=== PATIENT | female | born 1960 | race Caucasian/White ===

== ENCOUNTER 2016-06-22 13:13 | Emergency (ER) | payer MEDICARE, MEDICAID ==
[~2016-06-22] VITALS: Ht 167.6 cm; Wt 68.0 kg
[~2016-06-22 13:13] MED LIST: AMLO5CAP40
[2016-06-22 13:21] VITALS: BP 133/56
[2016-06-22 14:34] LABS: Basophils # (auto) 0 uL; Basophils % (auto) 0.5 % (0.0-2.0); Eosinophils # (auto) 0 uL; Hematocrit 49.6 % (36.0-46.0); Hemoglobin 15.6 g/dL (12.2-16.2); Lymphocytes # (auto) 1.9 uL; Lymphocytes % (auto) 26.5 % (10.0-50.0); Mean Corpuscular Hemoglobin 28.3 pg (28.0-32.0); Mean Corpuscular Hgb Conc. 31.4 g/dL (32.0-36.0); Mean Corpuscular Volume 90.2 fL (80.0-100.0); Mean Platelet Volume 8.2 fL (7.4-10.4); Monocytes # (auto) 0.4 uL; Monocytes % (auto) 5.9 % (0.0-12.0); Neutrophils # (auto) 4.8 uL; Neutrophils % (auto) 67.1 % (37.0-80.0); Platelet Count (auto) 283 10^3/uL (140-450); Red Cell Distribution Width 14.1 % (11.6-16.0); White Blood Cell 7.1 10^3/uL (4.4-10.8)
[2016-06-22 14:46] LABS: Albumin 3.6 g/dL (3.4-5.0); BUN/Creatinine Ratio 19.6; Bilirubin, Total 0.3 mg/dL (0.2-1.0); Calcium 9.3 mg/dL (8.5-10.1); Magnesium 2.2 mg/dL (1.6-2.6); Potassium 4.5 mmol/L (3.5-5.1); Total Protein 7.5 g/dL (6.4-8.2)
== END 2016-06-22 15:01 | disposition left against medical advice (07) ==
LOC: EDUNIT# 13:13 → EDBD 13:13 → ER 13:22
DX: R07.9 Chest pain, unspecified (principal); Z53.21 Procedure and treatment not carried out due to patient leaving prior to being seen by health care provider
CPT/HCPCS: 36415; 71010; 80053; 83735; 84484; 85025; 93005

== ENCOUNTER 2017-10-12 11:26 | Emergency (ER) | payer MEDICARE, BC ==
[~2017-10-12] VITALS: Ht 165.1 cm; Wt 78.5 kg
[2017-10-12 11:41] VITALS: BP 192/104
[2017-10-12 12:38] LABS: Basophils # (auto) 0 uL; Basophils % (auto) 0.4 % (0.0-2.0); Eosinophils # (auto) 0 uL; Hematocrit 47.3 % (36.0-46.0); Hemoglobin 15.9 g/dL (12.2-16.2); Lymphocytes # (auto) 1.5 uL; Mean Corpuscular Hemoglobin 30.5 pg (28.0-32.0); Mean Corpuscular Hgb Conc. 33.6 g/dL (32.0-36.0); Mean Corpuscular Volume 90.6 fL (80.0-100.0); Monocytes # (auto) 0.5 uL; Monocytes % (auto) 6.3 % (0.0-12.0); Neutrophils # (auto) 5.3 uL; Neutrophils % (auto) 72.3 % (37.0-80.0); Nucleated Red Blood Cells % 0.2 %; Platelet Count (auto) 231 10^3/uL (140-450); Red Blood Cells 5.22 10^6/uL (4.0-5.20); White Blood Cell 7.4 10^3/uL (4.4-10.8)
[2017-10-12 12:55] LABS: Alanine Aminotransferase 18 U/L (13-56); Albumin 3.4 g/dL (3.4-5.0); Anion Gap 9 (5-15); Aspartate Aminotransferase 15 U/L (15-37); Blood Urea Nitrogen 11 mg/dL (7-18); Carbon Dioxide 23 mmol/L (21-32); Chloride 102 mmol/L (98-107); GFR African American 73 mL/min; GFR Non-African American 60 mL/min; Glucose 110 mg/dL (74-106); Magnesium 1.9 mg/dL (1.6-2.6); Potassium 4.6 mmol/L (3.5-5.1); Sodium 134 mmol/L (136-145)
[2017-10-12 13:00] LABS: Alkaline Phosphatase 98 U/L (45-117); Bilirubin, Total 0.4 mg/dL (0.2-1.0); Total Protein 7.7 g/dL (6.4-8.2)
[2017-10-12] MEDS ORDERED: ACETAMINOPHEN 325 MG TAB PO ONE (14:00)
[2017-10-12] MEDS ORDERED: ALPRAZolam 0.5 MG TAB PO ONE (14:00)
[2017-10-12] MEDS ORDERED: cloNIDine HCL 0.1 MG TAB PO ONE (14:00)
[2017-10-12] MEDS ORDERED: cloNIDine 0.1 mg/24hr 7 DAY PATCH TD ONE (14:00)
[2017-10-12] MEDS ORDERED: SODIUM CHLORIDE 0.9% 1,000 ML IV SCH (16:21)
[2017-10-12] MEDS ORDERED: ACETAMINOPHEN 500 MG TAB PO PRN (16:30)
[2017-10-12] MEDS ORDERED: TEMAZEPAM 15 MG CAP PO PRN (16:30)
[2017-10-12] MEDS ORDERED: LORazepam 0.5 MG TAB PO PRN (16:30)
[2017-10-12] MEDS ORDERED: LABETALOL HCL 5 MG/ML ML 20ML VIAL IV PRN ×2 (16:30)
[2017-10-12] MEDS ORDERED: NITROGLYCERIN 0.4 MG SL TAB SL PRN (16:30)
[2017-10-12] MEDS ORDERED: PROMETHAZINE HCL 25 MG/ML 1ML IV PRN (16:30)
[2017-10-12] MEDS ORDERED: HYDROcodone-ACET 5/325MG TAB PO PRN (16:30)
[2017-10-12] MEDS ORDERED: LACTULOSE 20Gm/30ML SOLN PO PRN (16:30)
[2017-10-12] MEDS ORDERED: MORPHINE SULFATE 8mg/ml INJ SDV IV PRN ×2 (16:30)
[2017-10-12] MEDS ORDERED: METOPROLOL TARTRATE 50 MG TAB PO SCH (16:30)
[2017-10-12] MEDS ORDERED: MORPHINE SULFATE 4 MG/ML SYR/VIAL IV PRN ×2 (16:30)
[2017-10-12 18:09] LABS: Urine Bacteria NONE SEEN /hpf (None Seen); Urine Blood Negative /uL (Negative); Urine Hyaline Cast FEW /lpf (0 - 2); Urine Mucus FEW (None Seen); Urine Specific Gravity 1.013 (1.001-1.035); Urine WBC 5 /hpf (0 - 5)
[2017-10-12 18:22] LABS: Alcohol, Urine < 3.0 mg/dL (0-5); Amphetamine Screen, Urine NEGATIVE (NEGATIVE); Barbiturate Scree,Urine NEGATIVE (NEGATIVE); Benzodiazephine Screen, Urine POSITIVE (NEGATIVE); Cannabinoid Screen, Urine NEGATIVE (NEGATIVE); Cocaine Screen, Urine NEGATIVE (NEGATIVE); Opiate Scree,Urine NEGATIVE (NEGATIVE); Phencyclidine Screen, Urine NEGATIVE (NEGATIVE)
[2017-10-12] MEDS ORDERED: ATORVASTATIN 20 MG TAB PO SCH (22:00)
[2017-10-13] MEDS ORDERED: ASPirin 81 mg TAB PO SCH (10:00)
[2017-10-13] MEDS ORDERED: NITROGLYCERIN 0.2MG/HR TOPICAL PATCH TD SCH (10:00)
[2017-10-13] MEDS ORDERED: PANTOPRAZOLE 40 MG TAB PO SCH (10:00)
[2017-10-13] MEDS ORDERED: METOPROLOL TARTRATE 25 MG TAB PO SCH (10:00)
== END 2017-10-12 17:58 | disposition left against medical advice (07) ==
LOC: ER 11:26 → TELE 11:27 → UNDOADMIN 11:27
DX: R07.89 Other chest pain (principal); I10 Essential (primary) hypertension; E06.3 Autoimmune thyroiditis; E78.5 Hyperlipidemia, unspecified; Z86.73 Personal history of transient ischemic attack (TIA), and cerebral infarction without residual deficits; Z88.1 Allergy status to other antibiotic agents
CPT/HCPCS: 36415; 71045; 80053; 80307; 81001; 82550; 83735; 84443; 84484; 85025; 85379; 85652; 86141; 93005

== ENCOUNTER 2019-10-31 22:47 | Emergency (ER) | payer MEDICARE, BC ==
[~2019-10-31] VITALS: Ht 167.6 cm; Wt 81.6 kg
[2019-10-31 23:34] LABS: Basophils # (auto) 0 10 ^3/uL (0-0.2); Basophils % (auto) 0.3 % (0.0-2.0); Eosinophils # (auto) 0 10 ^3/uL (0-0.8); Hematocrit 45.5 % (36.0-46.0); Hemoglobin 15.1 g/dL (12.2-16.2); Lymphocytes # (auto) 1.9 10 ^3/uL (0.4-5.4); Lymphocytes % (auto) 22.2 % (10.0-50.0); Mean Corpuscular Hemoglobin 29.5 pg (28.0-32.0); Mean Corpuscular Hgb Conc. 33.2 g/dL (32.0-36.0); Mean Corpuscular Volume 88.9 fL (80.0-100.0); Monocytes # (auto) 0.7 10 ^3/uL (0-1.3); Neutrophils # (auto) 5.9 10 ^3/uL (1.6-8.6); Neutrophils % (auto) 69.5 % (37.0-80.0); Nucleated Red Blood Cells % 0.2 %; Platelet Count (auto) 251 10^3/uL (140-450); Red Blood Cells 5.11 10^6/uL (4.0-5.20); Red Cell Distribution Width 14.1 % (11.8-14.3); White Blood Cell 8.5 10^3/uL (4.4-10.8)
[2019-11-01 00:32] LABS: INR 1.03 (0.9-1.15); Partial Thromboplastin Time 29.9 sec (23.64-32.05)
[2019-11-01 00:35] LABS: Albumin 3.2 g/dL (3.4-5.0); Calcium 8.6 mg/dL (8.5-10.1); Potassium 4.2 mmol/L (3.5-5.1)
[2019-11-01 00:39] LABS: Bilirubin, Total 0.5 mg/dL (0.2-1.0); Total Protein 7.1 g/dL (6.4-8.2)
[2019-11-01 02:24] VITALS: BP 155/69
== END 2019-11-01 02:01 | disposition home or self-care (01) ==
LOC: EDBD 22:47 → ER 22:47
DX: R07.89 Other chest pain (principal); F41.9 Anxiety disorder, unspecified; E03.9 Hypothyroidism, unspecified; I25.10 Atherosclerotic heart disease of native coronary artery without angina pectoris; E78.5 Hyperlipidemia, unspecified; I10 Essential (primary) hypertension; Z88.1 Allergy status to other antibiotic agents
CPT/HCPCS: 36415; 71045; 80053; 83880; 84443; 84484; 85025; 85379; 85610; 85730; 93005

== ENCOUNTER 2021-02-12 16:30 | Emergency (ER) | payer MEDICARE, BC ==
[~2021-02-12] VITALS: Ht 170.2 cm; Wt 77.1 kg
[2021-02-12 17:05] VITALS: BP 170/86
== END 2021-02-12 17:24 | disposition left against medical advice (07) ==
LOC: EDBD 16:30 → ER 16:34
DX: R07.89 Other chest pain (principal); I16.0 Hypertensive urgency; I10 Essential (primary) hypertension; E78.5 Hyperlipidemia, unspecified; I25.2 Old myocardial infarction
CPT/HCPCS: 93005

== ENCOUNTER 2021-11-30 15:54 | Emergency (ER) | payer BC, MEDICARE ==
[~2021-11-30] VITALS: Ht 160 cm; Wt 80.3 kg
[2021-11-30] MEDS ORDERED: SODIUM CHLORIDE 0.9% 1,000 ML IVB ONE (16:00)
[2021-11-30 16:18] VITALS: BP 162/93
[2021-11-30 16:36] LABS: Basophils # (auto) 0 10 ^3/uL (0-0.2); Basophils % (auto) 0.2 % (0.0-2.0); Eosinophils # (auto) 0 10 ^3/uL (0-0.8); Hematocrit 49.8 % (36.0-46.0); Hemoglobin 16.2 g/dL (12.2-16.2); Lymphocytes % (auto) 12.6 % (10.0-50.0); Mean Corpuscular Hemoglobin 29.2 pg (28.0-32.0); Mean Corpuscular Hgb Conc. 32.5 g/dL (32.0-36.0); Mean Corpuscular Volume 89.8 fL (80.0-100.0); Monocytes # (auto) 0.5 10 ^3/uL (0-1.3); Monocytes % (auto) 6.4 % (0.0-12.0); Neutrophils # (auto) 6.3 10 ^3/uL (1.6-8.6); Neutrophils % (auto) 80.8 % (37.0-80.0); Nucleated Red Blood Cells % 0.1 %; Red Blood Cells 5.54 10^6/uL (4.0-5.20); Red Cell Distribution Width 14.4 % (11.8-14.3); White Blood Cell 7.9 10^3/uL (4.4-10.8)
[2021-11-30 16:53] LABS: Alanine Aminotransferase 18 U/L (13-56); Albumin 3.5 g/dL (3.4-5.0); Anion Gap 9 (5-15); Aspartate Aminotransferase 15 U/L (15-37); BUN/Creatinine Ratio 9.3; Blood Alcohol < 3.0 mg/dL (0-5); Blood Urea Nitrogen 10 mg/dL (7-18); Carbon Dioxide 23 mmol/L (21-32); Chloride 104 mmol/L (98-107); GFR African American 67 mL/min; GFR Non-African American 55 mL/min; Glucose 142 mg/dL (74-106); Magnesium 2.3 mg/dL (1.6-2.6); Potassium 3.9 mmol/L (3.5-5.1); Sodium 136 mmol/L (136-145)
[2021-11-30 16:56] LABS: Alkaline Phosphatase 107 U/L (45-117); Bilirubin, Total 0.3 mg/dL (0.2-1.0); Total Protein 7.3 g/dL (6.4-8.2)
== END 2021-11-30 19:56 | disposition left against medical advice (07) ==
LOC: ER 15:54 → EDBD 15:54 → ER 19:56
DX: R53.1 Weakness (principal); I10 Essential (primary) hypertension; I25.2 Old myocardial infarction; E78.5 Hyperlipidemia, unspecified; Z88.1 Allergy status to other antibiotic agents; Z53.29 Procedure and treatment not carried out because of patient's decision for other reasons
CPT/HCPCS: 36415; 70450; 71045; 80053; 80320; 83605; 83735; 84484; 85025; 87040; 93005; 96360; 99285; J7030

== ENCOUNTER 2022-03-23 13:11 | Emergency (ER) | payer MEDICARE ==
[~2022-03-23] VITALS: Ht 165.1 cm; Wt 80.4 kg
[2022-03-23 13:21] VITALS: BP 193/75
[2022-03-23] MEDS ORDERED: SODIUM CHLORIDE 0.9% 1,000 ML IV ONE (13:30)
[2022-03-23 14:19] LABS: Albumin 3.5 g/dL (3.4-5.0); Calcium 8.9 mg/dL (8.5-10.1); Magnesium 2.2 mg/dL (1.6-2.6); Potassium 4.3 mmol/L (3.5-5.1)
[2022-03-23 14:23] LABS: Bilirubin, Total 0.9 mg/dL (0.2-1.0); Total Protein 6.8 g/dL (6.4-8.2)
== END 2022-03-23 16:16 | disposition left against medical advice (07) ==
LOC: ER 13:11 → EDBD 13:11 → ER 16:16
DX: R07.9 Chest pain, unspecified (principal); F41.9 Anxiety disorder, unspecified; I25.10 Atherosclerotic heart disease of native coronary artery without angina pectoris; F32.9 Major depressive disorder, single episode, unspecified; Z88.6 Allergy status to analgesic agent; Z88.8 Allergy status to other drugs, medicaments and biological substances
CPT/HCPCS: 36415; 71045; 80053; 83735; 83880; 84484; 85379; 93005

== ENCOUNTER 2023-04-11 12:01 | Emergency (ER) | payer MEDICARE ==
[~2023-04-11 12:01] MED LIST changes: +AMLO5CAP2; -AMLO5CAP40
== END 2023-04-11 13:00 | disposition left against medical advice (07) ==
LOC: ER 12:01
DX: R30.9 Painful micturition, unspecified (principal); Z53.21 Procedure and treatment not carried out due to patient leaving prior to being seen by health care provider

== ENCOUNTER 2024-02-01 23:13 | Inpatient (IN) | payer MEDICARE ==
[~2024-02-01] VITALS: Ht 157.5 cm; Wt 75.0 kg
[2024-02-01 23:25] VITALS: PULSE 111; RESP 21; O2SAT 96
[2024-02-01 23:51] LABS: Basophils # (auto) 0 10 ^3/uL (0-0.2); Basophils % (auto) 0.3 % (0.0-2.0); Eosinophils # (auto) 0 10 ^3/uL (0-0.8); Lymphocytes # (auto) 1.2 10 ^3/uL (0.4-5.4); Lymphocytes % (auto) 12.7 % (10.0-50.0); Mean Corpuscular Hemoglobin 31.3 pg (28.0-32.0); Monocytes # (auto) 0.9 10 ^3/uL (0-1.3); Monocytes % (auto) 9.3 % (0.0-12.0); Neutrophils # (auto) 7.1 10 ^3/uL (1.6-8.6); Neutrophils % (auto) 77.7 % (37.0-80.0); Platelet Count (auto) 327 10^3/uL (140-450); Red Blood Cells 5.76 10^6/uL (4.0-5.20); Red Cell Distribution Width 14.9 % (11.8-14.3); White Blood Cell 9.2 10^3/uL (4.4-10.8)
[2024-02-02 00:12] LABS: Alanine Aminotransferase 11 U/L (7-40); Alkaline Phosphatase 111 U/L (46-116); Calcium 10.5 mg/dL (8.7-10.4); Carbon Dioxide 20 mmol/L (20-30); Chloride 103 mmol/L (98-107)
[2024-02-02 00:13] LABS: Albumin 4.7 g/dL (3.2-4.8); Anion Gap 14 (5-15); Aspartate Aminotransferase 11 U/L (13-40); BUN/Creatinine Ratio 10.9 (10.0-20.0); Bilirubin, Total 0.6 mg/dL (0.2-1.0); Blood Urea Nitrogen 24 mg/dL (9-23); Glucose 123 mg/dL (74-106); Potassium 5.3 mmol/L (3.5-5.1); Sodium 137 mmol/L (136-145); Total Protein 7.8 g/dL (5.7-8.2)
[2024-02-02] MEDS: ONDANSETRON HCL 4 MG/2 ML VIAL IV ONE (00:38)
[2024-02-02] MEDS: LABETALOL HCL 20 MG/4 ML VL IV ONE ×2 (00:45→04:00)
[2024-02-02 05:50] LABS: Urine Bacteria None Seen /hpf (None Seen)
[2024-02-02 06:11] LABS: Urine Amorphous Crystal MOD /hpf (None Seen); Urine Blood 2+ /uL (Negative); Urine Clarity Ex.Turbid (Clear); Urine Color Dark-Brown (Yellow); Urine Protein, UAD 2+ (Negative); Urine Specific Gravity 1.008 (1.001-1.035); Urine Urobilinogen Normal (Negative); Urine WBC 4583 /hpf (0 - 5); Urine WBC Clumps PRESENT /hpf (None Seen)
[2024-02-02 07:44] VITALS: PULSE 90; RESP 18; O2SAT 98
[2024-02-02] MEDS: cefTRIAXone 1GM/50ML D5W 50 ML IV ONE ×2 (15:21→18:50)
[2024-02-02] MEDS: SODIUM CHLORIDE 0.9% 1,000 ML IV ONE (15:21)
[2024-02-02] MEDS: cloNIDine HCL 0.1 MG TAB PO ONE (16:56)
[2024-02-02 17:27] VITALS: PULSE 102; RESP 19; O2SAT 95
[2024-02-02] MEDS ORDERED: NITROGLYCERIN 0.4 MG SL TAB SL PRN (18:00)
[2024-02-02] MEDS ORDERED: ONDANSETRON HCL 4 MG/2 ML VIAL IV PRN ×2 (18:00)
[2024-02-02] MEDS ORDERED: DOCUSATE SOD 100 MG CAP PO PRN (18:00)
[2024-02-02] MEDS ORDERED: ACETAMINOPHEN 325 MG TAB PO PRN (18:00)
[2024-02-02] MEDS ORDERED: SODIUM CHLORIDE 0.9% 2,000 ML IV ONE (18:00)
[2024-02-02] MEDS: SODIUM CHLORIDE 0.9% 1,000 ML IV SCH (18:51)
[2024-02-02] MEDS: THYROID 60 MG TAB PO ONE (18:51)
[2024-02-02] MEDS: ENOXAPARIN SOD 30 MG/0.3 ML SYRINGE SC ONE (18:54)
[2024-02-02] MEDS: hydrALAZINE HCL 20 MG/ML VL IV PRN (18:56)
[2024-02-02 19:38] LABS: Creatinine, Urine 69.24 mg/dL (30.0-125.0)
[2024-02-02 20:07] LABS: INR 1.07 (0.9-1.15); Prothrombin Time 11.3 sec (9.3-11.8)
[2024-02-02] MEDS: ATORVASTATIN 20 MG TAB PO SCH (22:00)
[2024-02-02] MEDS: METOPROLOL TARTRATE 25 MG TAB PO SCH (22:00)
[2024-02-03] VITALS (9 sets, daily range): BP systolic 142–198; BP diastolic 57–98; PULSE 63–135; RESP 16–19; TEMP 97.6–99.1; O2SAT 93–98
[2024-02-03] MEDS: THYROID 60 MG TAB PO SCH (07:01)
[2024-02-03 08:26] LABS: Hematocrit 43.4 % (36.0-46.0); Hemoglobin 14.6 g/dL (12.2-16.2); Mean Corpuscular Hemoglobin 31.2 pg (28.0-32.0); Mean Corpuscular Hgb Conc. 33.6 g/dL (32.0-36.0); Mean Corpuscular Volume 92.8 fL (80.0-100.0); Platelet Count (auto) 235 10^3/uL (140-450); Red Blood Cells 4.67 10^6/uL (4.0-5.20); White Blood Cell 5.4 10^3/uL (4.4-10.8)
[2024-02-03 08:34] LABS: Band Neutrophils % (manual) 0; Basophils % (manual) 0 (0.0-2.0); Blast Cells 0; Eosinophils % (manual) 0 (0-7); Metamyelocytes % 0; Myelocytes % 0; Promyelocytes % 0; Reactive Lymphocytes 0
[2024-02-03 08:42] LABS: Alanine Aminotransferase 15 U/L (7-40); Albumin 3.4 g/dL (3.2-4.8); Alkaline Phosphatase 72 U/L (46-116); Anion Gap 8 (5-15); Aspartate Aminotransferase 14 U/L (13-40); BUN/Creatinine Ratio 16.5 (10.0-20.0); Bilirubin, Total 0.5 mg/dL (0.2-1.0); Blood Urea Nitrogen 21 mg/dL (9-23); Calcium 8.1 mg/dL (8.7-10.4); Carbon Dioxide 21 mmol/L (20-30); Cholesterol 192 mg/dL (< 200); Glucose 96 mg/dL (74-106); HDL Cholesterol 31 mg/dL (40-59); LDL Cholesterol 143 mg/dL (< 100); Potassium 3.8 mmol/L (3.5-5.1); Sodium 143 mmol/L (136-145); Total Protein 5.3 g/dL (5.7-8.2); Triglycerides 132 mg/dL (< 150)
[2024-02-03 08:43] LABS: Chloride 114 mmol/L (98-107)
[2024-02-03] MEDS ORDERED: NIFE1TAB31 PO (09:43)
[2024-02-03] MEDS ORDERED: CLON0.1T PO (09:44)
[2024-02-03] MEDS ORDERED: THYR30TA PO (09:45)
[2024-02-03] MEDS: cefTRIAXone 1GM/50ML D5W 50 ML IV SCH (09:58)
[2024-02-03] MEDS: DOCUSATE SOD 100 MG CAP PO SCH (09:58)
[2024-02-03] MEDS: ASPirin 81 mg TAB PO SCH (09:58)
[2024-02-03] MEDS: ENOXAPARIN SOD 30 MG/0.3 ML SYRINGE SC SCH (09:59)
[2024-02-03 11:51] LABS: Lymphocytes % (manual) 32 (10.0-50.0); Monocytes % (manual) 14 (0-12); Platelet Estimate Adequate
[2024-02-03] MEDS: NIFEdipine ER 30 MG TAB PO ONE ×2 (12:35→14:04)
[2024-02-03] MEDS ORDERED: METOPROLOL TARTRATE 25 MG TAB PO ONE (13:00)
[2024-02-03] MEDS ORDERED: LEVOTHYROXINE SODIUM 25 MCG TAB PO ONE (13:30)
[2024-02-03] MEDS: LEVOTHYROXINE SODIUM 100 MCG/5 ML INJ IV ONE (14:04)
[2024-02-03] MEDS: MORPHINE SULFATE INJ 2 MG/ml SYRG IV PRN (18:39)
[2024-02-03] MEDS: CARVEDILOL 12.5 MG TAB PO SCH (21:34)
[2024-02-03] MEDS ORDERED: METOPROLOL TARTRATE 50 MG TAB PO SCH (22:00)
[2024-02-04] VITALS (7 sets, daily range): BP systolic 96–154; BP diastolic 43–67; PULSE 69–99; RESP 17–20; TEMP 97.6–98.7; O2SAT 95–97
[2024-02-04] MEDS: NITROGLYCERIN 0.4 MG SL TAB SL PRN (02:45)
[2024-02-04] MEDS: LEVOTHYROXINE SODIUM 25 MCG TAB PO SCH (06:00)
[2024-02-04] MEDS: LEVOTHYROXINE SODIUM 100 MCG/5 ML INJ IV SCH (08:27)
[2024-02-04] MEDS: NIFEdipine ER 30 MG TAB PO SCH ×2 (08:28→16:15)
[2024-02-04] MEDS ORDERED: NIFEdipine ER 30 MG TAB PO SCH (10:00)
[2024-02-04 10:46] LABS: Basophils # (auto) 0 10 ^3/uL (0-0.2); Basophils % (auto) 0.1 % (0.0-2.0); Eosinophils # (auto) 0 10 ^3/uL (0-0.8); Hemoglobin 14.9 g/dL (12.2-16.2); Lymphocytes # (auto) 0.8 10 ^3/uL (0.4-5.4); Lymphocytes % (auto) 19.3 % (10.0-50.0); Monocytes # (auto) 0.3 10 ^3/uL (0-1.3); Monocytes % (auto) 7.1 % (0.0-12.0); Neutrophils # (auto) 3.2 10 ^3/uL (1.6-8.6); Neutrophils % (auto) 73.5 % (37.0-80.0); Platelet Count (auto) 222 10^3/uL (140-450); Red Blood Cells 4.79 10^6/uL (4.0-5.20); Red Cell Distribution Width 14.9 % (11.8-14.3); White Blood Cell 4.3 10^3/uL (4.4-10.8)
[2024-02-04 11:06] LABS: Chloride 109 mmol/L (98-107); Potassium 4.5 mmol/L (3.5-5.1); Sodium 136 mmol/L (136-145)
[2024-02-04 11:07] LABS: Anion Gap 14 (5-15); Calcium 8.8 mg/dL (8.7-10.4); Carbon Dioxide 13 mmol/L (20-30)
[2024-02-04 11:12] LABS: BUN/Creatinine Ratio 17.2 (10.0-20.0); Blood Urea Nitrogen 17 mg/dL (9-23); Glucose 166 mg/dL (74-106)
[2024-02-04] MEDS: CARVEDILOL 12.5 MG TAB PO SCH (16:15)
[2024-02-05 07:34] VITALS: PULSE 86; RESP 20; O2SAT 97
[2024-02-05 08:00] VITALS: PULSE 80
[2024-02-05] MEDS: ENOXAPARIN SOD 40 MG/0.4 ML SYRINGE SC SCH (08:07)
[2024-02-05 09:31] VITALS: BP 114/67; PULSE 80; RESP 16; TEMP 98.5; O2SAT 96
[2024-02-05 12:01] VITALS: BP 135/59; PULSE 76; RESP 16; TEMP 98.5; O2SAT 95
[2024-02-05 16:07] VITALS: BP 147/61; PULSE 84; RESP 16; TEMP 98.5; O2SAT 95
[2024-02-05 20:00] VITALS: PULSE 80; PULSE 92; RESP 18; O2SAT 95
[2024-02-06] MEDS: MELATONIN 5 MG TAB PO ONE (01:18)
[2024-02-06 08:00] VITALS: PULSE 77
[2024-02-06 08:42] VITALS: BP 138/55; PULSE 80; RESP 16; TEMP 97.6; O2SAT 94
[2024-02-06 13:00] VITALS: BP 157/64; PULSE 84; RESP 17; TEMP 98.1; O2SAT 97
[2024-02-06] MEDS ORDERED: CIPR-173 PO (14:30)
[2024-02-06] MEDS ORDERED: LEVO-848 PO (14:36)
[2024-02-06] MEDS ORDERED: LEVO-849 PO (14:36)
[2024-02-06 17:07] VITALS: BP 183/85; PULSE 87; RESP 17; TEMP 98.6; O2SAT 94
[2024-02-07] MEDS ORDERED: NIFE1TAB31 (21:25)
== END 2024-02-06 17:45 | disposition home or self-care (01) | DRG 871 ==
LOC: ER 23:13 → EDUNIT# 23:13 → EDBD 23:13 → TELE 02-02 17:59 → TELE-WESTW 02-02 23:55
PROVIDERS: ADMIT Nurse Practitioner Family; ATTEND Family Medicine
DX: A41.9 Sepsis, unspecified organism (principal); I21.A1 Myocardial infarction type 2; N17.0 Acute kidney failure with tubular necrosis; I16.1 Hypertensive emergency; I50.32 Chronic diastolic (congestive) heart failure; N10 Acute pyelonephritis; Z59.01 Sheltered homelessness; E86.0 Dehydration; E87.5 Hyperkalemia; I25.10 Atherosclerotic heart disease of native coronary artery without angina pectoris; F41.9 Anxiety disorder, unspecified; F32.A Depression, unspecified; J33.9 Nasal polyp, unspecified; E03.9 Hypothyroidism, unspecified; E78.00 Pure hypercholesterolemia, unspecified; I11.0 Hypertensive heart disease with heart failure; Z82.0 Family history of epilepsy and other diseases of the nervous system; Z91.199 Patient's noncompliance with other medical treatment and regimen due to unspecified reason; Z79.899 Other long term (current) drug therapy; Z82.49 Family history of ischemic heart disease and other diseases of the circulatory system
CPT/HCPCS: 36415; 70450; 74176; 76775; 80048; 80053; 80061; 81001; 82570; 83605; 83735; 83880; 84300; 84443; 84484; 85007; 85025; 85027; 85610; 87040; 87086; 93005; 93306; G0378; J2405; J3490

== ENCOUNTER 2024-04-22 14:06 | Emergency (ER) | payer MEDICARE ==
[~2024-04-22] VITALS: Ht 170.2 cm; Wt 72.7 kg
[~2024-04-22 14:06] MED LIST changes: -AMLO5CAP2; +ATOR20TA50 PO; +CLON0.1T PO; +FLUT1SPR5; +MUPI2CRE17 EX; +NIFE1TAB31 PO; +THYR30TA PO
[2024-04-22 15:28] LABS: Urine Bacteria None Seen /hpf (None Seen)
[2024-04-22 15:37] LABS: Urine Blood 1+ /uL (Negative); Urine Clarity Turbid (Clear); Urine Color Colorless (Yellow); Urine Protein, UAD Negative (Negative); Urine Specific Gravity 1.006 (1.001-1.035); Urine Urobilinogen Normal (Negative); Urine WBC 1018 /hpf (0 - 5); Urine WBC Clumps PRESENT /hpf (None Seen)
[2024-04-22 15:59] LABS: Basophils # (auto) 0 10 ^3/uL (0-0.2); Basophils % (auto) 0.5 % (0.0-2.0); Eosinophils # (auto) 0 10 ^3/uL (0-0.8); Hematocrit 43.6 % (36.0-46.0); Hemoglobin 14.6 g/dL (12.2-16.2); Lymphocytes # (auto) 2.1 10 ^3/uL (0.4-5.4); Lymphocytes % (auto) 28.4 % (10.0-50.0); Mean Corpuscular Hemoglobin 31.3 pg (28.0-32.0); Mean Corpuscular Hgb Conc. 33.5 g/dL (32.0-36.0); Mean Corpuscular Volume 93.6 fL (80.0-100.0); Monocytes # (auto) 0.5 10 ^3/uL (0-1.3); Monocytes % (auto) 7.4 % (0.0-12.0); Neutrophils # (auto) 4.7 10 ^3/uL (1.6-8.6); Neutrophils % (auto) 63.7 % (37.0-80.0); Nucleated Red Blood Cells % 0.2 %; Platelet Count (auto) 274 10^3/uL (140-450); Red Blood Cells 4.66 10^6/uL (4.0-5.20); Red Cell Distribution Width 13.8 % (11.8-14.3); White Blood Cell 7.4 10^3/uL (4.4-10.8)
--- NOTE | 2024-04-22 16:02 | ED.PDOC ---
General HPI Comments 63Y F with PMHx HTN, HLD, AL, CAD, thyroid disease, UTI, endometriosis, depression, and anxiety presents to ED via EMS for chief complaint dysuria. Pt states she had tan catheter in place but it fell out. Pt does not know when the tan catheter fell out but states that it was leaking beforehand. Pt denies all other symptoms. No known drug allergies. Chief Complaint: Urinary Time Seen by MD: 15:17 Primary Care Provider: JODI Corey notes: Medications, Allergies Allergies: Coded Allergies: NO KNOWN ALLERGIES (Unverified , 02/02/24) Home Meds Active Scripts Mupirocin Calcium (Topical) (MUPIROCIN) 2 % Cre, 2 % EX TID for 5 Days, #1 CRE Prov:DENILSON MELGOZA MD 02/13/24 Fluticasone Propionate (Nasal) (Flonase Allergy Relief) 50 Mcg/Act Spr, 50 MCG NA BID for 30 Days, #1 SPRAY 0 Refills Prov:DENILSON MELGOZA MD 02/13/24 Atorvastatin Calcium (ATORVASTATIN CALCIUM) 20 Mg Tab, 40 MG PO HS for 30 Days, #60 TAB 0 Refills Prov:DENILSON MELGOZA MD 02/13/24 Reported Medications Thyroid (Guin Thyroid) 30 Mg Tab, 1 TAB PO DAILY, #90 TAB 3 Refills 02/03/24 Clonidine Hydrochloride (Clonidine Hcl) 0.1 Mg Tab, 0.1 MG PO TID, TAB 02/03/24 Nifedipine (Nifedipine Er) 30 Mg Tab, 30 MG PO BID, TAB 02/03/24 Information Source: Patient Mode of Arrival: EMS Brought in by: EMS Severity: Mild Inability to void: None Timing: Days Duration: Since onset Prehospital treatment: None Onset: Spontaneous Symptoms: Dysuria History of: UTI Location: None Modifying factors: None associated signs and symptoms: Dysuria Past Medical History PAST MEDICAL HISTORY: Anxiety, CAD, Depression, High Lipids, HTN, AL, Thyroid, UTI'S Surgical History: Denies all surgeries 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 Family History Family History: Reviewed,noncontributory to illness, Family hx of heart lee Family History (Other): Family hx of Alzheimer's and multiple sclerosis Social History Smoker: Non-Smoker Alcohol: Denies ETOH Use Drugs: Denies Drug Use Lives In: Home Constitutional: denies: chills, diaphoresis, fatigue, fever, malaise, sweats, weakness, others EENTM: denies: blurred vision, double vision, ear bleeding, ear discharge, ear drainage, ear pain, ear ringing, eye pain, eye redness, hearing loss, mouth pain, mouth swelling, nasal discharge, nose bleeding, nose congestion, nose pain, photophobia, tearing, throat pain, throat swelling, voice changes, others Respiratory: denies: cough, hemoptysis, orthopnea, SOB at rest, shortness of breath, SOB with excertion, stridor, wheezing, others Cardiovascular: denies: chest pain, dizzy spells, diaphoresis, Dyspnea on exertion, edema, irregular heart beat, left arm pain, lightheadedness, palpitations, PND, syncope, others Gastrointestinal: denies: abdomen distended, abdominal pain, blood streaked bowels, constipated, diarrhea, dysphagia, difficulty swallowing, hematemesis, melena, nausea, poor appetite, poor fluid intake, rectal bleeding, rectal pain, vomiting, others Genitourinary: reports: dysuria; denies: abnormal vagina bleeding, burning, dyspareunia, flank pain, frequency, hematuria, incontinence, pain, , vagina discharge, urgency, others Neurological: denies: dizziness, fainting, headache, left sided numbness, left sided weakness, numbness, paresthesia, pre-existing deficit, right sided numbness, right sided weakness, seizure, speech problems, tingling, tremors, weakness, others Musculoskeletal: denies: back pain, gout, joint pain, joint swelling, muscle pain, muscle stiffness, neck pain, others Integumetry: denies: bruises, change in color, change in hair/nails, dryness, laceration, lesions, lumps, rash, wounds, others Allergic/Immunocompromised: denies: Difficulty Healing, Frequent Infections, Hives, Itching, others Hematologic/Lymphatic: denies: anemia, blood clots, easy bleeding, easy bruising, swollen glands, others Endocrine: denies: excessive hunger, excessive sweating, excessive thirst, excessive urination, flushing, intolerance to cold, intolerance to heat, unexplained weight gain, unexplained weight loss, others Psychiatric: denies: anxiety, bipolar disorder, depression, hopeless, panic disorder, schizophrenia, sleepless, suicidal, others All Other Systems: Reviewed and Negative Physical Exam General Appearance: No Apparent Distress, Normal HEENT: Normal ENT Inspection, Pharynx Normal, TMs Normal Neck: Full Range of Motion, Non-Tender, Normal, Normal Inspection Respiratory: Chest Non-Tender, Lungs Clear, No Accessory Muscle Use, No Respiratory Distress, Normal Breath Sounds Cardiovascular: No Edema, No JVD, No Murmur, No Gallop, Normal Peripheral Pulses, Regular Rate/Rhythm Breast Exam: Deferred Gastrointestinal: No Organomegaly, Non Tender, No Pulsatile Mass, Normal Bowel Sounds, Soft Genitalia: Deferred Pelvic: Deferred Rectal: Deferred Extremities: No calf tenderness, Normal capillary refill, Normal inspection, Normal range of motion, Non-tender, No pedal edema Musculoskeletal : Apperance: Normal Neurologic: Alert, associate professor of pathology 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 Was a procedure done?: No Differential Diagnosis Kidney stone (Female): Urinary obstruction Kidney stone (Male): N/A Penile/Scrotal: N/A Urinary Problem (Male): N/A X-Ray, Labs, Meds, VS Vital Signs Date Time Temp Pulse Resp B/P (MAP) Pulse Ox O2 Delivery O2 Flow Rate FiO2 04/22/24 14:10 98.5 72 16 132/75 (94) 99 Lab Test 04/22/24 15:32 04/22/24 15:14 Range/Units White Blood Count 7.4 4.4-10.8 10^3/uL Red Blood Count 4.66 4.0-5.20 10^6/uL Hemoglobin 14.6 12.2-16.2 g/dL Hematocrit 43.6 36.0-46.0 % Mean Corpuscular Volume 93.6 80.0-100.0 fL Mean Corpuscular Hemoglobin 31.3 28.0-32.0 pg Mean Corpuscular Hemoglobin Concent 33.5 32.0-36.0 g/dL Red Cell Distribution Width 13.8 11.8-14.3 % Platelet Count 274 140-450 10^3/uL Mean Platelet Volume 7.6 6.9-10.8 fL Neutrophils (%) (Auto) 63.7 37.0-80.0 % Lymphocytes (%) (Auto) 28.4 10.0-50.0 % Monocytes (%) (Auto) 7.4 0.0-12.0 % Eosinophils (%) (Auto) 0.0 0.0-7.0 % Basophils (%) (Auto) 0.5 0.0-2.0 % Neutrophils # (Auto) 4.7 1.6-8.6 10 ^3/uL Lymphocytes # (Auto) 2.1 0.4-5.4 10 ^3/uL Monocytes # (Auto) 0.5 0-1.3 10 ^3/uL Eosinophils # (Auto) 0 0-0.8 10 ^3/uL Basophils # (Auto) 0 0-0.2 10 ^3/uL Nucleated Red Blood Cells 0.2 % Sodium Level 138 136-145 mmol/L Potassium Level 4.4 3.5-5.1 mmol/L Chloride Level 103 98-107 mmol/L Carbon Dioxide Level 25 20-31 mmol/L Anion Gap 10 5-15 Blood Urea Nitrogen 9 9-23 mg/dL Creatinine 0.93 0.550-1.02 mg/dL Glomerular Filtration Rate Calc 68 >90 mL/min BUN/Creatinine Ratio 9.7 L 10.0-20.0 Serum Glucose 110 H 74-106 mg/dL Calcium Level 10.1 8.7-10.4 mg/dL Urine Color Colorless Yellow Urine Clarity Turbid H Clear Urine pH 6.0 5.0-9.0 Urine Specific Flora 1.006 1.001-1.035 Urine Protein Negative Negative Urine Ketones Negative Negative Urine Blood 1+ H Negative /uL Urine Nitrite Negative Negative Urine Bilirubin Negative Negative Urine Urobilinogen Normal Negative mg/dL Urine Leukocyte Esterase 3+ Negative /uL Urine RBC 2 0 - 4 /hpf Urine WBC 1018 0 - 5 /hpf Urine WBC Clumps Present None Seen /hpf Urine Squamous Epithelial Cells None seen <5 /hpf Urine Bacteria None seen None Seen /hpf Urine Glucose Normal Normal mg/dL Time of 1ST Reevaluation: 15:47 Reevaluation 1ST: Unchanged Patient Education/Counseling: Diagnosis, Treatment Family Education/Counseling: No Family Present Departure 1 Departure Time of Disposition: 17:34 (Patient is urinating normally she does have some white blood cells in her urine. We will discharge patient with antibiotics for urinary tract infection.) Impression: Primary Impression: Acute cystitis Qualified Codes: N30.00 - Acute cystitis without hematuria Disposition: HOME / SELF CARE / HOMELESS Condition: Stable Additional Instructions: You have a urinary tract infection. Your prescribed antibiotics. Please take as directed. You can take Tylenol Motrin as needed for pain. It is important that he follow up with the regular doctor within 1 week to ensure you are doing better. If your symptoms worsen or you have any other concerns then please return to the emergency room. e-Prescriptions Cefdinir (Cefdinir) 300 Mg Cap 1 CAP PO BID for 7 Days, #14 CAP Prov: VIOLET WOLFE MD 04/22/24 Discharged With: Self Critical Care Note Critical Care Time?: No Stability Stability form required: No Heart Score Heart Score: Heart Score Response (Comments) Value History N/A 0 EKG N/A 0 Age N/A 0 Risk Factors N/A 0 Troponin N/A 0 Total 0 I personally scribed for VIOLET WOLFE MD ([email or web address]) on 04/22/24 at 16:02. Electronically submitted by Cristiana Bowens ([email or web address]). VIOLET WOLFE MD Apr 22, 2024 16:02
[2024-04-22 16:07] LABS: Chloride 103 mmol/L (98-107); Potassium 4.4 mmol/L (3.5-5.1); Sodium 138 mmol/L (136-145)
[2024-04-22 16:08] LABS: Anion Gap 10 (5-15); Carbon Dioxide 25 mmol/L (20-31)
[2024-04-22 16:09] LABS: Calcium 10.1 mg/dL (8.7-10.4)
[2024-04-22 16:14] LABS: BUN/Creatinine Ratio 9.7 (10.0-20.0)
[2024-04-22 16:17] LABS: Blood Urea Nitrogen 9 mg/dL (9-23); Glucose 110 mg/dL (74-106)
[2024-04-22] MEDS ORDERED: CEFD300C2 PO (17:34)
[2024-04-22] MEDS ORDERED: AMOXICILLIN/CLAVUL 875 MG TAB PO ONE (17:45)
[2024-04-22 18:00] VITALS: BP 160/89; PULSE 87; RESP 16; O2SAT 98
== END 2024-04-22 18:09 | disposition home or self-care (01) ==
LOC: ER 14:06 → EDUNIT# 14:06 → EDBD 14:06 → ER 18:08
DX: N30.00 Acute cystitis without hematuria (principal); I10 Essential (primary) hypertension; E07.9 Disorder of thyroid, unspecified; E78.5 Hyperlipidemia, unspecified; I25.2 Old myocardial infarction; F41.9 Anxiety disorder, unspecified; F32.A Depression, unspecified; I25.10 Atherosclerotic heart disease of native coronary artery without angina pectoris; Z79.890 Hormone replacement therapy; Z87.440 Personal history of urinary (tract) infections; Z79.899 Other long term (current) drug therapy; Z98.890 Other specified postprocedural states
CPT/HCPCS: 36415; 80048; 81001; 85025

== ENCOUNTER 2024-06-04 10:43 | Emergency (ER) | payer BC, MEDICARE ==
[~2024-06-04] VITALS: Ht 160 cm; Wt 70.0 kg
[~2024-06-04 10:43] MED LIST changes: +CEFD300C2 PO
--- NOTE | 2024-06-04 10:54 | ECG ---
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
--- NOTE | 2024-06-04 11:22 | DVH ---
EXAM: XY CHEST PORTABLE Indication: CP Technique: Single frontal view of the chest was obtained Comparison: XY CHEST PORTABLE on DOS: 02/12/24, CHEST PORTABLE on DOS: 03/23/22, CXRP on DOS: 03/23/22, EKG on DOS: 03/23/22, EKG on DOS: 03/23/22 FINDINGS: Lines and Tubes: None Lungs: No focal consolidation. Pleura: No effusion. No pneumothorax. Cardiomediastinal contours: Unremarkable Bones: No acute osseous abnormality. IMPRESSION: No acute cardiopulmonary disease.
[2024-06-04 11:44] LABS: Basophils # (auto) 0 10 ^3/uL (0-0.2); Basophils % (auto) 0.3 % (0.0-2.0); Eosinophils # (auto) 0 10 ^3/uL (0-0.8); Hematocrit 50.2 % (36.0-46.0); Hemoglobin 16.5 g/dL (12.2-16.2); Lymphocytes # (auto) 2.1 10 ^3/uL (0.4-5.4); Lymphocytes % (auto) 28.8 % (10.0-50.0); Mean Corpuscular Hemoglobin 30.2 pg (28.0-32.0); Mean Corpuscular Hgb Conc. 32.8 g/dL (32.0-36.0); Mean Corpuscular Volume 92.3 fL (80.0-100.0); Monocytes # (auto) 0.6 10 ^3/uL (0-1.3); Monocytes % (auto) 8.6 % (0.0-12.0); Neutrophils # (auto) 4.6 10 ^3/uL (1.6-8.6); Neutrophils % (auto) 62.3 % (37.0-80.0); Nucleated Red Blood Cells % 0.1 %; Platelet Count (auto) 238 10^3/uL (140-450); Red Blood Cells 5.44 10^6/uL (4.0-5.20); Red Cell Distribution Width 13.4 % (11.8-14.3); White Blood Cell 7.4 10^3/uL (4.4-10.8)
[2024-06-04 12:05] LABS: Alanine Aminotransferase 15 U/L (7-40); Albumin 4.5 g/dL (3.2-4.8); Alkaline Phosphatase 113 U/L (46-116); Anion Gap 8 (5-15); Aspartate Aminotransferase 15 U/L (13-40); BUN/Creatinine Ratio 13.4 (10.0-20.0); Bilirubin, Total 0.3 mg/dL (0.2-1.0); Blood Urea Nitrogen 15 mg/dL (9-23); Calcium 10.3 mg/dL (8.7-10.4); Carbon Dioxide 28 mmol/L (20-31); Chloride 107 mmol/L (98-107); Glucose 93 mg/dL (74-106); Potassium 4.6 mmol/L (3.5-5.1); Sodium 143 mmol/L (136-145)
[2024-06-04 12:30] VITALS: PULSE 85; RESP 18; TEMP 97.4; O2SAT 93
--- NOTE | 2024-06-04 12:38 | ED.PDOC ---
HPI Comments 63 y.o female with PMHx of AL, hyperlipidemia, HTN, CAD, anxiety and thyroid disease, presents to the ED for a chief complaint of substernal chest pain that started earlier today. Patient reports having a panic attack which presented with chest pain,describes as sharp, non radiating and intermittent. Patient is unsure how long her symptoms lasted but are frequent when she is anxious. Patient also reports running out of her Nifedipine 30mg and is looking to refill medication. She denies any other symptoms or pain at this time. Chief Complaint: Chest Pain Time Seen by MD: 12:27 Primary Care Provider: unknown Reviewed Notes: Nurses Notes, Medications, Allergies Allergies: Coded Allergies: NO KNOWN ALLERGIES (Unverified , 02/02/24) Home Meds Active Scripts Cefdinir (Cefdinir) 300 Mg Cap, 1 CAP PO BID for 7 Days, #14 CAP Prov:VIOLET WOLFE MD 04/22/24 Mupirocin Calcium (Topical) (MUPIROCIN) 2 % Cre, 2 % EX TID for 5 Days, #1 CRE Prov:DENILSON MELGOZA MD 02/13/24 Fluticasone Propionate (Nasal) (Flonase Allergy Relief) 50 Mcg/Act Spr, 50 MCG NA BID for 30 Days, #1 SPRAY 0 Refills Prov:DENILSON MELGOZA MD 02/13/24 Atorvastatin Calcium (ATORVASTATIN CALCIUM) 20 Mg Tab, 40 MG PO HS for 30 Days, #60 TAB 0 Refills Prov:DENILSON MELGOZA MD 02/13/24 Reported Medications Thyroid (Carey Thyroid) 30 Mg Tab, 1 TAB PO DAILY, #90 TAB 3 Refills 02/03/24 Clonidine Hydrochloride (Clonidine Hcl) 0.1 Mg Tab, 0.1 MG PO TID, TAB 02/03/24 Nifedipine (Nifedipine Er) 30 Mg Tab, 30 MG PO BID, TAB 02/03/24 Information Source: Patient Mode of Arrival: EMS Severity: Moderate Timing: Hours Duration: Since onset Location: Substernal Radiation: No Radiation Quality: Sharp Onset: At Rest Cardiac Risk Factors: Hyperlipidemia, HTN PE Risk Factors: None History of: Similar pain in past, AL Modifying Factors: Nothing Associated Signs and Symptoms: Other Past Medical History PAST MEDICAL HISTORY: Anxiety, CAD, Depression, High Lipids, HTN, AL, Thyroid, UTI'S Surgical History: Denies all surgeries 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 Family History Family History: Reviewed,noncontributory to illness, Family hx of heart lee Family History (Other): Family hx of Alzheimer's and multiple sclerosis Social History Smoker: Non-Smoker Alcohol: Denies ETOH Use Drugs: Denies Drug Use Lives In: Home Constitutional: denies: chills, diaphoresis, fatigue, fever, malaise, sweats, weakness, others EENTM: denies: blurred vision, double vision, ear bleeding, ear discharge, ear drainage, ear pain, ear ringing, eye pain, eye redness, hearing loss, mouth pain, mouth swelling, nasal discharge, nose bleeding, nose congestion, nose pain, photophobia, tearing, throat pain, throat swelling, voice changes, others Respiratory: denies: cough, hemoptysis, orthopnea, SOB at rest, shortness of breath, SOB with excertion, stridor, wheezing, others Cardiovascular: reports: chest pain; denies: dizzy spells, diaphoresis, Dyspnea on exertion, edema, irregular heart beat, left arm pain, lightheadedness, palpitations, PND, syncope, others Gastrointestinal: denies: abdomen distended, abdominal pain, blood streaked bowels, constipated, diarrhea, dysphagia, difficulty swallowing, hematemesis, melena, nausea, poor appetite, poor fluid intake, rectal bleeding, rectal pain, vomiting, others Genitourinary: denies: abnormal vagina bleeding, burning, dyspareunia, dysuria, flank pain, frequency, hematuria, incontinence, pain, , vagina discharge, urgency, others Neurological: denies: dizziness, fainting, headache, left sided numbness, left sided weakness, numbness, paresthesia, pre-existing deficit, right sided numbness, right sided weakness, seizure, speech problems, tingling, tremors, weakness, others Musculoskeletal: denies: back pain, gout, joint pain, joint swelling, muscle pain, muscle stiffness, neck pain, others Integumetry: denies: bruises, change in color, change in hair/nails, dryness, laceration, lesions, lumps, rash, wounds, others Allergic/Immunocompromised: denies: Difficulty Healing, Frequent Infections, Hives, Itching, others Hematologic/Lymphatic: denies: anemia, blood clots, easy bleeding, easy bruising, swollen glands, others Endocrine: denies: excessive hunger, excessive sweating, excessive thirst, excessive urination, flushing, intolerance to cold, intolerance to heat, unexplained weight gain, unexplained weight loss, others Psychiatric: reports: panic disorder; denies: anxiety, bipolar disorder, depression, hopeless, schizophrenia, sleepless, suicidal, others All Other Systems: Reviewed and Negative Physical Exam General Appearance: No Apparent Distress, Normal HEENT: Normal ENT Inspection, Pharynx Normal, TMs Normal Neck: Full Range of Motion, Non-Tender, Normal, Normal Inspection Respiratory: Chest Non-Tender, Lungs Clear, No Accessory Muscle Use, No Respiratory Distress, Normal Breath Sounds Cardiovascular: No Edema, No JVD, No Murmur, No Gallop, Normal Peripheral Pulses, Regular Rate/Rhythm Breast Exam: Deferred Gastrointestinal: No Organomegaly, Non Tender, No Pulsatile Mass, Normal Bowel Sounds, Soft Genitalia: Deferred Pelvic: Deferred Rectal: Deferred Extremities: No calf tenderness, Normal capillary refill, Normal inspection, Normal range of motion, Non-tender, No pedal edema Musculoskeletal : Location: Bilateral Extremity Location: Chest Apperance: Other (reproducible on palpation ) Neurologic: Alert, physician gynecologist 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 Was a procedure done?: No CP Differential Dx Differential Diagnosis: Anxiety / Panic Attack, Heart Failure, AL Differential Diagnosis: Angina, Chest Wall Pain, Costochondritis, Pericarditis X-Ray, Labs, Meds, VS Vital Signs Date Time Temp Pulse Resp B/P (MAP) Pulse Ox O2 Delivery O2 Flow Rate FiO2 06/04/24 12:30 97.4 85 18 161/98 (119) 93 97.4 06/04/24 12:30 85 18 93 Room Air* 0 21 06/04/24 10:51 98.0 92 22 164/94 (117) 94 06/04/24 10:48 79 Lab Test 06/04/24 12:24 06/04/24 11:19 Range/Units Troponin I High Sensitivity Pending 53 *H </=34 ng/L White Blood Count 7.4 4.4-10.8 10^3/uL Red Blood Count 5.44 H 4.0-5.20 10^6/uL Hemoglobin 16.5 H 12.2-16.2 g/dL Hematocrit 50.2 H 36.0-46.0 % Mean Corpuscular Volume 92.3 80.0-100.0 fL Mean Corpuscular Hemoglobin 30.2 28.0-32.0 pg Mean Corpuscular Hemoglobin Concent 32.8 32.0-36.0 g/dL Red Cell Distribution Width 13.4 11.8-14.3 % Platelet Count 238 140-450 10^3/uL Mean Platelet Volume 8.0 6.9-10.8 fL Neutrophils (%) (Auto) 62.3 37.0-80.0 % Lymphocytes (%) (Auto) 28.8 10.0-50.0 % Monocytes (%) (Auto) 8.6 0.0-12.0 % Eosinophils (%) (Auto) 0.0 0.0-7.0 % Basophils (%) (Auto) 0.3 0.0-2.0 % Neutrophils # (Auto) 4.6 1.6-8.6 10 ^3/uL Lymphocytes # (Auto) 2.1 0.4-5.4 10 ^3/uL Monocytes # (Auto) 0.6 0-1.3 10 ^3/uL Eosinophils # (Auto) 0 0-0.8 10 ^3/uL Basophils # (Auto) 0 0-0.2 10 ^3/uL Nucleated Red Blood Cells 0.1 % Sodium Level 143 136-145 mmol/L Potassium Level 4.6 3.5-5.1 mmol/L Chloride Level 107 98-107 mmol/L Carbon Dioxide Level 28 20-31 mmol/L Anion Gap 8 5-15 Blood Urea Nitrogen 15 9-23 mg/dL Creatinine 1.12 H 0.550-1.02 mg/dL Glomerular Filtration Rate Calc 55 >90 mL/min BUN/Creatinine Ratio 13.4 10.0-20.0 Serum Glucose 93 74-106 mg/dL Calcium Level 10.3 8.7-10.4 mg/dL Magnesium Level 2.0 1.6-2.6 mg/dL Total Bilirubin 0.3 0.2-1.0 mg/dL Aspartate Amino Transferase (AST) 15 13-40 U/L Alanine Aminotransferase (ALT) 15 7-40 U/L Alkaline Phosphatase 113 46-116 U/L B-Type Natriuretic Peptide 238.00 0-100 pg/mL Total Protein 7.0 5.7-8.2 g/dL Albumin 4.5 3.2-4.8 g/dL X-Ray, Labs, Meds, VS Comment Imaging: X-rays and CT scans were reviewed and interpreted by this provider, imaging shows no fractures and no pathological disease. Pending radiology review. Laboratory: Labs reviewed and interpreted by this provider. Patient was elevated troponin Patient will be admitted for elevated troponins, ACS Recommend cardiology consult Patient has prior medical visits reviewed. Med reconciliation performed Vital signs reviewed Time of 1ST Reevaluation: 12:34 Reevaluation 1ST: Unchanged Patient Education/Counseling: Diagnosis, Treatment, Prognosis Family Education/Counseling: No Family Present Departure 1 Departure Time of Disposition: 12:55 Impression: Primary Impression: Chest pain Qualified Codes: R07.89 - Other chest pain Additional Impression: NSTEMI (non-ST elevated myocardial infarction) Disposition: 09 ADMITTED INPATIENT Condition: Fair Critical Care Note Critical Care Time?: No Stability Stability form required: No Heart Score Heart Score: Heart Score Response (Comments) Value History Moderate Suspicious 1 EKG Normal 0 Age >65 2 Risk Factors 1 or 2 risk factors 1 Troponin 1-2 x's Normal limit 1 Total 5 I personally scribed for MERRILL REYES ([facility]) on 06/04/24 at 12:38. Electronically submitted by Tessa Arthur ([facility]). MERRILL REYES Jun 04, 2024 12:38
[2024-06-04 14:02] VITALS: BP 159/96; PULSE 115; RESP 18; O2SAT 98
== END 2024-06-04 15:17 | disposition left against medical advice (07) ==
LOC: ER 10:43 → EDBD 10:43 → ER 15:17
DX: I21.4 Non-ST elevation (NSTEMI) myocardial infarction (principal); R07.89 Other chest pain; E78.5 Hyperlipidemia, unspecified; I10 Essential (primary) hypertension; E03.9 Hypothyroidism, unspecified; Z98.890 Other specified postprocedural states
CPT/HCPCS: 36415; 71045; 80053; 83735; 83880; 84484; 85025; 93005

== ENCOUNTER 2024-06-10 22:52 | Inpatient (IN) | payer BC ==
[~2024-06-10] VITALS: Ht 175.3 cm; Wt 69.0 kg
[2024-06-10 23:44] LABS: Urine Bacteria None Seen /hpf (None Seen)
[2024-06-10 23:53] LABS: Urine Blood 2+ /uL (Negative); Urine Clarity Ex.Turbid (Clear); Urine Color Brown (Yellow); Urine Protein, UAD 1+ (Negative); Urine Specific Gravity 1.009 (1.001-1.035); Urine Squamous Epithelial Cell None Seen /hpf (<5); Urine Urobilinogen Normal (Negative); Urine WBC 4476 /hpf (0 - 5); Urine WBC Clumps PRESENT /hpf (None Seen); Urine pH 6.5 (5.0-9.0)
[2024-06-11 00:15] LABS: Basophils # (auto) 0.1 10 ^3/uL (0-0.2); Basophils % (auto) 0.7 % (0.0-2.0); Eosinophils # (auto) 0 10 ^3/uL (0-0.8); Hematocrit 48.2 % (36.0-46.0); Hemoglobin 15.9 g/dL (12.2-16.2); Lymphocytes # (auto) 1.9 10 ^3/uL (0.4-5.4); Lymphocytes % (auto) 23.7 % (10.0-50.0); Mean Corpuscular Volume 90.8 fL (80.0-100.0); Monocytes # (auto) 0.6 10 ^3/uL (0-1.3); Monocytes % (auto) 7.4 % (0.0-12.0); Neutrophils # (auto) 5.4 10 ^3/uL (1.6-8.6); Neutrophils % (auto) 68.2 % (37.0-80.0); Platelet Count (auto) 254 10^3/uL (140-450); Red Blood Cells 5.31 10^6/uL (4.0-5.20); Red Cell Distribution Width 13.2 % (11.8-14.3); White Blood Cell 7.9 10^3/uL (4.4-10.8)
[2024-06-11 00:33] LABS: Alanine Aminotransferase 22 U/L (7-40); Albumin 4.3 g/dL (3.2-4.8); Alkaline Phosphatase 110 U/L (46-116); Anion Gap 8 (5-15); Aspartate Aminotransferase 22 U/L (13-40); BUN/Creatinine Ratio 14.5 (10.0-20.0); Blood Urea Nitrogen 16 mg/dL (9-23); Calcium 10.3 mg/dL (8.7-10.4); Carbon Dioxide 24 mmol/L (20-31); Sodium 140 mmol/L (136-145)
[2024-06-11 00:34] LABS: Bilirubin, Total 0.4 mg/dL (0.2-1.0); Total Protein 6.9 g/dL (5.7-8.2)
[2024-06-11 00:35] LABS: Chloride 108 mmol/L (98-107); Glucose 127 mg/dL (74-106)
[2024-06-11] MEDS: hydrALAZINE HCL 20 MG/ML VL IV ONE (00:47)
[2024-06-11 01:02] VITALS: PULSE 97; RESP 20; O2SAT 100
--- NOTE | 2024-06-11 01:19 | ED.PDOC ---
Altered Mental Status HPI Comments 63-year-old female brought in by EMS. She called EMS after having an argument with a neighbor. States she was having intermittent chest pain. Upon arrival when questioned patient states she was feeling indigestion and says she has been having urinary tract infection but does not feel the antibiotics she was taking his working. States she was currently taking Augmentin. Patient appears to be mildly sluggish with answering questions possible ALOC. Upon review of prior notes. Patient was admitted for elevated troponins on the and patient AMA made prior to admission. Chief Complaint: Chest Pain Time Seen by MD: 23:21 Primary Care Provider: unknown Reviewed Notes: Nurses Notes Allergies: Coded Allergies: NO KNOWN ALLERGIES (Unverified , 02/02/24) Home Meds Active Scripts Cefdinir (Cefdinir) 300 Mg Cap, 1 CAP PO BID for 7 Days, #14 CAP Prov:VIOLET WOLFE MD 04/22/24 Mupirocin Calcium (Topical) (MUPIROCIN) 2 % Cre, 2 % EX TID for 5 Days, #1 CRE Prov:DENILSON MELGOZA MD 02/13/24 Fluticasone Propionate (Nasal) (Flonase Allergy Relief) 50 Mcg/Act Spr, 50 MCG NA BID for 30 Days, #1 SPRAY 0 Refills Prov:DENILSON MELGOZA MD 02/13/24 Atorvastatin Calcium (ATORVASTATIN CALCIUM) 20 Mg Tab, 40 MG PO HS for 30 Days, #60 TAB 0 Refills Prov:DENILSON MELGOZA MD 02/13/24 Reported Medications Thyroid (Randle Thyroid) 30 Mg Tab, 1 TAB PO DAILY, #90 TAB 3 Refills 02/03/24 Clonidine Hydrochloride (Clonidine Hcl) 0.1 Mg Tab, 0.1 MG PO TID, TAB 02/03/24 Nifedipine (Nifedipine Er) 30 Mg Tab, 30 MG PO BID, TAB 02/03/24 Information Source: Patient, Emergency Med Personnel Mode of Arrival: EMS Past Medical History PAST MEDICAL HISTORY: Anxiety, CAD, Depression, High Lipids, HTN, ME, Thyroid, UTI'S Surgical History: Denies all surgeries 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 Family History Family History: Reviewed,noncontributory to illness, Family hx of heart lee Family History (Other): Family hx of Alzheimer's and multiple sclerosis Social History Smoker: Non-Smoker Alcohol: Denies ETOH Use Drugs: Denies Drug Use Lives In: Home Constitutional: denies: chills, diaphoresis, fatigue, fever, malaise, sweats, weakness, others EENTM: denies: blurred vision, double vision, ear bleeding, ear discharge, ear drainage, ear pain, ear ringing, eye pain, eye redness, hearing loss, mouth pain, mouth swelling, nasal discharge, nose bleeding, nose congestion, nose pain, photophobia, tearing, throat pain, throat swelling, voice changes, others Respiratory: denies: cough, hemoptysis, orthopnea, SOB at rest, shortness of breath, SOB with excertion, stridor, wheezing, others Cardiovascular: reports: chest pain; denies: dizzy spells, diaphoresis, Dyspnea on exertion, edema, irregular heart beat, left arm pain, lightheadedness, palpitations, PND, syncope, others Gastrointestinal: denies: abdomen distended, abdominal pain, blood streaked bowels, constipated, diarrhea, dysphagia, difficulty swallowing, hematemesis, melena, nausea, poor appetite, poor fluid intake, rectal bleeding, rectal pain, vomiting, others Genitourinary: reports: dysuria; denies: abnormal vagina bleeding, burning, dyspareunia, flank pain, frequency, hematuria, incontinence, pain, , vagina discharge, urgency, others Neurological: denies: dizziness, fainting, headache, left sided numbness, left sided weakness, numbness, paresthesia, pre-existing deficit, right sided numbness, right sided weakness, seizure, speech problems, tingling, tremors, weakness, others Musculoskeletal: denies: back pain, gout, joint pain, joint swelling, muscle pain, muscle stiffness, neck pain, others Integumetry: denies: bruises, change in color, change in hair/nails, dryness, laceration, lesions, lumps, rash, wounds, others Allergic/Immunocompromised: denies: Difficulty Healing, Frequent Infections, Hives, Itching, others Physical Exam General Appearance: No Apparent Distress, Normal HEENT: Normal ENT Inspection, Pharynx Normal, TMs Normal Neck: Full Range of Motion, Non-Tender, Normal, Normal Inspection Respiratory: Chest Non-Tender, Lungs Clear, No Accessory Muscle Use, No Respiratory Distress, Normal Breath Sounds Cardiovascular: No Edema, No JVD, No Murmur, No Gallop, Normal Peripheral Pulses, Regular Rate/Rhythm Breast Exam: Deferred Gastrointestinal: No Organomegaly, Non Tender, No Pulsatile Mass, Normal Bowel Sounds, Soft Genitalia: Deferred Pelvic: Deferred Rectal: Deferred Extremities: No calf tenderness, Normal capillary refill, Normal inspection, Normal range of motion, Non-tender, No pedal edema Musculoskeletal : Apperance: Normal Neurologic: Alert, computer 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 Was a procedure done?: No Differential Diagnosis (ALOC) Differential Diagnosis: Dehydration, Sepsis, Closed Head Injury Other Differential Diagnosis ACS X-Ray, Labs, Meds, VS Vital Signs Date Time Temp Pulse Resp B/P (MAP) Pulse Ox O2 Delivery O2 Flow Rate FiO2 06/11/24 01:02 98.1 97 20 169/91 (117) 98.1 06/11/24 01:02 97 20 100 Room Air* 0 21 06/11/24 00:47 199/86 06/11/24 00:00 103 06/10/24 22:59 96 06/10/24 22:52 97.8 103 14 185/97 (126) 98 Lab Test 06/11/24 00:50 06/10/24 23:50 06/10/24 23:41 Range/Units Troponin I High Sensitivity Pending 57 *H </=34 ng/L White Blood Count 7.9 4.4-10.8 10^3/uL Red Blood Count 5.31 H 4.0-5.20 10^6/uL Hemoglobin 15.9 12.2-16.2 g/dL Hematocrit 48.2 H 36.0-46.0 % Mean Corpuscular Volume 90.8 80.0-100.0 fL Mean Corpuscular Hemoglobin 30.0 28.0-32.0 pg Mean Corpuscular Hemoglobin Concent 33.0 32.0-36.0 g/dL Red Cell Distribution Width 13.2 11.8-14.3 % Platelet Count 254 140-450 10^3/uL Mean Platelet Volume 8.1 6.9-10.8 fL Neutrophils (%) (Auto) 68.2 37.0-80.0 % Lymphocytes (%) (Auto) 23.7 10.0-50.0 % Monocytes (%) (Auto) 7.4 0.0-12.0 % Eosinophils (%) (Auto) 0.0 0.0-7.0 % Basophils (%) (Auto) 0.7 0.0-2.0 % Neutrophils # (Auto) 5.4 1.6-8.6 10 ^3/uL Lymphocytes # (Auto) 1.9 0.4-5.4 10 ^3/uL Monocytes # (Auto) 0.6 0-1.3 10 ^3/uL Eosinophils # (Auto) 0 0-0.8 10 ^3/uL Basophils # (Auto) 0.1 0-0.2 10 ^3/uL Nucleated Red Blood Cells 0.0 % Sodium Level 140 136-145 mmol/L Potassium Level 4.0 3.5-5.1 mmol/L Chloride Level 108 H 98-107 mmol/L Carbon Dioxide Level 24 20-31 mmol/L Anion Gap 8 5-15 Blood Urea Nitrogen 16 9-23 mg/dL Creatinine 1.10 H 0.550-1.02 mg/dL Glomerular Filtration Rate Calc 56 >90 mL/min BUN/Creatinine Ratio 14.5 10.0-20.0 Serum Glucose 127 H 74-106 mg/dL Calcium Level 10.3 8.7-10.4 mg/dL Total Bilirubin 0.4 0.2-1.0 mg/dL Aspartate Amino Transferase (AST) 22 13-40 U/L Alanine Aminotransferase (ALT) 22 7-40 U/L Alkaline Phosphatase 110 46-116 U/L Total Protein 6.9 5.7-8.2 g/dL Albumin 4.3 3.2-4.8 g/dL Urine Color Brown H Yellow Urine Clarity Ex.turbid Clear Urine pH 6.5 5.0-9.0 Urine Specific [place] 1.009 1.001-1.035 Urine Protein 1+ H Negative Urine Ketones Negative Negative Urine Blood 2+ H Negative /uL Urine Nitrite Negative Negative Urine Bilirubin Negative Negative Urine Urobilinogen Normal Negative mg/dL Urine Leukocyte Esterase 3+ Negative /uL Urine RBC 47 0 - 4 /hpf Urine WBC 4476 0 - 5 /hpf Urine WBC Clumps Present None Seen /hpf Urine Squamous Epithelial Cells None seen <5 /hpf Urine Bacteria None seen None Seen /hpf Urine Glucose Normal Normal mg/dL Current Medications Medications (Trade) Dose Ordered Sig/Sabra Route Start Time Stop Time Status Last Admin Hydralazine HCl (Apresoline Injection) 10 mg ONCE ONCE IV 06/11/24 00:30 06/11/24 00:32 DC 06/11/24 00:47 X-Ray, Labs, Meds, VS Comment Patient will be admitted for urinary tract infection Patient will be admitted for elevated troponins Page placed for choice physician said many doctors Pending call back patient will be started on Rocephin 1 g IV Time of 1ST Reevaluation: 01:18 Reevaluation 1ST: Improved Patient Education/Counseling: Diagnosis, Treatment Family Education/Counseling: Diagnosis, Treatment Departure 1 Departure Time of Disposition: 01:17 Impression: Primary Impression: Altered level of consciousness Additional Impressions: UTI (urinary tract infection) Qualified Codes: N30.01 - Acute cystitis with hematuria ACS (acute coronary syndrome) Disposition: 09 ADMITTED INPATIENT Condition: Fair Discharged With: Self Critical Care Note Critical Care Time?: No Stability Stability form required: No Heart Score Heart Score: Heart Score Response (Comments) Value History Slightly Suspicious 0 EKG Normal 0 Age >65 2 Risk Factors >3 or Hx ASHD 2 Troponin 1-2 x's Normal limit 1 Total 5 MERRILL REYES Jun 11, 2024 01:19
[2024-06-11] MEDS: cefTRIAXone 1GM/50ML D5W 50 ML IV ONE (01:40)
[2024-06-11] MEDS: ONDANSETRON HCL 4 MG/2 ML VIAL IV ONE (02:32)
[2024-06-11] MEDS: MORPHINE SULFATE 4 MG/ML SYR/VIAL IV ONE (02:32)
--- NOTE | 2024-06-11 03:28 | DVH ---
Examination: CXR1 Clinical Indication: cp Comparison: None. Technique: Frontal radiograph of the chest was obtained. Findings: Lungs are clear and well expanded with no pulmonary infiltrate or pleural effusion. There is no pneumothorax. The cardiomediastinal silhouette is within normal limits. No acute osseous abnormality is seen. Impression: No acute cardiopulmonary disease is seen. Electronically Signed 06/11/2024 03:27 Edinson Cain
--- NOTE | 2024-06-11 03:29 | DVH ---
Examination: HWOCT Clinical Indication: aloc COMPARISON: None. CONTRAST USED: None. TECHNIQUE: The examination was performed obtaining 5 mm slices without contrast. CT scan was done a ccording to ALARA (As Low as Reasonably Achievable). Multiplanar reconstructions were obtained. FINDINGS: SUPRATENTORIAL BRAIN: Cerebral Hemispheres: There is no midline shift or mass effect, intra or extra-axial fluid collections or hemorrhage. Prominent sulcal - gyral pattern and cisternal spaces in both cerebral hemispheres, suggestive of cer ebral atrophy, likely age-related. Intracranial atherosclerosis noted. Periventricular White Matter/Basal Ganglia: No abnormal areas of altered attenuation within the periventricular white matter or basal ganglia. POSTERIOR FOSSA: The brainstem is unremarkable. Prominent cerebellar folia, suggestive of cerebellar atrophy, likely age-related. VENTRICULAR SYSTEM: The ventricular system is normal in size. There is no evidence of hydrocephalus or transependymal flow of cerebrospinal fluid. SKULL BASE AND PARASELLAR REGION: The skull base is normal with no parasellar masses or abnormalities identified. CALVARIUM AND SCALP REGION: No abnormality is seen. Hypo to isodense material noted in bilateral ethmoidal air cells extending into bilateral nasal cavit ies and in the visualized right maxillary sinuses, possibly suggestive of sinonasal polyposis. Advised further evaluation with CT paranasal sinuses without contrast. Partly visualized iso to slight hyperdensity noted in the visualized nasopharynx. PARANASAL SINUSES: No significant inflammatory changes are identified in the visualized paranasal sinuses. IMPRESSION: 1. No evidence of acute large vessel territorial ischemic infarction or intraparenchymal hematoma in current study. 2. No obvious intracranial injury or skull vault fracture. 3. Chronic periventricular ischemic changes. 4. Cerebral and cerebellar atrophy, likely age-related. 5. Hypo to isodense material noted in bilateral ethmoidal air cells extending into bilateral nasal c avities and in the visualized right maxillary sinuses, possibly suggestive of sinonasal polyposis. Ad vised further evaluation with CT paranasal sinuses without contrast. 6. Chronic and / or ancillary findings as described above. Electronically Signed 06/11/2024 03:28 Edinson Cain
[2024-06-11] MEDS ORDERED: HYDROcodone-ACET 5/325MG TAB PO PRN (04:00)
[2024-06-11] MEDS ORDERED: ONDANSETRON HCL 4 MG/2 ML VIAL IV PRN (04:00)
[2024-06-11] MEDS ORDERED: MORPHINE SULFATE INJ 2 MG/ml SYRG IV PRN (04:00)
[2024-06-11] MEDS: ASPirin 81 mg TAB PO SCH (04:00)
[2024-06-11] MEDS ORDERED: NITROGLYCERIN 0.4 MG SL TAB SL PRN (04:00)
[2024-06-11] MEDS: SODIUM CHLORIDE 0.9% 1,000 ML IV ONE (04:08)
--- NOTE | 2024-06-11 04:12 | DVHHP2 ---
Admitting Diagnosis: Chest pain, elevated troponin, UTI, History of Present Illness History Source: Patient Exam Limitations: No limitations HPI Mrs. Alicja Sommer is a 63 yo female with known history of HLD, SC, Hypertension, CAD, thyroid disease, anxiety who presents with a chief complaint of dysuria and chest pain. Patient reports midsternal non radiating chest pain with physical activity and for the past couple of nights. Patient endorses dysuria without hematuria. Patient reports she has had nasal polyps for many years and has a referral for a surgical consult with a ENT in [place]. Patient reports mild headache, denies dizziness, lightheadedness, nausea, vomiting. Patient admitted for further evaluation. Home Meds Active Scripts Cefdinir (Cefdinir) 300 Mg Cap, 1 CAP PO BID for 5 Days, #10 CAP Prov:JODIE RASHID MD 06/11/24 Mupirocin Calcium (Topical) (MUPIROCIN) 2 % Cre, 2 % EX TID for 5 Days, #1 CRE Prov:DENILSON MELGOZA MD 02/13/24 Fluticasone Propionate (Nasal) (Flonase Allergy Relief) 50 Mcg/Act Spr, 50 MCG NA BID for 30 Days, #1 SPRAY 0 Refills Prov:DENILSON MELGOZA MD 02/13/24 Atorvastatin Calcium (ATORVASTATIN CALCIUM) 20 Mg Tab, 40 MG PO HS for 30 Days, #60 TAB 0 Refills Prov:DENILSON MELGOZA MD 02/13/24 Reported Medications Thyroid ([place] Thyroid) 30 Mg Tab, 1 TAB PO DAILY, #90 TAB 3 Refills 02/03/24 Clonidine Hydrochloride (Clonidine Hcl) 0.1 Mg Tab, 0.1 MG PO TID, TAB 02/03/24 Nifedipine (Nifedipine Er) 30 Mg Tab, 30 MG PO BID, TAB 02/03/24 Discontinued Scripts Cefdinir (Cefdinir) 300 Mg Cap, 1 CAP PO BID for 7 Days, #14 CAP Prov:VIOLET WOLFE MD 04/22/24 Past Medical History Cardiac: CAD, HTN, SC, Hyperlipidemia Pulmonary: No pertinent Hx Central Nervous System: No pertinent Hx GI: No pertinent Hx Hemotology/Oncology: No pertinent Hx Hepatobiliary: No pertinent Hx Psychiatric: Anxiety Musculoskeletal: No pertinent Hx Rheumotologic: No pertinent Hx Infectious Disease: No peritnent Hx ENT: No pertinent Hx Renal/: No pertinent Hx Endocrine: Hypothyroidism Dermatology: No pertinent Hx Others nasal polyps Patient Family History: FH: multiple sclerosis G8 SISTER Family history: Alzheimer's disease G8 MOTHER Family history: Cardiovascular disease G8 FATHER G8 SISTER Smoker: No Hx (Negative) Alocohol: None Drugs: None Lives with: With family Domestic Violence: Neg Review of Systems Constitutional: No symptom reported Ears, Nose, & Throat: No symptom reported Eyes: No symptom reported Pulmonary/Respiratory: No symptom reported Cardiovascular: Chest Pain Gastrointestinal: No symptom reported Genitourinary: Dysuria Musculoskeletal: No symptom reported Skin: No symptom reported Psychiatric: No symptom reported Endocrine: No symptom reported Hemotologic/Lymphatic: No symptom reported H&P Exam Vital Signs Vital Signs Date Time Temp Pulse Resp B/P (MAP) Pulse Ox O2 Delivery O2 Flow Rate FiO2 06/11/24 03:59 128 21 149/82 (104) 97 06/11/24 01:02 98.1 98.1 06/11/24 01:02 Room Air* 0 21 General Appeara: Well developed, Well nourished, Normal Appearance Head Exam: Normal inspection Neck Exam: Normal inspection, Non-tender, Normal alignment Eye Exam: bilateral eye Normal inspection, bilateral eye PERRL, bilateral eye EOMI Ear Exam: bilateral ear Auricle normal Nasal Exam: Sinus tenderness, Other (nasal polyps ) Mouth: Normal Inspection Pulmonary/Respiratory: Normal inspection, Normal breath sounds, Chest non- tender, Lungs clear Cardiovascular/Chest: Normal inspection, Normal Rhythm, Tachycardia Peripheral Pulses: 2+ dorsalis pedis (R), 2+ dorsalis pedis (L), 2+ Radial (R), 2+ Radial (L) Abdominal Exam: Normal bowel sounds, Soft, No tenderness Rectal Exam: Deferred Back Exam: Normal inspection 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 hearing, Normal speech, PERRL Motor/Sensory: Normal sensory function, Normal motor function Neuro/Mental St: Alert, Oriented Appearance: Appropriate appearance, Appropriate insight Eye contact/ Speech: Cooperative, Good eye contact, Normal speech Thoughts/Psych: Normal thought pattern Skin Exam: Normal inspection, Normal color, Warm/dry Labs/Xrays Labs Test 06/11/24 02:35 06/11/24 01:45 06/10/24 23:50 06/10/24 23:41 Range/Units Troponin I High Sensitivity 55 *H </=34 ng/L Lactic Acid Level 0.6 0.4-2.0 mmol/L White Blood Count 7.9 4.4-10.8 10^3/uL Red Blood Count 5.31 H 4.0-5.20 10^6/uL Hemoglobin 15.9 12.2-16.2 g/dL Hematocrit 48.2 H 36.0-46.0 % Mean Corpuscular Volume 90.8 80.0-100.0 fL Mean Corpuscular Hemoglobin 30.0 28.0-32.0 pg Mean Corpuscular Hemoglobin Concent 33.0 32.0-36.0 g/dL Red Cell Distribution Width 13.2 11.8-14.3 % Platelet Count 254 140-450 10^3/uL Mean Platelet Volume 8.1 6.9-10.8 fL Neutrophils (%) (Auto) 68.2 37.0-80.0 % Lymphocytes (%) (Auto) 23.7 10.0-50.0 % Monocytes (%) (Auto) 7.4 0.0-12.0 % Eosinophils (%) (Auto) 0.0 0.0-7.0 % Basophils (%) (Auto) 0.7 0.0-2.0 % Neutrophils # (Auto) 5.4 1.6-8.6 10 ^3/uL Lymphocytes # (Auto) 1.9 0.4-5.4 10 ^3/uL Monocytes # (Auto) 0.6 0-1.3 10 ^3/uL Eosinophils # (Auto) 0 0-0.8 10 ^3/uL Basophils # (Auto) 0.1 0-0.2 10 ^3/uL Nucleated Red Blood Cells 0.0 % Sodium Level 140 136-145 mmol/L Potassium Level 4.0 3.5-5.1 mmol/L Chloride Level 108 H 98-107 mmol/L Carbon Dioxide Level 24 20-31 mmol/L Anion Gap 8 5-15 Blood Urea Nitrogen 16 9-23 mg/dL Creatinine 1.10 H 0.550-1.02 mg/dL Glomerular Filtration Rate Calc 56 >90 mL/min BUN/Creatinine Ratio 14.5 10.0-20.0 Serum Glucose 127 H 74-106 mg/dL Calcium Level 10.3 8.7-10.4 mg/dL Total Bilirubin 0.4 0.2-1.0 mg/dL Aspartate Amino Transferase (AST) 22 13-40 U/L Alanine Aminotransferase (ALT) 22 7-40 U/L Alkaline Phosphatase 110 46-116 U/L Total Protein 6.9 5.7-8.2 g/dL Albumin 4.3 3.2-4.8 g/dL Urine Color Brown H Yellow Urine Clarity Ex.turbid Clear Urine pH 6.5 5.0-9.0 Urine Specific [place] 1.009 1.001-1.035 Urine Protein 1+ H Negative Urine Ketones Negative Negative Urine Blood 2+ H Negative /uL Urine Nitrite Negative Negative Urine Bilirubin Negative Negative Urine Urobilinogen Normal Negative mg/dL Urine Leukocyte Esterase 3+ Negative /uL Urine RBC 47 0 - 4 /hpf Urine WBC 4476 0 - 5 /hpf Urine WBC Clumps Present None Seen /hpf Urine Squamous Epithelial Cells None seen <5 /hpf Urine Bacteria None seen None Seen /hpf Urine Glucose Normal Normal mg/dL Assessment/Plan Problem List: (1) Chest pain (2) UTI (urinary tract infection) Plan This is a 63 yo female with a known history of hyperlipidemia, SC, hypertension, CAD, anxiety, thyroid disease, nasal polyps who presents with dysuria, chest pain. Patient found to have 1. Elevated troponin 2. Chest pain 3. Urinary tract infection 4. Hypertension -Plan Admit telemetry unit Cardiology consultation, 2D echocardiogram, serial troponin levels, ASA, Statin Lipid panel, IV fluids NS IV antibiotic Ceftriaxone Urine culture Analgesic as needed Antihypertensive as needed for optimal blood pressure management TSH level, T4 level Discussed all above with patient who verbalizes agreement and understanding of c are plan. All questions were answered. Discussed assessment and care plan with supervising MD. Plan discussed with: Patient, Other Code Visit Code Visit Total Time (mins): 45 Additional Comments Additional Comments Additional Comments Patient was seen and evaluated by me. I agree with the assessment and plan as outlined by my nurse practitioner. PHILL DINERO Jun 11, 2024 04:12 JODIE RASHID MD Jun 13, 2024 16:11
[2024-06-11 05:03] LABS: HDL Cholesterol 43 mg/dL (40-59)
[2024-06-11 05:08] LABS: Cholesterol 275 mg/dL (< 200); LDL Cholesterol 212 mg/dL (< 100)
[2024-06-11 05:09] LABS: Triglycerides 187 mg/dL (< 150)
[2024-06-11] MEDS: ACETAMINOPHEN 325 MG TAB PO PRN (06:41)
--- NOTE | 2024-06-11 07:08 | ECG ---
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
--- NOTE | 2024-06-11 07:08 | ECG ---
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
[2024-06-11] MEDS: THYROID 60 MG TAB PO SCH (07:16)
[2024-06-11] MEDS: FAMOTIDINE 20 MG TAB PO SCH (10:07)
[2024-06-11] MEDS: ENOXAPARIN SOD 40 MG/0.4 ML SYRINGE SC SCH (10:07)
[2024-06-11] MEDS: NIFEdipine ER 30 MG TAB PO SCH (10:08)
[2024-06-11] MEDS ORDERED: CEFD300C2 PO ×2 (16:38→16:40)
--- NOTE | 2024-06-11 16:40 | DVHDS2 ---
Discharge Summary Date of Admission Jun 11, 2024 at 03:53 Date of Discharge: Jun 11, 2024 Labs/Diagnostic Data: Laboratory Results Test 06/11/24 14:16 06/11/24 08:07 06/11/24 01:45 06/11/24 00:50 Troponin I High Sensitivity 85 ng/L (</=34) Lactic Acid Level 0.6 mmol/L (0.4-2.0) Magnesium Level 2.2 mg/dL (1.6-2.6) Triglycerides Level 187 mg/dL (< 150) Cholesterol Level 275 mg/dL (< 200) LDL Cholesterol 212 mg/dL (< 100) HDL Cholesterol 43 mg/dL (40-59) Thyroid Stimulating Hormone (TSH) 54.61 uIU/mL (0.55-4.78) Test 06/10/24 23:50 06/10/24 23:41 White Blood Count 7.9 10^3/uL (4.4-10.8) Red Blood Count 5.31 10^6/uL (4.0-5.20) Hemoglobin 15.9 g/dL (12.2-16.2) Hematocrit 48.2 % (36.0-46.0) Mean Corpuscular Volume 90.8 fL (80.0-100.0) Mean Corpuscular Hemoglobin 30.0 pg (28.0-32.0) Mean Corpuscular Hemoglobin Concent 33.0 g/dL (32.0-36.0) Red Cell Distribution Width 13.2 % (11.8-14.3) Platelet Count 254 10^3/uL (140-450) Mean Platelet Volume 8.1 fL (6.9-10.8) Neutrophils (%) (Auto) 68.2 % (37.0-80.0) Lymphocytes (%) (Auto) 23.7 % (10.0-50.0) Monocytes (%) (Auto) 7.4 % (0.0-12.0) Eosinophils (%) (Auto) 0.0 % (0.0-7.0) Basophils (%) (Auto) 0.7 % (0.0-2.0) Neutrophils # (Auto) 5.4 10 ^3/uL (1.6-8.6) Lymphocytes # (Auto) 1.9 10 ^3/uL (0.4-5.4) Monocytes # (Auto) 0.6 10 ^3/uL (0-1.3) Eosinophils # (Auto) 0 10 ^3/uL (0-0.8) Basophils # (Auto) 0.1 10 ^3/uL (0-0.2) Nucleated Red Blood Cells 0.0 % Sodium Level 140 mmol/L (136-145) Potassium Level 4.0 mmol/L (3.5-5.1) Chloride Level 108 mmol/L (98-107) Carbon Dioxide Level 24 mmol/L (20-31) Anion Gap 8 (5-15) Blood Urea Nitrogen 16 mg/dL (9-23) Creatinine 1.10 mg/dL (0.550-1.02) Glomerular Filtration Rate Calc 56 mL/min (>90) BUN/Creatinine Ratio 14.5 (10.0-20.0) Serum Glucose 127 mg/dL (74-106) Calcium Level 10.3 mg/dL (8.7-10.4) Total Bilirubin 0.4 mg/dL (0.2-1.0) Aspartate Amino Transferase (AST) 22 U/L (13-40) Alanine Aminotransferase (ALT) 22 U/L (7-40) Alkaline Phosphatase 110 U/L (46-116) Total Protein 6.9 g/dL (5.7-8.2) Albumin 4.3 g/dL (3.2-4.8) Urine Color Brown (Yellow) Urine Clarity Ex.turbid (Clear) Urine pH 6.5 (5.0-9.0) Urine Specific [place] 1.009 (1.001-1.035) Urine Protein 1+ (Negative) Urine Ketones Negative (Negative) Urine Blood 2+ /uL (Negative) Urine Nitrite Negative (Negative) Urine Bilirubin Negative (Negative) Urine Urobilinogen Normal mg/dL (Negative) Urine Leukocyte Esterase 3+ /uL (Negative) Urine RBC 47 /hpf (0 - 4) Urine WBC 4476 /hpf (0 - 5) Urine WBC Clumps Present /hpf (None Seen) Urine Squamous Epithelial Cells None seen /hpf (<5) Urine Bacteria None seen /hpf (None Seen) Urine Glucose Normal mg/dL (Normal) Other Laboratory Tests 06/10/24 23:50 Brief Hx & Hospital Course: This is a 63 yo female with a known history of hyperlipidemia, OK, hypertension, CAD, anxiety, thyroid disease, nasal polyps who presents with dysuria, chest pain. Patient found to have elevated troponin. Patient was also found to be UTI which was treated with IV antibiotics. Patient was requesting to go home. Patient was seen by Dr. Lopez when cleared the patient to be discharged. Condition at Discharge: Stable Final Diagnosis/Problems List This is a 63 yo female with a known history of hyperlipidemia, OK, hypertension, CAD, anxiety, thyroid disease, nasal polyps who presents with dysuria, chest pain. Patient found to have 1. Elevated troponin 2. Chest pain 3. Urinary tract infection 4. Hypertension Discharge Disposition: Home with Health Services SNF Discharge Will this Physician continue t: No Discharge Instruct/Medications Diet: Cardiac 2g Na,low cholest Activity: No Restrictions, As Tolerated Follow Up/Referral: Follow up with the PCP in one week Follow up with Dr. Guy in one week Medications: Cefdinir as prescribed Discharge Statement: "Patient was advised to return to the ER or call 911 if any headaches, dizziness, shortness of breath, chest pain, abdominal pain, bleeding, fevers, or worsening of medical condition. Patient was counseled about treatment plan, medications, possible side effects, patientverbalized understanding. All questions were answered to the best of my ability. This discharge took greater then 30 minutes in planning, reviewing documentation, counseling the patient, and discussing with other team members." ASSESSMENT ASSESSMENT Assessment This is a 63 yo female with a known history of hyperlipidemia, OK, hypertension, CAD, anxiety, thyroid disease, nasal polyps who presents with dysuria, chest pain. Patient found to have 1. Elevated troponin 2. Chest pain 3. Urinary tract infection 4. Hypertension Date of Service: Jun 12, 2024 Billing Provider: JODIE RASHID MD Common Visit Codes: NOT BILLABLE JODIE RASHID MD Jun 11, 2024 16:40
[2024-06-11 18:00] VITALS: BP 202/115; PULSE 130; RESP 16; TEMP 98.5; O2SAT 98
[2024-06-11 18:05] VITALS: BP 202/115; PULSE 130; RESP 16; TEMP 98.5; O2SAT 98
[2024-06-11 18:30] VITALS: O2SAT 98
[2024-06-11] MEDS: hydrALAZINE HCL 10 MG TAB PO PRN (18:44)
[2024-06-11 20:00] VITALS: PULSE 100; PULSE 125; RESP 18; O2SAT 95
[2024-06-11 21:00] VITALS: BP 163/82; PULSE 100; RESP 18; TEMP 98.6; O2SAT 95
[2024-06-11] MEDS: ATORVASTATIN 20 MG TAB PO SCH (22:00)
--- NOTE | 2024-06-11 22:32 | DVHINCON2 ---
DATE OF CONSULTATION: 06/11/2024 REFERRING PHYSICIAN: Madonna Tillman NP CONSULTING PHYSICIAN: Dr. Krishnan. INDICATION: Chest pain and elevated troponin. HISTORY OF PRESENT ILLNESS: The patient is a 63-year-old female with a history of dyslipidemia, hypertension, who presented to the hospital with complaints of not feeling well, chest pain, described the pain as dull, nonradiating. The patient's troponin noted to be mildly elevated with no significant trend up. The patient is insisting to go home at this point. She currently is chest pain free. PAST MEDICAL HISTORY: * Hypertension. * Dyslipidemia. MEDICATIONS: Per med rec. ALLERGIES: No known drug allergies. PHYSICAL EXAMINATION: GENERAL: Alert and awake, in no form of cardiopulmonary distress. VITAL SIGNS: Blood pressure 130/80, pulse 94 per minute, saturation 100%. HEENT/NECK: No carotid bruits. No jugular venous distention. CHEST: Bilateral air entry. Scattered wheeze, rhonchi. CARDIOVASCULAR: Precordial and carotid pulses palpable. Normal S1, S2. No appreciable gallop, rubs, or bruits. EXTREMITIES: No peripheral edema. DIAGNOSTIC DATA: White count 7, hemoglobin 15, platelets 254. Sodium 140, potassium 4.8, creatinine is 1.1. Troponin first set 87, second set is 55, third set is 55. ASSESSMENT: * Chest pain, atypical, doubt acute coronary syndrome. * Hypertension. * Anxiety. * Urinary tract infection. RECOMMENDATIONS: * Continue aspirin. * Continue antibiotics. * Monitor electrolytes. * Continue telemetry monitoring. * The patient had a recent echo which was unremarkable. * No further inpatient cardiac workup indicated at this point. Thank you for allowing me to partake in the care of this patient. MD LAILA Mejia/ROMAN/AMANUEL TID: [id number] RECEIPT: [id number]
[2024-06-12 05:00] VITALS: BP 156/98; PULSE 99; RESP 19; TEMP 97.5; O2SAT 92
[2024-06-12 08:00] VITALS: PULSE 105; RESP 20
[2024-06-12] MEDS: cefTRIAXone 1GM/50ML D5W 50 ML IV SCH (09:26)
[2024-06-12 09:54] VITALS: BP 153/88; PULSE 105; RESP 17; TEMP 98.1; O2SAT 96
[2024-06-12 10:45] LABS: Basophils # (auto) 0 10 ^3/uL (0-0.2); Basophils % (auto) 0.4 % (0.0-2.0); Eosinophils # (auto) 0 10 ^3/uL (0-0.8); Hematocrit 47.1 % (36.0-46.0); Hemoglobin 15.7 g/dL (12.2-16.2); Lymphocytes # (auto) 1.5 10 ^3/uL (0.4-5.4); Lymphocytes % (auto) 21.7 % (10.0-50.0); Mean Corpuscular Hemoglobin 30.3 pg (28.0-32.0); Mean Corpuscular Hgb Conc. 33.4 g/dL (32.0-36.0); Mean Corpuscular Volume 90.6 fL (80.0-100.0); Monocytes # (auto) 0.5 10 ^3/uL (0-1.3); Monocytes % (auto) 7.6 % (0.0-12.0); Neutrophils # (auto) 4.9 10 ^3/uL (1.6-8.6); Neutrophils % (auto) 70.3 % (37.0-80.0); Platelet Count (auto) 239 10^3/uL (140-450); Red Cell Distribution Width 13.5 % (11.8-14.3)
[2024-06-12 10:49] LABS: Potassium 4.2 mmol/L (3.5-5.1); Sodium 143 mmol/L (136-145)
[2024-06-12 10:50] LABS: Anion Gap 8 (5-15); Carbon Dioxide 27 mmol/L (20-31)
[2024-06-12 10:51] LABS: Calcium 10.2 mg/dL (8.7-10.4)
[2024-06-12 10:55] LABS: Blood Urea Nitrogen 13 mg/dL (9-23)
[2024-06-12 11:03] LABS: Chloride 108 mmol/L (98-107); Glucose 125 mg/dL (74-106)
[2024-06-12 13:00] VITALS: BP 146/82; PULSE 99; RESP 16; TEMP 97.7; O2SAT 97
--- NOTE | 2024-06-12 13:45 | ECG ---
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
[2024-06-12 14:30] VITALS: BP 153/88; TEMP 36.5
[2024-06-12 17:00] VITALS: BP 137/84; PULSE 71; RESP 16; TEMP 98.5; O2SAT 97
== END 2024-06-12 17:28 | disposition home or self-care (01) | DRG 280 ==
LOC: ER 22:52 → EDBD 22:52 → TELE 06-11 03:53 → TELE-WESTW 06-11 18:05
PROVIDERS: ADMIT Nurse Practitioner Family; ATTEND Nurse Practitioner Family
DX: I16.0 Hypertensive urgency (principal); G93.41 Metabolic encephalopathy; I21.A1 Myocardial infarction type 2; I24.9 Acute ischemic heart disease, unspecified; N30.00 Acute cystitis without hematuria; E03.9 Hypothyroidism, unspecified; E78.5 Hyperlipidemia, unspecified; I10 Essential (primary) hypertension; I25.10 Atherosclerotic heart disease of native coronary artery without angina pectoris; F41.9 Anxiety disorder, unspecified; Z82.49 Family history of ischemic heart disease and other diseases of the circulatory system; Z82.0 Family history of epilepsy and other diseases of the nervous system; Z79.899 Other long term (current) drug therapy
CPT/HCPCS: 36415; 70450; 71045; 80048; 80053; 80061; 81001; 83605; 83735; 84436; 84443; 84484; 85025; 87081; 87086; 87088; 87186; 93005; G0378; J2405

== ENCOUNTER 2024-10-03 23:06 | Emergency (ER) | payer BC ==
[~2024-10-03] VITALS: Ht 157.5 cm; Wt 50.0 kg
--- NOTE | 2024-10-03 23:15 | ED.PDOC ---
HPI Comments 64 year old female presents to the ED via EMS with a chief complaint of chest pain onset today (10/03/24) around 21:30. Patient states she was sleeping, woke up experiencing chest pain described as pressure sensation as well as palpitations. Prior to EMS arrival patient took 325 mg Aspirin. Upon EMS arrival, BP was 160/90, EKG showed a-fib, RVR with HR 150-220. Patient usually takes Clonidine 3 times a day, is almost running out of medication, has reduced dosage, yesterday took it 2 times and today only took it once. PMHx CAD, CHF, HT, FL, thyroid, anxiety, depression. Denies shortness of breath, nausea, vomiting, diarrhea, headache, dizziness. No other symptoms or modifying factors present at this time. Time Seen by MD: 23:05 Primary Care Provider: unknown Reviewed Notes: Medications, Allergies Allergies: Coded Allergies: NO KNOWN ALLERGIES (Unverified , 02/02/24) Home Meds Active Scripts Metoprolol Tartrate (Metoprolol Tartrate) 25 Mg Tab, 1 TAB PO BID for 90 Days, #180 TAB 3 Refills Prov:YOSSI SALOMON MD 10/04/24 Cefdinir (Cefdinir) 300 Mg Cap, 1 CAP PO BID for 5 Days, #10 CAP Prov:JODIE RASHID MD 06/11/24 Mupirocin Calcium (Topical) (MUPIROCIN) 2 % Cre, 2 % EX TID for 5 Days, #1 CRE Prov:DENILSON MELGOZA MD 02/13/24 Fluticasone Propionate (Nasal) (Flonase Allergy Relief) 50 Mcg/Act Spr, 50 MCG NA BID for 30 Days, #1 SPRAY 0 Refills Prov:DENILSON MELGOZA MD 02/13/24 Atorvastatin Calcium (ATORVASTATIN CALCIUM) 20 Mg Tab, 40 MG PO HS for 30 Days, #60 TAB 0 Refills Prov:DENILSON MELGOZA MD 02/13/24 Reported Medications Thyroid (Locke Thyroid) 30 Mg Tab, 1 TAB PO DAILY, #90 TAB 3 Refills 02/03/24 Clonidine Hydrochloride (Clonidine Hcl) 0.1 Mg Tab, 0.1 MG PO TID, TAB 02/03/24 Nifedipine (Nifedipine Er) 30 Mg Tab, 30 MG PO BID, TAB 02/03/24 Information Source: Patient, Emergency Med Personnel Mode of Arrival: EMS Severity: Moderate Timing: Hours Duration: Since onset Prehospital treatment: 12 Lead EKG Location: Chest (L) Radiation: No Radiation Quality: Sharp, Pressure Onset: While Asleep Cardiac Risk Factors: Hyperlipidemia, HTN, Diabetes History of: Similar pain in past, FL Modifying Factors: Nothing Associated Signs and Symptoms: Palpitations Past Medical History PAST MEDICAL HISTORY: Anxiety, CAD, CHF, Depression, High Lipids, HTN, FL, Thyroid, UTI'S Surgical History: Denies all surgeries 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 History: 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 Family History Family History: Reviewed,noncontributory to illness, Family hx of heart lee Family History (Other): Family hx of Alzheimer's and multiple sclerosis Social History Smoker: Non-Smoker Alcohol: Denies ETOH Use Drugs: Denies Drug Use Lives In: Home Constitutional: denies: chills, diaphoresis, fatigue, fever, malaise, sweats, weakness, others EENTM: denies: blurred vision, double vision, ear bleeding, ear discharge, ear drainage, ear pain, ear ringing, eye pain, eye redness, hearing loss, mouth pain, mouth swelling, nasal discharge, nose bleeding, nose congestion, nose pain, photophobia, tearing, throat pain, throat swelling, voice changes, others Respiratory: denies: cough, hemoptysis, orthopnea, SOB at rest, shortness of breath, SOB with excertion, stridor, wheezing, others Cardiovascular: reports: chest pain, palpitations; denies: dizzy spells, diaphoresis, Dyspnea on exertion, edema, irregular heart beat, left arm pain, lightheadedness, PND, syncope, others Gastrointestinal: denies: abdomen distended, abdominal pain, blood streaked bowels, constipated, diarrhea, dysphagia, difficulty swallowing, hematemesis, melena, nausea, poor appetite, poor fluid intake, rectal bleeding, rectal pain, vomiting, others Genitourinary: denies: abnormal vagina bleeding, burning, dyspareunia, dysuria, flank pain, frequency, hematuria, incontinence, pain, , vagina discharge, urgency, others Neurological: denies: dizziness, fainting, headache, left sided numbness, left sided weakness, numbness, paresthesia, pre-existing deficit, right sided numbness, right sided weakness, seizure, speech problems, tingling, tremors, weakness, others Musculoskeletal: denies: back pain, gout, joint pain, joint swelling, muscle pain, muscle stiffness, neck pain, others Integumetry: denies: bruises, change in color, change in hair/nails, dryness, laceration, lesions, lumps, rash, wounds, others Allergic/Immunocompromised: denies: Difficulty Healing, Frequent Infections, Hives, Itching, others Hematologic/Lymphatic: denies: anemia, blood clots, easy bleeding, easy bruising, swollen glands, others Endocrine: denies: excessive hunger, excessive sweating, excessive thirst, excessive urination, flushing, intolerance to cold, intolerance to heat, unexpl ained weight gain, unexplained weight loss, others Psychiatric: denies: anxiety, bipolar disorder, depression, hopeless, panic disorder, schizophrenia, sleepless, suicidal, others All Other Systems: Reviewed and Negative Physical Exam General Appearance: No Apparent Distress, Normal HEENT: Normal ENT Inspection, Pharynx Normal, TMs Normal Neck: Full Range of Motion, Non-Tender, Normal, Normal Inspection Respiratory: Chest Non-Tender, Lungs Clear, No Accessory Muscle Use, No Respiratory Distress, Normal Breath Sounds Cardiovascular: No Edema, No JVD, No Murmur, No Gallop, Normal Peripheral Pulses, Regular Rate/Rhythm Breast Exam: Deferred Gastrointestinal: No Organomegaly, Non Tender, No Pulsatile Mass, Normal Bowel Sounds, Soft Genitalia: Deferred Pelvic: Deferred Rectal: Deferred Extremities: No calf tenderness, Normal capillary refill, Normal inspection, Normal range of motion, Non-tender, No pedal edema Musculoskeletal : Apperance: Normal Neurologic: Alert, 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 Was a procedure done?: No CP Differential Dx Differential Diagnosis: A-fib, Electrolyte Disorder, Heart Failure, FL, PAC's, V-Fib, V-Tach, Other X-Ray, Labs, Meds, VS Vital Signs Date Time Temp Pulse Resp B/P (MAP) Pulse Ox O2 Delivery O2 Flow Rate FiO2 10/04/24 04:15 90 16 151/67 (95) 94 10/04/24 03:00 87 20 138/60 (86) 94 10/04/24 02:25 92 170/113 10/04/24 02:24 95 155/107 10/04/24 02:23 99 155/107 10/04/24 02:22 96 155/107 10/04/24 01:00 83 18 150/68 (95) 95 10/04/24 00:04 80 10/04/24 00:00 97.9 80 18 166/60 (95) 99 97.9 10/04/24 00:00 80 10/03/24 23:56 95 168/78 10/03/24 23:56 140 169/96 10/03/24 23:30 169 149/100 10/03/24 23:28 201 164/89 10/03/24 23:12 97.8 185 18 166/94 (118) 99 97.8 10/03/24 23:08 185 Lab Test 10/04/24 02:09 10/04/24 00:23 10/03/24 23:20 Range/Units Troponin I High Sensitivity 77 *H 66 *H 64 *H </=34 ng/L White Blood Count 5.2 4.4-10.8 10^3/uL Red Blood Count 4.96 4.0-5.20 10^6/uL Hemoglobin 14.8 12.2-16.2 g/dL Hematocrit 44.1 36.0-46.0 % Mean Corpuscular Volume 88.9 80.0-100.0 fL Mean Corpuscular Hemoglobin 29.9 28.0-32.0 pg Mean Corpuscular Hemoglobin Concent 33.6 32.0-36.0 g/dL Red Cell Distribution Width 14.1 11.8-14.3 % Platelet Count 302 140-450 10^3/uL Mean Platelet Volume 8.0 6.9-10.8 fL Neutrophils (%) (Auto) 37.0-80.0 % Lymphocytes (%) (Auto) 10.0-50.0 % Monocytes (%) (Auto) 0.0-12.0 % Basophils (%) (Auto) 0.0-2.0 % Neutrophils # (Auto) 1.6-8.6 10 ^3/uL Lymphocytes # (Auto) 0.4-5.4 10 ^3/uL Monocytes # (Auto) 0-1.3 10 ^3/uL Differential Total Cells Counted 100.0 100 Neutrophils % (Manual) 38 37.0-80.0 Band Neutrophils % (Manual) 3 Lymphocytes % (Manual) 44 10.0-50.0 Monocytes % (Manual) 15 H 0-12 Eosinophils % (Manual) 0 0-7 Basophils % (Manual) 0 0.0-2.0 Metamyelocytes % (manual) 0 Myelocytes % (Manual) 0 Promyelocytes % (Manual) 0 Blast Cells % (Manual) 0 Reactive Lymphocytes 0 Platelet Estimate Adequate Prothrombin Time 10.4 9.3-11.8 sec Prothrombin Time INR 0.98 0.9-1.15 Activated Partial Thromboplast Time 34.0 24.5-34.5 SEC Sodium Level 136 136-145 mmol/L Potassium Level 4.1 3.5-5.1 mmol/L Chloride Level 103 98-107 mmol/L Carbon Dioxide Level 21 20-31 mmol/L Anion Gap 12 5-15 Blood Urea Nitrogen 15 9-23 mg/dL Creatinine 1.09 H 0.550-1.02 mg/dL Glomerular Filtration Rate Calc 56 >90 mL/min BUN/Creatinine Ratio 13.8 10.0-20.0 Serum Glucose 143 H 74-106 mg/dL Calcium Level 9.2 8.7-10.4 mg/dL Magnesium Level 1.7 1.6-2.6 mg/dL Total Bilirubin 0.4 0.2-1.0 mg/dL Aspartate Amino Transferase (AST) 8 L 13-40 U/L Alanine Aminotransferase (ALT) < 9 7-40 U/L Alkaline Phosphatase 95 46-116 U/L B-Type Natriuretic Peptide 181.65 0-100 pg/mL Total Protein 6.7 5.7-8.2 g/dL Albumin 4.2 3.2-4.8 g/dL Current Medications Medications (Trade) Dose Ordered Sig/Sabra Route Start Time Stop Time Status Last Admin Metoprolol Tartrate (Lopressor) 5 mg Q15M ONCE IV 10/03/24 23:15 10/03/24 23:16 DC 10/03/24 23:[address] [address] Ph: [phone] DIAGNOSTIC IMAGING Diagnostic Imaging Report : [id number] Signed PATIENT: ELISHA CASEY ACCT: [id number] UNIT: [id number] : 1960 LOC: ER ROOM / BED: / AGE / SEX: 64 / F ADM STATUS: REG ER SERVICE 2312 ORDERING PHYSICIAN: YOSSI SALOMON MD PROCEDURE(s): CXRP - CHEST PORTABLE REASON: chest pain ORDER NUMBER(s): [id number], ACCESSION NUMBER(s): [id number] CHEST RADIOGRAPH Indication: chest pain Technique: Single frontal view of the chest was obtained COMPARISON: XY CHEST XRAY 1 VIEW on DOS: 06/11/24, XY CHEST PORTABLE on DOS: 06/04/24, XY CHEST PORTABLE on DOS: 02/12/24, CHEST PORTABLE on DOS: 03/23/22, CXRP on DOS: 03/23/22 FINDINGS: Lines and Tubes: None Lungs: Clear Pleura: No effusion. No pneumothorax. Cardiomediastinal contours: Unremarkable Bones: Unremarkable IMPRESSION: 1. No acute disease. ATED BY: MANJIT RUTHERFORD MD DICTATED DATE/TIME: 10/04/2425 SIGNED BY: MANJIT RUTHERFORD MD SIGNED DATE/TIME: 10/04/2425 CC: Time of 1ST Reevaluation: 23:35 Reevaluation 1ST: Unchanged Patient Education/Counseling: Diagnosis, Treatment, Prognosis Family Education/Counseling: No Family Present Additional Information The following tests were ordered, and results were reviewed by me: TROP -x3, CBC, CMP, EKG, XY CHEST , magnesium, PTPTT Additional Information was gathered from interviewing the following independent historians: EMS I reviewed and agreed with the following test results read by other providers: XY CHEST I discussed treatment and results with medical personnel and: patient Comprehensive systems review obtained and negative except for what is stated in the HPI. Departure 1 Departure Time of Disposition: 02:30 Impression: Primary Impression: Paroxysmal atrial fibrillation Additional Impression: Renal insufficiency Disposition: 01 HOME / SELF CARE / HOMELESS Condition: Stable e-Prescriptions Metoprolol Tartrate (Metoprolol Tartrate) 25 Mg Tab 1 TAB PO BID for 90 Days, #180 TAB 3 Refills Prov: YOSSI SALOMON MD 10/04/24 Discharged With: Self Critical Care Note Critical Care Time?: No Stability Stability form required: No Heart Score Heart Score: Heart Score Response (Comments) Value History Slightly Suspicious 0 EKG Normal 0 Age >65 2 Risk Factors 1 or 2 risk factors 1 Troponin Normal limit 0 Total 3 I personally scribed for YOSSI SALOMON MD ([email or web address]) on 10/03/24 at 23:15. Electronically submitted by Jill Mcguire ([email or web address]). I personally scribed for YOSSI SALOMON MD ([email or web address]) on 10/03/24 at 23:16. Electronically submitted by Jill Mcugire ([email or web address]). I personally scribed for YOSSI SALOMON MD ([email or web address]) on 10/04/24 at 01:28. Electronically submitted by Jill Mcguire ([email or web address]). YOSSI SALOMON MD October 03, 2024 23:15
[2024-10-03] MEDS: METOPROLOL TARTRATE 1MG/1ML-5ML VIAL IV ONE ×4 (23:28→23:56)
[2024-10-03 23:51] LABS: Hematocrit 44.1 % (36.0-46.0); Hemoglobin 14.8 g/dL (12.2-16.2); Mean Corpuscular Hemoglobin 29.9 pg (28.0-32.0); Mean Corpuscular Hgb Conc. 33.6 g/dL (32.0-36.0); Mean Corpuscular Volume 88.9 fL (80.0-100.0); Platelet Count (auto) 302 10^3/uL (140-450); Red Blood Cells 4.96 10^6/uL (4.0-5.20); Red Cell Distribution Width 14.1 % (11.8-14.3); White Blood Cell 5.2 10^3/uL (4.4-10.8)
[2024-10-03 23:58] LABS: Basophils % (manual) 0 (0.0-2.0); Blast Cells 0; Eosinophils % (manual) 0 (0-7); Metamyelocytes % 0; Myelocytes % 0; Promyelocytes % 0; Reactive Lymphocytes 0
[2024-10-04] VITALS: TEMP 97.9
[2024-10-04 00:01] LABS: Albumin 4.2 g/dL (3.2-4.8); Alkaline Phosphatase 95 U/L (46-116); Anion Gap 12 (5-15); BUN/Creatinine Ratio 13.8 (10.0-20.0); Blood Urea Nitrogen 15 mg/dL (9-23); Calcium 9.2 mg/dL (8.7-10.4); Carbon Dioxide 21 mmol/L (20-31); Chloride 103 mmol/L (98-107); Magnesium 1.7 mg/dL (1.6-2.6); Potassium 4.1 mmol/L (3.5-5.1); Sodium 136 mmol/L (136-145); Total Protein 6.7 g/dL (5.7-8.2)
[2024-10-04 00:02] LABS: Bilirubin, Total 0.4 mg/dL (0.2-1.0)
[2024-10-04 00:06] LABS: INR 0.98 (0.9-1.15); Prothrombin Time 10.4 sec (9.3-11.8)
[2024-10-04 00:07] LABS: Alanine Aminotransferase < 9 U/L (7-40); Aspartate Aminotransferase 8 U/L (13-40); Glucose 143 mg/dL (74-106)
--- NOTE | 2024-10-04 00:28 | DVH ---
CHEST RADIOGRAPH Indication: chest pain Technique: Single frontal view of the chest was obtained COMPARISON: XY CHEST XRAY 1 VIEW on DOS: 06/11/24, XY CHEST PORTABLE on DOS: 06/04/24, XY CHEST PORTABL E on DOS: 02/12/24, CHEST PORTABLE on DOS: 03/23/22, CXRP on DOS: 03/23/22 FINDINGS: Lines and Tubes: None Lungs: Clear Pleura: No effusion. No pneumothorax. Cardiomediastinal contours: Unremarkable Bones: Unremarkable IMPRESSION: 1. No acute disease.
[2024-10-04 00:30] VITALS: PULSE 85; RESP 14; O2SAT 97
[2024-10-04 00:45] LABS: Band Neutrophils % (manual) 3; Lymphocytes % (manual) 44 (10.0-50.0); Monocytes % (manual) 15 (0-12); Platelet Estimate Adequate
[2024-10-04] MEDS ORDERED: METO25TA5 PO (01:54)
[2024-10-04 04:15] VITALS: BP 151/67; PULSE 90; RESP 16; O2SAT 94
--- NOTE | 2024-10-04 06:42 | ECG ---
[facility] Test Date: 2024-10-03 Test Time: 23:08:59 Pat Name: ELISHA CASEY Department: ED Room: Gender: F Relays Draftsperson: CARLEE : 1960 Requested By: YOSSI SALOMON Order Number: [id number] Reading MD: Leo Berman Measurements Intervals [place] Rate: 185 P: 0 HI: 0 QRS: 20 QRSD: 82 T: 196 QT: 262 QTc: 460 Interpretive Statements Atrial fibrillation with rapid V-rate Probable anterior infarct, old Repolarization abnormality, prob rate related Baseline wander in lead(s) I,III,aVR,aVL Electronically Signed On 10-04-2024 13:16:46 PDT by Leo Berman Please click the below link to view image of tracing.
[2024-10-04 06:47] LABS: Urine Bacteria None Seen /hpf (None Seen)
[2024-10-04 07:05] LABS: Urine Blood 1+ /uL (Negative); Urine Clarity Ex.Turbid (Clear); Urine Color Light-Brown (Yellow); Urine Protein, UAD 1+ (Negative); Urine Specific Gravity 1.006 (1.001-1.035); Urine Squamous Epithelial Cell None Seen /hpf (<5); Urine Urobilinogen Normal (Negative); Urine WBC 3018 /HPF (0-5); Urine WBC Clumps PRESENT /hpf (None Seen)
--- NOTE | 2024-10-05 14:40 | ECG ---
[facility] Test Date: 2024-10-04 Test Time: 00:04:11 Pat Name: ELISHA CASEY Department: ED Room: Gender: F Diet Attendant: CARLEE : 1960 Requested By: YOSSI SALOOMN Order Number: [id number] Reading MD: Leo Berman Measurements Intervals [place] Rate: 80 P: 72 [place]: 138 QRS: 38 QRSD: 98 T: 41 QT: 398 QTc: 460 Interpretive Statements Sinus rhythm Atrial premature complex Anterior infarct, old Electronically Signed On 10-06-2024 20:58:05 PDT by Leo Berman Please click the below link to view image of tracing.
== END 2024-10-04 07:19 | disposition home or self-care (01) ==
LOC: ER 23:06 → EDBD 23:06 → ER 10-04 07:17
DX: I48.0 Paroxysmal atrial fibrillation (principal); N28.9 Disorder of kidney and ureter, unspecified; F41.9 Anxiety disorder, unspecified; I11.0 Hypertensive heart disease with heart failure; I50.9 Heart failure, unspecified; I25.10 Atherosclerotic heart disease of native coronary artery without angina pectoris; I25.2 Old myocardial infarction; Z79.899 Other long term (current) drug therapy
CPT/HCPCS: 36415; 71045; 80053; 81001; 83735; 83880; 84484; 85007; 85027; 85610; 85730; 93005; 96374

== ENCOUNTER 2024-11-29 13:22 | Inpatient (IN) | payer BC ==
[~2024-11-29] VITALS: Ht 165.1 cm; Wt 64.5 kg
[~2024-11-29 13:22] MED LIST changes: +METO25TA5 PO
--- NOTE | 2024-11-29 13:34 | ED.PDOC ---
HPI Comments Chloe isabel HPI: Poor Historian. 64-year-old female brought in by ambulance from home for evaluation of left- sided chest pain constant nonradiating that happened after she had lunch. Patient received nitroglycerin and aspirin prior to arrival by EMS which patient states gave her some improvement. Patient has history atrial fibrillation but h er rate WAS NORMAL. Patient was recent diagnosed and admitted to a hospital few weeks ago and was diagnosed with pneumonia and completed a course of antibiotics. Past Medical History: Thyroid disease, atrial fibrillation, Past Surgical History: Metoprolol, aspirin, levothyroxine, nifedipine REVIEW OF SYSTEMS: CONSTITUTIONAL: Denies acute: fever, diaphoresis, chills, generalized weakness. HEAD: Denies acute: headache, photophobia Eyes: Denies acute: Double vision, vision loss, eye pain, eye discharge. EARS: Denies acute: tinnitus, hearing loss, ear discharge, ear pain, THROAT: Denies acute: sore throat, swelling, difficulty swallowing , pain with swallowing, change in voice. NECK: Denies acute: neck pain, neck swelling, stiff neck. HEART: Denies acute : palpitations, LUNGS: Denies acute: SOB, wheezing, cough, hemoptysis ABDOMEN: Denies acute: ABDOMINAL PAIN, NAUSEA, Vomiting, diarrhea, melena , hematemesis, hematochezia SKIN: Denies acute: rash, redness, lesions, itchiness. EXTREMITIES: Denies acute: calf pain, numbness, tingling, weakness, denies pain in extremity. Denies acute: Low back pain. Neuro: Denies acute: focal neurological deficit, motor or sensory focal neurological deficit, tremors, seizure like activity, confusion, dizziness, change in mental status, loss of bowel or bladder function, cauda equina like symptoms. : Denies acute: dysuria, hematuria, flank pain, increase in urinary frequency. PSYCH: Denies acute: hallucination, suicidal ideation, homicidal ideation. FEMALE: Denies acute: abnormal vaginal bleeding, foul odor, unusual discharge. PHYSICAL EXAM: General: ---no-----acute distress, awake and alert. Head: normocephalic, atraumatic. Neck: supple, trachea is midline, no swelling. Throat: Normal phonation. Eyes:, no erythema, no purulent discharge, no proptosis, no icterus. Heart: regular rate, regular rhythm, no significant murmur appreciated. Lungs: no apparent respiratory distress, Able to speak in full sentences. No wheezing, no rhonchi, no crackles. No stridors Clear to auscultation bilaterally. Abdomen: non tender to palpation, non distended, soft, no guarding, no rebound, + bowel sounds. Neuro: Awake, Alert, oriented to name, self, situation, follows commands GCS=15. Speech is normal. Skin: no petechia, no purpura, no cyanosis, non-pale, not jaundice. Lower extremities: --trace bilateral- Pitting edema no deformity, no focal swelling, no calf TTP. Makes eye contact. moves all four extremities. Face: no apparent facial droop. ED COURSE: DISCLAIMER: This medical document was created using an electronic medical record system with voice recognition software and computerized dictation system. Although this document has been carefully reviewed, there might still be some phonetic and typographical errors. Occasional wrong-word or "sound-alike" substitutions may have occurred due to the inherent limitations of voice recognition software. These areas are purely typographical due to imperfections of the software programs and do not reflect any compromise in the patient's medical care. Please read the chart carefully and recognize, using context, where these substitutions have occurred. Chief Complaint: Chest Pain Time Seen by MD: 13:24 Primary Care Provider: unknown Reviewed Notes: Medications, Allergies Allergies: Coded Allergies: NO KNOWN ALLERGIES (Unverified , 02/02/24) Home Meds Active Scripts Nifedipine (Nifedipine Er) 60 Mg Tab, 1 TAB PO BID, #90 TAB 1 Refill Prov:ISSAC FORREST MD 12/02/24 Aspirin (Aspirin Ec Low Dose) 81 Mg Tab, 81 MG PO DAILY MDD ., #90 TAB Prov:ISSAC FORREST MD 12/02/24 Metoprolol Tartrate (Metoprolol Tartrate) 25 Mg Tab, 1 TAB PO BID MDD . for 90 Days, #180 TAB 3 Refills Prov:ISSAC FORREST MD 12/02/24 Thyroid ([place] Thyroid) 30 Mg Tab, 1 TAB PO DAILY MDD ., #90 TAB 3 Refills Prov:ISSAC FORREST MD 12/02/24 Clonidine Hydrochloride (Clonidine Hcl) 0.1 Mg Tab, 0.1 MG PO TID MDD ., #100 TAB Prov:ISSAC FORREST MD 12/02/24 Mupirocin Calcium (Topical) (MUPIROCIN) 2 % Cre, 2 % EX TID for 5 Days, #1 CRE Prov:DENILSON MELGOZA MD 02/13/24 Fluticasone Propionate (Nasal) (Flonase Allergy Relief) 50 Mcg/Act Spr, 50 MCG NA BID for 30 Days, #1 SPRAY 0 Refills Prov:DENILSON MELGOZA MD 02/13/24 Atorvastatin Calcium (ATORVASTATIN CALCIUM) 20 Mg Tab, 40 MG PO HS for 30 Days, #60 TAB 0 Refills Prov:DENILSON MELGOZA MD 02/13/24 Discontinued Reported Medications Thyroid ([place] Thyroid) 30 Mg Tab, 1 TAB PO DAILY, #90 TAB 3 Refills 02/03/24 Clonidine Hydrochloride (Clonidine Hcl) 0.1 Mg Tab, 0.1 MG PO TID, TAB 02/03/24 Discontinued Scripts Nifedipine (Nifedipine Er) 30 Mg Tab, 30 MG PO BID, #90 TAB Prov:ISSAC FORREST MD 12/01/24 Metoprolol Tartrate (Metoprolol Tartrate) 25 Mg Tab, 1 TAB PO BID for 90 Days, #180 TAB 3 Refills Prov:YOSSI SALOMON MD 10/04/24 Cefdinir (Cefdinir) 300 Mg Cap, 1 CAP PO BID for 5 Days, #10 CAP Prov:JODIE RASHID MD 06/11/24 Information Source: Patient, Emergency Med Personnel Mode of Arrival: EMS Was a procedure done? Was a procedure done?: No CP Differential Dx Differential Diagnosis: N/A Differential Diagnosis: Other (Ddx include but not limitied to gastritis, musculoskeletal pain, radiculopathy, atypical chest pain, dissection, aneurysm, ACS, unstable angina, hiatal hernia, GERD, anxiety, costochondritis, PE, pneumothroax, neoplasm, cardiac ischemia, drug abuse, anemia.) X-Ray, Labs, Meds, VS Vital Signs Date Time Temp Pulse Resp B/P (MAP) Pulse Ox O2 Delivery O2 Flow Rate FiO2 11/29/24 16:16 85 11/29/24 15:59 85 11/29/24 15:59 97.9 81 18 161/90 (113) 95 97.9 11/29/24 14:22 78 11/29/24 13:22 97.9 82 18 160/88 (112) 96 97.9 11/29/24 13:22 80 Lab Test 11/29/24 14:43 11/29/24 13:45 Range/Units Troponin I High Sensitivity 91 *H 95 *H </=34 ng/L Thyroid Stimulating Hormone (TSH) 34.62 H 0.55-4.78 uIU/mL Free Thyroxine (T4) Calculated 0.88 L 0.89-1.76 ng/dL White Blood Count 5.3 4.4-10.8 10^3/uL Red Blood Count 5.03 4.0-5.20 10^6/uL Hemoglobin 15.0 12.2-16.2 g/dL Hematocrit 45.3 36.0-46.0 % Mean Corpuscular Volume 90.0 80.0-100.0 fL Mean Corpuscular Hemoglobin 29.9 28.0-32.0 pg Mean Corpuscular Hemoglobin Concent 33.2 32.0-36.0 g/dL Red Cell Distribution Width 14.7 H 11.8-14.3 % Platelet Count 258 140-450 10^3/uL Mean Platelet Volume 7.1 6.9-10.8 fL Neutrophils (%) (Auto) 60.6 37.0-80.0 % Lymphocytes (%) (Auto) 30.6 10.0-50.0 % Monocytes (%) (Auto) 8.5 0.0-12.0 % Eosinophils (%) (Auto) 0.0 0.0-7.0 % Basophils (%) (Auto) 0.3 0.0-2.0 % Neutrophils # (Auto) 3.2 1.6-8.6 10 ^3/uL Lymphocytes # (Auto) 1.6 0.4-5.4 10 ^3/uL Monocytes # (Auto) 0.4 0-1.3 10 ^3/uL Eosinophils # (Auto) 0 0-0.8 10 ^3/uL Basophils # (Auto) 0 0-0.2 10 ^3/uL Nucleated Red Blood Cells 0.1 % Sodium Level 137 136-145 mmol/L Potassium Level 4.5 3.5-5.1 mmol/L Chloride Level 103 98-107 mmol/L Carbon Dioxide Level 25 20-31 mmol/L Anion Gap 9 5-15 Blood Urea Nitrogen 10 9-23 mg/dL Creatinine 0.95 0.550-1.02 mg/dL Glomerular Filtration Rate Calc 66 >90 mL/min BUN/Creatinine Ratio 10.5 10.0-20.0 Serum Glucose 115 H 74-106 mg/dL Calcium Level 10.0 8.7-10.4 mg/dL Total Bilirubin 0.4 0.2-1.0 mg/dL Aspartate Amino Transferase (AST) 25 13-40 U/L Alanine Aminotransferase (ALT) 13 7-40 U/L Alkaline Phosphatase 87 46-116 U/L Total Protein 7.1 5.7-8.2 g/dL Albumin 4.5 3.2-4.8 g/dL [place] [id number] Ph: [phone] DIAGNOSTIC IMAGING Diagnostic Imaging Report : [id number] Signed PATIENT: ELISHA CASEY ACCT: [id number] UNIT: [id number] : 1960 LOC: ER ROOM / BED: / AGE / SEX: 64 / F ADM STATUS: REG ER SERVICE 1327 ORDERING PHYSICIAN: LIDIA NAVARRETE DO PROCEDURE(s): CXRP - CHEST PORTABLE REASON: cp ORDER NUMBER(s): [id number], ACCESSION NUMBER(s): [id number] EXAM: XY CHEST PORTABLE Indication: cp Technique: Single frontal view of the chest was obtained Comparison: XY CHEST PORTABLE on DOS: 10/03/24, XY CHEST XRAY 1 VIEW on DOS: 06/11/24, XY CHEST PORTABLE on DOS: 06/04/24, XY CHEST PORTABLE on DOS: 02/12/24, CHEST PORTABLE on DOS: 03/23/22 FINDINGS: Lines and Tubes: None Lungs: No focal consolidation. Pleura: No effusion. No pneumothorax. Cardiomediastinal contours: Unremarkable. Atherosclerotic vascular calcifications of the thoracic aorta are noted. Bones: No acute osseous abnormality. IMPRESSION: No acute cardiopulmonary disease. ATED BY: BO DOHERTY MD DICTATED DATE/TIME: 11/29/241404 SIGNED BY: BO DOHERTY MD SIGNED DATE/TIME: 11/29/241404 CC: Images Reviewed?: Images reviewed and evaluated by me Time of 1ST Reevaluation: 14:34 Reevaluation 1ST: Unchanged Patient Education/Counseling: Diagnosis, Treatment Family Education/Counseling: No Family Present Comments MDM: patient presented with the above HPI.--chest pain/guarding----workup was initiated. patient was found with the above mentioned diagnosis. the following medications were ordered: please refer to order lists of meds and tests obtained by myself Dr. Navarrete. Patient ED course and VS have been stabilized. Patient has been reassessed in the ED and remained in a stable condition. Pertinent incidental findings were discussed with the patient and/or family. Patient/family voices understanding and is agreeable with plan. Patient has been observed in the ED adequate length of time to insure improvement/stability. Escalation of care considered: Consideration of escalation to observation or admission Patient was ADMITTED to the medicine team for further evaluation and treatment of their presentation. All the reports of any imaging studies that were ordered by myself were reviewed by myself. Departure 1 Departure Time of Disposition: 13:42 Impression: Primary Impression: Chest pain Additional Impressions: Elevated troponin Hypertension Disposition: ADMITTED INPATIENT Admit to: Tele Condition: Guarded e-Prescriptions Nifedipine (Nifedipine Er) 60 Mg Tab 1 TAB PO BID, #90 TAB 1 Refill Prov: ISSAC FORREST MD 12/02/24 Aspirin (Aspirin Ec Low Dose) 81 Mg Tab 81 MG PO DAILY MDD ., #90 TAB Prov: ISSAC FORREST MD 12/02/24 Metoprolol Tartrate (Metoprolol Tartrate) 25 Mg Tab 1 TAB PO BID MDD . for 90 Days, #180 TAB 3 Refills Prov: ISSAC FORREST MD 12/02/24 Thyroid ([place] Thyroid) 30 Mg Tab 1 TAB PO DAILY MDD ., #90 TAB 3 Refills Prov: ISSAC FORREST MD 12/02/24 Clonidine Hydrochloride (Clonidine Hcl) 0.1 Mg Tab 0.1 MG PO TID MDD ., #100 TAB Prov: ISSAC FORREST MD 12/02/24 Discharged With: Self Critical Care Note Critical Care Time?: No Heart Score Heart Score: Heart Score Response (Comments) Value History Moderate Suspicious 1 EKG Normal 0 Age >65 2 Risk Factors 1 or 2 risk factors 1 Troponin 1-2 x's Normal limit 1 Total 5 I personally scribed for LIDIA NAVARRETE DO ([email or web address]) on 11/29/24 at 13:34. Electronically submitted by Lawrence Dickson ([email or web address]). I personally scribed for LIDIA NAVARRETE DO ([email or web address]) on 11/29/24 at 15:09. Electronically submitted by Lawrence Dickson ([email or web address]). LIDIA NAVARRETE DO Nov 29, 2024 13:34
[2024-11-29 13:55] LABS: Hematocrit 45.3 % (36.0-46.0); Hemoglobin 15.0 g/dL (12.2-16.2); Mean Corpuscular Hemoglobin 29.9 pg (28.0-32.0); Mean Corpuscular Volume 90.0 fL (80.0-100.0); Nucleated Red Blood Cells % 0.1 %
--- NOTE | 2024-11-29 14:07 | DVH ---
EXAM: XY CHEST PORTABLE Indication: cp Technique: Single frontal view of the chest was obtained Comparison: XY CHEST PORTABLE on DOS: 10/03/24, XY CHEST XRAY 1 VIEW on DOS: 06/11/24, XY CHEST PORTABL E on DOS: 06/04/24, XY CHEST PORTABLE on DOS: 02/12/24, CHEST PORTABLE on DOS: 03/23/22 FINDINGS: Lines and Tubes: None Lungs: No focal consolidation. Pleura: No effusion. No pneumothorax. Cardiomediastinal contours: Unremarkable. Atherosclerotic vascular calcifications of the thoracic ao rta are noted. Bones: No acute osseous abnormality. IMPRESSION: No acute cardiopulmonary disease.
[2024-11-29 14:15] LABS: Alanine Aminotransferase 13 U/L (7-40); Albumin 4.5 g/dL (3.2-4.8); Alkaline Phosphatase 87 U/L (46-116); Anion Gap 9 (5-15); BUN/Creatinine Ratio 10.5 (10.0-20.0); Blood Urea Nitrogen 10 mg/dL (9-23); Calcium 10.0 mg/dL (8.7-10.4); Carbon Dioxide 25 mmol/L (20-31); Chloride 103 mmol/L (98-107); Potassium 4.5 mmol/L (3.5-5.1); Sodium 137 mmol/L (136-145); Total Protein 7.1 g/dL (5.7-8.2)
[2024-11-29 14:16] LABS: Bilirubin, Total 0.4 mg/dL (0.2-1.0); Glucose 115 mg/dL (74-106)
[2024-11-29] MEDS ORDERED: ONDANSETRON HCL 4 MG/2 ML VIAL IV PRN (17:00)
[2024-11-29] MEDS ORDERED: MORPHINE SULFATE INJ 2 MG/ml SYRG IV PRN (17:00)
[2024-11-29 17:03] VITALS: PULSE 68; RESP 13; O2SAT 98
[2024-11-29 18:24] LABS: Urine Protein, UAD Negative (Negative)
[2024-11-29] MEDS: hydrALAZINE HCL 20 MG/ML VL IV PRN (18:26)
--- NOTE | 2024-11-29 18:54 | ECG ---
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
[2024-11-29 19:33] VITALS: PULSE 79; RESP 15; O2SAT 97
[2024-11-29] MEDS: ATORVASTATIN 20 MG TAB PO SCH (21:59)
[2024-11-29] MEDS: FLUTICASONE PROP NASAL SPR 0.05 % (50MCG) 16GM SCH (21:59)
[2024-11-29] MEDS ORDERED: ATORVASTATIN 20 MG TAB PO SCH (22:00)
[2024-11-29] MEDS ORDERED: METOPROLOL TARTRATE 25 MG TAB PO SCH (22:00)
[2024-11-29] MEDS: ENOXAPARIN SOD 80 MG/0.8ML SYRINGE SC SCH (22:02)
[2024-11-29] MEDS: METOPROLOL SUCCINATE XL 50 MG TAB PO SCH (22:09)
--- NOTE | 2024-11-30 01:23 | DVHHP2 ---
Admitting Diagnosis: Chest pain, Elevated troponin, Malignant hypertension History of Present Illness History Source: Patient Exam Limitations: No limitations HPI This is a 64-year-old female with a history of atrial fibrillation, CHF, hypertension, hypothyroidism, atherosclerosis who presents with a chief complaint of left-sided chest pain constant nonradiating that happened after she had lunch. Patient received nitroglycerin and aspirin prior to arrival by EMS which patient states gave her some improvement. Patient reports she was recent diagnosed and admitted to a hospital few weeks ago and was diagnosed with pneumonia and completed a course of antibiotics. Patient reports sharp midsternal non radiating chest pain with no other symptoms, denies dyspnea, headaches, blurry vision, nausea, vomiting. Patient admitted for further evaluation. Home Meds Active Scripts Metoprolol Tartrate (Metoprolol Tartrate) 25 Mg Tab, 1 TAB PO BID for 90 Days, #180 TAB 3 Refills Prov:YOSSI SALOMON MD 10/04/24 Cefdinir (Cefdinir) 300 Mg Cap, 1 CAP PO BID for 5 Days, #10 CAP Prov:JODIE RASHID MD 06/11/24 Mupirocin Calcium (Topical) (MUPIROCIN) 2 % Cre, 2 % EX TID for 5 Days, #1 CRE Prov:DENILSON MELGOZA MD 02/13/24 Fluticasone Propionate (Nasal) (Flonase Allergy Relief) 50 Mcg/Act Spr, 50 MCG NA BID for 30 Days, #1 SPRAY 0 Refills Prov:DENILSON MELGOZA MD 02/13/24 Atorvastatin Calcium (ATORVASTATIN CALCIUM) 20 Mg Tab, 40 MG PO HS for 30 Days, #60 TAB 0 Refills Prov:DENILSON MELGOZA MD 02/13/24 Reported Medications Thyroid ([place] Thyroid) 30 Mg Tab, 1 TAB PO DAILY, #90 TAB 3 Refills 02/03/24 Clonidine Hydrochloride (Clonidine Hcl) 0.1 Mg Tab, 0.1 MG PO TID, TAB 02/03/24 Nifedipine (Nifedipine Er) 30 Mg Tab, 30 MG PO BID, TAB 02/03/24 Past Medical History Cardiac: AFIB, CHF, HTN Pulmonary: No pertinent Hx Central Nervous System: No pertinent Hx GI: No pertinent Hx Hemotology/Oncology: No pertinent Hx Hepatobiliary: No pertinent Hx Psychiatric: No pertinent Hx Musculoskeletal: No pertinent Hx Rheumotologic: No pertinent Hx Infectious Disease: No peritnent Hx ENT: No pertinent Hx Renal/: No pertinent Hx Endocrine: Hypothyroidism Dermatology: No pertinent Hx Others Atherosclerosis Patient Family History: FH: multiple sclerosis G8 SISTER Family history: Alzheimer's disease G8 MOTHER Family history: Cardiovascular disease G8 FATHER G8 SISTER Smoker: No Hx (Negative) Alocohol: None Drugs: None Lives with: Alone Domestic Violence: Neg Review of Systems Constitutional: No symptom reported Ears, Nose, & Throat: No symptom reported Eyes: No symptom reported Pulmonary/Respiratory: No symptom reported Cardiovascular: Chest Pain Gastrointestinal: No symptom reported Genitourinary: No symptom reported Musculoskeletal: No symptom reported Skin: No symptom reported Psychiatric: No symptom reported Endocrine: No symptom reported Hemotologic/Lymphatic: No symptom reported H&P Exam Vital Signs Vital Signs Date Time Temp Pulse Resp B/P (MAP) Pulse Ox O2 Delivery O2 Flow Rate FiO2 11/30/24 00:00 70 11/30/24 00:00 97.7 15 134/53 (80) 97 97.7 11/29/24 19:33 Room Air* 0 21 General Appeara: Well developed, Well nourished, Normal Appearance Head Exam: Normal inspection Neck Exam: Normal inspection, Non-tender, Normal alignment Eye Exam: bilateral eye Normal inspection, bilateral eye PERRL, bilateral eye EOMI Ear Exam: bilateral ear Auricle normal Nasal Exam: Normal inspection Mouth: Normal Inspection Pulmonary/Respiratory: Normal inspection, Normal breath sounds, Chest non- tender, Lungs clear Cardiovascular/Chest: Normal inspection, Regular rate, Normal Rhythm Peripheral Pulses: 2+ dorsalis pedis (R), 2+ dorsalis pedis (L), 2+ Radial (R), 2+ Radial (L) Abdominal Exam: Normal bowel sounds, Soft, No tenderness PULL OVER Exam: Normal hearing, Normal speech, PERRL Motor/Sensory: Normal sensory function, Normal motor function Neuro/Mental St: Alert, Oriented Appearance: Appropriate appearance, Appropriate insight Eye contact/ Speech: Cooperative, Good eye contact, Normal speech Thoughts/Psych: Normal thought pattern Skin Exam: Normal inspection, Normal color, Warm/dry SEPSIS Sepsis Screen Date sepsis recognized/suspect: Nov 29, 2024 Time Sepsis recognized/suspect: 1932 Recent Procedure: No On Antibiotic Therapy: No Respiratory Rate >20: No Heart Rate >90: No Temp<36 C (96.8 F) or >38.3 C: No SBP <90 or MAP <65 mmHG: No New Acute Mental Status Change: No Is the patient on CPAP, BIPAP,: No Physician Orders Metoprolol Xl Succinate (Toprol Xl) (11/29/24 22:00) Vital Signs Date Time Temp Pulse Resp B/P (MAP) Pulse Ox O2 Delivery O2 Flow Rate FiO2 11/30/24 00:00 70 11/30/24 00:00 97.7 68 15 134/53 (80) 97 97.7 11/29/24 23:00 160/56 11/29/24 23:00 130/47 (74) 11/29/24 22:09 74 160/57 11/29/24 22:00 160/57 11/29/24 22:00 160/57 11/29/24 22:00 97.6 68 13 160/57 (91) 97 97.6 11/29/24 20:00 76 11/29/24 19:33 97.3 79 15 176/63 (100) 97 97.3 11/29/24 19:33 79 15 97 Room Air* 0 21 11/29/24 19:00 97.6 76 15 180/69 (106) 95 97.6 11/29/24 18:26 183/59 11/29/24 18:02 97.4 63 12 188/62 (104) 99 97.4 Laboratory Tests Test 11/29/24 13:45 White Blood Count 5.3 10^3/uL (4.4-10.8) Medications Medications Dose Ordered Sig/Sabra Route Start Time Stop Time Status Last Admin Dose Admin Atorvastatin Calcium 40 mg HS PO 11/29/24 22:00 11/29/24 21:59 40 MG Clonidine HCl 0.1 mg TID PO 11/29/24 22:00 11/29/24 22:00 0.1 MG Enoxaparin Sodium 70 mg BID SC 11/29/24 22:00 11/29/24 22:02 70 MG Fluticasone Propionate 50 mcg BID NA 11/29/24 22:00 11/29/24 21:59 50 MCG Hydralazine HCl 10 mg Q6HP PRN IV 11/29/24 17:00 11/29/24 18:26 10 MG Metoprolol Succinate 25 mg HS PO 11/29/24 22:00 11/29/24 22:09 25 MG Nifedipine 30 mg BID PO 11/29/24 22:00 11/29/24 22:00 30 MG Labs/Xrays Labs Test 11/29/24 23:05 11/29/24 17:59 11/29/24 14:43 11/29/24 13:45 Range/Units Troponin I High Sensitivity 74 *H </=34 ng/L Urine Color Light-yellow Yellow Urine Clarity Clear Clear Urine pH 7.0 5.0-9.0 Urine Specific [place] 1.010 1.001-1.035 Urine Protein Negative Negative Urine Ketones Negative Negative Urine Blood Negative Negative /uL Urine Nitrite Negative Negative Urine Bilirubin Negative Negative Urine Urobilinogen Normal Negative mg/dL Urine Leukocyte Esterase Negative Negative /uL Urine RBC None seen 0 - 4 /hpf Urine Microscopic WBC 2 0-5 /HPF Urine Squamous Epithelial Cells Few <5 /hpf Urine Bacteria None seen None Seen /hpf Urine Glucose Normal Normal mg/dL Thyroid Stimulating Hormone (TSH) 34.62 H 0.55-4.78 uIU/mL Free Thyroxine (T4) Calculated 0.88 L 0.89-1.76 ng/dL White Blood Count 5.3 4.4-10.8 10^3/uL Red Blood Count 5.03 4.0-5.20 10^6/uL Hemoglobin 15.0 12.2-16.2 g/dL Hematocrit 45.3 36.0-46.0 % Mean Corpuscular Volume 90.0 80.0-100.0 fL Mean Corpuscular Hemoglobin 29.9 28.0-32.0 pg Mean Corpuscular Hemoglobin Concent 33.2 32.0-36.0 g/dL Red Cell Distribution Width 14.7 H 11.8-14.3 % Platelet Count 258 140-450 10^3/uL Mean Platelet Volume 7.1 6.9-10.8 fL Neutrophils (%) (Auto) 60.6 37.0-80.0 % Lymphocytes (%) (Auto) 30.6 10.0-50.0 % Monocytes (%) (Auto) 8.5 0.0-12.0 % Eosinophils (%) (Auto) 0.0 0.0-7.0 % Basophils (%) (Auto) 0.3 0.0-2.0 % Neutrophils # (Auto) 3.2 1.6-8.6 10 ^3/uL Lymphocytes # (Auto) 1.6 0.4-5.4 10 ^3/uL Monocytes # (Auto) 0.4 0-1.3 10 ^3/uL Eosinophils # (Auto) 0 0-0.8 10 ^3/uL Basophils # (Auto) 0 0-0.2 10 ^3/uL Nucleated Red Blood Cells 0.1 % Sodium Level 137 136-145 mmol/L Potassium Level 4.5 3.5-5.1 mmol/L Chloride Level 103 98-107 mmol/L Carbon Dioxide Level 25 20-31 mmol/L Anion Gap 9 5-15 Blood Urea Nitrogen 10 9-23 mg/dL Creatinine 0.95 0.550-1.02 mg/dL Glomerular Filtration Rate Calc 66 >90 mL/min BUN/Creatinine Ratio 10.5 10.0-20.0 Serum Glucose 115 H 74-106 mg/dL Calcium Level 10.0 8.7-10.4 mg/dL Total Bilirubin 0.4 0.2-1.0 mg/dL Aspartate Amino Transferase (AST) 25 13-40 U/L Alanine Aminotransferase (ALT) 13 7-40 U/L Alkaline Phosphatase 87 46-116 U/L Total Protein 7.1 5.7-8.2 g/dL Albumin 4.5 3.2-4.8 g/dL Assessment/Plan Problem List: (1) Chest pain (2) Elevated troponin (3) Malignant hypertension Plan Mrs. Alicja Sommer is a 64 yo female with known history of atrial fibrillation, CHF, hypertension, hypothyroidism, atherosclerosis who presents to the hospital with chest pain. Patient found to have 1. Chest pain 2. Elevated troponin 3. Malignant hypertension 4. Hx of atrial fibrillation 5. CHF 6. Hypothyroidism Plan Admit Telemetry unit Cardiology consultation, 2D echocardiogram, serial troponin levels, ASA, Statin Lovenox SC Monitor BMP, CBC Continue home medications Discussed all above with patient who verbalized agreement and understanding of care plan. All questions were answered. Discussed with admitting/supervising MD. Plan discussed with: Patient, Other Code Visit Code Visit Total Time (mins): 45 Additional Comments Additional Comments Additional Comments Patient is seen and evaluated. Patient's chart is reviewed and discussed with the nurse practitioner. Patient is seen evaluated and admitted by nurse practitioner earlier today. I agree with her evaluation, documentation, assessment and care plan as outlined. Patient is seen and evaluated by cardio clinician and her blood pressure medications have been adjusted PHILL DINREO Nov 30, 2024 01:23 ISSAC FORREST MD Nov 30, 2024 16:12
[2024-11-30 03:26] VITALS: BP 142/52; PULSE 63; RESP 18; TEMP 97.4; O2SAT 98
[2024-11-30 05:22] LABS: Hematocrit 40.3 % (36.0-46.0); Hemoglobin 13.1 g/dL (12.2-16.2); Mean Corpuscular Hemoglobin 29.7 pg (28.0-32.0); Mean Corpuscular Volume 91.0 fL (80.0-100.0); Nucleated Red Blood Cells % 0.1 %
[2024-11-30 05:36] LABS: Chloride 104 mmol/L (98-107); Potassium 4.9 mmol/L (3.5-5.1); Sodium 137 mmol/L (136-145)
[2024-11-30 05:37] LABS: Anion Gap 6 (5-15); Calcium 9.4 mg/dL (8.7-10.4); Carbon Dioxide 27 mmol/L (20-31)
[2024-11-30 05:38] LABS: INR 0.97 (0.9-1.15); Partial Thromboplastin Time 35.2 SEC (24.5-34.5); Prothrombin Time 10.3 sec (9.3-11.8)
[2024-11-30 05:42] LABS: BUN/Creatinine Ratio 10.5 (10.0-20.0); Glucose 98 mg/dL (74-106)
[2024-11-30 05:45] LABS: Blood Urea Nitrogen 9 mg/dL (9-23)
[2024-11-30] MEDS: PANTOPRAZOLE 40 MG TAB PO SCH (05:46)
[2024-11-30] MEDS: THYROID PO SCH (05:46)
[2024-11-30 06:40] VITALS: BP 151/50; PULSE 69; RESP 18; O2SAT 97
[2024-11-30 08:00] VITALS: PULSE 70; RESP 17; O2SAT 97
--- NOTE | 2024-11-30 10:24 | DVHINCON2 ---
Date Seen: Nov 30, 2024 Referring Physician MD Tiffany Reason for Consultation Elevated troponin and hypertension History of Present Illness This is a 64-year-old female patient who presents to the emergency room with chief complaint of chest pain. The patient reports that the chest pain began yesterday at approximately 1:00 p.m. after eating lunch. She describes the pain as unprovoked, constant, tight in nature, midsternal and nonradiating. She denies any associated symptoms. She came to the emergency room for further evaluation. Of note, upon emergency room arrival, the patient was noted to have blood pressures reaching up as high as 192/127. Initial twelve lead electrocardiogram reveals normal sinus rhythm without any significant ST segment changes (low voltage). Initial troponin level of 95ng/L with down trend thereafter. Significant past medical history includes congestive heart failure, hypertension, dyslipidemia, paroxysmal atrial fibrillation (not on NOAC therapy), history myocardial infarction, thyroid disease, and anxiety. The patient denies following up with a glass decorator in the outpatient setting. She also admits that she does not take all of her antihypertensive medications regularly. Past Medical History Past medical history reviewed. No other significant than mentioned above. Past Surgical History Denies any previous surgeries Family History: FH: Crohn's disease G8 BROTHER FH: multiple sclerosis G8 SISTER Family history: Alzheimer's disease G8 MOTHER Family history: Cardiovascular disease G8 FATHER G8 SISTER Family History Family history reviewed. Social History Denies the use of tobacco, alcohol or illicit drugs. Allergies: Coded Allergies: NO KNOWN ALLERGIES (Unverified , 02/02/24) Home Meds Active Scripts Metoprolol Tartrate (Metoprolol Tartrate) 25 Mg Tab, 1 TAB PO BID for 90 Days, #180 TAB 3 Refills Prov:YOSSI SALOMON MD 10/04/24 Cefdinir (Cefdinir) 300 Mg Cap, 1 CAP PO BID for 5 Days, #10 CAP Prov:JODIE RASHID MD 06/11/24 Mupirocin Calcium (Topical) (MUPIROCIN) 2 % Cre, 2 % EX TID for 5 Days, #1 CRE Prov:DENILSON MELGOZA MD 02/13/24 Fluticasone Propionate (Nasal) (Flonase Allergy Relief) 50 Mcg/Act Spr, 50 MCG NA BID for 30 Days, #1 SPRAY 0 Refills Prov:DENILSON MELGOZA MD 02/13/24 Atorvastatin Calcium (ATORVASTATIN CALCIUM) 20 Mg Tab, 40 MG PO HS for 30 Days, #60 TAB 0 Refills Prov:DENILSON MELGOZA MD 02/13/24 Reported Medications Thyroid ([place] Thyroid) 30 Mg Tab, 1 TAB PO DAILY, #90 TAB 3 Refills 02/03/24 Clonidine Hydrochloride (Clonidine Hcl) 0.1 Mg Tab, 0.1 MG PO TID, TAB 02/03/24 Nifedipine (Nifedipine Er) 30 Mg Tab, 30 MG PO BID, TAB 02/03/24 Home Meds Home medications reviewed. Current Medications Current Medications Medications (Trade) Dose Ordered Sig/Sabra Route PRN Reason Start Time Stop Time Status Last Admin Atorvastatin Calcium (Lipitor) 40 mg HS PO 11/29/24 22:00 11/29/24 21:59 Clonidine HCl (Catapres Tablet) 0.1 mg TID PO 11/29/24 22:00 11/29/24 22:00 Fluticasone Propionate (Flonase [place]) 50 mcg BID NA 11/29/24 22:00 11/29/24 21:59 Metoprolol Tartrate (Lopressor Tablet) 25 mg BID PO 11/29/24 22:00 11/29/24 18:31 DC Nifedipine (Procardia Xl (Time-Release)) 30 mg BID PO 11/29/24 22:00 11/29/24 22:00 Patient Own Medication 1 tab DAILY@0600 PO 11/30/24 06:00 Nitroglycerin (Ntrostat Sublingual) 0.4 mg Q5MINP PRN SL FOR CHEST PAIN 11/29/24 17:00 Morphine Sulfate 2 mg Q30M PRN IV FOR CHEST PAIN 11/29/24 17:00 Morphine Sulfate 2 mg Q4HPRN PRN IV SEVERE PAIN (7-10 PAIN SCALE) 11/29/24 17:00 Ondansetron HCl (Zofran) 4 mg Q4HPRN PRN IV NAUSEA / VOMITING 11/29/24 17:00 Pantoprazole Sodium (Protonix Tablet) 40 mg DAILY@0600 PO 11/30/24 06:00 11/30/24 05:46 Hydralazine HCl (Apresoline Injection) 10 mg Q6HP PRN IV SBP>150 11/29/24 17:00 11/30/24 05:50 Aspirin (Ecotrin Enteric Coated Tablet) 81 mg DAILY PO 11/30/24 10:00 Enoxaparin Sodium (Lovenox) 70 mg BID SC 11/29/24 22:00 11/29/24 22:02 Atorvastatin Calcium (Lipitor) 10 mg HS PO 11/29/24 22:00 11/29/24 17:59 DC Metoprolol Succinate (Toprol Xl) 25 mg HS PO 11/29/24 22:00 11/29/24 22:09 Review of Systems Constitutional: No symptom reported Ears, Nose, & Throat: No symptom reported Eyes: No symptom reported Neurological: No symptoms reported Pulmonary/Respiratory: No symptoms reported Cardiovascular: Chest pain Gastrointestinal: No symptom reported Genitourinary: No symptom reported Musculoskeletal: No symptom reported Skin: No symptom reported Psychiatric: No symptom reported Endocrine: No symptom reported Hematologic/Lymphatic: No symptom reported Vital Signs Vital Signs Date Time Temp Pulse Resp B/P (MAP) Pulse Ox O2 Delivery O2 Flow Rate FiO2 11/30/24 08:00 70 17 97 Room Air* 0 21 11/30/24 08:00 97.7 160/61 (94) 97.7 Physical Exam General Appearance: Cooperative. Well-developed. Well-nourished. No acute distress. Pulmonary/Respiratory: Clear, bilateral breaths sounds. Cardiovascular/Chest: Regular rate and rhythm. Peripheral Pulses: 2+ Radial (R). 2+ Radial (L). 2+ Pedal (R). 2+ Pedal (L) Abdominal Exam: Normal bowel sounds. Ankle Exam: Negative ankle edema Lower extremities: Negative lower extremity edema Neuro/Mental Status: A/OX4, coherent. Thoughts/Psych: Normal thought pattern. Appropriate mood and affect. Good judgment and insight. Appearance: No acute distress. Skin Exam: Normal inspection. Normal color. Warm and dry. Labs/Diagnostic Data Labs Test 11/30/24 05:10 11/29/24 17:59 11/29/24 14:43 11/29/24 13:45 Range/Units White Blood Count 6.0 4.4-10.8 10^3/uL Red Blood Count 4.43 4.0-5.20 10^6/uL Hemoglobin 13.1 12.2-16.2 g/dL Hematocrit 40.3 # 36.0-46.0 % Mean Corpuscular Volume 91.0 80.0-100.0 fL Mean Corpuscular Hemoglobin 29.7 28.0-32.0 pg Mean Corpuscular Hemoglobin Concent 32.6 32.0-36.0 g/dL Red Cell Distribution Width 15.0 H 11.8-14.3 % Platelet Count 242 140-450 10^3/uL Mean Platelet Volume 7.2 6.9-10.8 fL Neutrophils (%) (Auto) 60.0 37.0-80.0 % Lymphocytes (%) (Auto) 32.2 10.0-50.0 % Monocytes (%) (Auto) 7.2 0.0-12.0 % Eosinophils (%) (Auto) 0.0 0.0-7.0 % Basophils (%) (Auto) 0.6 0.0-2.0 % Neutrophils # (Auto) 3.6 1.6-8.6 10 ^3/uL Lymphocytes # (Auto) 1.9 0.4-5.4 10 ^3/uL Monocytes # (Auto) 0.4 0-1.3 10 ^3/uL Eosinophils # (Auto) 0 0-0.8 10 ^3/uL Basophils # (Auto) 0 0-0.2 10 ^3/uL Nucleated Red Blood Cells 0.1 % Prothrombin Time 10.3 9.3-11.8 sec Prothrombin Time INR 0.97 0.9-1.15 Activated Partial Thromboplast Time 35.2 H 24.5-34.5 SEC Sodium Level 137 136-145 mmol/L Potassium Level 4.9 3.5-5.1 mmol/L Chloride Level 104 98-107 mmol/L Carbon Dioxide Level 27 20-31 mmol/L Anion Gap 6 5-15 Blood Urea Nitrogen 9 9-23 mg/dL Creatinine 0.86 0.550-1.02 mg/dL Glomerular Filtration Rate Calc 74 >90 mL/min BUN/Creatinine Ratio 10.5 10.0-20.0 Serum Glucose 98 74-106 mg/dL Calcium Level 9.4 8.7-10.4 mg/dL Troponin I High Sensitivity 77 *H </=34 ng/L Urine Color Light-yellow Yellow Urine Clarity Clear Clear Urine pH 7.0 5.0-9.0 Urine Specific [place] 1.010 1.001-1.035 Urine Protein Negative Negative Urine Ketones Negative Negative Urine Blood Negative Negative /uL Urine Nitrite Negative Negative Urine Bilirubin Negative Negative Urine Urobilinogen Normal Negative mg/dL Urine Leukocyte Esterase Negative Negative /uL Urine RBC None seen 0 - 4 /hpf Urine Microscopic WBC 2 0-5 /HPF Urine Squamous Epithelial Cells Few <5 /hpf Urine Bacteria None seen None Seen /hpf Urine Glucose Normal Normal mg/dL Thyroid Stimulating Hormone (TSH) 34.62 H 0.55-4.78 uIU/mL Free Thyroxine (T4) Calculated 0.88 L 0.89-1.76 ng/dL Total Bilirubin 0.4 0.2-1.0 mg/dL Aspartate Amino Transferase (AST) 25 13-40 U/L Alanine Aminotransferase (ALT) 13 7-40 U/L Alkaline Phosphatase 87 46-116 U/L Total Protein 7.1 5.7-8.2 g/dL Albumin 4.5 3.2-4.8 g/dL Assessment Chest pain, rule out ACS NSTEMI type II secondary to hypertensive urgency History of chronic HFpEF, NYHA class II Paroxysmal atrial fibrillation (not on NOAC) Hyperlipidemia Hypothyroidism, severe Anxiety Medication noncompliance Plan/Recommendation We will continue with the following plan/recommendations (Dr. Farris): * Transthoracic echocardiogram to evaluate cardiac function * Previous echocardiogram from 02/03/2024 reveals an EF of 55% with grade 1 diastolic dysfunction * Aggressive blood pressure control as tolerated * Lipid-lowering agent * [id number] VASc score: 3 points, HAS-BLED score: 2 points * Therapeutic Lovenox while inpatient, consider NOAC therapy prior to discharge if patient agreeable * Continue beta-angel for rate control * Close Cardiac surveillance * Primary team to manage thyroid medication Case discussed with . Elevated troponin level likely in the setting of hypertensive urgency. Given clinical presentation, borderline troponin level, and unremarkable twelve lead electrocardiogram, doubt ACS. In the setting of an unremarkable transthoracic echocardiogram, there is no further inpatient cardiac workup indicated at this time. Of note, the patient was found to have atrial fibrillation (confirmed by EKG found on [facility] from visit on 10/03/24). The patient reports that she does not currently take NOAC therapy at home. If the patient is agreeable, patient should be on NOAC therapy prior to discharge. Consider outpatient cardiology workup if deemed necessary. Thank you for allowing us to care for this patient. Please call with any questions or concerns. Critical care time spent: 44 minutes This medical document was created using an electronic medical record system with voice recognition software and computerized dictation system. Although this document has been carefully reviewed, there might still be some phonetic and typographical errors. Occasional wrong-word or ``sound-alike substitutions may have occurred due to the inherent limitations of voice recognition software. These areas are purely typographical due to imperfections of the software programs and do not reflect any compromise in the patient's medical care. Please read the chart carefully and recognize, using context, where these substitutions have occurred. Plan discussed with: Patient NYHA Physical activity limitations: Class2(Slight)fatigue,sob (palpitatns, angina w activityv) Date of Service: Nov 30, 2024 Billing Provider: JILL MAN Cardiology Common Codes: 16361-[id number] INP/OBS CARE (High) Cardiology Consultation Codes: 93136-[id number] CONSULT <45MIN JILL MAN Nov 30, 2024 10:24
[2024-11-30] MEDS: ASPirin-EC 81 mg tab PO SCH (10:49)
[2024-11-30] MEDS: MORPHINE SULFATE INJ 2 MG/ml SYRG IV PRN (15:18)
--- NOTE | 2024-11-30 16:51 | DVHSR ---
APPROVED REPORT EXAM: Two-dimensional and M-mode echocardiogram with Doppler and color Doppler. Blood Pressure: 151/50 mmHg INDICATION Chest Pain RISK FACTORS Height: 5'5, Weight: 160 DIMENSIONS LVDd4.4 (3.8-5.7cm)LA (2D)3.7 (1.9-4.0cm)Aortic Root3.5 (2.0-3.7cm) LVDs2.7 (2.5-4.0cm)LA (MM) (1.9-4.0cm)Aortic Cusp Exc1.6 (1.5-2.0cm) EF (%) 60.0 (55-70%)Rt. Atrium3.1 (1.9-4.0cm)Asc. Aorta3.0 cm IVSd1.0 (0.7-1.1cm)RV (D) (1.8-2.4cm) PWd0.8 (0.7-1.1cm) Mitral Valve MitralMitral Stenosis E wave0.70m/sMV Mean GR.mmHg A wave0.81m/sMV Peak GR.51mmHg E/A ratio0.92D MVAcm2 DECEL [id number] 1/2 [place] Aortic Valve Aortic ValveAortic Stenosis V10.83m/Shanti Mean GR.4mmHg V21.21m/Shanti Peak GR.6mmHg LVOT Diameter2.1 (1.8-2.4cm)Doppler AVA2.37cm2 Pulmonic Valve V20.78m/s Conclusion Left ventricle: Mild concentric left ventricular hypertrophy was seen. LVEF was 65-70%. There was no gross wall motion abnormality. Diastolic function was considered normal for age. Right ventricle: Right ventricle was normal-sized with normal systolic function. Both atria were no rmal-sized. Aortic valve: Aortic valve was trileaflet. There was trace aortic insufficiency. There was no aorti c stenosis. There was trace mitral regurgitation. There was trace pulmonary valve insufficiency. T here was no tricuspid regurgitation. As there was no good tricuspid regurgitation jet, right ventricular systolic pressure could not be es timated. There was no echocardiographic evidence for pulmonary hypertension. Small pericardial effusion was seen. There was no echocardiographic evidence for tamponade.
[2024-11-30 20:03] VITALS: PULSE 65; RESP 14; O2SAT 95
[2024-11-30 21:25] VITALS: BP 144/84; PULSE 78; RESP 18; TEMP 97.5; O2SAT 96
[2024-11-30 21:30] VITALS: BP 144/84; PULSE 78; RESP 17; TEMP 97.5; O2SAT 96
[2024-12-01] VITALS (9 sets, daily range): BP systolic 122–184; BP diastolic 60–75; PULSE 61–90; RESP 16–20; TEMP 97.7–98.1; O2SAT 94–98
[2024-12-01] MEDS ORDERED: THYR30TA PO (12:18)
[2024-12-01] MEDS ORDERED: CLON0.1T PO (12:18)
[2024-12-01] MEDS ORDERED: METO25TA5 PO (12:18)
[2024-12-01] MEDS ORDERED: ASPI81TA10 PO (12:18)
[2024-12-01] MEDS ORDERED: NIFE1TAB31 PO (12:18)
--- NOTE | 2024-12-01 12:19 | DVHDS2 ---
Discharge Summary Date of Admission Nov 29, 2024 at 16:52 Date of Discharge: Dec 02, 2024 Labs/Diagnostic Data: Laboratory Results Test 11/30/24 05:10 11/29/24 17:59 11/29/24 14:43 11/29/24 13:45 White Blood Count 6.0 10^3/uL (4.4-10.8) Red Blood Count 4.43 10^6/uL (4.0-5.20) Hemoglobin 13.1 g/dL (12.2-16.2) Hematocrit 40.3 % (36.0-46.0) Mean Corpuscular Volume 91.0 fL (80.0-100.0) Mean Corpuscular Hemoglobin 29.7 pg (28.0-32.0) Mean Corpuscular Hemoglobin Concent 32.6 g/dL (32.0-36.0) Red Cell Distribution Width 15.0 % (11.8-14.3) Platelet Count 242 10^3/uL (140-450) Mean Platelet Volume 7.2 fL (6.9-10.8) Neutrophils (%) (Auto) 60.0 % (37.0-80.0) Lymphocytes (%) (Auto) 32.2 % (10.0-50.0) Monocytes (%) (Auto) 7.2 % (0.0-12.0) Eosinophils (%) (Auto) 0.0 % (0.0-7.0) Basophils (%) (Auto) 0.6 % (0.0-2.0) Neutrophils # (Auto) 3.6 10 ^3/uL (1.6-8.6) Lymphocytes # (Auto) 1.9 10 ^3/uL (0.4-5.4) Monocytes # (Auto) 0.4 10 ^3/uL (0-1.3) Eosinophils # (Auto) 0 10 ^3/uL (0-0.8) Basophils # (Auto) 0 10 ^3/uL (0-0.2) Nucleated Red Blood Cells 0.1 % Prothrombin Time 10.3 sec (9.3-11.8) Prothrombin Time INR 0.97 (0.9-1.15) Activated Partial Thromboplast Time 35.2 SEC (24.5-34.5) Sodium Level 137 mmol/L (136-145) Potassium Level 4.9 mmol/L (3.5-5.1) Chloride Level 104 mmol/L (98-107) Carbon Dioxide Level 27 mmol/L (20-31) Anion Gap 6 (5-15) Blood Urea Nitrogen 9 mg/dL (9-23) Creatinine 0.86 mg/dL (0.550-1.02) Glomerular Filtration Rate Calc 74 mL/min (>90) BUN/Creatinine Ratio 10.5 (10.0-20.0) Serum Glucose 98 mg/dL (74-106) Calcium Level 9.4 mg/dL (8.7-10.4) Troponin I High Sensitivity 77 ng/L (</=34) Urine Color Light-yellow (Yellow) Urine Clarity Clear (Clear) Urine pH 7.0 (5.0-9.0) Urine Specific [place] 1.010 (1.001-1.035) Urine Protein Negative (Negative) Urine Ketones Negative (Negative) Urine Blood Negative /uL (Negative) Urine Nitrite Negative (Negative) Urine Bilirubin Negative (Negative) Urine Urobilinogen Normal mg/dL (Negative) Urine Leukocyte Esterase Negative /uL (Negative) Urine RBC None seen /hpf (0 - 4) Urine Microscopic WBC 2 /HPF (0-5) Urine Squamous Epithelial Cells Few /hpf (<5) Urine Bacteria None seen /hpf (None Seen) Urine Glucose Normal mg/dL (Normal) Thyroid Stimulating Hormone (TSH) 34.62 uIU/mL (0.55-4.78) Free Thyroxine (T4) Calculated 0.88 ng/dL (0.89-1.76) Total Bilirubin 0.4 mg/dL (0.2-1.0) Aspartate Amino Transferase (AST) 25 U/L (13-40) Alanine Aminotransferase (ALT) 13 U/L (7-40) Alkaline Phosphatase 87 U/L (46-116) Total Protein 7.1 g/dL (5.7-8.2) Albumin 4.5 g/dL (3.2-4.8) Other Laboratory Tests 11/30/24 05:10 Brief Hx & Hospital Course: This is a 64-year-old female with a history of atrial fibrillation, CHF, hypertension, hypothyroidism, atherosclerosis who presents with a chief complaint of left-sided chest pain constant nonradiating that happened after she had lunch. Patient received nitroglycerin and aspirin prior to arrival by EMS which patient states gave her some improvement. Patient reports she was recent diagnosed and admitted to a hospital few weeks ago and was diagnosed with pneumonia and completed a course of antibiotics. Patient reports sharp midsternal non radiating chest pain with no other symptoms, denies dyspnea, headaches, blurry vision, nausea, vomiting. Patient admitted for further evaluation. She is admitted and felt her elevated troponin secondary to hypertensive urgency/poorly controlled high blood pressure. Patient is noncompliant with the her cardiac medications. She is evaluated by bisque cleaner and her blood pressure medications have been adjusted. Patient is also started on long-acting nitro for chest pain. Patient once again counseled and educated regarding compliance with the her blood pressure medications and have a close follow up with outpatient primary care physician. Otherwise while in the hospital patient rest of her workup and hospital course is uneventful. Therefore it is felt she could be safely discharged home. I have talked with the patient regarding her hospital diagnosis, treatment she received, discharge medications, discharge instructions and follow-up plan of care. She has verbalized understanding of these and agree with the care plan as outlined. Operations or Procedures APPROVED REPORT EXAM: Two-dimensional and M-mode echocardiogram with Doppler and color Doppler. Blood Pressure: 151/50 mmHg INDICATION Chest Pain RISK FACTORS Height: 5'5, Weight: 160 DIMENSIONS LVDd 4.4 (3.8-5.7cm) LA (2D) 3.7 (1.9-4.0cm) Aortic Root 3.5 (2.0- 3.7cm) LVDs 2.7 (2.5-4.0cm) LA (MM) (1.9-4.0cm) Aortic Cusp Exc 1.6 (1.5- 2.0cm) EF (%) 60.0 (55-70%) Rt. Atrium 3.1 (1.9-4.0cm) Asc. Aorta 3.0 cm IVSd 1.0 (0.7-1.1cm) RV (D) (1.8-2.4cm) PWd 0.8 (0.7-1.1cm) Mitral Valve Mitral Mitral Stenosis E wave 0.70m/s MV Mean GR. mmHg A wave 0.81m/s MV Peak GR. 51mmHg E/A ratio 0.9 2D MVA cm2 DECEL Time 295ms PRESS 1/2 Time ms Aortic Valve Aortic Valve Aortic Stenosis V1 0.83m/s AO Mean GR. 4mmHg V2 1.21m/s AO Peak GR. 6mmHg LVOT Diameter 2.1 (1.8-2.4cm) Doppler MYRON 2.37cm2 Pulmonic Valve V2 0.78m/s Conclusion Left ventricle: Mild concentric left ventricular hypertrophy was seen. LVEF was 65-70%. There was no gross wall motion abnormality. Diastolic function was considered normal for age. Right ventricle: Right ventricle was normal-sized with normal systolic function. Both atria were normal-sized. Aortic valve: Aortic valve was trileaflet. There was trace aortic insufficiency. There was no aortic stenosis. There was trace mitral regurgitation. There was trace pulmonary valve insufficiency. There was no tricuspid regurgitation. As there was no good tricuspid regurgitation jet, right ventricular systolic pressure could not be estimated. There was no echocardiographic evidence for pulmonary hypertension. Small pericardial effusion was seen. There was no echocardiographic evidence for tamponade. SIGNED BY: LETY STORM MD SIGNED DATE/TIME: 11/30/24 5160 Condition at Discharge: Stable Final Diagnosis/Problems List Malignant/poorly controlled hypertension, elevated troponins due to demand ischemia from hypertension Discharge Disposition: Home Discharge Instruct/Medications Diet: Consistent carbohydrate, Cardiac 2g Na,low cholest Activity: No Restrictions, As Tolerated Follow Up/Referral: Primary care physician next weekFor blood pressure management Medications: Take medications as prescribed and per discharge med reconciliation list New Medications: Aspirin (Aspirin Ec Low Dose) 81 Mg Tab 81 MG PO DAILY MDD ., #90 TAB Nifedipine (Nifedipine Er) 60 Mg Tab 1 TAB PO BID, #90 TAB 1 Refill Changed Medications: Clonidine Hydrochloride (Clonidine Hcl) 0.1 Mg Tab 0.1 MG PO TID MDD ., #100 TAB (Medication details modified) Metoprolol Tartrate (Metoprolol Tartrate) 25 Mg Tab 1 TAB PO BID MDD . for 90 Days, #180 TAB 3 Refills (Medication details modified) Thyroid ([place] Thyroid) 30 Mg Tab 1 TAB PO DAILY MDD ., #90 TAB 3 Refills (Medication details modified) Continued Medications: Atorvastatin Calcium (Atorvastatin Calcium) 20 Mg Tab 40 MG PO HS for 30 Days, #60 TAB 0 Refills Fluticasone Propionate (Nasal) (Flonase Allergy Relief) 50 Mcg/Act Spr 50 MCG NA BID for 30 Days, #1 SPRAY 0 Refills Mupirocin Calcium (Topical) (Mupirocin) 2 % Cre 2 % EX TID for 5 Days, #1 CRE Discontinued Medications: Cefdinir (Cefdinir) 300 Mg Cap 1 CAP PO BID for 5 Days, #10 CAP Scheduled Aspirin (Aspirin Ec Low Dose), 81 MG PO DAILY Atorvastatin Calcium (Atorvastatin Calcium), 40 MG PO HS Clonidine Hydrochloride (Clonidine Hcl), 0.1 MG PO TID Fluticasone Propionate (Nasal) (Flonase Allergy Relief), 50 MCG NA BID Metoprolol Tartrate (Metoprolol Tartrate), 1 TAB PO BID Mupirocin Calcium (Topical) (Mupirocin), 2 % EX TID Nifedipine (Nifedipine Er), 1 TAB PO BID Thyroid ([place] Thyroid), 1 TAB PO DAILY Discontinued Medications Cefdinir (Cefdinir), 1 CAP PO BID Clonidine Hydrochloride (Clonidine Hcl), 0.1 MG PO TID, (Reported) Discontinued Reason: Prescription changed Metoprolol Tartrate (Metoprolol Tartrate), 1 TAB PO BID Discontinued Reason: Prescription changed Nifedipine (Nifedipine Er), 30 MG PO BID Discontinued Reason: Prescription changed Thyroid ([place] Thyroid), 1 TAB PO DAILY, (Reported) Discontinued Reason: Prescription changed Discharge Statement: "Patient was advised to return to the ER or call 911 if any headaches, dizziness, shortness of breath, chest pain, abdominal pain, bleeding, fevers, or worsening of medical condition. Patient was counseled about treatment plan, medications, possible side effects, patientverbalized understanding. All questions were answered to the best of my ability. This discharge took greater then 30 minutes in planning, reviewing documentation, counseling the patient, and discussing with other team members." ASSESSMENT ASSESSMENT Assessment Malignant/poorly controlled hypertension, elevated troponins due to demand ischemia from hypertension ISSAC FORREST MD Dec 01, 2024 12:19
[2024-12-01] MEDS: NITROGLYCERIN 0.4 MG SL TAB SL PRN (15:11)
[2024-12-01] MEDS: ISOSORBIDE MONONITRATE ER 60 MG TAB PO ONE (15:30)
[2024-12-01] MEDS: THYROID 60 MG TAB PO SCH (15:41)
--- NOTE | 2024-12-01 16:04 | DVHPN2 ---
Progress Note - Dictate Date Seen: Dec 01, 2024 Medical Necessity Reason Pt with a Central, PICC or Fol: No Subjective She remains asymptomatic and able to be discharged. However in the afternoon her blood pressure was once again elevated with complaints of chest pain. Therefore discharge being delayed for tomorrow. vital signs Vital Sign Date Time Temp Pulse Resp B/P (MAP) Pulse Ox O2 Delivery O2 Flow Rate FiO2 12/01/24 15:11 173/75 12/01/24 13:02 78 12/01/24 12:41 98.1 20 98 98.1 12/01/24 08:00 Room Air* 0 21 Total Intake and Output 11/30/24 11/30/24 12/01/24 15:00 23:00 07:00 Intake Total 100 ml Balance 100 ml medications Current Medications Medications Dose Ordered Sig/Sabra Route Start Time Stop Time Status Last Admin Dose Admin Atorvastatin Calcium 40 mg HS PO 11/29/24 22:00 11/29/24 21:59 40 MG Fluticasone Propionate 50 mcg BID NA 11/29/24 22:00 12/01/24 10:23 50 MCG Nifedipine 30 mg BID PO 11/29/24 22:00 12/01/24 10:19 30 MG Nitroglycerin 0.4 mg Q5MINP PRN SL 11/29/24 17:00 12/01/24 15:11 0.4 MG Morphine Sulfate 2 mg Q30M PRN IV 11/29/24 17:00 Morphine Sulfate 2 mg Q4HPRN PRN IV 11/29/24 17:00 11/30/24 15:18 2 MG Ondansetron HCl 4 mg Q4HPRN PRN IV 11/29/24 17:00 Pantoprazole Sodium 40 mg DAILY@0600 PO 11/30/24 06:00 12/01/24 05:24 40 MG Hydralazine HCl 10 mg Q6HP PRN IV 11/29/24 17:00 12/01/24 12:34 10 MG Aspirin 81 mg DAILY PO 11/30/24 10:00 12/01/24 10:19 81 MG Enoxaparin Sodium 70 mg BID SC 11/29/24 22:00 12/01/24 10:20 70 MG Metoprolol Succinate 25 mg HS PO 11/29/24 22:00 11/30/24 22:21 25 MG Clonidine HCl 0.1 mg TID PO 11/30/24 14:30 12/01/24 13:29 0.1 MG Isosorbide Mononitrate 30 mg DAILY PO 12/02/24 10:00 Thyroid 30 mg DAILY@0600 PO 12/01/24 15:41 objective Alert awake oriented x3. HEENT neck supple no JVD. Heart regular rate and rhythm S1-S2. Lungs without rales wheezes. Abdomen soft nontender positive bowel sounds. Extremities no edema. laboratory and microbiology Laboratory Tests 11/30/24 05:10 Test 11/30/24 05:10 Range/Units Serum Glucose 98 74-106 mg/dL Assessment/Plan Advised the nurse to continue clonidine and other blood pressure medications. I will add long-acting nitro for blood pressure control and chest pain control. Monitor her overnight. If she remains stable consider discharge home tomorrow. Meantime I will also check a thyroid panel given she he is not taking her levothyroxine as she should at home per her. Discussed with the patient and nurse regarding care plan. Problems(with codes): (1) Acute chest pain (2) Generalized weakness (3) Hypertensive urgency (4) Malignant hypertension Plan discussed with: Patient, Other ISSAC FORREST MD Dec 01, 2024 16:04
[2024-12-02 01:00] VITALS: BP 142/80; PULSE 73; RESP 16; TEMP 98.2; O2SAT 93
[2024-12-02 05:00] VITALS: BP 155/65; PULSE 70; RESP 17; TEMP 98; O2SAT 98
[2024-12-02 08:00] VITALS: PULSE 83
[2024-12-02 08:48] VITALS: BP 161/59; PULSE 72; RESP 20; TEMP 98.8; O2SAT 97
[2024-12-02] MEDS ORDERED: ISOSORBIDE MONONITRATE ER 60 MG TAB PO SCH (10:00)
[2024-12-02] MEDS: ISOSORBIDE MONONITRATE ER 60 MG TAB PO SCH (10:15)
[2024-12-02] MEDS ORDERED: NIFE1TAB31 PO (11:29)
[2024-12-02 12:39] VITALS: BP 163/69; PULSE 72; RESP 20; TEMP 98.9; O2SAT 96
[2024-12-02] MEDS ORDERED: NIFE1TAB30 PO (16:11)
[2024-12-02] MEDS ORDERED: THYR30TA PO (16:11)
[2024-12-02] MEDS ORDERED: ASPI81TA10 PO (16:11)
[2024-12-02] MEDS ORDERED: CLON0.1T PO (16:11)
[2024-12-02] MEDS ORDERED: METO25TA5 PO (16:11)
--- NOTE | 2024-12-03 07:35 | ECG ---
[facility] Test Date: 2024-12-01 Test Time: 14:55:37 Pat Name: ELISHA CASEY Department: Room: 0280T A Gender: F Women Nurse: PEDRITO : 1960 Requested By: ISSAC FORREST Order Number: [id number] Reading MD: Leo Berman Measurements Intervals [place] Rate: 102 P: 68 ID: [id number] QRS: -5 QRSD: 87 T: 31 QT: 369 QTc: 481 Interpretive Statements Sinus tachycardia with irregular rate Anterior infarct, old Electronically Signed On 12-03-2024 13:24:57 PDT by Leo Berman Please click the below link to view image of tracing.
--- NOTE | 2024-12-05 14:16 | ECG ---
[facility] Test Date: 2024-11-29 Test Time: 13:22:38 Pat Name: ELISHA CASEY Department: ED Room: [facility]0T A Gender: F Human Resources Admin: DUY : 1960 Requested By: LIDIA NAVARRETE Order Number: [id number] Reading MD: Leo Berman Measurements Intervals [place] Rate: 80 P: 71 [place]: 155 QRS: 33 QRSD: 91 T: 20 QT: 421 QTc: 486 Interpretive Statements Sinus rhythm Low voltage, precordial leads Anteroseptal infarct, old Electronically Signed On 12-10-2024 21:37:28 PDT by Leo Berman Please click the below link to view image of tracing.
--- NOTE | 2024-12-05 14:16 | ECG ---
[facility] Test Date: 2024-11-29 Test Time: 16:16:35 Pat Name: ELISHA CASEY Department: ER Room: 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
== END 2024-12-02 15:36 | disposition home or self-care (01) | DRG 281 ==
LOC: ER 13:22 → EDBD 13:22 → OVERFLOW 16:52 → TELE-WESTW 11-30 21:27
PROVIDERS: ADMIT Hospitalist; ATTEND Hospitalist
DX: I16.0 Hypertensive urgency (principal); I50.32 Chronic diastolic (congestive) heart failure; I21.A1 Myocardial infarction type 2; E03.9 Hypothyroidism, unspecified; E78.5 Hyperlipidemia, unspecified; F41.9 Anxiety disorder, unspecified; I11.0 Hypertensive heart disease with heart failure; I35.0 Nonrheumatic aortic (valve) stenosis; I48.0 Paroxysmal atrial fibrillation; Z79.2 Long term (current) use of antibiotics; Z82.49 Family history of ischemic heart disease and other diseases of the circulatory system; Z82.0 Family history of epilepsy and other diseases of the nervous system; Z91.148 Patient's other noncompliance with medication regimen for other reason; Z79.899 Other long term (current) drug therapy
CPT/HCPCS: 36415; 71045; 80048; 80053; 81001; 84439; 84443; 84484; 85025; 85610; 85730; 93005; 93306; 96374; G0378

== ENCOUNTER 2025-01-01 20:34 | Inpatient (IN) | payer BC ==
[~2025-01-01] VITALS: Ht 167.6 cm; Wt 61.4 kg
[~2025-01-01 20:34] MED LIST changes: +APIX5TAB PO; +ASPI81TA10 PO; +BUPR150T18 PO; +CARV12.544 PO; -CEFD300C2 PO; +NIFE1TAB30 PO; -NIFE1TAB31 PO
--- NOTE | 2025-01-01 21:33 | ED.PDOC ---
HPI Comments 64-year-old female with a history of AFib, CHF, hypertension, and it is noted to be on a Eliquis, and aspirin was brought in by emergency services with a chief complaint of substernal nonradiating chest pain with the associated nausea, vomiting and lightheadedness. Patient states that her chest pain started approximately 2 hours before arrival to the ED, and since found no alleviating factors at this time. EMS states the patient's blood pressure was noted to be 223/106, but has since improved to 170 6/84 after administering 1 nitro and aspirin on route. Patient denies any abdominal pain, back pain, left arm pain, left shoulder pain, blurry vision, dysuria, hematuria, or any other associated symptoms, modifying at this time. PHYSICAL EXAM: General: Awake, alert and oriented. Moderate distress. Chronic ill-appearing Skin: Skin in warm, dry and intact. Appropriate color for ethnicity. HEENT: The head is normocephalic and atraumatic. Conjunctivae are clear without exudates or hemorrhage. Sclera is non-icteric. EOM are intact. No signs of nystagmus. Eyelids are normal in appearance without swelling or lesions. Oral mucosa is pink and moist Neck: The neck is supple with normal range of motion. No JVD. Cardiac: Tachycardia: No murmurs, gallops, or rubs are auscultated. Respiratory: No signs of respiratory distress. Lung sounds are clear in all lobes bilaterally without rales, rhonchi, or wheezes. Abdominal: Abdomen is soft, non-tender without distention, guarding or rigidity. Bowel sounds are present and normoactive in all four quadrants. Extremities: Upper and lower extremities are atraumatic in appearance without deformity or edema. Neurological: The patient is awake, alert and oriented to person, place, and time with normal speech. Speech is clear. There is no facial asymmetry. Psychiatric: Appropriate mood and affect. Poor historian REVIEW OF SYSTEMS: General: No fever, no chills, or fatigue HEENT: No sore throat, no earache, no congestion, no neck pain. Cardiac: + chest pain. No palpitations. Lungs: No shortness of breath, no cough. GI: + nausea, + vomiting, no diarrhea, no constipation, no abdominal pain : No dysuria, frequency, or urgency. No hematuria. Musculoskeletal: No joint pain , no joint swelling, no extremity edema. Skin: No rash, no itching. Neuro: No headache, no dizziness, no weakness Chief Complaint: Chest Pain Time Seen by MD: 21:28 Primary Care Provider: UNKNOWN Reviewed Notes: Nurses Notes, Form Setter/Driver Notes, Medications, Allergies Allergies: Coded Allergies: NO KNOWN ALLERGIES (Unverified , 02/02/24) Home Meds Active Scripts Nifedipine (Nifedipine Er) 60 Mg Tab, 1 TAB PO BID, #90 TAB 1 Refill Prov:ISSAC FORREST MD 12/02/24 Aspirin (Aspirin Ec Low Dose) 81 Mg Tab, 81 MG PO DAILY MDD ., #90 TAB Prov:ISSAC FORREST MD 12/02/24 Metoprolol Tartrate (Metoprolol Tartrate) 25 Mg Tab, 1 TAB PO BID MDD . for 90 Days, #180 TAB 3 Refills Prov:ISSAC FORREST MD 12/02/24 Thyroid ([place] Thyroid) 30 Mg Tab, 1 TAB PO DAILY MDD ., #90 TAB 3 Refills Prov:ISSAC FORREST MD 12/02/24 Clonidine Hydrochloride (Clonidine Hcl) 0.1 Mg Tab, 0.1 MG PO TID MDD ., #100 TAB Prov:ISSAC FORREST MD 12/02/24 Mupirocin Calcium (Topical) (MUPIROCIN) 2 % Cre, 2 % EX TID for 5 Days, #1 CRE Prov:DENILSON MELGOZA MD 02/13/24 Fluticasone Propionate (Nasal) (Flonase Allergy Relief) 50 Mcg/Act Spr, 50 MCG NA BID for 30 Days, #1 SPRAY 0 Refills Prov:DENILSON MELGOZA MD 02/13/24 Atorvastatin Calcium (ATORVASTATIN CALCIUM) 20 Mg Tab, 40 MG PO HS for 30 Days, #60 TAB 0 Refills Prov:DENILSON MELGOZA MD 02/13/24 Information Source: Patient, Emergency Med Personnel Mode of Arrival: EMS Severity: Moderate Timing: Hours Duration: Since onset, Hours Prehospital treatment: 12 Lead EKG, Accucheck, Computer Instructor, Pain Meds Location: Substernal Radiation: No Radiation Quality: Sharp, Pressure Onset: At Rest Cardiac Risk Factors: HTN PE Risk Factors: None History of: Aspirin Modifying Factors: Exertion Associated Signs and Symptoms: None Past Medical History PAST MEDICAL HISTORY: Anxiety, CAD, CHF, Depression, High Lipids, HTN, [place], Thyroid, UTI'S Surgical History: Denies all surgeries 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 No STEMI. Was a procedure done? Was a procedure done?: No CP Differential Dx Differential Diagnosis: A-fib, Angina, Anxiety / Panic Attack, Electrolyte Disorder, Heart Failure, Pulmonary Embolus Differential Diagnosis: CHF, HTN Encephalopathy Differential Diagnosis: Angina, Chest Wall Pain, Cholelithiasis, Esophageal reflux/spasm, Gastritis, Pericarditis, Pneumothorax, Pulmonary Embolus X-Ray, Labs, Meds, VS Vital Signs Date Time Temp Pulse Resp B/P (MAP) Pulse Ox O2 Delivery O2 Flow Rate FiO2 01/02/25 01:30 64 20 138/71 (93) 95 01/02/25 00:15 97.7 64 18 133/59 (83) 94 97.7 01/02/25 00:15 64 18 94 Room Air* 0 21 01/02/25 00:00 69 01/01/25 23:07 77 01/01/25 21:51 76 01/01/25 20:45 97.8 107 20 180/85 100 97.8 01/01/25 20:35 88 Lab Test 01/02/25 00:19 01/01/25 22:24 01/01/25 21:37 Range/Units Prothrombin Time 10.3 9.3-11.8 sec Prothrombin Time INR 0.97 0.9-1.15 Activated Partial Thromboplast Time 27.1 24.5-34.5 SEC Troponin I High Sensitivity 879 *H 897 *H 934 *H </=34 ng/L White Blood Count 9.5 4.4-10.8 10^3/uL Red Blood Count 4.25 4.0-5.20 10^6/uL Hemoglobin 13.0 12.2-16.2 g/dL Hematocrit 38.7 36.0-46.0 % Mean Corpuscular Volume 91.1 80.0-100.0 fL Mean Corpuscular Hemoglobin 30.6 28.0-32.0 pg Mean Corpuscular Hemoglobin Concent 33.6 32.0-36.0 g/dL Red Cell Distribution Width 15.0 H 11.8-14.3 % Platelet Count 260 140-450 10^3/uL Mean Platelet Volume 7.9 6.9-10.8 fL Neutrophils (%) (Auto) 70.3 37.0-80.0 % Lymphocytes (%) (Auto) 23.1 10.0-50.0 % Monocytes (%) (Auto) 6.3 0.0-12.0 % Eosinophils (%) (Auto) 0.0 0.0-7.0 % Basophils (%) (Auto) 0.3 0.0-2.0 % Neutrophils # (Auto) 6.7 1.6-8.6 10 ^3/uL Lymphocytes # (Auto) 2.2 0.4-5.4 10 ^3/uL Monocytes # (Auto) 0.6 0-1.3 10 ^3/uL Eosinophils # (Auto) 0 0-0.8 10 ^3/uL Basophils # (Auto) 0 0-0.2 10 ^3/uL Nucleated Red Blood Cells 0.1 % Sodium Level 140 136-145 mmol/L Potassium Level 3.7 3.5-5.1 mmol/L Chloride Level 105 98-107 mmol/L Carbon Dioxide Level 26 20-31 mmol/L Anion Gap 9 5-15 Blood Urea Nitrogen 17 9-23 mg/dL Creatinine 0.92 0.550-1.02 mg/dL Glomerular Filtration Rate Calc 69 >90 mL/min BUN/Creatinine Ratio 18.5 10.0-20.0 Serum Glucose 131 H 74-106 mg/dL Calcium Level 9.2 8.7-10.4 mg/dL B-Type Natriuretic Peptide 169.27 0-100 pg/mL Current Medications Medications (Trade) Dose Ordered Sig/Sabra Route Start Time Stop Time Status Last Admin Ondansetron HCl (Zofran) 4 mg ONCE ONCE IV 01/01/25 21:30 01/01/25 21:31 DC 01/02/25 01:31 Heparin Sodium (Porcine) ONCE ONCE IV 01/02/25 00:30 01/02/25 00:31 DC 01/02/25 01:30 Heparin Sodium/ Dextrose 250 ml @ 9 mls/hr Q24H IV 01/02/25 01:45 01/02/25 02:04 Time of 1ST Reevaluation: 21:59 Reevaluation 1ST: Unchanged Patient Education/Counseling: Diagnosis, Treatment, Need For Follow Up Family Education/Counseling: No Family Present SEPSIS Sepsis Screen Date sepsis recognized/suspect: Jan 01, 2025 Time Sepsis recognized/suspect: 2048 Recent Procedure: No On Antibiotic Therapy: No Respiratory Rate >20: No Heart Rate >90: Yes Temp<36 C (96.8 F) or >38.3 C: No SBP <90 or MAP <65 mmHG: No New Acute Mental Status Change: No Is the patient on CPAP, BIPAP,: No Physician Orders Electrocardigram (01/02/25 00:13) Chest Xray 1 View (01/01/25 21:24) Vital Signs Q1HR (01/01/25 21:24) Titrate Oxygen (01/01/25 21:24) Oxygen (01/01/25 ) Continous Pulse Oximetry (01/01/25 21:24) Saline Lock (01/01/25 21:24) Computer Instructor (01/01/25 ) Heparin Drip/D5w 100units/Ml (01/02/25 01:45) Drug Screen (01/02/25 01:58) PTPTT (01/02/25 07:45) Heparin Per Pharmacy Protocol (01/02/25 01:56) Vital Signs Date Time Temp Pulse Resp B/P (MAP) Pulse Ox O2 Delivery O2 Flow Rate FiO2 01/02/25 01:30 64 20 138/71 (93) 95 01/02/25 00:15 97.7 64 18 133/59 (83) 94 97.7 01/02/25 00:15 64 18 94 Room Air* 0 21 01/02/25 00:00 69 01/01/25 23:07 77 01/01/25 21:51 76 01/01/25 20:45 97.8 107 20 180/85 100 97.8 01/01/25 20:35 88 Laboratory Tests Test 01/01/25 21:37 White Blood Count 9.5 10^3/uL (4.4-10.8) Medications Medications Dose Ordered Sig/Sabra Route Start Time Stop Time Status Last Admin Dose Admin Heparin Sodium (Porcine) ONCE ONCE IV 01/02/25 00:30 01/02/25 00:31 DC 01/02/25 01:30 Heparin Sodium/ Dextrose 250 ml @ 9 mls/hr Q24H IV 01/02/25 01:45 01/02/25 02:04 Ondansetron HCl 4 mg ONCE ONCE IV 01/01/25 21:30 01/01/25 21:31 DC 01/02/25 01:31 Departure 1 Departure Time of Disposition: 00:22 Impression: Primary Impression: NSTEMI (non-ST elevated myocardial infarction) Disposition: ADMITTED INPATIENT Condition: Guarded Comments MDM: MDM: 64-year-old female with a history of AFib, CHF, hypertension, presents to the emergency department with chest pain Initial evaluation included thorough history, physical examination and appropriate diagnostic testing. Based on the clinical presentation and diagnostic findings, the patient appears to have NSTEMI Patient is started heparin bolus and drip in the ED Given the complexity of the case and need for further management patient is being admitted to the hospitalist service for further monitoring, treatment and evaluation. Risks, benefits and alternatives of admission and proposed interventions were discussed with the patient. Patient is in agreement with the plan. Extensive evaluation was performed in attempt to identify or rule out: (See differential diagnosis section) The following tests were ordered, and results were reviewed by me and discussed with patient: (See diagnostic results section) The following test were independently interpreted by me: EKG I reviewed and agreed with the following test results read by other providers: Chest x-ray I reviewed the following notes from the pt's past medical encounters: Encounter November 2024 for elevated troponin Additional information was gathered from interviewing the following independent historians: EMS person Discussion of management or test interpretation with external physician/other qualified health health care coordinator: N/A Addressed an acute or chronic illness that poses a threat to life or bodily function: Acute coronary syndrome Decision regarding hospitalization or escalation of hospital level of care: Risk and benefits of admission for further treatment of patient's condition was considered. Due to patient's current clinical condition, high risk of decline and poor outcome if discharged and need for further inpatient management and monitoring, patient will be admitted to the hospital. Drug therapy requiring intensive monitoring for toxicity: N/A Parenteral controlled substances: N/A Decision regarding elective major surgery with identified patient or procedure risk factors: N/A Decision regarding emergency major surgery: N/A Decision not to resuscitate or to de-escalate care because of poor prognosis: N /A Diagnosis or treatment significantly limited by social determinants of health: N/A Critical Care Note Critical Care Time?: No Stability Stability form required: No Heart Score Heart Score: Heart Score Response (Comments) Value History Moderate Suspicious 1 EKG Normal 0 Age >65 2 Risk Factors 1 or 2 risk factors 1 Troponin Normal limit 0 Total 4 I personally scribed for JOE MARI MD ([email or web address]) on 01/01/25 at 21:32. Electronically submitted by Jesus Alberto Zapata ([email or web address]). JOE MARI MD Jan 01, 2025 21:32
--- NOTE | 2025-01-01 21:53 | ECG ---
[facility] Test Date: 2025-01-01 Test Time: 21:51:38 Pat Name: ELISHA CASEY Department: ED Room: 0233T Gender: F It Quality Assurance Analyst: KATIE : 1960 Requested By: JOE MARI Order Number: [id number] Reading MD: Leo Berman Measurements Intervals [place] Rate: 76 P: 78 ND: 141 QRS: 24 QRSD: 87 T: 34 QT: 411 QTc: 463 Interpretive Statements Sinus rhythm Atrial premature complexes Probable anterior infarct, old Electronically Signed On 01-07-2025 22:35:26 PDT by Leo Berman Please click the below link to view image of tracing.
[2025-01-01 22:00] LABS: Hematocrit 38.7 % (36.0-46.0); Hemoglobin 13.0 g/dL (12.2-16.2); Mean Corpuscular Hemoglobin 30.6 pg (28.0-32.0); Mean Corpuscular Volume 91.1 fL (80.0-100.0); Nucleated Red Blood Cells % 0.1 %
[2025-01-01 22:08] LABS: Chloride 105 mmol/L (98-107); Potassium 3.7 mmol/L (3.5-5.1); Sodium 140 mmol/L (136-145)
[2025-01-01 22:09] LABS: Anion Gap 9 (5-15); Carbon Dioxide 26 mmol/L (20-31)
[2025-01-01 22:10] LABS: Calcium 9.2 mg/dL (8.7-10.4)
[2025-01-01 22:15] LABS: BUN/Creatinine Ratio 18.5 (10.0-20.0); Blood Urea Nitrogen 17 mg/dL (9-23)
--- NOTE | 2025-01-01 22:15 | DVH ---
EXAM: XY CHEST XRAY 1 VIEW CLINICAL HISTORY: cp TECHNIQUE: Single AP view of the chest WID: COMPARISON: XY CHEST PORTABLE on DOS: 11/29/24 FINDINGS: Lines and tubes: None Chest: The heart size and pulmonary vasculature is within normal limits. Calcified plaque Projects over the aortic arch. No pleural effusion, pneumothorax, or consolidation. Linear left basilar scarring or atelectasis. The osseous structures are grossly intact. IMPRESSION: No acute cardiopulmonary abnormality.
[2025-01-01 22:25] LABS: Glucose 131 mg/dL (74-106)
[2025-01-02 00:15] VITALS: PULSE 64; RESP 18; O2SAT 94
--- NOTE | 2025-01-02 00:35 | ECG ---
[facility] Test Date: 2025-01-01 Test Time: 20:35:15 Pat Name: ELISHA CSAEY Department: ED Room: 0233T Gender: F Arts And Sciences Dean: louann : 1960 Requested By: JOE MARI Order Number: [id number] Reading MD: Leo Berman Measurements Intervals [place] Rate: 88 P: 86 [place]: 131 QRS: 52 QRSD: 88 T: -1 QT: 433 QTc: 524 Interpretive Statements Sinus rhythm Anterior infarct, old Prolonged QT interval Electronically Signed On 01-07-2025 22:35:04 PDT by Leo Berman Please click the below link to view image of tracing.
[2025-01-02 00:57] LABS: INR 0.97 (0.9-1.15); Partial Thromboplastin Time 27.1 SEC (24.5-34.5); Prothrombin Time 10.3 sec (9.3-11.8)
[2025-01-02] MEDS: HEPARIN SODIUM (PORCINE) 5000 UNITS/ML 1ML VIAL IV ONE (01:30)
[2025-01-02] MEDS: ONDANSETRON HCL 4 MG/2 ML VIAL IV ONE (01:31)
[2025-01-02] MEDS: HEPARIN DRIP/D5W 100UNITS/ML 250 ML IV SCH ×3 (02:04→17:30)
[2025-01-02] MEDS ORDERED: MORPHINE SULFATE INJ 2 MG/ml SYRG IV PRN ×2 (02:30)
[2025-01-02] MEDS ORDERED: ONDANSETRON HCL 4 MG/2 ML VIAL IV PRN (02:30)
[2025-01-02] MEDS ORDERED: NITROGLYCERIN 0.4 MG SL TAB SL PRN (02:30)
[2025-01-02] MEDS ORDERED: ACETAMINOPHEN 325 MG TAB PO PRN (02:30)
[2025-01-02] MEDS ORDERED: HYDROcodone-ACET 5/325MG TAB PO PRN (02:30)
--- NOTE | 2025-01-02 03:11 | DVHHP2 ---
MORRO HAN NUCLEAR OFFICER 01/02/25 0311: History of Present Illness Reason for Visit: Chest pain History of Present Illness 64-year-old female with past medical history of hypothyroidism, AFib, peripheral arterial disease, medical noncompliance presents with complaints of chest pain x1 day. Patient also endorsed nausea. Patient was recently discharged from [facility] on December 29, 2024 where she was admitted for AFib with RVR and PAD evaluation. During that admission troponin levels were mildly elevated at 149 trending flat throughout her stay. Patient endorsed that upon being discharged from that facility she never picked up her prescriptions including anticoagulation medications. States that she has been too tired and has not been able to get help from her family members to go grape picker her pres criptions. During the emergency department evaluation CBC unremarkable. CMP unremarkable. Troponins elevated [id number]. At this time patient states chest pain has improved. Denies fevers, chills, dizziness, syncope, shortness of breath, palpitations, nausea, vomiting, leg edema. Cardiovascular: AFIB, hyperipidemia, Other (Peripheral arterial disease) Endocrine: Hypothyroidism Smoke: No ALCOHOL: none Drugs: None Lives: with Family Review of Systems Constitutional: Yes: Weakness, Malaise; No: Fever, Chills, Sweats, Other Eyes: No: Pain, Vision change, Conjunctivae inflammation, Eyelid inflammation, Other, Redness ENT: No: Ear pain, Ear discharge, Nose pain, Nose discharge, Nose congestion, Mouth pain, Mouth swelling, Throat pain, Throat swelling, Other Respiratory: No: Cough, Dry, Shortness of breath, SOB with excertion, Wheezing, Hemoptysis, Pleuritic Pain, Sputum, Wheezing, Other Cardiovascular: Chest Pain; No: Palpitations, Orthopnea, Paroxysmal Noc. Dyspnea, Edema, Lt Headedness, Other Gastrointestinal: Nausea; No: Vomiting, Abdominal Pain, Diarrhea, Constipation, Melena, Hematochezia, Other Genitourinary: No Dysuria, No Frequency, No Incontinence, No Hematuria, No Re tention, No Other Musculoskeletal: No: other, neck pain, shoulder pain, arm pain, back pain, hand pain, leg pain, foot pain Skin: No: Rash, Lesions, Jaundice, Bruising, Other Neurological: No: Weakness, Numbness, Incoordination, Change in speech, Confusion, Seizures, Other Allergies: Coded Allergies: NO KNOWN ALLERGIES (Unverified , 02/02/24) Medications Current Medications Medications Dose Ordered Sig/Sabra Route Start Time Stop Time Status Last Admin Dose Admin Heparin Sodium/ Dextrose 250 ml @ 9 mls/hr Q24H IV 01/02/25 01:45 01/02/25 02:04 9 MLS/HR Docusate Sodium 100 mg BIDPRN PRN PO 01/02/25 02:30 Acetaminophen 650 mg Q6HP PRN PO 01/02/25 02:30 Acetaminophen/ Hydrocodone Bitart 1 tab Q4HP PRN PO 01/02/25 02:30 Ondansetron HCl 4 mg Q4HP PRN IV 01/02/25 02:30 Morphine Sulfate 2 mg Q4HPRN PRN IV 01/02/25 02:30 Nitroglycerin 0.4 mg Q5MINP PRN SL 01/02/25 02:30 Morphine Sulfate 2 mg Q30M PRN IV 01/02/25 02:30 Carvedilol 6.25 mg BID PO 01/02/25 10:00 Atorvastatin Calcium 20 mg DAILY PO 01/02/25 10:00 Aspirin 81 mg DAILY PO 01/02/25 10:00 Hydralazine HCl 10 mg Q6HP PRN IV 01/02/25 02:30 Bupropion HCl 100 mg HS PO 01/02/25 22:00 Levothyroxine Sodium 50 mcg DAILY PO 01/02/25 10:00 Exam Vital Signs Vital Signs Date Time Temp Pulse Resp B/P (MAP) Pulse Ox O2 Delivery O2 Flow Rate FiO2 01/02/25 01:30 64 20 138/71 (93) 95 01/02/25 00:15 97.7 97.7 01/02/25 00:15 Room Air* 0 21 General Appearance: Alert, Oriented X3, Cooperative, moderate distress, Other HEENT: Atraumatic, PERRLA, EOMI Respiratory: Clear to auscultation, Normal air movement Cardiovascular: Normal S1, Normal S2, Other (AFib controlled 60s) Abdominal: Normal bowel sounds, Soft, No tenderness Extremities: No cyanosis, No edema Skin: No breakdown Neuro: Normal speech, Strength at 5/5 X4 ext, Normal tone Psych/Mental Status: Mental status NL, Mood NL Labs/Xrays Labs Test 01/02/25 00:19 8/12/25 21:37 Range/Units Prothrombin Time 10.3 9.3-11.8 sec Prothrombin Time INR 0.97 0.9-1.15 Activated Partial Thromboplast Time 27.1 24.5-34.5 SEC Troponin I High Sensitivity 879 *H </=34 ng/L White Blood Count 9.5 4.4-10.8 10^3/uL Red Blood Count 4.25 4.0-5.20 10^6/uL Hemoglobin 13.0 12.2-16.2 g/dL Hematocrit 38.7 36.0-46.0 % Mean Corpuscular Volume 91.1 80.0-100.0 fL Mean Corpuscular Hemoglobin 30.6 28.0-32.0 pg Mean Corpuscular Hemoglobin Concent 33.6 32.0-36.0 g/dL Red Cell Distribution Width 15.0 H 11.8-14.3 % Platelet Count 260 140-450 10^3/uL Mean Platelet Volume 7.9 6.9-10.8 fL Neutrophils (%) (Auto) 70.3 37.0-80.0 % Lymphocytes (%) (Auto) 23.1 10.0-50.0 % Monocytes (%) (Auto) 6.3 0.0-12.0 % Eosinophils (%) (Auto) 0.0 0.0-7.0 % Basophils (%) (Auto) 0.3 0.0-2.0 % Neutrophils # (Auto) 6.7 1.6-8.6 10 ^3/uL Lymphocytes # (Auto) 2.2 0.4-5.4 10 ^3/uL Monocytes # (Auto) 0.6 0-1.3 10 ^3/uL Eosinophils # (Auto) 0 0-0.8 10 ^3/uL Basophils # (Auto) 0 0-0.2 10 ^3/uL Nucleated Red Blood Cells 0.1 % Sodium Level 140 136-145 mmol/L Potassium Level 3.7 3.5-5.1 mmol/L Chloride Level 105 98-107 mmol/L Carbon Dioxide Level 26 20-31 mmol/L Anion Gap 9 5-15 Blood Urea Nitrogen 17 9-23 mg/dL Creatinine 0.92 0.550-1.02 mg/dL Glomerular Filtration Rate Calc 69 >90 mL/min BUN/Creatinine Ratio 18.5 10.0-20.0 Serum Glucose 131 H 74-106 mg/dL Calcium Level 9.2 8.7-10.4 mg/dL B-Type Natriuretic Peptide 169.27 0-100 pg/mL SEPSIS Sepsis Screen Date sepsis recognized/suspect: Jan 02, 2025 Time Sepsis recognized/suspect: 14 Recent Procedure: No On Antibiotic Therapy: No Respiratory Rate >20: No Heart Rate >90: No Temp<36 C (96.8 F) or >38.3 C: No SBP <90 or MAP <65 mmHG: No New Acute Mental Status Change: No Is the patient on CPAP, BIPAP,: No Physician Orders Electrocardigram (01/02/25 00:13) Chest Xray 1 View (01/01/25 21:24) Vital Signs Q1HR (01/01/25 21:24) Titrate Oxygen (01/01/25 21:24) Oxygen (01/01/25 ) Continous Pulse Oximetry (01/01/25 21:24) Saline Lock (01/01/25 21:24) Bench Examiner (01/01/25 ) Heparin Drip/D5w 100units/Ml (01/02/25 01:45) Drug Screen (01/02/25 01:58) PTPTT (01/02/25 07:45) Heparin Per Pharmacy Protocol (01/02/25 01:56) Admit (01/02/25 02:18) Code Status (01/02/25 02:18) Vital Signs .PER UNIT PROTOCOL (01/02/25 02:18) Review Orders With Adm. (01/02/25 02:18) Encourage Activity As Tolerate (01/02/25 02:18) Npo (Nothing By Mouth) Diet (01/02/25 Breakfast) Oxygen By Face Mask (01/02/25 02:18) Docusate Sodium Capsule (Colace Capsule) (01/02/25 02:30) Acetaminophen Tablet (Tylenol Tablet) (01/02/25 02:30) Notify Md Of Changes From Base (01/02/25 02:18) Advance Directive (01/02/25 02:18) Echo 2d Mode Cardiac Dop (01/02/25 02:18) Basic Metabolic Panel (01/02/25 05:00) Basic Metabolic Panel (01/03/25 05:00) Basic Metabolic Panel (01/04/25 05:00) Basic Metabolic Panel (01/05/25 05:00) Basic Metabolic Panel (01/06/25 05:00) Complete Blood Count (01/02/25 05:00) Complete Blood Count (01/03/25 05:00) Complete Blood Count (01/04/25 05:00) Complete Blood Count (01/05/25 05:00) Complete Blood Count (01/06/25 05:00) Patient Condition (01/02/25 02:18) Allergies (01/02/25 02:18) Hydrocodone-Acet 5/325mg Tab ([place] 5/32 (01/02/25 02:30) Ondansetron Hcl (Zofran) (01/02/25 02:30) Morphine Sulfate Injection (01/02/25 02:30) Sequential Compression Device (01/02/25 ) Nitroglycerin Sublingual (Ntrostat Subli (01/02/25 02:30) Morphine Sulfate Injection (01/02/25 02:30) Stat Ekg For Chest Pain (01/02/25 02:18) Notify Md Of Changes From Base (01/02/25 02:18) Paint Preparer For 24 Hours (01/02/25 02:18) Emergency Dysrhythmia Protocol (01/02/25 02:18) Rhythm Strips Once Every Shift (01/02/25 02:18) Oxygen By Nasal Cannula (01/02/25 02:18) Troponin-I Hs (01/02/25 04:00) Troponin-I Hs (01/02/25 12:00) Troponin-I Hs (01/02/25 20:00) * Cardiology Consult (01/02/25 02:18) Carvedilol Tablet (Coreg Tablet) (01/02/25 10:00) Atorvastatin (Lipitor) (01/02/25 10:00) Aspirin Enteric Coated Tablet (Ecotrin E (01/02/25 10:00) Hydralazine Injection (Apresoline Inject (01/02/25 02:30) Bupropion Tablet (Wellbutrin Tablet) (01/02/25 22:00) Levothyroxine Tablet (Synthroid Tablet) (01/02/25 10:00) Vital Signs Date Time Temp Pulse Resp B/P (MAP) Pulse Ox O2 Delivery O2 Flow Rate FiO2 01/02/25 01:30 64 20 138/71 (93) 95 01/02/25 00:15 97.7 64 18 133/59 (83) 94 97.7 01/02/25 00:15 64 18 94 Room Air* 0 21 01/02/25 00:00 69 01/01/25 23:07 77 01/01/25 21:51 76 01/01/25 20:45 97.8 107 20 180/85 100 97.8 01/01/25 20:35 88 Laboratory Tests Test 01/01/25 21:37 White Blood Count 9.5 10^3/uL (4.4-10.8) Medications Medications Dose Ordered Sig/Sabra Route Start Time Stop Time Status Last Admin Dose Admin Heparin Sodium (Porcine) ONCE ONCE IV 01/02/25 00:30 01/02/25 00:31 DC 01/02/25 01:30 4,000 UNITS Heparin Sodium/ Dextrose 250 ml @ 9 mls/hr Q24H IV 01/02/25 01:45 01/02/25 02:04 9 MLS/HR Ondansetron HCl 4 mg ONCE ONCE IV 01/01/25 21:30 01/01/25 21:31 DC 01/02/25 01:31 4 MG Assessment/Plan Assessment/Plan Chest pain NSTEMI Hypertension PAD atrial fibrillation, chronic controlled Medical noncompliance Plan Admit, GAMALIEL Consult cardiology. Echocardiogram. (11/30/24 LVEF 65 to 70%). As needed antihypertensive for optimal BP management. Continue home medication. Heparin drip per pharmacy protocol. GI ppx protonix / DVT ppx heparin drip Plan discussed with: Patient My Orders Orders - MORRO HAN NP Procedure Category Date Status Time Admit ADMIT 01/02/25 Transmitted 02:18 Code Status CODE 01/02/25 Transmitted 02:18 Vital Signs KRIS 01/02/25 In Process 02:18 Review Orders With KRIS 01/02/25 In Process Adm. 02:18 Encourage Activity As KRIS 01/02/25 In Process Tolerate 02:18 Npo (Nothing By DIET 01/02/25 Transmitted Mouth) Diet Breakfast Oxygen By Face Mask RT 01/02/25 Transmitted 02:18 Docusate Sodium PHA 01/02/25 In Process Capsule (Colace 02:30 Acetaminophen Tablet PHA 01/02/25 In Process (Tylenol Tablet) 02:30 Notify Of Changes [facility] 01/02/25 In Process From Base 02:18 Advance Directive KRIS 01/02/25 In Process 02:18 Echo 2d Mode Cardiac US 01/02/25 Logged DOP 02:18 Basic Metabolic Panel LAB 01/02/25 Logged 05:00 Basic Metabolic Panel LAB 01/03/25 Verified 05:00 Basic Metabolic Panel LAB 01/04/25 Verified 05:00 Basic Metabolic Panel LAB 01/05/25 Verified 05:00 Basic Metabolic Panel LAB 01/06/25 Verified 05:00 Complete Blood Count LAB 01/02/25 Logged 05:00 Complete Blood Count LAB 01/03/25 Verified 05:00 Complete Blood Count LAB 01/04/25 Verified 05:00 Complete Blood Count LAB 01/05/25 Verified 05:00 Complete Blood Count LAB 01/06/25 Verified 05:00 Patient Condition ORDERS 01/02/25 Transmitted 02:18 Allergies KRIS 01/02/25 In Process 02:18 Hydrocodone-Acet PHA 01/02/25 In Process 5/325mg Tab ([place] 02:30 Ondansetron Hcl PHA 01/02/25 In Process (Zofran) 02:30 Morphine Sulfate PHA 01/02/25 In Process Injection 02:30 Sequential KRIS 01/02/25 In Process Compression Device Nitroglycerin PHA 01/02/25 In Process Sublingual (Ntrostat 02:30 Morphine Sulfate PHA 01/02/25 In Process Injection 02:30 Stat Ekg For Chest KRIS 01/02/25 In Process Pain 02:18 Notify Of Changes [facility] 01/02/25 In Process From Base 02:18 Paint Preparer For KRIS 01/02/25 In Process 24 Hours 02:18 Emergency Dysrhythmia KRIS 01/02/25 In Process Protocol 02:18 Rhythm Strips Once [facility] 01/02/25 In Process Every Shift 02:18 Oxygen By Nasal RT 01/02/25 Transmitted Cannula 02:18 Troponin-I Hs LAB 01/02/25 Logged 04:00 Troponin-I Hs LAB 01/02/25 Logged 12:00 Troponin-I Hs LAB 01/02/25 Logged 20:00 * Cardiology Consult CONS 01/02/25 Transmitted 02:18 Carvedilol Tablet PHA 01/02/25 In Process (Coreg Tablet) 10:00 Atorvastatin (Lipitor) PHA 01/02/25 In Process 10:00 Aspirin Enteric PHA 01/02/25 In Process Coated Tablet 10:00 Hydralazine Injection PHA 01/02/25 In Process (Apresoline Inject 02:30 Bupropion Tablet PHA 01/02/25 In Process (Wellbutrin Tablet) 22:00 Levothyroxine Tablet PHA 01/02/25 In Process (Synthroid Tablet) 10:00 Date of Service: Jan 02, 2025 Billing Provider: JODIE RASHID MD Common Visit Codes: NOT BILLABLE JODIE RASHID MD 01/02/25 1529: Review of Systems Allergies: Coded Allergies: NO KNOWN ALLERGIES (Unverified , 02/02/24) MORRO HAN NP Jan 02, 2025 03:11 JODIE RASHID MD Jan 02, 2025 15:29
[2025-01-02 04:07] LABS: Hematocrit 40.8 % (36.0-46.0); Hemoglobin 13.3 g/dL (12.2-16.2); Mean Corpuscular Hemoglobin 30.7 pg (28.0-32.0); Mean Corpuscular Volume 94.0 fL (80.0-100.0); Nucleated Red Blood Cells % 0.1 %
[2025-01-02 04:57] VITALS: PULSE 58; RESP 19; O2SAT 94
[2025-01-02 05:01] LABS: Chloride 107 mmol/L (98-107); Potassium 4.1 mmol/L (3.5-5.1); Sodium 138 mmol/L (136-145)
[2025-01-02 05:02] LABS: Anion Gap 11 (5-15); Calcium 9.2 mg/dL (8.7-10.4)
[2025-01-02 05:04] LABS: Carbon Dioxide 20 mmol/L (20-31)
[2025-01-02 05:07] LABS: BUN/Creatinine Ratio 15.2 (10.0-20.0); Blood Urea Nitrogen 15 mg/dL (9-23); Glucose 111 mg/dL (74-106)
[2025-01-02 07:30] VITALS: PULSE 65; RESP 17; O2SAT 96
[2025-01-02 08:43] LABS: INR 0.98 (0.9-1.15); Prothrombin Time 10.4 sec (9.3-11.8)
[2025-01-02 08:47] LABS: Partial Thromboplastin Time 110.1 SEC (24.5-34.5)
--- NOTE | 2025-01-02 09:07 | CONS ---
Pharmacy Clinical Information: HOLD HEPARIN DRIP FOR 1HR PER APTT OF 110.1 THEN DECREASE HEPARIN DRIP RATE TO 600 UNITS/HR @1000 NEXT APTT DRAW SCHEDULED FOR 1600 PER RX PROTOCOL JOHN HAYES CONFIRMED AND READ BACK Kendra Cottrell PHARMACIST Jan 02, 2025 09:07
[2025-01-02 09:13] LABS: Opiate Scree,Urine Neg (NEGATIVE)
[2025-01-02 09:17] LABS: Amphetamine Screen, Urine Neg (NEGATIVE); Barbiturate Scree,Urine Neg (NEGATIVE); Benzodiazephine Screen, Urine Neg (NEGATIVE); Cannabinoid Screen, Urine Neg (NEGATIVE); Cocaine Screen, Urine Neg (NEGATIVE); Phencyclidine Screen, Urine Neg (NEGATIVE)
--- NOTE | 2025-01-02 09:41 | ECG ---
[facility] Test Date: 2025-01-01 Test Time: 23:07:56 Pat Name: ELISHA CASEY Department: ED Room: 0233T Gender: F Network Solutions Architect: KATIE : 1960 Requested By: JOE MARI Order Number: [id number] Reading MD: Leo Berman Measurements Intervals [place] Rate: 77 P: 71 CO: 144 QRS: -16 QRSD: 84 T: 12 QT: 552 QTc: 625 Interpretive Statements Sinus rhythm Inferior infarct, old Anteroseptal infarct, old Prolonged QT interval Electronically Signed On 01-07-2025 22:35:32 PDT by Leo Berman Please click the below link to view image of tracing.
--- NOTE | 2025-01-02 10:30 | DVHINCON2 ---
Date Seen: Jan 02, 2025 Referring Physician ARPITA Ji Reason for Consultation NSTEMI History of Present Illness This is a 64-year-old female patient who presents to the emergency room with chief complaint of chest pain. The patient reports that the chest pain began at approximately 7:00 p.m. last night while watching television. She describes the pain as unprovoked, constant, pressure-like in nature, substernal with radiation to her mid upper back. The patient reports that she tried taking her antihypertensive medications as well as four baby aspirin (81mg) to see if it would help with the pain. She reports that pain was unrelieved so she decided to call EMS. Upon EMS arrival, the patient was given sublingual nitroglycerin, and the patient reported relief of pain. At the time of assessment the patient denies any chest pain. Initial twelve lead electrocardiogram reveals normal sinus rhythm with PACs and without any significant ST segment changes. Initial troponin level of 934ng/L with down trend thereafter. Of note, the patient came in with blood pressures reaching as high as 180/85 upon arrival. Significant past medical history includes hypertension, dyslipidemia, paroxysmal atrial fibrillation (on Eliquis therapy), history myocardial infarction, thyroid disease, and anxiety. The patient denies following up with a biofuels processing technician in the outpatient setting. She also admits that she does not take all of her anti hypertensive medications regularly. Past Medical History Past medical history reviewed. No other significant than mentioned above. Past Surgical History Past surgical history reviewed. Family History: FH: Crohn's disease G8 BROTHER FH: multiple sclerosis G8 SISTER Family history: Alzheimer's disease G8 MOTHER Family history: Cardiovascular disease G8 FATHER G8 SISTER Family History Family history reviewed. Social History Denies the use of tobacco, alcohol or illicit drugs. Allergies: Coded Allergies: NO KNOWN ALLERGIES (Unverified , 02/02/24) Home Meds Active Scripts Nifedipine (Nifedipine Er) 60 Mg Tab, 1 TAB PO BID, #90 TAB 1 Refill Prov:ISSAC FORREST MD 12/02/24 Aspirin (Aspirin Ec Low Dose) 81 Mg Tab, 81 MG PO DAILY MDD ., #90 TAB Prov:ISSAC FORREST MD 12/02/24 Metoprolol Tartrate (Metoprolol Tartrate) 25 Mg Tab, 1 TAB PO BID MDD . for 90 Days, #180 TAB 3 Refills Prov:ISSAC FORREST MD 12/02/24 Thyroid ([place] Thyroid) 30 Mg Tab, 1 TAB PO DAILY MDD ., #90 TAB 3 Refills Prov:ISSAC FORREST MD 12/02/24 Clonidine Hydrochloride (Clonidine Hcl) 0.1 Mg Tab, 0.1 MG PO TID MDD ., #100 TAB Prov:ISSAC FORREST MD 12/02/24 Mupirocin Calcium (Topical) (MUPIROCIN) 2 % Cre, 2 % EX TID for 5 Days, #1 CRE Prov:DENILSON MELGOZA MD 02/13/24 Fluticasone Propionate (Nasal) (Flonase Allergy Relief) 50 Mcg/Act Spr, 50 MCG NA BID for 30 Days, #1 SPRAY 0 Refills Prov:DENILSON MELGOZA MD 02/13/24 Atorvastatin Calcium (ATORVASTATIN CALCIUM) 20 Mg Tab, 40 MG PO HS for 30 Days, #60 TAB 0 Refills Prov:DENILSON MELGOZA MD 02/13/24 Home Meds Home medications reviewed. Current Medications Current Medications Medications (Trade) Dose Ordered Sig/Sabra Route PRN Reason Start Time Stop Time Status Last Admin Heparin Sodium/ Dextrose 250 ml @ 9 mls/hr Q24H IV 01/02/25 01:45 01/02/25 09:00 DC 01/02/25 02:04 Docusate Sodium (Colace Capsule) 100 mg BIDPRN PRN PO FOR CONSTIPATION 01/02/25 02:30 Acetaminophen (Tylenol Tablet) 650 mg Q6HP PRN PO PAIN SCALE 1-3 OR TEMP>100.4 01/02/25 02:30 Acetaminophen/ Hydrocodone Bitart ([place] 5/325MG Tab) 1 tab Q4HP PRN PO MODERATE PAIN (4-6 PAIN SCALE) 01/02/25 02:30 Ondansetron HCl (Zofran) 4 mg Q4HP PRN IV NAUSEA / VOMITING 01/02/25 02:30 Morphine Sulfate 2 mg Q4HPRN PRN IV SEVERE PAIN (7-10 PAIN SCALE) 01/02/25 02:30 Nitroglycerin (Ntrostat Sublingual) 0.4 mg Q5MINP PRN SL FOR CHEST PAIN 01/02/25 02:30 Morphine Sulfate 2 mg Q30M PRN IV FOR CHEST PAIN 01/02/25 02:30 Carvedilol (Coreg Tablet) 6.25 mg BID PO 01/02/25 10:00 Atorvastatin Calcium (Lipitor) 20 mg DAILY PO 01/02/25 10:00 Aspirin (Ecotrin Enteric Coated Tablet) 81 mg DAILY PO 01/02/25 10:00 Hydralazine HCl (Apresoline Injection) 10 mg Q6HP PRN IV SBP > 160 01/02/25 02:30 Bupropion HCl (Wellbutrin Tablet) 100 mg HS PO 01/02/25 22:00 Levothyroxine Sodium (Synthroid Tablet) 50 mcg DAILY PO 01/02/25 10:00 Pantoprazole Sodium (Protonix) 40 mg DAILY IV 01/02/25 10:00 Heparin Sodium/ Dextrose 250 ml @ 6 mls/hr Q24H IV 01/02/25 10:00 01/02/25 10:00 Review of Systems Constitutional: No symptom reported Ears, Nose, & Throat: No symptom reported Eyes: No symptom reported Neurological: No symptoms reported Pulmonary/Respiratory: No symptoms reported Cardiovascular: Chest pain Gastrointestinal: No symptom reported Genitourinary: No symptom reported Musculoskeletal: No symptom reported Skin: No symptom reported Psychiatric: No symptom reported Endocrine: No symptom reported Hematologic/Lymphatic: No symptom reported Vital Signs Vital Signs Date Time Temp Pulse Resp B/P (MAP) Pulse Ox O2 Delivery O2 Flow Rate FiO2 01/02/25 09:05 65 01/02/25 06:15 19 126/57 (80) 96 01/02/25 04:57 Room Air* 0 21 01/02/25 00:15 97.7 97.7 Physical Exam General Appearance: Cooperative. Well-developed. Well-nourished. No acute distress. Pulmonary/Respiratory: Clear, bilateral breaths sounds. Cardiovascular/Chest: Regular rate and rhythm. Peripheral Pulses: 2+ Radial (R). 2+ Radial (L). 2+ Pedal (R). 2+ Pedal (L) Abdominal Exam: Normal bowel sounds. Ankle Exam: Negative ankle edema Lower extremities: Negative lower extremity edema Neuro/Mental Status: A/OX4, coherent. Thoughts/Psych: Normal thought pattern. Appropriate mood and affect. Good judgment and insight. Appearance: No acute distress. Skin Exam: Normal inspection. Normal color. Warm and dry. Labs/Diagnostic Data Labs Test 01/02/25 07:53 01/02/25 04:00 01/02/25 03:50 01/01/25 21:37 Range/Units Prothrombin Time 10.4 9.3-11.8 sec Prothrombin Time INR 0.98 0.9-1.15 Activated Partial Thromboplast Time 110.1 *H 24.5-34.5 SEC Urine Opiates Screen Neg NEGATIVE Urine Fentanyl Screen Neg NEGATIVE Urine Barbiturates Screen Neg NEGATIVE Urine Phencyclidine Screen Neg NEGATIVE Urine Amphetamines Screen Neg NEGATIVE Urine Benzodiazepines Screen Neg NEGATIVE Urine Cocaine Screen Neg NEGATIVE Urine Cannabinoids Screen Neg NEGATIVE White Blood Count 9.0 4.4-10.8 10^3/uL Red Blood Count 4.34 4.0-5.20 10^6/uL Hemoglobin 13.3 12.2-16.2 g/dL Hematocrit 40.8 36.0-46.0 % Mean Corpuscular Volume 94.0 80.0-100.0 fL Mean Corpuscular Hemoglobin 30.7 28.0-32.0 pg Mean Corpuscular Hemoglobin Concent 32.6 32.0-36.0 g/dL Red Cell Distribution Width 15.8 H 11.8-14.3 % Platelet Count 264 140-450 10^3/uL Mean Platelet Volume 7.8 6.9-10.8 fL Neutrophils (%) (Auto) 57.7 37.0-80.0 % Lymphocytes (%) (Auto) 34.7 10.0-50.0 % Monocytes (%) (Auto) 7.1 0.0-12.0 % Eosinophils (%) (Auto) 0.0 0.0-7.0 % Basophils (%) (Auto) 0.5 0.0-2.0 % Neutrophils # (Auto) 5.2 1.6-8.6 10 ^3/uL Lymphocytes # (Auto) 3.1 0.4-5.4 10 ^3/uL Monocytes # (Auto) 0.6 0-1.3 10 ^3/uL Eosinophils # (Auto) 0 0-0.8 10 ^3/uL Basophils # (Auto) 0 0-0.2 10 ^3/uL Nucleated Red Blood Cells 0.1 % Sodium Level 138 136-145 mmol/L Potassium Level 4.1 3.5-5.1 mmol/L Chloride Level 107 98-107 mmol/L Carbon Dioxide Level 20 20-31 mmol/L Anion Gap 11 5-15 Blood Urea Nitrogen 15 9-23 mg/dL Creatinine 0.99 0.550-1.02 mg/dL Glomerular Filtration Rate Calc 63 >90 mL/min BUN/Creatinine Ratio 15.2 10.0-20.0 Serum Glucose 111 H 74-106 mg/dL Calcium Level 9.2 8.7-10.4 mg/dL Troponin I High Sensitivity 824 *H </=34 ng/L B-Type Natriuretic Peptide 169.27 0-100 pg/mL Assessment NSTEMI, rule out coronary artery disease Paroxysmal atrial fibrillation, Stage 3A (on Eliquis therapy) Hypertension Dyslipidemia History myocardial infarction Thyroid disease Plan/Recommendation We will continue with the following plan/recommendations (Dr. Krishnan): * Transthoracic echocardiogram from 11/30/2024 reveals an EF of 65-70% * Chest pain protocol * KAYLAN score: 3 points * HEART score: 7 points (high score) * Continue heparin drip per ACS protocol * BP control * Single antiplatelet therapy and lipid-lowering agent * Close Cardiac surveillance Patient seen and examined at bedside with . Given the patient's clinical presentation, elevated troponin level, and comorbidities, the patient was offered a coronary angiogram with left heart catheterization. The procedure was discussed with the patient in full detail including risks and benefits. Risks include but are not limited to bleeding, contrast-induced nephropathy, coronary dissection, stroke, and even . The patient initially was unsure if she wanted to proceed with the procedure. After careful thought, the patient has decided to proceed with procedure. We will schedule the patient at soonest availability. Thank you for allowing us to care for this patient. Please call with any questions or concerns. Critical care time spent: 44 minutes This medical document was created using an electronic medical record system with voice recognition software and computerized dictation system. Although this document has been carefully reviewed, there might still be some phonetic and typographical errors. Occasional wrong-word or ``sound-alike substitutions may have occurred due to the inherent limitations of voice recognition software. These areas are purely typographical due to imperfections of the software programs and do not reflect any compromise in the patient's medical care. Please read the chart carefully and recognize, using context, where these substitutions have occurred. Plan discussed with: Patient NYHA Physical activity limitations: NA Date of Service: Jan 02, 2025 Billing Provider: JILL MAN Cardiology Common Codes: 81083-[id number] INP/OBS CARE (High) Cardiology Consultation Codes: [id number] CONSULT <45MIN JILL MAN Jan 02, 2025 10:30
[2025-01-02] MEDS: PANTOPRAZOLE 40 MG/10 ML VIAL INJ IV SCH (10:48)
[2025-01-02] MEDS: CARVEDILOL 3.125 MG TAB PO SCH ×3 (10:50→22:10)
[2025-01-02] MEDS: ASPirin-EC 81 mg tab PO SCH (10:51)
[2025-01-02] MEDS: ATORVASTATIN 20 MG TAB PO SCH (10:51)
[2025-01-02] MEDS: LEVOTHYROXINE SODIUM 25 MCG TAB PO SCH (10:51)
[2025-01-02] MEDS: hydrALAZINE HCL 20 MG/ML VL IV PRN (10:53)
[2025-01-02 17:14] LABS: INR 0.96 (0.9-1.15); Partial Thromboplastin Time 46.9 SEC (24.5-34.5); Prothrombin Time 10.2 sec (9.3-11.8)
--- NOTE | 2025-01-02 17:23 | CONS ---
Pharmacy Clinical Information: INCREASE HEPARIN DRIP RATE TO 800 UNITS/HR PER APTT OF 46.9 NEXT APTT DRAW SCHEDULED FOR 1130 PER RX PROTOCOL JOHN HAYES CONFIRMED AND READ BACK Kendra Cottrell PHARMACIST Jan 02, 2025 17:23
[2025-01-02 19:32] VITALS: PULSE 65; RESP 15; O2SAT 93
[2025-01-03] VITALS (14 sets, daily range): BP systolic 122–177; BP diastolic 60–85; PULSE 62–80; RESP 13–22; TEMP 97.3–97.8; O2SAT 88–100
[2025-01-03] MEDS: ENOXAPARIN SOD 100 MG/1 ML SYRINGE SC ONE (00:42)
[2025-01-03] MEDS: LORazepam 0.5 MG TAB PO PRN (10:22)
[2025-01-03] MEDS: ENOXAPARIN SOD 100 MG/1 ML SYRINGE SC SCH (10:34)
--- NOTE | 2025-01-03 11:10 | DVHPN2 ---
Consult Progress Note Subjective Other Systems: Patient seen and examined at bedside in the emergency room. Patient now refusing coronary angiogram Patient denies any cardiac symptoms at time of assessment Objective vital signs Vital Sign Date Time Temp Pulse Resp B/P (MAP) Pulse Ox O2 Delivery O2 Flow Rate FiO2 01/03/25 10:23 192/66 01/03/25 10:22 68 01/03/25 08:00 97.5 17 94 97.5 01/03/25 08:00 Room Air* 0 21 Total Intake and Output 01/02/25 01/02/25 01/03/25 15:00 23:00 07:00 Intake Total 12 ml Balance 12 ml medications Current Medications Medications Dose Ordered Sig/Sabra Route Start Time Stop Time Status Last Admin Dose Admin Docusate Sodium 100 mg BIDPRN PRN PO 01/02/25 02:30 Acetaminophen 650 mg Q6HP PRN PO 01/02/25 02:30 Acetaminophen/ Hydrocodone Bitart 1 tab Q4HP PRN PO 01/02/25 02:30 Ondansetron HCl 4 mg Q4HP PRN IV 01/02/25 02:30 Morphine Sulfate 2 mg Q4HPRN PRN IV 01/02/25 02:30 Nitroglycerin 0.4 mg Q5MINP PRN SL 01/02/25 02:30 Morphine Sulfate 2 mg Q30M PRN IV 01/02/25 02:30 Aspirin 81 mg DAILY PO 01/02/25 10:00 01/03/25 10:22 81 MG Hydralazine HCl 10 mg Q6HP PRN IV 01/02/25 02:30 Bupropion HCl 100 mg HS PO 01/02/25 22:00 01/02/25 22:10 100 MG Levothyroxine Sodium 50 mcg DAILY PO 01/02/25 10:00 01/03/25 10:23 50 MCG Pantoprazole Sodium 40 mg DAILY IV 01/02/25 10:00 01/02/25 10:48 40 MG Carvedilol 6.25 mg Q12HR PO 01/02/25 22:00 01/03/25 10:22 6.25 MG Nifedipine 60 mg DAILY PO 01/03/25 10:00 01/03/25 10:23 60 MG Enoxaparin Sodium 80 mg Q12HR SC 01/03/25 10:00 Lorazepam 0.5 mg Q12HP PRN PO 01/02/25 23:45 01/03/25 10:22 0.5 MG Atorvastatin Calcium 20 mg HS PO 01/03/25 22:00 Examination: GENERAL:Normal, LUNGS:Normal, CVS:Normal, NEURO:Normal laboratory and microbiology Laboratory Tests 01/02/25 03:50 Test 01/02/25 03:50 Range/Units Serum Glucose 111 H 74-106 mg/dL Problem List/Assessment/Plan Problem List/Assessment/Plan NSTEMI, rule out coronary artery disease Paroxysmal atrial fibrillation, Stage 3A (on Eliquis therapy) Hypertensive urgency Dyslipidemia History myocardial infarction Thyroid disease Plan/Recommendation (Dr. Perez): * Transthoracic echocardiogram from 11/30/2024 reveals an EF of 65-70% * Chest pain protocol * KAYLAN score: 3 points * HEART score: 7 points (high score) * Continue heparin drip per ACS protocol * patient was refusing heparin lab draws (PT/PTT) * Primary team ordered therapeutic Lovenox-----patient also refused * BP control * Single antiplatelet therapy and lipid-lowering agent * Close Cardiac surveillance Case discussed with . The patient was scheduled for a coronary angiogram with left heart catheterization today. Patient changed her mind and is now declining any further workup. Patient states that she "did her research" and would not like to proceed with the angiogram due to possible adverse events. Educated the patient that given her elevated troponin level, and clinical symptoms, coronary artery disease is suspected. The patient replied "I do not want the angiogram and I will take my chances". Given that the patient is refusing any further cardiac intervention, Cardiology will sign off at this time. Thank you for allowing us to care for this patient. Please call with any questions or concerns. This medical document was created using an electronic medical record system with voice recognition software and computerized dictation system. Although this document has been carefully reviewed, there might still be some phonetic and typographical errors. Occasional wrong-word or ``sound-alike substitutions may have occurred due to the inherent limitations of voice recognition software. These areas are purely typographical due to imperfections of the software programs and do not reflect any compromise in the patient's medical care. Please read the chart carefully and recognize, using context, where these substitutions have occurred. Plan discussed with: Patient Date of Service: Jan 03, 2025 Billing Provider: JILL MAN Common Visit Codes: [id number] INP/OBS CARE(HIGH) JILL MAN Jan 03, 2025 11:10
[2025-01-03] MEDS: CARVEDILOL 3.125 MG TAB PO ONE (13:12)
--- NOTE | 2025-01-03 16:25 | DVHPN2 ---
Subjective Patient is very noncompliant, refused coronary angiogram refusing medications refusing Lovenox. Changes from previous H/P or p: No Changes Eyes: No Pain, No Vision change, No Conjunctivae inflammation, No Eyelid inflammation, No Other, No Redness ENT: No Ear pain, No Ear discharge, No Nose pain, No Nose discharge, No Nose congestion, No Mouth pain, No Mouth swelling, No Throat pain, No Throat swelling, No Other Cardiovascular: Chest Pain; No Palpitations, No Orthopnea, No Paroxysmal Noc. Dyspnea, No Edema, No Lt Headedness, No Other Respiratory: No Cough, No Dry, No Shortness of breath, No SOB with excertion, No Wheezing, No Hemoptysis, No Pleuritic Pain, No Sputum, No Other Gastrointestinal: Nausea; No Vomiting, No Abdominal Pain, No Diarrhea, No Constipation, No Melena, No Hematochezia, No Other Genitourinary: No Dysuria, No Frequency, No Incontinence, No Hematuria, No Retention, No Other Musculoskeletal: No other, No neck pain, No shoulder pain, No arm pain, No back pain, No hand pain, No leg pain, No foot pain Skin: No Rash, No Lesions, No Jaundice, No Bruising, No Other Objective Vitals Vital Signs Date Time Temp Pulse Resp B/P (MAP) Pulse Ox O2 Delivery O2 Flow Rate FiO2 01/03/25 16:00 66 14 134/64 (87) 100 01/03/25 12:00 97.7 97.7 01/03/25 08:00 Room Air* 0 21 Intake/Output Intake and Output 01/03/25 07:00 Intake Total 12 ml Balance 12 ml Intake IV Total 12 ml Exam HEENT pupils are reactive Neck is supple CV is S1-S2 regular rate and rhythm Respiratory diminished breath sounds bases GI positive bowel sound 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 Medications Current Medications Medications Dose Ordered Sig/Sabra Route Start Time Stop Time Status Last Admin Dose Admin Docusate Sodium 100 mg BIDPRN PRN PO 01/02/25 02:30 Acetaminophen 650 mg Q6HP PRN PO 01/02/25 02:30 Acetaminophen/ Hydrocodone Bitart 1 tab Q4HP PRN PO 01/02/25 02:30 Ondansetron HCl 4 mg Q4HP PRN IV 01/02/25 02:30 Morphine Sulfate 2 mg Q4HPRN PRN IV 01/02/25 02:30 Nitroglycerin 0.4 mg Q5MINP PRN SL 01/02/25 02:30 Morphine Sulfate 2 mg Q30M PRN IV 01/02/25 02:30 Aspirin 81 mg DAILY PO 01/02/25 10:00 01/03/25 10:22 81 MG Hydralazine HCl 10 mg Q6HP PRN IV 01/02/25 02:30 Bupropion HCl 100 mg HS PO 01/02/25 22:00 01/02/25 22:10 100 MG Levothyroxine Sodium 50 mcg DAILY PO 01/02/25 10:00 01/03/25 10:23 50 MCG Pantoprazole Sodium 40 mg DAILY IV 01/02/25 10:00 01/02/25 10:48 40 MG Nifedipine 60 mg DAILY PO 01/03/25 10:00 01/03/25 10:23 60 MG Enoxaparin Sodium 80 mg Q12HR SC 01/03/25 10:00 Lorazepam 0.5 mg Q12HP PRN PO 01/02/25 23:45 01/03/25 10:22 0.5 MG Atorvastatin Calcium 20 mg HS PO 01/03/25 22:00 Carvedilol 12.5 mg Q12HR PO 01/03/25 22:00 Laboratory Results Laboratory Tests 01/02/25 03:50 Coagulation Test 01/02/25 16:37 Prothrombin Time 10.2 sec (9.3-11.8) Prothrombin Time INR 0.96 (0.9-1.15) Activated Partial Thromboplast Time 46.9 SEC (24.5-34.5) H Assessment/Plan Assessment/Plan 64-year-old female with a known history of chronic AFib currently on Eliquis, hypertension, dyslipidemia, thyroid disease initially presented to the hospital with the chest pain found to have 1. NSTEMI 2. Paroxysmal AFib 3. Hypertensive urgency 4. Dyslipidemia 5. Coronary artery disease 6. Severe noncompliance -to be noted patient was recently discharged from [facility] and she never picked up her prescribed medications. -continue heparin drip, cardiology consultation Plan discussed with: Patient, Other (Patient's bedside RN.) My Orders Orders - JODIE RASHID MD Procedure Category Date Status Time Cardiac DIET 01/03/25 Transmitted Diet-2gna,Lofat,Lochol Lunch Urinalysis LAB 01/03/25 Logged 12:57 Carvedilol Tablet PHA 01/03/25 In Process (Coreg Tablet) 22:00 Date of Service: Jan 03, 2025 Billing Provider: JODIE RASHID MD Common Visit Codes: NOT BILLABLE JODIE RASHID MD Jan 03, 2025 16:25
[2025-01-03 18:07] LABS: Urine Protein, UAD 2+ (Negative); Urine WBC Clumps PRESENT /hpf (None Seen)
[2025-01-03] MEDS ORDERED: LEVO50TA7 PO (18:19)
[2025-01-03] MEDS ORDERED: ATOR20TA50 PO (18:19)
[2025-01-03] MEDS: cefTRIAXone 2GM/50ML D5W 50 ML IV ONE (20:37)
[2025-01-03] MEDS: CARVEDILOL 12.5 MG TAB PO SCH (22:39)
[2025-01-03] MEDS: ATORVASTATIN 20 MG TAB PO SCH (22:39)
[2025-01-04] VITALS (58 sets, daily range): BP systolic 122–207; BP diastolic 53–79; PULSE 62–94; RESP 11–23; TEMP 97.7–98; O2SAT 95–100
[2025-01-04] MEDS: diphenhdrAMINE HCL 50 MG/1 ML VL IV ONE (04:27)
[2025-01-04 05:27] LABS: Potassium 3.6 mmol/L (3.5-5.1); Sodium 141 mmol/L (136-145)
[2025-01-04 05:28] LABS: Anion Gap 10 (5-15); Carbon Dioxide 23 mmol/L (20-31)
[2025-01-04 05:29] LABS: Calcium 8.8 mg/dL (8.7-10.4)
[2025-01-04 05:32] LABS: Hematocrit 46.2 % (36.0-46.0); Hemoglobin 15.1 g/dL (12.2-16.2); Mean Corpuscular Hemoglobin 31.0 pg (28.0-32.0); Mean Corpuscular Volume 94.7 fL (80.0-100.0); Nucleated Red Blood Cells % 0.1 %
[2025-01-04 05:34] LABS: BUN/Creatinine Ratio 14.3 (10.0-20.0); Blood Urea Nitrogen 14 mg/dL (9-23); Chloride 108 mmol/L (98-107); Glucose 90 mg/dL (74-106)
[2025-01-04] MEDS: cefTRIAXone 1GM/50ML D5W 50 ML IV SCH (09:46)
[2025-01-04] MEDS: DOCUSATE SOD 100 MG CAP PO PRN (09:54)
--- NOTE | 2025-01-04 17:02 | DVHPN2 ---
Subjective Patient is very noncompliant, refused coronary angiogram refusing medications refusing Lovenox. She has been refusing tele box. Changes from previous H/P or p: No Changes Eyes: No Pain, No Vision change, No Conjunctivae inflammation, No Eyelid inflammation, No Other, No Redness ENT: No Ear pain, No Ear discharge, No Nose pain, No Nose discharge, No Nose congestion, No Mouth pain, No Mouth swelling, No Throat pain, No Throat swelling, No Other Cardiovascular: Chest Pain; No Palpitations, No Orthopnea, No Paroxysmal Noc. Dyspnea, No Edema, No Lt Headedness, No Other Respiratory: No Cough, No Dry, No Shortness of breath, No SOB with excertion, No Wheezing, No Hemoptysis, No Pleuritic Pain, No Sputum, No Other Gastrointestinal: Nausea; No Vomiting, No Abdominal Pain, No Diarrhea, No Constipation, No Melena, No Hematochezia, No Other Genitourinary: No Dysuria, No Frequency, No Incontinence, No Hematuria, No Retention, No Other Musculoskeletal: No other, No neck pain, No shoulder pain, No arm pain, No back pain, No hand pain, No leg pain, No foot pain Skin: No Rash, No Lesions, No Jaundice, No Bruising, No Other Objective Vitals Vital Signs Date Time Temp Pulse Resp B/P (MAP) Pulse Ox O2 Delivery O2 Flow Rate FiO2 01/04/25 16:16 74 15 125/56 (79) 100 01/04/25 16:00 97.9 97.9 01/04/25 08:00 Room Air* 0 21 Intake/Output Intake and Output 01/04/25 07:00 Intake Total 450 ml Balance 450 ml Intake Oral 400 ml IV Total 50 ml # Voids 5 Exam HEENT pupils are reactive Neck is supple CV is S1-S2 regular rate and rhythm Respiratory diminished breath sounds bases GI positive bowel sound 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 Medications Current Medications Medications Dose Ordered Sig/Sabra Route Start Time Stop Time Status Last Admin Dose Admin Docusate Sodium 100 mg BIDPRN PRN PO 01/02/25 02:30 01/04/25 09:54 100 MG Acetaminophen 650 mg Q6HP PRN PO 01/02/25 02:30 Acetaminophen/ Hydrocodone Bitart 1 tab Q4HP PRN PO 01/02/25 02:30 Ondansetron HCl 4 mg Q4HP PRN IV 01/02/25 02:30 Morphine Sulfate 2 mg Q4HPRN PRN IV 01/02/25 02:30 Nitroglycerin 0.4 mg Q5MINP PRN SL 01/02/25 02:30 Morphine Sulfate 2 mg Q30M PRN IV 01/02/25 02:30 Aspirin 81 mg DAILY PO 01/02/25 10:00 01/04/25 09:52 81 MG Hydralazine HCl 10 mg Q6HP PRN IV 01/02/25 02:30 01/04/25 12:03 10 MG Bupropion HCl 100 mg HS PO 01/02/25 22:00 01/03/25 22:39 100 MG Levothyroxine Sodium 50 mcg DAILY PO 01/02/25 10:00 01/04/25 09:53 50 MCG Pantoprazole Sodium 40 mg DAILY IV 01/02/25 10:00 01/04/25 09:46 40 MG Nifedipine 60 mg DAILY PO 01/03/25 10:00 01/04/25 09:53 60 MG Enoxaparin Sodium 80 mg Q12HR SC 01/03/25 10:00 01/03/25 22:39 80 MG Lorazepam 0.5 mg Q12HP PRN PO 01/02/25 23:45 01/04/25 11:19 0.5 MG Atorvastatin Calcium 20 mg HS PO 01/03/25 22:00 01/03/25 22:39 20 MG Carvedilol 12.5 mg Q12HR PO 01/03/25 22:00 01/04/25 09:52 12.5 MG Ceftriaxone Sodium 50 ml @ 100 mls/hr DAILY@09 IV 01/04/25 09:00 01/04/25 09:46 100 MLS/HR Melatonin 5 mg HS PO 01/04/25 22:00 Clonidine HCl 0.1 mg Q12HP PRN PO 01/04/25 01:15 01/04/25 11:20 0.1 MG Mupirocin 1 applic BID EACHNOSTRI 01/04/25 22:00 01/09/25 21:59 Laboratory Results Laboratory Tests 01/04/25 04:47 Chemistry Test 01/04/25 04:47 Calcium Level 8.8 mg/dL (8.7-10.4) Urinalysis Test 01/03/25 17:20 Urine Color Dark-brown (Yellow) Urine Clarity Ex.turbid (Clear) Urine pH 5.5 (5.0-9.0) Urine Specific [place] 1.012 (1.001-1.035) Urine Protein 2+ (Negative) H Urine Ketones Negative (Negative) Urine Blood 2+ /uL (Negative) H Urine Nitrite Negative (Negative) Urine Bilirubin Negative (Negative) Urine Urobilinogen Normal mg/dL (Negative) Urine Leukocyte Esterase 3+ /uL (Negative) Urine RBC None seen /hpf (0 - 4) Urine WBC Clumps Present /hpf (None Seen) Urine Microscopic WBC 2013 /HPF (0-5) H Urine Squamous Epithelial Cells None seen /hpf (<5) Urine Bacteria Few /hpf (None Seen) H Urine Glucose Normal mg/dL (Normal) Microbiology Microbiology Date/Time Source Procedure Growth Status 01/03/25 17:20 Voided Urine Urine Culture - Preliminary Resulted 01/03/25 17:00 Nose MRSA Screen - Final Complete Assessment/Plan Assessment/Plan 64-year-old female with a known history of chronic AFib currently on Eliquis, hypertension, dyslipidemia, thyroid disease initially presented to the hospital with the chest pain found to have 1. NSTEMI 2. Paroxysmal AFib 3. Hypertensive urgency 4. Dyslipidemia 5. Coronary artery disease 6. Severe noncompliance -to be noted patient was recently discharged from [facility] and she never picked up her prescribed medications. -continue hypertensive meds, discharge plan likely on Tuesday so that home health can be arranged for Tuesday to check on the patient. Plan discussed with: Patient, Other My Orders Orders - JODIE RASHID MD Procedure Category Date Status Time * Africana Studies Professor CONS 01/04/25 Transmitted Consult Mupirocin 2% Oint PHA 01/04/25 In Process Mrsa Nares (Bactroban 22:00 Transfer Orders XFER 01/04/25 Transmitted 14:41 * Africana Studies Professor CONS 01/04/25 Transmitted Consult 14:46 Date of Service: Jan 04, 2025 Billing Provider: JODIE RASHID MD Common Visit Codes: NOT BILLABLE JODIE RASHID MD Jan 04, 2025 17:02
[2025-01-04] MEDS: MELATONIN 5 MG TAB PO SCH (21:18)
[2025-01-04] MEDS: MUPIROCIN 2% OINT 15gm or 22gm FOR MRSA NARES EACHNOSTRI SCH (21:19)
[2025-01-05] VITALS (9 sets, daily range): BP systolic 148–170; BP diastolic 67–83; PULSE 67–85; RESP 14–20; TEMP 97.6–98.1; O2SAT 94–98
[2025-01-05 06:15] LABS: Hematocrit 42.3 % (36.0-46.0); Hemoglobin 14.2 g/dL (12.2-16.2); Mean Corpuscular Hemoglobin 30.6 pg (28.0-32.0); Mean Corpuscular Volume 91.6 fL (80.0-100.0); Nucleated Red Blood Cells % 0.0 %
[2025-01-05 06:23] LABS: Potassium 4.0 mmol/L (3.5-5.1); Sodium 141 mmol/L (136-145)
[2025-01-05 06:24] LABS: Anion Gap 10 (5-15); Calcium 9.2 mg/dL (8.7-10.4); Carbon Dioxide 23 mmol/L (20-31)
[2025-01-05 06:25] LABS: Chloride 108 mmol/L (98-107)
[2025-01-05 06:29] LABS: BUN/Creatinine Ratio 12.8 (10.0-20.0); Blood Urea Nitrogen 12 mg/dL (9-23); Glucose 100 mg/dL (74-106)
--- NOTE | 2025-01-05 16:22 | DVHPN2 ---
Subjective Patient is very noncompliant, refused coronary angiogram refusing medications refusing Lovenox. She has been refusing tele box. Changes from previous H/P or p: No Changes Eyes: No Pain, No Vision change, No Conjunctivae inflammation, No Eyelid inflammation, No Other, No Redness ENT: No Ear pain, No Ear discharge, No Nose pain, No Nose discharge, No Nose congestion, No Mouth pain, No Mouth swelling, No Throat pain, No Throat swelling, No Other Cardiovascular: Chest Pain; No Palpitations, No Orthopnea, No Paroxysmal Noc. Dyspnea, No Edema, No Lt Headedness, No Other Respiratory: No Cough, No Dry, No Shortness of breath, No SOB with excertion, No Wheezing, No Hemoptysis, No Pleuritic Pain, No Sputum, No Other Gastrointestinal: Nausea; No Vomiting, No Abdominal Pain, No Diarrhea, No Constipation, No Melena, No Hematochezia, No Other Genitourinary: No Dysuria, No Frequency, No Incontinence, No Hematuria, No Retention, No Other Musculoskeletal: No other, No neck pain, No shoulder pain, No arm pain, No back pain, No hand pain, No leg pain, No foot pain Skin: No Rash, No Lesions, No Jaundice, No Bruising, No Other Objective Vitals Vital Signs Date Time Temp Pulse Resp B/P (MAP) Pulse Ox O2 Delivery O2 Flow Rate FiO2 01/05/25 13:41 97.6 83 16 158/67 (97) 98 97.6 01/05/25 08:00 Room Air* 0 21 Intake/Output Intake and Output 01/05/25 07:00 Intake Total 490 ml Output Total 0 ml Balance 490 ml Intake Oral 440 ml IV Total 50 ml Output Urine Total 0 ml # Voids 3 # Bowel Movements 1 Exam HEENT pupils are reactive Neck is supple CV is S1-S2 regular rate and rhythm Respiratory diminished breath sounds bases GI positive bowel sound 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 Medications Current Medications Medications Dose Ordered Sig/Sabra Route Start Time Stop Time Status Last Admin Dose Admin Docusate Sodium 100 mg BIDPRN PRN PO 01/02/25 02:30 01/04/25 09:54 100 MG Acetaminophen 650 mg Q6HP PRN PO 01/02/25 02:30 Acetaminophen/ Hydrocodone Bitart 1 tab Q4HP PRN PO 01/02/25 02:30 Ondansetron HCl 4 mg Q4HP PRN IV 01/02/25 02:30 Morphine Sulfate 2 mg Q4HPRN PRN IV 01/02/25 02:30 Nitroglycerin 0.4 mg Q5MINP PRN SL 01/02/25 02:30 Morphine Sulfate 2 mg Q30M PRN IV 01/02/25 02:30 Aspirin 81 mg DAILY PO 01/02/25 10:00 01/05/25 09:43 81 MG Hydralazine HCl 10 mg Q6HP PRN IV 01/02/25 02:30 01/05/25 05:31 10 MG Bupropion HCl 100 mg HS PO 01/02/25 22:00 01/04/25 21:18 100 MG Pantoprazole Sodium 40 mg DAILY IV 01/02/25 10:00 01/04/25 09:46 40 MG Nifedipine 60 mg DAILY PO 01/03/25 10:00 01/05/25 09:44 60 MG Lorazepam 0.5 mg Q12HP PRN PO 01/02/25 23:45 01/04/25 11:19 0.5 MG Atorvastatin Calcium 20 mg HS PO 01/03/25 22:00 01/03/25 22:39 20 MG Carvedilol 12.5 mg Q12HR PO 01/03/25 22:00 01/05/25 09:42 12.5 MG Ceftriaxone Sodium 50 ml @ 100 mls/hr DAILY@09 IV 01/04/25 09:00 01/05/25 08:33 100 MLS/HR Melatonin 5 mg HS PO 01/04/25 22:00 Clonidine HCl 0.1 mg Q12HP PRN PO 01/04/25 01:15 01/04/25 11:20 0.1 MG Mupirocin 1 applic BID EACHNOSTRI 01/04/25 22:00 01/09/25 21:59 01/05/25 10:26 1 APPLIC Fluticasone Propionate 50 mcg Q12HR EACHNOSTRI 01/05/25 22:00 Levothyroxine Sodium 50 mcg DAILY@0600 PO 01/06/25 06:00 Enoxaparin Sodium 60 mg Q12HR SC 01/05/25 22:00 Laboratory Results Laboratory Tests 01/05/25 05:55 Chemistry Test 01/05/25 05:55 Calcium Level 9.2 mg/dL (8.7-10.4) Urinalysis Test 01/03/25 17:20 Urine Color Dark-brown (Yellow) Urine Clarity Ex.turbid (Clear) Urine pH 5.5 (5.0-9.0) Urine Specific [place] 1.012 (1.001-1.035) Urine Protein 2+ (Negative) H Urine Ketones Negative (Negative) Urine Blood 2+ /uL (Negative) H Urine Nitrite Negative (Negative) Urine Bilirubin Negative (Negative) Urine Urobilinogen Normal mg/dL (Negative) Urine Leukocyte Esterase 3+ /uL (Negative) Urine RBC None seen /hpf (0 - 4) Urine WBC Clumps Present /hpf (None Seen) Urine Microscopic WBC 2013 /HPF (0-5) H Urine Squamous Epithelial Cells None seen /hpf (<5) Urine Bacteria Few /hpf (None Seen) H Urine Glucose Normal mg/dL (Normal) Microbiology Microbiology Date/Time Source Procedure Growth Status 01/03/25 17:20 Voided Urine Urine Culture - Preliminary Resulted 01/03/25 17:00 Nose MRSA Screen - Final Complete Assessment/Plan Assessment/Plan 64-year-old female with a known history of chronic AFib currently on Eliquis, hypertension, dyslipidemia, thyroid disease initially presented to the hospital with the chest pain found to have 1. NSTEMI 2. Paroxysmal AFib 3. Hypertensive urgency 4. Dyslipidemia 5. Coronary artery disease 6. Severe noncompliance -to be noted patient was recently discharged from [facility] and she never picked up her prescribed medications. -continue hypertensive meds, discharge plan likely on Tuesday so that home health can be arranged for Tuesday to check on the patient. Plan discussed with: Patient My Orders Orders - JODIE RASHID MD Procedure Category Date Status Time Fluticasone Nasal PHA 01/05/25 In Process [place] (Flonase [place]) 22:00 Date of Service: Jan 05, 2025 Billing Provider: JODIE RASHID MD Common Visit Codes: NOT BILLABLE JODIE RASHID MD Jan 05, 2025 16:22
[2025-01-05] MEDS: FLUTICASONE PROP NASAL SPR 0.05 % (50MCG) 16GM EACHNOSTRI SCH (21:16)
[2025-01-05] MEDS: ENOXAPARIN SOD 60 MG/0.6 ML SYRINGE SC SCH (21:18)
[2025-01-06] VITALS (7 sets, daily range): BP systolic 140–176; BP diastolic 67–77; PULSE 66–87; RESP 17–20; TEMP 97.7–98.6; O2SAT 95–99
[2025-01-06] MEDS: LEVOTHYROXINE SODIUM 50 MCG TAB PO SCH (06:15)
[2025-01-06 06:44] LABS: Hematocrit 39.5 % (36.0-46.0); Hemoglobin 13.4 g/dL (12.2-16.2); Mean Corpuscular Hemoglobin 31.5 pg (28.0-32.0); Mean Corpuscular Volume 92.5 fL (80.0-100.0); Nucleated Red Blood Cells % 0.1 %
[2025-01-06 06:48] LABS: Anion Gap 8 (5-15); Carbon Dioxide 26 mmol/L (20-31); Potassium 4.8 mmol/L (3.5-5.1); Sodium 142 mmol/L (136-145)
[2025-01-06 06:49] LABS: Calcium 9.1 mg/dL (8.7-10.4); Chloride 108 mmol/L (98-107)
[2025-01-06 06:54] LABS: BUN/Creatinine Ratio 13.2 (10.0-20.0); Blood Urea Nitrogen 12 mg/dL (9-23); Glucose 97 mg/dL (74-106)
[2025-01-06] MEDS ORDERED: NIFE1TAB30 PO (14:42)
[2025-01-06] MEDS ORDERED: BUPR150T18 PO (14:42)
[2025-01-06] MEDS ORDERED: ATOR20TA50 PO (14:42)
[2025-01-06] MEDS ORDERED: FLUT1SPR5 (14:42)
[2025-01-06] MEDS ORDERED: CLON0.1T PO (14:42)
[2025-01-06] MEDS ORDERED: APIX5TAB PO (14:42)
[2025-01-06] MEDS ORDERED: CARV12.544 PO (14:42)
[2025-01-06] MEDS ORDERED: LEVO50TA7 PO (14:42)
[2025-01-06] MEDS ORDERED: ASPI81TA10 PO (14:42)
--- NOTE | 2025-01-06 15:38 | DVHDS2 ---
Discharge Summary Date of Admission Jan 02, 2025 at 02:18 Date of Discharge: Jan 06, 2025 Labs/Diagnostic Data: Laboratory Results Test 01/06/25 05:45 01/03/25 17:20 01/02/25 19:56 01/02/25 16:37 White Blood Count 4.9 10^3/uL (4.4-10.8) Red Blood Count 4.27 10^6/uL (4.0-5.20) Hemoglobin 13.4 g/dL (12.2-16.2) Hematocrit 39.5 % (36.0-46.0) Mean Corpuscular Volume 92.5 fL (80.0-100.0) Mean Corpuscular Hemoglobin 31.5 pg (28.0-32.0) Mean Corpuscular Hemoglobin Concent 34.0 g/dL (32.0-36.0) Red Cell Distribution Width 15.5 % (11.8-14.3) Platelet Count 338 10^3/uL (140-450) Mean Platelet Volume 8.2 fL (6.9-10.8) Neutrophils (%) (Auto) 61.4 % (37.0-80.0) Lymphocytes (%) (Auto) 28.9 % (10.0-50.0) Monocytes (%) (Auto) 9.3 % (0.0-12.0) Eosinophils (%) (Auto) 0.0 % (0.0-7.0) Basophils (%) (Auto) 0.4 % (0.0-2.0) Neutrophils # (Auto) 3.0 10 ^3/uL (1.6-8.6) Lymphocytes # (Auto) 1.4 10 ^3/uL (0.4-5.4) Monocytes # (Auto) 0.5 10 ^3/uL (0-1.3) Eosinophils # (Auto) 0 10 ^3/uL (0-0.8) Basophils # (Auto) 0 10 ^3/uL (0-0.2) Nucleated Red Blood Cells 0.1 % Sodium Level 142 mmol/L (136-145) Potassium Level 4.8 mmol/L (3.5-5.1) Chloride Level 108 mmol/L (98-107) Carbon Dioxide Level 26 mmol/L (20-31) Anion Gap 8 (5-15) Blood Urea Nitrogen 12 mg/dL (9-23) Creatinine 0.91 mg/dL (0.550-1.02) Glomerular Filtration Rate Calc 70 mL/min (>90) BUN/Creatinine Ratio 13.2 (10.0-20.0) Serum Glucose 97 mg/dL (74-106) Calcium Level 9.1 mg/dL (8.7-10.4) Urine Color Dark-brown (Yellow) Urine Clarity Ex.turbid (Clear) Urine pH 5.5 (5.0-9.0) Urine Specific [place] 1.012 (1.001-1.035) Urine Protein 2+ (Negative) Urine Ketones Negative (Negative) Urine Blood 2+ /uL (Negative) Urine Nitrite Negative (Negative) Urine Bilirubin Negative (Negative) Urine Urobilinogen Normal mg/dL (Negative) Urine Leukocyte Esterase 3+ /uL (Negative) Urine RBC None seen /hpf (0 - 4) Urine WBC Clumps Present /hpf (None Seen) Urine Microscopic WBC 2013 /HPF (0-5) Urine Squamous Epithelial Cells None seen /hpf (<5) Urine Bacteria Few /hpf (None Seen) Urine Glucose Normal mg/dL (Normal) Troponin I High Sensitivity 733 ng/L (</=34) Prothrombin Time 10.2 sec (9.3-11.8) Prothrombin Time INR 0.96 (0.9-1.15) Activated Partial Thromboplast Time 46.9 SEC (24.5-34.5) Test 01/02/25 04:00 01/01/25 21:37 Urine Opiates Screen Neg (NEGATIVE) Urine Fentanyl Screen Neg (NEGATIVE) Urine Barbiturates Screen Neg (NEGATIVE) Urine Phencyclidine Screen Neg (NEGATIVE) Urine Amphetamines Screen Neg (NEGATIVE) Urine Benzodiazepines Screen Neg (NEGATIVE) Urine Cocaine Screen Neg (NEGATIVE) Urine Cannabinoids Screen Neg (NEGATIVE) B-Type Natriuretic Peptide 169.27 pg/mL (0-100) Other Laboratory Tests 01/06/25 05:45 Brief Hx & Hospital Course: 64-year-old female with a known history of chronic AFib currently on Eliquis, hypertension, dyslipidemia, thyroid disease initially presented to the hospital with the chest pain found to have NSTEMI. Patient's Was recently hospitalized at [facility] for the same and was discharged home but she did not pickle processor the medications. Eventually patient's came back with a AFib with a RVR as well as NSTEMI. Patient was started on heparin drip cardiology was consulted. Patient's hospital course was eventful for noncompliance refusing medication refusing tele walks. Patient will be discharged today with the home health home safety evaluation all the medication prescription was filled at [facility] which it will be delivered to her bedside before she leaves. Patient is being discharged under stable condition with close follow up as an outpatient Condition at Discharge: Stable Final Diagnosis/Problems List 64-year-old female with a known history of chronic AFib currently on Eliquis, hypertension, dyslipidemia, thyroid disease initially presented to the hospital with the chest pain found to have 1. NSTEMI 2. Paroxysmal AFib 3. Hypertensive urgency 4. Dyslipidemia 5. Coronary artery disease 6. Severe noncompliance Discharge Disposition: Home with Health Services Discharge Instruct/Medications Diet: Cardiac 2g Na,low cholest Activity: No Restrictions, As Tolerated Follow Up/Referral: Please follow up with the PCP in one week Follow up with the Cardiology in one week. Continued Medications: Apixaban Base (Eliquis) 5 Mg Tab 1 TAB PO BID for 30 Days, #60 TAB (This prescription has been renewed) Aspirin (Aspirin Ec Low Dose) 81 Mg Tab 81 MG PO DAILY MDD ., #90 TAB (This prescription has been renewed) Atorvastatin Calcium (Atorvastatin Calcium) 20 Mg Tab 1 TAB PO DAILY for 30 Days, #30 TAB (This prescription has been renewed) Bupropion Hcl (Bupropion Hcl Xl) 150 Mg Tab 1 TAB PO DAILY for 90 Days, #90 TAB (This prescription has been renewed) Carvedilol (Carvedilol) 12.5 Mg Tab 1 TAB PO BID for 90 Days, #180 TAB (This prescription has been renewed) Clonidine Hydrochloride (Clonidine Hcl) 0.1 Mg Tab 0.1 MG PO TID MDD ., #100 TAB (This prescription has been renewed) Fluticasone Propionate (Nasal) (Flonase Allergy Relief) 50 Mcg/Act Spr 50 MCG NA BID for 30 Days, #1 SPRAY 0 Refills (This prescription has been renewed) Levothyroxine Sodium (Levothyroxine Sodium) 50 Mcg Tab 1 TAB PO DAILY for 30 Days, #30 TAB (This prescription has been renewed) Nifedipine (Nifedipine Er) 60 Mg Tab 1 TAB PO BID, #90 TAB 1 Refill (This prescription has been renewed) Discontinued Medications: Mupirocin Calcium (Topical) (Mupirocin) 2 % Cre 2 % EX TID for 5 Days, #1 CRE Thyroid (Industry Thyroid) 30 Mg Tab 1 TAB PO DAILY MDD ., #90 TAB 3 Refills Scheduled Apixaban Base (Eliquis), 1 TAB PO BID Aspirin (Aspirin Ec Low Dose), 81 MG PO DAILY Atorvastatin Calcium (Atorvastatin Calcium), 1 TAB PO DAILY Bupropion Hcl (Bupropion Hcl Xl), 1 TAB PO DAILY Carvedilol (Carvedilol), 1 TAB PO BID Clonidine Hydrochloride (Clonidine Hcl), 0.1 MG PO TID Fluticasone Propionate (Nasal) (Flonase Allergy Relief), 50 MCG NA BID Levothyroxine Sodium (Levothyroxine Sodium), 1 TAB PO DAILY Mupirocin Calcium (Topical) (Mupirocin), 2 % EX TID Nifedipine (Nifedipine Er), 1 TAB PO BID Thyroid (Industry Thyroid), 1 TAB PO DAILY Discharge Statement: "Patient was advised to return to the ER or call 911 if any headaches, dizziness, shortness of breath, chest pain, abdominal pain, bleeding, fevers, or worsening of medical condition. Patient was counseled about treatment plan, medications, possible side effects, patientverbalized understanding. All questions were answered to the best of my ability. This discharge took greater then 30 minutes in planning, reviewing documentation, counseling the patient, and discussing with other team members." ASSESSMENT ASSESSMENT Assessment 64-year-old female with a known history of chronic AFib currently on Eliquis, hypertension, dyslipidemia, thyroid disease initially presented to the hospital with the chest pain found to have 1. NSTEMI 2. Paroxysmal AFib 3. Hypertensive urgency 4. Dyslipidemia 5. Coronary artery disease 6. Severe noncompliance Date of Service: Jan 06, 2025 Billing Provider: JODIE RASHID MD Common Visit Codes: NOT BILLABLE JODIE RASHID MD Jan 06, 2025 15:38
== END 2025-01-06 18:30 | disposition home health service (06) | DRG 282 ==
LOC: EDBD 20:34 → ER 20:34 → OVERFLOW 01-02 02:18 → ICU CENTRL 01-03 15:51 → TELE-EAST 01-04 18:28
PROVIDERS: ADMIT Nurse Practitioner Family; ATTEND Nurse Practitioner Family
DX: I21.4 Non-ST elevation (NSTEMI) myocardial infarction (principal); I25.10 Atherosclerotic heart disease of native coronary artery without angina pectoris; I48.0 Paroxysmal atrial fibrillation; I16.0 Hypertensive urgency; E78.5 Hyperlipidemia, unspecified; I50.9 Heart failure, unspecified; I73.9 Peripheral vascular disease, unspecified; E03.9 Hypothyroidism, unspecified; F41.9 Anxiety disorder, unspecified; F32.A Depression, unspecified; Z79.82 Long term (current) use of aspirin; Z79.899 Other long term (current) drug therapy; Z82.49 Family history of ischemic heart disease and other diseases of the circulatory system; Z82.0 Family history of epilepsy and other diseases of the nervous system; Z91.199 Patient's noncompliance with other medical treatment and regimen due to unspecified reason; Z79.01 Long term (current) use of anticoagulants
CPT/HCPCS: 36415; 71045; 80048; 80307; 81001; 83880; 84484; 85025; 85610; 85730; 87081; 87086; 93005; G0378; J2405; J2470

== ENCOUNTER 2025-01-17 21:01 | Inpatient (IN) | payer BC ==
[~2025-01-17] VITALS: Ht 165.1 cm; Wt 66.0 kg
[~2025-01-17 21:01] MED LIST changes: +LEVO50TA7 PO; -METO25TA5 PO; -MUPI2CRE17 EX; -THYR30TA PO
--- NOTE | 2025-01-17 22:05 | ED.PDOC ---
HPI Comments 64-year-old female with a known history of chronic AFib currently on Eliquis, hypertension, dyslipidemia, thyroid disease initially presented to the hospital with the chest pain. Patient recently discharged here 10 days ago found to have 1. NSTEMI, 2. Paroxysmal AFib, 3. Hypertensive urgency, 4. Dyslipidemia, 5. Coronary artery disease, 6. Severe noncompliance. Patient states she daily gets chest pains, especially after eating. Chest pain usually localized in the midsternal area, described as tight, nonradiating. Chief Complaint: Chest Pain Time Seen by MD: 22:04 Primary Care Provider: UNKNOWN Reviewed Notes: Nurses Notes Allergies: Coded Allergies: NO KNOWN ALLERGIES (Unverified , 02/02/24) Home Meds Active Scripts Atorvastatin Calcium (ATORVASTATIN CALCIUM) 20 Mg Tab, 1 TAB PO DAILY for 30 Days, #30 TAB Prov:JODIE RASHID MD 01/06/25 Bupropion Hcl (Bupropion Hcl Xl) 150 Mg Tab, 1 TAB PO DAILY for 90 Days, #90 TAB Prov:JODIE RASHID MD 01/06/25 Levothyroxine Sodium (Levothyroxine Sodium) 50 Mcg Tab, 1 TAB PO DAILY for 30 Days, #30 TAB Prov:JODIE RASHID MD 01/06/25 Apixaban Base (ELIQUIS) 5 Mg Tab, 1 TAB PO BID for 30 Days, #60 TAB Prov:JODIE RASHID MD 01/06/25 Carvedilol (Carvedilol) 12.5 Mg Tab, 1 TAB PO BID for 90 Days, #180 TAB Prov:JODIE RASHID MD 01/06/25 Nifedipine (Nifedipine Er) 60 Mg Tab, 1 TAB PO BID, #90 TAB 1 Refill Prov:JODIE RASHID MD 01/06/25 Aspirin (Aspirin Ec Low Dose) 81 Mg Tab, 81 MG PO DAILY MDD ., #90 TAB Prov:JODIE RASHID MD 01/06/25 Clonidine Hydrochloride (Clonidine Hcl) 0.1 Mg Tab, 0.1 MG PO TID MDD ., #100 TAB Prov:JODIE RASHID MD 01/06/25 Fluticasone Propionate (Nasal) (Flonase Allergy Relief) 50 Mcg/Act Spr, 50 MCG NA BID for 30 Days, #1 SPRAY 0 Refills Prov:JODIE RASHID MD 01/06/25 Information Source: Patient Mode of Arrival: EMS Severity: Moderate Timing: Hours Duration: Intermittent Location: Substernal Radiation: No Radiation Quality: Tightness Onset: With Light Exertion Cardiac Risk Factors: Hyperlipidemia, Diabetes History of: Similar pain in past, GA Past Medical History PAST MEDICAL HISTORY: Anxiety, CAD, CHF, Depression, High Lipids, HTN, GA, Thyroid, UTI'S Surgical History: Denies all surgeries 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 History: 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 Family History Family History: Reviewed,noncontributory to illness, Family hx of heart lee Family History (Other): Family hx of Alzheimer's and multiple sclerosis Social History Smoker: Non-Smoker Alcohol: Denies ETOH Use Drugs: Denies Drug Use Lives In: Home Physical Exam General Appearance: Mild Distress, Thin HEENT: Normal ENT Inspection, Pharynx Normal, TMs Normal Neck: Full Range of Motion, Non-Tender, Normal, Normal Inspection Respiratory: Chest Non-Tender, Lungs Clear, No Accessory Muscle Use, No Respiratory Distress, Normal Breath Sounds Cardiovascular: No Edema, No JVD, No Murmur, No Gallop, Normal Peripheral Pulses, Regular Rate/Rhythm Breast Exam: Deferred Gastrointestinal: No Organomegaly, Non Tender, No Pulsatile Mass, Normal Bowel Sounds, Soft Genitalia: Deferred Pelvic: Deferred Rectal: Deferred Extremities: No calf tenderness, Normal capillary refill, Normal inspection, Normal range of motion, Non-tender, No pedal edema Musculoskeletal : Apperance: Normal Neurologic: Alert, home help aide 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 Was a procedure done?: No CP Differential Dx Differential Diagnosis: A-fib, A-Flutter, Angina, GA, PSVT, Pulmonary Embolus, V-Fib, V-Tach, Other X-Ray, Labs, Meds, VS Vital Signs Date Time Temp Pulse Resp B/P (MAP) Pulse Ox O2 Delivery O2 Flow Rate FiO2 01/18/25 00:14 66 18 137/69 (91) 97 01/17/25 22:10 98.9 61 18 157/67 99 98.9 01/17/25 21:10 69 Lab Test 01/18/25 00:44 01/17/25 23:03 01/17/25 21:46 Range/Units Troponin I High Sensitivity 96 *H 114 *H 99 *H </=34 ng/L White Blood Count 5.9 4.4-10.8 10^3/uL Red Blood Count 4.41 4.0-5.20 10^6/uL Hemoglobin 13.7 12.2-16.2 g/dL Hematocrit 40.8 36.0-46.0 % Mean Corpuscular Volume 92.6 80.0-100.0 fL Mean Corpuscular Hemoglobin 31.1 28.0-32.0 pg Mean Corpuscular Hemoglobin Concent 33.5 32.0-36.0 g/dL Red Cell Distribution Width 15.3 H 11.8-14.3 % Platelet Count 232 140-450 10^3/uL Mean Platelet Volume 7.8 6.9-10.8 fL Neutrophils (%) (Auto) 57.1 37.0-80.0 % Lymphocytes (%) (Auto) 34.2 10.0-50.0 % Monocytes (%) (Auto) 8.3 0.0-12.0 % Eosinophils (%) (Auto) 0.0 0.0-7.0 % Basophils (%) (Auto) 0.4 0.0-2.0 % Neutrophils # (Auto) 3.3 1.6-8.6 10 ^3/uL Lymphocytes # (Auto) 2.0 0.4-5.4 10 ^3/uL Monocytes # (Auto) 0.5 0-1.3 10 ^3/uL Eosinophils # (Auto) 0 0-0.8 10 ^3/uL Basophils # (Auto) 0 0-0.2 10 ^3/uL Nucleated Red Blood Cells 0.1 % Sodium Level 137 136-145 mmol/L Potassium Level 4.2 3.5-5.1 mmol/L Chloride Level 104 98-107 mmol/L Carbon Dioxide Level 22 20-31 mmol/L Anion Gap 11 5-15 Blood Urea Nitrogen 9 9-23 mg/dL Creatinine 1.13 H 0.550-1.02 mg/dL Glomerular Filtration Rate Calc 54 >90 mL/min BUN/Creatinine Ratio 8.0 L 10.0-20.0 Serum Glucose 108 H 74-106 mg/dL Calcium Level 9.3 8.7-10.4 mg/dL Total Bilirubin 0.3 0.2-1.0 mg/dL Aspartate Amino Transferase (AST) 15 13-40 U/L Alanine Aminotransferase (ALT) 11 7-40 U/L Alkaline Phosphatase 79 46-116 U/L B-Type Natriuretic Peptide 180.40 0-100 pg/mL Total Protein 6.6 5.7-8.2 g/dL Albumin 4.1 3.2-4.8 g/dL Time of 1ST Reevaluation: 22:00 Reevaluation 1ST: Unchanged Patient Education/Counseling: Diagnosis, Treatment Family Education/Counseling: No Family Present SEPSIS Sepsis Screen Physician Orders Electrocardigram (01/17/25 21:17) Chest Xray 1 View (01/17/25 21:36) Vital Signs Date Time Temp Pulse Resp B/P (MAP) Pulse Ox O2 Delivery O2 Flow Rate FiO2 01/18/25 00:14 66 18 137/69 (91) 97 01/17/25 22:10 98.9 61 18 157/67 99 98.9 01/17/25 21:10 69 Laboratory Tests Test 01/17/25 21:46 White Blood Count 5.9 10^3/uL (4.4-10.8) Departure 1 Departure Time of Disposition: 00:30 Impression: Primary Impression: ACS (acute coronary syndrome) Disposition: 09 ADMITTED INPATIENT Admit to: [facility] Condition: Guarded Discharged With: Self Critical Care Note Critical Care Time?: No Stability Stability form required: No Heart Score Heart Score: Heart Score Response (Comments) Value History Moderate Suspicious 1 EKG Repolarization Disturb 1 Age >65 2 Risk Factors 1 or 2 risk factors 1 Troponin 1-2 x's Normal limit 1 Total 6 I personally scribed for YOSSI SALOMON MD ([email or web address]) on 01/17/25 at 22:05. Electronically submitted by Brenton Lo ([email or web address]). YOSSI SALOMON MD Jan 17, 2025 22:05
[2025-01-17 22:22] LABS: Hematocrit 40.8 % (36.0-46.0); Hemoglobin 13.7 g/dL (12.2-16.2); Mean Corpuscular Hemoglobin 31.1 pg (28.0-32.0); Mean Corpuscular Volume 92.6 fL (80.0-100.0); Nucleated Red Blood Cells % 0.1 %
[2025-01-17 22:35] LABS: Alanine Aminotransferase 11 U/L (7-40); Albumin 4.1 g/dL (3.2-4.8); Alkaline Phosphatase 79 U/L (46-116); Anion Gap 11 (5-15); BUN/Creatinine Ratio 8.0 (10.0-20.0); Bilirubin, Total 0.3 mg/dL (0.2-1.0); Blood Urea Nitrogen 9 mg/dL (9-23); Calcium 9.3 mg/dL (8.7-10.4); Carbon Dioxide 22 mmol/L (20-31); Chloride 104 mmol/L (98-107); Glucose 108 mg/dL (74-106); Potassium 4.2 mmol/L (3.5-5.1); Sodium 137 mmol/L (136-145); Total Protein 6.6 g/dL (5.7-8.2)
--- NOTE | 2025-01-17 22:49 | DVH ---
CHEST RADIOGRAPH Indication: chest pain Technique: 2 view Comparison: XY CHEST XRAY 1 VIEW on DOS: 01/01/25, XY CHEST PORTABLE on DOS: 11/29/24, XY CHEST PORTABL E on DOS: 10/03/24, XY CHEST XRAY 1 VIEW on DOS: 06/11/24, XY CHEST PORTABLE on DOS: 06/04/24 FINDINGS: Lines and Tubes: None Lungs/Pleura: The apices are excluded. No focal consolidation, pleural effusion or pneumothorax. Cardiomediastinum: Unremarkable. Other: No acute osseous abnormality. IMPRESSION: 1. No acute cardiopulmonary abnormality. The lung apices are excluded.
[2025-01-18] VITALS (7 sets, daily range): BP systolic 152–168; BP diastolic 67–84; PULSE 61–82; RESP 15–18; TEMP 97.3–98; O2SAT 94–97
[2025-01-18] MEDS ORDERED: ONDANSETRON HCL 4 MG/2 ML VIAL IV PRN (01:30)
[2025-01-18] MEDS: MELATONIN 5 MG TAB PO ONE (01:30)
--- NOTE | 2025-01-18 01:43 | DVHHP2 ---
Admitting Diagnosis: Chest Pain rule out ACS, Elevated troponin History of Present Illness History Source: Patient Exam Limitations: No limitations HPI Mrs. Alicja Sommer is a 64-year-old female with a known history of chronic AFib currently on Eliquis, hypertension, dyslipidemia, thyroid disease initially presented to the hospital with a chief complaint of chest pain. Patient recently discharged here 10 days ago found to have NSTEMI where patient was seen by cardiology and recommendation for a heart angiogram. Patient during that admission had refused as per previous admission notes. Patient reports midsternal chest pain with no relieve. Patient has a history of non compliance with medications. Patient with troponin levels of 99, 114, 96. Patient denies any dyspnea, headaches, nausea, vomiting, abdominal pain. Patient admitted for further evaluation. Home Meds Active Scripts Atorvastatin Calcium (ATORVASTATIN CALCIUM) 20 Mg Tab, 1 TAB PO DAILY for 30 Days, #30 TAB Prov:JODIE RASHID MD 01/06/25 Bupropion Hcl (Bupropion Hcl Xl) 150 Mg Tab, 1 TAB PO DAILY for 90 Days, #90 TAB Prov:JODIE RASHID MD 01/06/25 Levothyroxine Sodium (Levothyroxine Sodium) 50 Mcg Tab, 1 TAB PO DAILY for 30 Days, #30 TAB Prov:JODIE RASHID MD 01/06/25 Apixaban Base (ELIQUIS) 5 Mg Tab, 1 TAB PO BID for 30 Days, #60 TAB Prov:JODIE RASHID MD 01/06/25 Carvedilol (Carvedilol) 12.5 Mg Tab, 1 TAB PO BID for 90 Days, #180 TAB Prov:JODIE RASHID MD 01/06/25 Nifedipine (Nifedipine Er) 60 Mg Tab, 1 TAB PO BID, #90 TAB 1 Refill Prov:JODIE RASHID MD 01/06/25 Aspirin (Aspirin Ec Low Dose) 81 Mg Tab, 81 MG PO DAILY MDD ., #90 TAB Prov:JODIE RASHID MD 01/06/25 Clonidine Hydrochloride (Clonidine Hcl) 0.1 Mg Tab, 0.1 MG PO TID MDD ., #100 TAB Prov:JODIE RASHID MD 01/06/25 Fluticasone Propionate (Nasal) (Flonase Allergy Relief) 50 Mcg/Act Spr, 50 MCG NA BID for 30 Days, #1 SPRAY 0 Refills Prov:JODIE RASHID MD 01/06/25 Reported Medications Clopidogrel Bisulfate (CLOPIDOGREL) 75 Mg Tab, 1 TAB PO DAILY 01/18/25 Metoprolol Succinate (Metoprolol Succinate Er) 25 Mg Tab, 1 TAB PO DAILY 01/18/25 Past Medical History Cardiac: AFIB (on Eliquis), HTN, Hyperlipidemia Pulmonary: No pertinent Hx Central Nervous System: No pertinent Hx GI: No pertinent Hx Hemotology/Oncology: No pertinent Hx Hepatobiliary: No pertinent Hx Psychiatric: No pertinent Hx Musculoskeletal: No pertinent Hx Rheumotologic: No pertinent Hx Infectious Disease: No peritnent Hx ENT: No pertinent Hx Renal/: No pertinent Hx Endocrine: Hypothyroidism Dermatology: No pertinent Hx Patient Family History: FH: Crohn's disease G8 BROTHER FH: multiple sclerosis G8 SISTER Family history: Alzheimer's disease G8 MOTHER Family history: Cardiovascular disease G8 FATHER G8 SISTER Smoker: No Hx (Negative) Alocohol: None Drugs: None Lives with: With family Domestic Violence: Neg Review of Systems Constitutional: No symptom reported Ears, Nose, & Throat: No symptom reported Eyes: No symptom reported Pulmonary/Respiratory: No symptom reported Cardiovascular: Chest Pain Gastrointestinal: No symptom reported Genitourinary: No symptom reported Musculoskeletal: No symptom reported Skin: No symptom reported Psychiatric: No symptom reported Endocrine: No symptom reported Hemotologic/Lymphatic: No symptom reported H&P Exam Vital Signs Vital Signs Date Time Temp Pulse Resp B/P (MAP) Pulse Ox O2 Delivery O2 Flow Rate FiO2 01/18/25 00:14 66 18 137/69 (91) 97 01/17/25 22:10 98.9 98.9 General Appeara: Well developed, Well nourished, Normal Appearance Head Exam: Normal inspection Neck Exam: Normal inspection, Non-tender, Normal alignment Eye Exam: bilateral eye Normal inspection, bilateral eye PERRL, bilateral eye EOMI Ear Exam: bilateral ear Auricle normal Nasal Exam: Normal inspection Mouth: Normal Inspection Pulmonary/Respiratory: Normal inspection, Normal breath sounds, Chest non- tender, Lungs clear Cardiovascular/Chest: Normal inspection, Regular rate, Normal Rhythm Peripheral Pulses: 2+ dorsalis pedis (R), 2+ dorsalis pedis (L), 2+ Radial (R), 2+ Radial (L) Abdominal Exam: Normal bowel sounds, Soft, No tenderness Rectal Exam: Deferred Back Exam: 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 inspection 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 hearing, Normal speech, PERRL Neuro/Mental St: Alert, Oriented Appearance: Appropriate appearance, Appropriate insight Eye contact/ Speech: Cooperative, Good eye contact, Normal speech Thoughts/Psych: Normal thought pattern Skin Exam: Normal inspection, Normal color, Warm/dry SEPSIS Sepsis Screen Date sepsis recognized/suspect: Jan 17, 2025 Time Sepsis recognized/suspect: 2102 Recent Procedure: No On Antibiotic Therapy: No Respiratory Rate >20: No Heart Rate >90: No Temp<36 C (96.8 F) or >38.3 C: No SBP <90 or MAP <65 mmHG: No New Acute Mental Status Change: No Is the patient on CPAP, BIPAP,: No Physician Orders Electrocardigram (01/17/25 21:17) Chest Xray 1 View (01/17/25 21:36) Admit (01/18/25:) * Cardiology Consult (01/18/25:) Troponin-I Hs (01/18/25 06:00) Troponin-I Hs (01/18/25 14:00) Troponin-I Hs (01/18/25 22:00) Basic Metabolic Panel (01/18/25 05:00) Basic Metabolic Panel (01/19/25 05:00) Basic Metabolic Panel (01/20/25 05:00) Full Code (01/18/25:) Stat Ekg For Chest Pain (01/18/25:) Notify Md Of Changes From Base (01/18/25:) Electronic Component Processor For 24 Hours (01/18/25:) Emergency Dysrhythmia Protocol (01/18/25) Rhythm Strips Once Every Shift (01/18/25:) Oxygen By Nasal Cannula (01/18/25:) Enoxaparin Sodium (Lovenox) (01/18/25 10:00) Ondansetron Hcl (Zofran) (01/18/25 01:30) Aspirin Tablet (01/18/25 10:00) Atorvastatin (Lipitor) (01/18/25 22:00) Melatonin (Melatonin) (01/18/25 01:30) Hydrocodone-Acet 5/325mg Tab ([place] 5/32 (01/18/25 01:30) Acetaminophen Tablet (Tylenol Tablet) (01/18/25 01:30) Famotidine Tablet (Pepcid Tablet) (01/18/25 10:00) Clear Liq Diet (01/18/25 Breakfast) Echo 2d Mode Cardiac Dop (01/18/25 01:26) Vital Signs Date Time Temp Pulse Resp B/P (MAP) Pulse Ox O2 Delivery O2 Flow Rate FiO2 01/18/25 00:14 66 18 137/69 (91) 97 01/17/25 22:10 98.9 61 18 157/67 99 98.9 01/17/25 21:10 69 Laboratory Tests Test 01/17/25 21:46 White Blood Count 5.9 10^3/uL (4.4-10.8) Labs/Xrays Labs Test 01/18/25 00:44 01/17/25 21:46 Range/Units Troponin I High Sensitivity 96 *H </=34 ng/L White Blood Count 5.9 4.4-10.8 10^3/uL Red Blood Count 4.41 4.0-5.20 10^6/uL Hemoglobin 13.7 12.2-16.2 g/dL Hematocrit 40.8 36.0-46.0 % Mean Corpuscular Volume 92.6 80.0-100.0 fL Mean Corpuscular Hemoglobin 31.1 28.0-32.0 pg Mean Corpuscular Hemoglobin Concent 33.5 32.0-36.0 g/dL Red Cell Distribution Width 15.3 H 11.8-14.3 % Platelet Count 232 140-450 10^3/uL Mean Platelet Volume 7.8 6.9-10.8 fL Neutrophils (%) (Auto) 57.1 37.0-80.0 % Lymphocytes (%) (Auto) 34.2 10.0-50.0 % Monocytes (%) (Auto) 8.3 0.0-12.0 % Eosinophils (%) (Auto) 0.0 0.0-7.0 % Basophils (%) (Auto) 0.4 0.0-2.0 % Neutrophils # (Auto) 3.3 1.6-8.6 10 ^3/uL Lymphocytes # (Auto) 2.0 0.4-5.4 10 ^3/uL Monocytes # (Auto) 0.5 0-1.3 10 ^3/uL Eosinophils # (Auto) 0 0-0.8 10 ^3/uL Basophils # (Auto) 0 0-0.2 10 ^3/uL Nucleated Red Blood Cells 0.1 % Sodium Level 137 136-145 mmol/L Potassium Level 4.2 3.5-5.1 mmol/L Chloride Level 104 98-107 mmol/L Carbon Dioxide Level 22 20-31 mmol/L Anion Gap 11 5-15 Blood Urea Nitrogen 9 9-23 mg/dL Creatinine 1.13 H 0.550-1.02 mg/dL Glomerular Filtration Rate Calc 54 >90 mL/min BUN/Creatinine Ratio 8.0 L 10.0-20.0 Serum Glucose 108 H 74-106 mg/dL Calcium Level 9.3 8.7-10.4 mg/dL Total Bilirubin 0.3 0.2-1.0 mg/dL Aspartate Amino Transferase (AST) 15 13-40 U/L Alanine Aminotransferase (ALT) 11 7-40 U/L Alkaline Phosphatase 79 46-116 U/L B-Type Natriuretic Peptide 180.40 0-100 pg/mL Total Protein 6.6 5.7-8.2 g/dL Albumin 4.1 3.2-4.8 g/dL Assessment/Plan Problem List: (1) Chest pain (2) Elevated troponin Plan This is a 64 yo female with known history of atrial fibrillation on Eliquis, hypertension, dyslipidemia, thyroid disease who presents to the hospital with chest pain. 1. Chest pain rule out ACS 2. Elevated troponin levels 3. Chronic atrial fibrillation 4. Hypertension 5. Dyslipidemia 6. Thyroid disease Plan Admit Telemetry unit Cardiology consultation, 2D echocardiogram, serial Troponin levels, ASA, Statin Analgesics as needed Antiemetics as needed Continue home medications as needed when reconciled Discussed all above with patient who verbalizes agreement and understanding of care plan. All questions were answered. Discussed with supervising MD. Plan discussed with: Patient, Other Code Visit Code Visit Total Time (mins): 45 PHILL DINERO Jan 18, 2025 01:43 JODIE RASHID MD Jan 18, 2025 16:33
[2025-01-18] MEDS: ENOXAPARIN SOD 60 MG/0.6 ML SYRINGE SC ONE (02:14)
[2025-01-18 08:49] LABS: Chloride 105 mmol/L (98-107); Potassium 4.1 mmol/L (3.5-5.1); Sodium 140 mmol/L (136-145)
[2025-01-18 08:50] LABS: Anion Gap 9 (5-15); Carbon Dioxide 26 mmol/L (20-31)
[2025-01-18 08:51] LABS: Calcium 9.8 mg/dL (8.7-10.4)
[2025-01-18 08:55] LABS: Blood Urea Nitrogen 14 mg/dL (9-23); Glucose 110 mg/dL (74-106)
[2025-01-18 08:58] LABS: BUN/Creatinine Ratio 11.5 (10.0-20.0)
[2025-01-18] MEDS ORDERED: CLOP75TA70 PO (09:04)
[2025-01-18] MEDS ORDERED: METO25TA93 PO (09:04)
[2025-01-18] MEDS: FAMOTIDINE 20 MG TAB PO SCH (09:27)
[2025-01-18] MEDS: ENOXAPARIN SOD 60 MG/0.6 ML SYRINGE SC SCH (09:27)
--- NOTE | 2025-01-18 11:51 | ECG ---
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
[2025-01-18] MEDS ORDERED: hydrALAZINE HCL 20 MG/ML VL IV PRN (14:30)
[2025-01-19] VITALS (10 sets, daily range): BP systolic 127–201; BP diastolic 63–81; PULSE 51–68; RESP 12–18; TEMP 97.2–98.7; O2SAT 95–99
[2025-01-19] MEDS: ATORVASTATIN 20 MG TAB PO SCH (00:20)
[2025-01-19] MEDS: HYDROcodone-ACET 5/325MG TAB PO PRN (00:51)
[2025-01-19 07:17] LABS: Potassium 3.5 mmol/L (3.5-5.1); Sodium 143 mmol/L (136-145)
[2025-01-19 07:18] LABS: Anion Gap 10 (5-15); Carbon Dioxide 25 mmol/L (20-31)
[2025-01-19 07:19] LABS: Calcium 8.6 mg/dL (8.7-10.4); Chloride 108 mmol/L (98-107)
[2025-01-19 07:23] LABS: BUN/Creatinine Ratio 12.0 (10.0-20.0); Blood Urea Nitrogen 13 mg/dL (9-23); Glucose 75 mg/dL (74-106)
[2025-01-19] MEDS: ACETAMINOPHEN 325 MG TAB PO PRN (10:16)
--- NOTE | 2025-01-19 17:26 | DVHINCON2 ---
Date Seen: Jan 19, 2025 Referring Physician Chris Reason for Consultation CP History of Present Illness 64-year-old female with a known history of chronic AFib currently on Eliquis, hypertension, dyslipidemia, thyroid disease initially presented to the hospital with a chief complaint of chest pain. Patient recently discharged here 10 days ago found to have NSTEMI where patient was seen by cardiology and recommendation for a heart angiogram. Patient during that admission had refused as per previous admission notes. Patient reports midsternal chest pain with no relieve. Patient has a history of non compliance with medications. Patient with troponin levels of 99, 114, 96. Patient denies any dyspnea, headaches, nausea, vomiting, abdominal pain. EKGs reviewed, negative for acute ischemic changes. Past Medical History As stated above Past Surgical History As stated above Family History: FH: Crohn's disease G8 BROTHER FH: multiple sclerosis G8 SISTER Family history: Alzheimer's disease G8 MOTHER Family history: Cardiovascular disease G8 FATHER G8 SISTER Allergies: Coded Allergies: Statins (Verified Adverse Reaction, Unknown, 01/19/25) Muscle Aches Home Meds Active Scripts Atorvastatin Calcium (ATORVASTATIN CALCIUM) 20 Mg Tab, 1 TAB PO DAILY for 30 Days, #30 TAB Prov:JODIE RASHID MD 01/06/25 Bupropion Hcl (Bupropion Hcl Xl) 150 Mg Tab, 1 TAB PO DAILY for 90 Days, #90 TAB Prov:JODIE RASHID MD 01/06/25 Levothyroxine Sodium (Levothyroxine Sodium) 50 Mcg Tab, 1 TAB PO DAILY for 30 Days, #30 TAB Prov:JODIE RASHID MD 01/06/25 Apixaban Base (ELIQUIS) 5 Mg Tab, 1 TAB PO BID for 30 Days, #60 TAB Prov:JODIE RASHID MD 01/06/25 Carvedilol (Carvedilol) 12.5 Mg Tab, 1 TAB PO BID for 90 Days, #180 TAB Prov:JODIE RASHID MD 01/06/25 Nifedipine (Nifedipine Er) 60 Mg Tab, 1 TAB PO BID, #90 TAB 1 Refill Prov:JODIE RASHID MD 01/06/25 Aspirin (Aspirin Ec Low Dose) 81 Mg Tab, 81 MG PO DAILY MDD ., #90 TAB Prov:JODIE RASHID MD 8/17/25 Clonidine Hydrochloride (Clonidine Hcl) 0.1 Mg Tab, 0.1 MG PO TID MDD ., #100 TAB Prov:JODIE RASHID MD 01/06/25 Fluticasone Propionate (Nasal) (Flonase Allergy Relief) 50 Mcg/Act Spr, 50 MCG NA BID for 30 Days, #1 SPRAY 0 Refills Prov:JODIE RASHID MD 01/06/25 Reported Medications Clopidogrel Bisulfate (CLOPIDOGREL) 75 Mg Tab, 1 TAB PO DAILY 01/18/25 Discontinued Reported Medications Metoprolol Succinate (Metoprolol Succinate Er) 25 Mg Tab, 1 TAB PO DAILY 01/18/25 Current Medications Current Medications Medications (Trade) Dose Ordered Sig/Sabra Route PRN Reason Start Time Stop Time Status Last Admin Atorvastatin Calcium (Lipitor) 40 mg HS PO 01/18/25 22:00 Carvedilol (Coreg Tablet) 12.5 mg BID PO 01/19/25 22:00 Clonidine HCl (Catapres Tablet) 0.1 mg TID PO 01/19/25 22:00 Clopidogrel Bisulfate (Plavix) 75 mg DAILY PO 01/20/25 10:00 Fluticasone Propionate (Flonase [place]) 50 mcg BID NA 01/19/25 22:00 Levothyroxine Sodium (Synthroid Tablet) 50 mcg DAILY PO 01/20/25 10:00 Patient Own Medication 1 tab DAILY PO 01/20/25 10:00 Nifedipine (Procardia Xl (Time-Release)) 60 mg BID PO 01/19/25 22:00 Review of Systems Constitutional: No: Fever, Chills, Sweats, Weakness, Malaise, Other Eyes: No: Pain, Vision change, Conjunctivae inflammation, Eyelid inflammation, Other, Redness ENT: No: Ear pain, Ear discharge, Nose pain, Nose discharge, Nose congestion, Mouth pain, Mouth swelling, Throat pain, Throat swelling, Other Respiratory: No: Cough, Dry, Shortness of breath, SOB with exertion, Wheezing, Hemoptysis, Pleuritic Pain, Sputum, Wheezing, Other Cardiovascular: ; No: Chest Pain Palpitations, Orthopnea, Paroxysmal Noc. Dyspnea, Edema, Lt Headedness, Other Gastrointestinal: No: Nausea, Vomiting, Abdominal Pain, Diarrhea, Constipation, Melena, Hematochezia, Other Genitourinary: No Dysuria, No Frequency, No Incontinence, No Hematuria, No Retention, No Other Musculoskeletal: neck pain; No: other, shoulder pain, arm pain, back pain, hand pain, leg pain, foot pain Skin: No: Rash, Lesions, Jaundice, Bruising, Other Neurological: Other (Dizziness, headache.); No: Weakness, Numbness, Incoordination, Change in speech, Confusion, Seizures Vital Signs Vital Signs Date Time Temp Pulse Resp B/P (MAP) Pulse Ox O2 Delivery O2 Flow Rate FiO2 01/19/25 17:01 97.2 55 14 198/72 (114) 95 97.2 01/19/25 08:00 Room Air* 0 21 Physical Exam General appearance: Patient is well-developed, well-nourished, in no acute distress. HEENT: Exam shows: Normocephalic, atraumatic, PERRLA, EOMI Neck: Supple, no bruits Chest: Equal chest excursion bilaterally. Breath sounds normal-no rales or wheezes. Heart: Rhythm: Regular rate; no murmur or gallop Abdomen: Exam shows: Soft, nontender, nondistended Musculoskeletal: No clubbing, no cyanosis, no lower extremity edema Dermatology: Skin warm, moist. Neurological: Exam shows: Alert and oriented x4, normal speech Available prior records, labs, EKG, rhythm strips reviewed and interpreted Labs/Diagnostic Data Labs Test 01/19/25 04:49 01/18/25 21:53 01/17/25 21:46 Range/Units Sodium Level 143 136-145 mmol/L Potassium Level 3.5 3.5-5.1 mmol/L Chloride Level 108 H 98-107 mmol/L Carbon Dioxide Level 25 20-31 mmol/L Anion Gap 10 5-15 Blood Urea Nitrogen 13 9-23 mg/dL Creatinine 1.08 H 0.550-1.02 mg/dL Glomerular Filtration Rate Calc 57 >90 mL/min BUN/Creatinine Ratio 12.0 10.0-20.0 Serum Glucose 75 74-106 mg/dL Calcium Level 8.6 L 8.7-10.4 mg/dL Troponin I High Sensitivity 95 *H </=34 ng/L White Blood Count 5.9 4.4-10.8 10^3/uL Red Blood Count 4.41 4.0-5.20 10^6/uL Hemoglobin 13.7 12.2-16.2 g/dL Hematocrit 40.8 36.0-46.0 % Mean Corpuscular Volume 92.6 80.0-100.0 fL Mean Corpuscular Hemoglobin 31.1 28.0-32.0 pg Mean Corpuscular Hemoglobin Concent 33.5 32.0-36.0 g/dL Red Cell Distribution Width 15.3 H 11.8-14.3 % Platelet Count 232 140-450 10^3/uL Mean Platelet Volume 7.8 6.9-10.8 fL Neutrophils (%) (Auto) 57.1 37.0-80.0 % Lymphocytes (%) (Auto) 34.2 10.0-50.0 % Monocytes (%) (Auto) 8.3 0.0-12.0 % Eosinophils (%) (Auto) 0.0 0.0-7.0 % Basophils (%) (Auto) 0.4 0.0-2.0 % Neutrophils # (Auto) 3.3 1.6-8.6 10 ^3/uL Lymphocytes # (Auto) 2.0 0.4-5.4 10 ^3/uL Monocytes # (Auto) 0.5 0-1.3 10 ^3/uL Eosinophils # (Auto) 0 0-0.8 10 ^3/uL Basophils # (Auto) 0 0-0.2 10 ^3/uL Nucleated Red Blood Cells 0.1 % Total Bilirubin 0.3 0.2-1.0 mg/dL Aspartate Amino Transferase (AST) 15 13-40 U/L Alanine Aminotransferase (ALT) 11 7-40 U/L Alkaline Phosphatase 79 46-116 U/L B-Type Natriuretic Peptide 180.40 0-100 pg/mL Total Protein 6.6 5.7-8.2 g/dL Albumin 4.1 3.2-4.8 g/dL Microbiology Date/Time Source Procedure Growth Status 01/18/25 09:21 Nose MRSA Screen - Final Complete Assessment * Chest Pain, Mildly Elevated troponins - trop stable. EKG negative for acute ischemic changes. Recent echo with normal EF, no significant valvular structural abnormalities. Follow up echo. Patient continues does not want any type of procedure, angiogram. Plan of care discussed patient aware of risks including OR even up to . We will continue medical management for now continue on aspirin and Plavix and statin. * Chronic Atrial Fibrillation - controlled rate. Resume Eliquis if no contraindication. Continue home dose carvedilol. * HLD - statin * Uncontrolled HTN - resume home medication, titrate as tolerated, continue trending. * HX small pericardial effusion - small pericardial effusion seen on echo 11/30/2024, no signs of tamponade noted. Follow up repeat echo. Case Discussed with Dr Berman. Plan of care discussed with patient, continued to have intermittent chest pains. Continues to not want any type of cardiac intervention/procedure done. Risks and benefits discussed, patient verbalized understanding at this time. Follow up repeat echo. No further cardiac intervention indicated at this time continue medical management unless patient changes mind. Critical care, time spent: 40 minutes This medical document was created using an electronic medical record system with voice recognition software and computerized dictation system. Although this document has been carefully reviewed, there might still be some phonetic and typographical errors. Occasional wrong-word or ``sound-alike substitutions may have occurred due to the inherent limitations of voice recognition software. These areas are purely typographical due to imperfections of the software programs and do not reflect any compromise in the patient's medical care. Please read the chart carefully and recognize, using context, where these substitutions have occurred. Thank you for allowing me to participate in the management of this patient. The treatment plan was discussed with and agreed upon by patient/family including requesting consultants and ordering of imaging/procedures. Plan discussed with: Patient NYHA Physical activity limitations: NA Date of Service: Jan 19, 2025 Billing Provider: JOCY VALENZUELA Cardiology Common Codes: [id number] HOSPITAL CARE, [id number] CARE 30-74 MIN JOCY VALENZUELA Jan 19, 2025 17:26
--- NOTE | 2025-01-19 18:12 | DVHPN2 ---
Subjective Patient is currently denies any chest pain. Changes from previous H/P or p: No Changes Objective Vitals Vital Signs Date Time Temp Pulse Resp B/P (MAP) Pulse Ox O2 Delivery O2 Flow Rate FiO2 01/19/25 17:59 210/82 01/19/25 17:01 97.2 55 14 95 97.2 01/19/25 08:00 Room Air* 0 21 Intake/Output Intake and Output 01/19/25 07:00 Intake Total 400 ml Balance 400 ml Intake Oral 400 ml # Voids 2 Exam HEENT pupils are reactive Neck is supple CV is S1-S2 regular rate and rhythm Respiratory are clear GI positive bowel sound Extremity no edema [employer] no motor deficit Medications Current Medications Medications Dose Ordered Sig/Sabra Route Start Time Stop Time Status Last Admin Dose Admin Enoxaparin Sodium 60 mg BID SC 01/18/25 10:00 01/19/25 10:08 60 MG Ondansetron HCl 4 mg Q6HPRN PRN IV 01/18/25 01:30 Aspirin 81 mg DAILY PO 01/18/25 10:00 01/19/25 10:07 81 MG Atorvastatin Calcium 40 mg HS PO 01/18/25 22:00 Acetaminophen/ Hydrocodone Bitart 1 tab Q6HPRN PRN PO 01/18/25 01:30 01/19/25 00:51 1 TAB Acetaminophen 650 mg Q6HPRN PRN PO 01/18/25 01:30 01/19/25 10:16 650 MG Famotidine 20 mg BID PO 01/18/25 10:00 01/19/25 10:07 20 MG Clonidine HCl 0.1 mg TID PRN PO 01/18/25 16:45 01/19/25 17:59 0.1 MG Carvedilol 12.5 mg BID PO 01/19/25 22:00 Clonidine HCl 0.1 mg TID PO 01/19/25 22:00 Clopidogrel Bisulfate 75 mg DAILY PO 01/20/25 10:00 Fluticasone Propionate 50 mcg BID NA 01/19/25 22:00 Levothyroxine Sodium 50 mcg DAILY PO 01/20/25 10:00 Patient Own Medication 1 tab DAILY PO 01/20/25 10:00 Nifedipine 60 mg BID PO 01/19/25 22:00 Laboratory Results Laboratory Tests 01/17/25 21:46 01/19/25 04:49 Chemistry Test 01/19/25 04:49 Calcium Level 8.6 mg/dL (8.7-10.4) L Microbiology Microbiology Date/Time Source Procedure Growth Status 01/18/25 09:21 Nose MRSA Screen - Final Complete Assessment/Plan Assessment/Plan 64-year-old female with a known history of chronic AFib, hypertension, dyslipidemia, hypothyroidism initially presented to the hospital with the chest pain found to have 1. Chest pain with the elevated troponin 2. Mild pericardial effusion 3. Hypertension 4. Chronic AFib 5. Dyslipidemia 6. Hypothyroid -resume home dose of Eliquis, 2D echo cardiology consultation. Plan discussed with: Patient My Orders Orders - JODIE RASHID MD Procedure Category Date Status Time Carvedilol Tablet PHA 01/19/25 In Process (Coreg Tablet) 22:00 Clonidine Hcl Tablet PHA 01/19/25 In Process (Catapres Tablet) 22:00 Clopidogrel Bisulfate PHA 01/20/25 In Process (Plavix) 10:00 Fluticasone Nasal PHA 01/19/25 In Process [place] (Flonase [place]) 22:00 Levothyroxine Tablet PHA 01/20/25 In Process (Synthroid Tablet) 10:00 (Nf) Bupropion Hcl PHA 01/20/25 In Process (Bupropion Hcl Xl) 10:00 Nifedipine Er PHA 01/19/25 In Process (Procardia Xl 22:00 Full Liq Diet DIET 01/19/25 Transmitted Dinner Date of Service: Jan 19, 2025 Billing Provider: JODIE RASHID MD Common Visit Codes: NOT BILLABLE JODIE RASHID MD Jan 19, 2025 18:12
[2025-01-19] MEDS: APIXABAN 5 MG TAB PO SCH (18:50)
[2025-01-19] MEDS: CARVEDILOL 12.5 MG TAB PO SCH (22:00)
[2025-01-19] MEDS: FLUTICASONE PROP NASAL SPR 0.05 % (50MCG) 16GM SCH (22:25)
[2025-01-20] VITALS (8 sets, daily range): BP systolic 141–170; BP diastolic 56–85; PULSE 49–63; RESP 14–18; TEMP 97–98.4; O2SAT 93–96
[2025-01-20] MEDS: CLOPIDOGREL BISULFATE 75 MG TAB PO SCH (09:59)
[2025-01-20] MEDS: LEVOTHYROXINE SODIUM 50 MCG TAB PO SCH (09:59)
[2025-01-20] MEDS: [UNRECOGNIZED DRUG - OTHER] PO SCH (10:00)
[2025-01-20 12:20] LABS: Potassium 4.9 mmol/L (3.5-5.1); Sodium 142 mmol/L (136-145)
[2025-01-20 12:21] LABS: Anion Gap 6 (5-15); Carbon Dioxide 28 mmol/L (20-31)
[2025-01-20 12:25] LABS: Calcium 8.5 mg/dL (8.7-10.4); Chloride 108 mmol/L (98-107)
[2025-01-20 12:26] LABS: BUN/Creatinine Ratio 12.4 (10.0-20.0); Blood Urea Nitrogen 14 mg/dL (9-23)
[2025-01-20 12:30] LABS: Glucose 130 mg/dL (74-106)
--- NOTE | 2025-01-20 17:49 | DVHPN2 ---
Subjective Patient is currently denies any chest pain. 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 Medications Current Medications Medications Dose Ordered Sig/Sabra Route Start Time Stop Time Status Last Admin Dose Admin Ondansetron HCl 4 mg Q6HPRN PRN IV 01/18/25 01:30 Aspirin 81 mg DAILY PO 01/18/25 10:00 01/20/25 09:59 81 MG Atorvastatin Calcium 40 mg HS PO 01/18/25 22:00 Acetaminophen/ Hydrocodone Bitart 1 tab Q6HPRN PRN PO 01/18/25 01:30 01/20/25 05:57 1 TAB Acetaminophen 650 mg Q6HPRN PRN PO 01/18/25 01:30 01/19/25 10:16 650 MG Famotidine 20 mg BID PO 01/18/25 10:00 01/19/25 10:07 20 MG Clonidine HCl 0.1 mg TID PRN PO 01/18/25 16:45 01/19/25 17:59 0.1 MG Carvedilol 12.5 mg BID PO 01/19/25 22:00 Clonidine HCl 0.1 mg TID PO 01/19/25 22:00 01/20/25 15:49 0.1 MG Clopidogrel Bisulfate 75 mg DAILY PO 01/20/25 10:00 01/20/25 09:59 75 MG Fluticasone Propionate 50 mcg BID NA 01/19/25 22:00 01/20/25 09:59 50 MCG Levothyroxine Sodium 50 mcg DAILY PO 01/20/25 10:00 01/20/25 09:59 50 MCG Patient Own Medication 1 tab DAILY PO 01/20/25 10:00 Nifedipine 60 mg BID PO 01/19/25 22:00 01/19/25 18:45 60 MG Apixaban 5 mg BIDPC PO 01/19/25 19:00 01/20/25 09:58 5 MG Laboratory Results Laboratory Tests 01/17/25 21:46 01/20/25 11:38 Chemistry Test 01/20/25 11:38 Calcium Level 8.5 mg/dL (8.7-10.4) L Microbiology Microbiology Date/Time Source Procedure Growth Status 01/18/25 09:21 Nose MRSA Screen - Final Complete Assessment/Plan Assessment/Plan 64-year-old female with a known history of chronic AFib, hypertension, dyslipidemia, hypothyroidism initially presented to the hospital with the chest pain found to have 1. Chest pain with the elevated troponin 2. Mild pericardial effusion 3. Hypertension 4. Chronic AFib 5. Dyslipidemia 6. Hypothyroid -resume home dose of Eliquis, 2D echo cardiology consultation. Plan discussed with: Patient My Orders Orders - JODIE RASHID MD Procedure Category Date Status Time Apixaban (Eliquis) PHA 01/19/25 In Process 19:00 Date of Service: Jan 20, 2025 Billing Provider: JODIE RASHID MD Common Visit Codes: NOT BILLABLE JODIE RASHID MD Jan 20, 2025 17:49
[2025-01-21 01:00] VITALS: BP 150/60; PULSE 68; RESP 17; TEMP 98.1; O2SAT 96
[2025-01-21] MEDS ORDERED: LORazepam 0.5 MG TAB PO PRN (02:30)
[2025-01-21 05:00] VITALS: BP 146/57; PULSE 52; RESP 17; TEMP 98; O2SAT 95
[2025-01-21 08:00] VITALS: PULSE 59; PULSE 65; RESP 18
[2025-01-21 09:00] VITALS: BP 152/55; PULSE 57; RESP 17; TEMP 98.3; O2SAT 92
--- NOTE | 2025-01-21 16:42 | DVHDS2 ---
Discharge Summary Date of Admission Jan 18, 2025 at 01:26 Date of Discharge: Jan 21, 2025 Labs/Diagnostic Data: Laboratory Results Test 01/20/25 11:38 01/18/25 21:53 01/17/25 21:46 Sodium Level 142 mmol/L (136-145) Potassium Level 4.9 mmol/L (3.5-5.1) Chloride Level 108 mmol/L (98-107) Carbon Dioxide Level 28 mmol/L (20-31) Anion Gap 6 (5-15) Blood Urea Nitrogen 14 mg/dL (9-23) Creatinine 1.13 mg/dL (0.550-1.02) Glomerular Filtration Rate Calc 54 mL/min (>90) BUN/Creatinine Ratio 12.4 (10.0-20.0) Serum Glucose 130 mg/dL (74-106) Calcium Level 8.5 mg/dL (8.7-10.4) Troponin I High Sensitivity 95 ng/L (</=34) White Blood Count 5.9 10^3/uL (4.4-10.8) Red Blood Count 4.41 10^6/uL (4.0-5.20) Hemoglobin 13.7 g/dL (12.2-16.2) Hematocrit 40.8 % (36.0-46.0) Mean Corpuscular Volume 92.6 fL (80.0-100.0) Mean Corpuscular Hemoglobin 31.1 pg (28.0-32.0) Mean Corpuscular Hemoglobin Concent 33.5 g/dL (32.0-36.0) Red Cell Distribution Width 15.3 % (11.8-14.3) Platelet Count 232 10^3/uL (140-450) Mean Platelet Volume 7.8 fL (6.9-10.8) Neutrophils (%) (Auto) 57.1 % (37.0-80.0) Lymphocytes (%) (Auto) 34.2 % (10.0-50.0) Monocytes (%) (Auto) 8.3 % (0.0-12.0) Eosinophils (%) (Auto) 0.0 % (0.0-7.0) Basophils (%) (Auto) 0.4 % (0.0-2.0) Neutrophils # (Auto) 3.3 10 ^3/uL (1.6-8.6) Lymphocytes # (Auto) 2.0 10 ^3/uL (0.4-5.4) Monocytes # (Auto) 0.5 10 ^3/uL (0-1.3) Eosinophils # (Auto) 0 10 ^3/uL (0-0.8) Basophils # (Auto) 0 10 ^3/uL (0-0.2) Nucleated Red Blood Cells 0.1 % Total Bilirubin 0.3 mg/dL (0.2-1.0) Aspartate Amino Transferase (AST) 15 U/L (13-40) Alanine Aminotransferase (ALT) 11 U/L (7-40) Alkaline Phosphatase 79 U/L (46-116) B-Type Natriuretic Peptide 180.40 pg/mL (0-100) Total Protein 6.6 g/dL (5.7-8.2) Albumin 4.1 g/dL (3.2-4.8) Other Laboratory Tests 01/20/25 11:38 01/17/25 21:46 Brief Hx & Hospital Course: 64-year-old female with a known history of chronic AFib, hypertension, dyslipidemia, hypothyroidism initially presented to the hospital with the chest pain found to have elevated troponin eventually patient was seen by Cardiology. Left heart catheterization was recommended. Patient has refused to get heart catheterization just want medical management. Cardiology signed off. Patient will be discharged home with the home health home safety evaluation. Patient needs to follow up with the PCP as well as Cardiology in 1-2 weeks. 6. Hypothyroid Condition at Discharge: Stable Final Diagnosis/Problems List 64-year-old female with a known history of chronic AFib, hypertension, dyslipidemia, hypothyroidism initially presented to the hospital with the chest pain found to have 1. Chest pain with the elevated troponin 2. Mild pericardial effusion 3. Hypertension 4. Chronic AFib 5. Dyslipidemia 6. Hypothyroid Discharge Disposition: Home with Health Services SNF Discharge Will this Physician continue t: No Discharge Instruct/Medications Diet: Cardiac 2g Na,low cholest Activity: No Restrictions, As Tolerated Follow Up/Referral: Follow up with the PCP in one week Follow up with the Cardiology in 1-2 weeks. Medications: Resume home medications. Continued Medications: Apixaban Base (Eliquis) 5 Mg Tab 1 TAB PO BID for 30 Days, #60 TAB Aspirin (Aspirin Ec Low Dose) 81 Mg Tab 81 MG PO DAILY MDD ., #90 TAB Atorvastatin Calcium (Atorvastatin Calcium) 20 Mg Tab 1 TAB PO DAILY for 30 Days, #30 TAB Bupropion Hcl (Bupropion Hcl Xl) 150 Mg Tab 1 TAB PO DAILY for 90 Days, #90 TAB Carvedilol (Carvedilol) 12.5 Mg Tab 1 TAB PO BID for 90 Days, #180 TAB Clonidine Hydrochloride (Clonidine Hcl) 0.1 Mg Tab 0.1 MG PO TID MDD ., #100 TAB Clopidogrel Bisulfate (Clopidogrel) 75 Mg Tab 1 TAB PO DAILY Fluticasone Propionate (Nasal) (Flonase Allergy Relief) 50 Mcg/Act Spr 50 MCG NA BID for 30 Days, #1 SPRAY 0 Refills Levothyroxine Sodium (Levothyroxine Sodium) 50 Mcg Tab 1 TAB PO DAILY for 30 Days, #30 TAB Nifedipine (Nifedipine Er) 60 Mg Tab 1 TAB PO BID, #90 TAB 1 Refill Scheduled Apixaban Base (Eliquis), 1 TAB PO BID Aspirin (Aspirin Ec Low Dose), 81 MG PO DAILY Atorvastatin Calcium (Atorvastatin Calcium), 1 TAB PO DAILY Bupropion Hcl (Bupropion Hcl Xl), 1 TAB PO DAILY Carvedilol (Carvedilol), 1 TAB PO BID Clonidine Hydrochloride (Clonidine Hcl), 0.1 MG PO TID Clopidogrel Bisulfate (Clopidogrel), 1 TAB PO DAILY, (Reported) Fluticasone Propionate (Nasal) (Flonase Allergy Relief), 50 MCG NA BID Levothyroxine Sodium (Levothyroxine Sodium), 1 TAB PO DAILY Nifedipine (Nifedipine Er), 1 TAB PO BID Discontinued Medications Metoprolol Succinate (Metoprolol Succinate Er), 1 TAB PO DAILY, (Reported) Discharge Statement: "Patient was advised to return to the ER or call 911 if any headaches, dizziness, shortness of breath, chest pain, abdominal pain, bleeding, fevers, or worsening of medical condition. Patient was counseled about treatment plan, medications, possible side effects, patientverbalized understanding. All questions were answered to the best of my ability. This discharge took greater then 30 minutes in planning, reviewing documentation, counseling the patient, and discussing with other team members." ASSESSMENT ASSESSMENT Assessment 64-year-old female with a known history of chronic AFib, hypertension, dyslipidemia, hypothyroidism initially presented to the hospital with the chest pain found to have 1. Chest pain with the elevated troponin 2. Mild pericardial effusion 3. Hypertension 4. Chronic AFib 5. Dyslipidemia 6. Hypothyroid Date of Service: Jan 21, 2025 Billing Provider: JODIE RASHID MD Common Visit Codes: NOT BILLABLE JODIE RASHID MD Jan 21, 2025 16:42
[2025-01-21 17:00] VITALS: BP 121/61; PULSE 58; RESP 19; TEMP 97.7; O2SAT 93
[2025-01-21 18:18] VITALS: BP 121/61; PULSE 58; RESP 19; TEMP 97.7; O2SAT 93
== END 2025-01-21 19:28 | disposition home health service (06) | DRG 281 ==
LOC: ER 21:01 → EDBD 21:01 → OVERFLOW 01-18 01:26 → TELE-WESTW 01-18 23:25
PROVIDERS: ADMIT Nurse Practitioner Family; ATTEND Nurse Practitioner Family
DX: I16.0 Hypertensive urgency (principal); I31.39 Other pericardial effusion (noninflammatory); I21.A1 Myocardial infarction type 2; I48.20 Chronic atrial fibrillation, unspecified; E03.9 Hypothyroidism, unspecified; E78.5 Hyperlipidemia, unspecified; I11.0 Hypertensive heart disease with heart failure; I25.10 Atherosclerotic heart disease of native coronary artery without angina pectoris; I50.9 Heart failure, unspecified; Z79.01 Long term (current) use of anticoagulants; Z79.82 Long term (current) use of aspirin; Z79.899 Other long term (current) drug therapy; Z82.49 Family history of ischemic heart disease and other diseases of the circulatory system; Z82.0 Family history of epilepsy and other diseases of the nervous system; Z91.148 Patient's other noncompliance with medication regimen for other reason
CPT/HCPCS: 36415; 71045; 80048; 80053; 83880; 84484; 85025; 87081; 93005; G0378

== ENCOUNTER 2025-01-24 20:50 | Inpatient (IN) | payer BC ==
[~2025-01-24] VITALS: Ht 165.1 cm; Wt 70.0 kg
[~2025-01-24 20:50] MED LIST changes: +CLOP75TA70 PO
[2025-01-24 20:57] VITALS: BP 187/48; RESP 18; TEMP 97.8; O2SAT 96
--- NOTE | 2025-01-24 21:08 | ED.PDOC ---
HPI Comments 64-year-old female came to ER via EMS for chest pains. Patient is seen here multiple times for chest pains. Was discharged here 3 days ago, diagnosed with 1. Chest pain with the elevated troponin, 2. Mild pericardial effusion, 3. Hypertension, 4. Chronic AFib, 5. Dyslipidemia 6. Hypothyroid. Patient was seen by cardiology service and was advised heart catheterization but patient refused. Patient discharge improved. About 4 hours ago, patient started experiencing substernal chest pains again, constant, nonradiating, associated with nausea and dizziness. 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 Allergies: Coded Allergies: Statins (Verified Adverse Reaction, Unknown, 01/19/25) Muscle Aches Home Meds Active Scripts Atorvastatin Calcium (ATORVASTATIN CALCIUM) 20 Mg Tab, 1 TAB PO DAILY for 30 Days, #30 TAB Prov:JODIE RASHID MD 01/06/25 Bupropion Hcl (Bupropion Hcl Xl) 150 Mg Tab, 1 TAB PO DAILY for 90 Days, #90 TAB Prov:JODIE RASHID MD 01/06/25 Levothyroxine Sodium (Levothyroxine Sodium) 50 Mcg Tab, 1 TAB PO DAILY for 30 Days, #30 TAB Prov:JODIE RASHID MD 01/06/25 Apixaban Base (ELIQUIS) 5 Mg Tab, 1 TAB PO BID for 30 Days, #60 TAB Prov:JODIE RASHID MD 01/06/25 Carvedilol (Carvedilol) 12.5 Mg Tab, 1 TAB PO BID for 90 Days, #180 TAB Prov:JODIE RASHID MD 01/06/25 Nifedipine (Nifedipine Er) 60 Mg Tab, 1 TAB PO BID, #90 TAB 1 Refill Prov:JODIE RASHID MD 01/06/25 Aspirin (Aspirin Ec Low Dose) 81 Mg Tab, 81 MG PO DAILY MDD ., #90 TAB Prov:JODIE RASHID MD 01/06/25 Clonidine Hydrochloride (Clonidine Hcl) 0.1 Mg Tab, 0.1 MG PO TID MDD ., #100 TAB Prov:JODIE RASHID MD 01/06/25 Fluticasone Propionate (Nasal) (Flonase Allergy Relief) 50 Mcg/Act Spr, 50 MCG NA BID for 30 Days, #1 SPRAY 0 Refills Prov:JODIE RASHID MD 01/06/25 Reported Medications Clopidogrel Bisulfate (CLOPIDOGREL) 75 Mg Tab, 1 TAB PO DAILY 01/18/25 Discontinued Reported Medications Metoprolol Succinate (Metoprolol Succinate Er) 25 Mg Tab, 1 TAB PO DAILY 01/18/25 Information Source: Patient, Emergency Med Personnel Mode of Arrival: Ambulatory Severity: Moderate Timing: Hours Duration: Since onset Prehospital treatment: 12 Lead EKG Location: Substernal Radiation: No Radiation Quality: Pressure Onset: With Light Exertion Cardiac Risk Factors: HTN Past Medical History PAST MEDICAL HISTORY: Anxiety, CAD, CHF, Depression, High Lipids, HTN, [place], Thyroid, UTI'S Surgical History: Denies all surgeries 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: 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 Family History Family History: Reviewed,noncontributory to illness, Family hx of heart lee Family History (Other): Family hx of Alzheimer's and multiple sclerosis Social History Smoker: Non-Smoker Alcohol: Denies ETOH Use Drugs: Denies Drug Use Lives In: Home Constitutional: denies: chills, diaphoresis, fatigue, fever, malaise, sweats, weakness, others EENTM: denies: blurred vision, double vision, ear bleeding, ear discharge, ear drainage, ear pain, ear ringing, eye pain, eye redness, hearing loss, mouth pain, mouth swelling, nasal discharge, nose bleeding, nose congestion, nose pain, photophobia, tearing, throat pain, throat swelling, voice changes, others Respiratory: denies: cough, hemoptysis, orthopnea, SOB at rest, shortness of breath, SOB with excertion, stridor, wheezing, others Cardiovascular: reports: chest pain; denies: dizzy spells, diaphoresis, Dyspnea on exertion, edema, irregular heart beat, left arm pain, lightheadedness, palpitations, PND, syncope, others Gastrointestinal: denies: abdomen distended, abdominal pain, blood streaked bowels, constipated, diarrhea, dysphagia, difficulty swallowing, hematemesis, melena, nausea, poor appetite, poor fluid intake, rectal bleeding, rectal pain, vomiting, others Genitourinary: denies: abnormal vagina bleeding, burning, dyspareunia, dysuria, flank pain, frequency, hematuria, incontinence, pain, , vagina discharge, urgency, others Neurological: denies: dizziness, fainting, headache, left sided numbness, left sided weakness, numbness, paresthesia, pre-existing deficit, right sided numbness, right sided weakness, seizure, speech problems, tingling, tremors, weakness, others Musculoskeletal: denies: back pain, gout, joint pain, joint swelling, muscle pain, muscle stiffness, neck pain, others Integumetry: denies: bruises, change in color, change in hair/nails, dryness, laceration, lesions, lumps, rash, wounds, others Allergic/Immunocompromised: denies: Difficulty Healing, Frequent Infections, Hives, Itching, others Hematologic/Lymphatic: denies: anemia, blood clots, easy bleeding, easy bruising, swollen glands, others Endocrine: denies: excessive hunger, excessive sweating, excessive thirst, excessive urination, flushing, intolerance to cold, intolerance to heat, unexplained weight gain, unexplained weight loss, others Psychiatric: denies: anxiety, bipolar disorder, depression, hopeless, panic disorder, schizophrenia, sleepless, suicidal, others Physical Exam General Appearance: No Apparent Distress, Normal HEENT: Normal ENT Inspection, Pharynx Normal, TMs Normal Neck: Full Range of Motion, Non-Tender, Normal, Normal Inspection Respiratory: Chest Non-Tender, Lungs Clear, No Accessory Muscle Use, No Respiratory Distress, Normal Breath Sounds Cardiovascular: No Edema, No JVD, No Murmur, No Gallop, Normal Peripheral Pu lses, Regular Rate/Rhythm Breast Exam: Deferred Gastrointestinal: No Organomegaly, Non Tender, No Pulsatile Mass, Normal Bowel Sounds, Soft Genitalia: Deferred Pelvic: Deferred Rectal: Deferred Extremities: No calf tenderness, Normal capillary refill, Normal inspection, Normal range of motion, Non-tender, No pedal edema Musculoskeletal : Apperance: Normal Neurologic: Alert, 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 Was a procedure done?: No CP Differential Dx Differential Diagnosis: A-fib, Angina Differential Diagnosis: Angina, Chest Wall Pain, Costochondritis, Esophageal reflux/spasm, Gastritis, Myocardial Infarction X-Ray, Labs, Meds, VS Vital Signs Date Time Temp Pulse Resp B/P (MAP) Pulse Ox O2 Delivery O2 Flow Rate FiO2 01/24/25 21:51 83 01/24/25 20:57 97.8 70 18 187/48 96 97.8 01/24/25 20:53 72 Lab Test 01/24/25 21:55 01/24/25 21:07 Range/Units Sodium Level 137 # 136-145 mmol/L Potassium Level 5.2 H 3.5-5.1 mmol/L Chloride Level 104 98-107 mmol/L Carbon Dioxide Level 22 20-31 mmol/L Anion Gap 11 5-15 Blood Urea Nitrogen 11 9-23 mg/dL Creatinine 1.15 H 0.550-1.02 mg/dL Glomerular Filtration Rate Calc 53 >90 mL/min BUN/Creatinine Ratio 9.6 L 10.0-20.0 Serum Glucose 118 H 74-106 mg/dL Calcium Level 10.1 8.7-10.4 mg/dL Total Bilirubin 0.4 0.2-1.0 mg/dL Aspartate Amino Transferase (AST) 16 13-40 U/L Alanine Aminotransferase (ALT) 12 7-40 U/L Alkaline Phosphatase 78 46-116 U/L Troponin I High Sensitivity 81 *H 69 *H </=34 ng/L Total Protein 7.1 5.7-8.2 g/dL Albumin 4.4 3.2-4.8 g/dL White Blood Count 6.5 4.4-10.8 10^3/uL Red Blood Count 4.34 4.0-5.20 10^6/uL Hemoglobin 13.6 12.2-16.2 g/dL Hematocrit 40.8 36.0-46.0 % Mean Corpuscular Volume 93.9 80.0-100.0 fL Mean Corpuscular Hemoglobin 31.2 28.0-32.0 pg Mean Corpuscular Hemoglobin Concent 33.3 32.0-36.0 g/dL Red Cell Distribution Width 15.3 H 11.8-14.3 % Platelet Count 178 140-450 10^3/uL Mean Platelet Volume 9.6 6.9-10.8 fL Neutrophils (%) (Auto) 52.7 37.0-80.0 % Lymphocytes (%) (Auto) 36.4 10.0-50.0 % Monocytes (%) (Auto) 10.1 0.0-12.0 % Eosinophils (%) (Auto) 0.2 0.0-7.0 % Basophils (%) (Auto) 0.6 0.0-2.0 % Neutrophils # (Auto) 3.4 1.6-8.6 10 ^3/uL Lymphocytes # (Auto) 2.4 0.4-5.4 10 ^3/uL Monocytes # (Auto) 0.7 0-1.3 10 ^3/uL Eosinophils # (Auto) 0 0-0.8 10 ^3/uL Basophils # (Auto) 0 0-0.2 10 ^3/uL Nucleated Red Blood Cells 0.1 % B-Type Natriuretic Peptide 71.34 0-100 pg/mL Time of 1ST Reevaluation: 21:08 Reevaluation 1ST: Unchanged Patient Education/Counseling: Diagnosis, Treatment Family Education/Counseling: No Family Present SEPSIS Sepsis Screen Date sepsis recognized/suspect: Jan 24, 2025 Time Sepsis recognized/suspect: 2044 Recent Procedure: No On Antibiotic Therapy: No Respiratory Rate >20: No Heart Rate >90: No Temp<36 C (96.8 F) or >38.3 C: No SBP <90 or MAP <65 mmHG: No New Acute Mental Status Change: No Is the patient on CPAP, BIPAP,: No Physician Orders Electrocardigram (01/24/25 20:51) Electrocardigram (01/24/25 21:51) Electrocardigram (01/24/25 23:51) Troponin-I Hs (01/24/25 23:51) Chest Xray 1 View (01/24/25 21:05) Aspirin Tablet (01/24/25 23:45) Vital Signs Date Time Temp Pulse Resp B/P (MAP) Pulse Ox O2 Delivery O2 Flow Rate FiO2 01/24/25 21:51 83 01/24/25 20:57 97.8 70 18 187/48 96 97.8 01/24/25 20:53 72 Laboratory Tests Test 01/24/25 21:07 White Blood Count 6.5 10^3/uL (4.4-10.8) Departure 1 Departure Time of Disposition: 23:46 Impression: Primary Impression: Acute coronary syndrome Additional Impression: Acute renal injury Disposition: ADMITTED INPATIENT Admit to: Tele Condition: Guarded Comments 64-year-old female complaining of chest pain. Troponins are elevated and increasing. Creatinine is slightly elevated 1.15. Patient was given aspirin. Patient will need to be admitted for acute coronary syndrome and acute renal injury. Critical Care Note Critical Care Time?: Yes (35 min-critical care time only) Critical care comment: Chest pain Total critical care time: Approximately 36 minutes Due to a high probability of clinically significant, life threatening deterioration, the patient required my highest level of preparedness to intervene emergently and I personally spent this critical care time directly and personally managing the patient. This critical care time included obtaining a history; examining the patient; pulse oximetry; ordering and review of studies; arranging urgent treatment with development of a management plan; evaluation of patient's response to treatment; frequent reassessment; and, discussions with other providers. This critical care time was performed to assess and manage the high probability of imminent, life-threatening deterioration that could result in multi-organ failure. It was exclusive of separately billable procedures and treating other patients. Stability Stability form required: No Heart Score Heart Score: Heart Score Response (Comments) Value History Moderate Suspicious 1 EKG Repolarization Disturb 1 Age >65 2 Risk Factors >3 or Hx ASHD 2 Troponin Normal limit 0 Total 6 I personally scribed for YOSSI SALOMON MD ([email or web address]) on 01/24/25 at 21:08. Electronically submitted by Brenton Lo ([facility]). YOSSI SALOMON MD Jan 24, 2025 21:08
[2025-01-24 21:38] LABS: Hematocrit 40.8 % (36.0-46.0); Hemoglobin 13.6 g/dL (12.2-16.2); Mean Corpuscular Hemoglobin 31.2 pg (28.0-32.0); Mean Corpuscular Volume 93.9 fL (80.0-100.0); Nucleated Red Blood Cells % 0.1 %
--- NOTE | 2025-01-24 21:45 | DVH ---
CHEST RADIOGRAPH Indication: chest pain Technique: Single frontal view of the chest was obtained Comparison: XY CHEST XRAY 1 VIEW on DOS: 01/17/25, XY CHEST XRAY 1 VIEW on DOS: 01/01/25, XY CHEST PORT ABLE on DOS: 11/29/24 FINDINGS: Lines and Tubes: None Lungs: No focal consolidation. Pleura: No effusion. No pneumothorax. Cardiomediastinal contours: Unremarkable Bones: No acute osseous abnormality. IMPRESSION: 1. No acute cardiopulmonary disease.
[2025-01-24 21:51] VITALS: PULSE 83
[2025-01-24 22:23] LABS: Anion Gap 11 (5-15)
[2025-01-24 22:34] LABS: Alanine Aminotransferase 12 U/L (7-40); Albumin 4.4 g/dL (3.2-4.8); Alkaline Phosphatase 78 U/L (46-116); BUN/Creatinine Ratio 9.6 (10.0-20.0); Bilirubin, Total 0.4 mg/dL (0.2-1.0); Blood Urea Nitrogen 11 mg/dL (9-23); Calcium 10.1 mg/dL (8.7-10.4); Carbon Dioxide 22 mmol/L (20-31); Chloride 104 mmol/L (98-107); Glucose 118 mg/dL (74-106); Potassium 5.2 mmol/L (3.5-5.1); Sodium 137 mmol/L (136-145); Total Protein 7.1 g/dL (5.7-8.2)
[2025-01-25] MEDS ORDERED: NITROGLYCERIN 0.4 MG SL TAB SL PRN
[2025-01-25] MEDS ORDERED: HYDROcodone-ACET 5/325MG TAB PO PRN
[2025-01-25] MEDS ORDERED: ONDANSETRON HCL 4 MG/2 ML VIAL IV PRN
[2025-01-25] MEDS ORDERED: MORPHINE SULFATE INJ 2 MG/ml SYRG IV PRN
[2025-01-25] MEDS ORDERED: ACETAMINOPHEN 325 MG TAB PO PRN
--- NOTE | 2025-01-25 00:35 | DVHHP2 ---
Admitting Diagnosis: Chest Pain, Elevated troponin History of Present Illness History Source: Patient Exam Limitations: No limitations HPI Mrs. Alicja Sommer ia a 64-year-old female with a history of afib, HTN, Dyslipidemia, hypothyroid, anxiety, depression, UTI's who presents with a chief complaint of chest pains. Patient has been seen here multiple times for chest pains. Patient was discharged here 3 days ago, diagnosed with 1. Chest pain with the elevated troponin, 2. Mild pericardial effusion, 3. Hypertension, 4. Chronic AFib, 5. Dyslipidemia 6. Hypothyroid. Patient was seen by cardiology service and was advised heart catheterization but patient refused. Patient discharge improved. patient started experiencing substernal chest pains again, constant, nonradiating, associated with nausea and dizziness yesterday evening as reported. Home Meds Active Scripts Atorvastatin Calcium (ATORVASTATIN CALCIUM) 20 Mg Tab, 1 TAB PO DAILY for 30 Days, #30 TAB Prov:JODIE RASHID MD 01/06/25 Bupropion Hcl (Bupropion Hcl Xl) 150 Mg Tab, 1 TAB PO DAILY for 90 Days, #90 TAB Prov:JODIE RASHID MD 01/06/25 Levothyroxine Sodium (Levothyroxine Sodium) 50 Mcg Tab, 1 TAB PO DAILY for 30 Days, #30 TAB Prov:JODIE RASHID MD 01/06/25 Apixaban Base (ELIQUIS) 5 Mg Tab, 1 TAB PO BID for 30 Days, #60 TAB Prov:JODIE RASHID MD 01/06/25 Carvedilol (Carvedilol) 12.5 Mg Tab, 1 TAB PO BID for 90 Days, #180 TAB Prov:JODIE RASHID MD 01/06/25 Nifedipine (Nifedipine Er) 60 Mg Tab, 1 TAB PO BID, #90 TAB 1 Refill Prov:JODIE RASHID MD 01/06/25 Aspirin (Aspirin Ec Low Dose) 81 Mg Tab, 81 MG PO DAILY MDD ., #90 TAB Prov:JODIE RASHID MD 01/06/25 Clonidine Hydrochloride (Clonidine Hcl) 0.1 Mg Tab, 0.1 MG PO TID MDD ., #100 TAB Prov:JODIE RASHID MD 01/06/25 Fluticasone Propionate (Nasal) (Flonase Allergy Relief) 50 Mcg/Act Spr, 50 MCG NA BID for 30 Days, #1 SPRAY 0 Refills Prov:JODIE RASHID MD 01/06/25 Reported Medications Clopidogrel Bisulfate (CLOPIDOGREL) 75 Mg Tab, 1 TAB PO DAILY 01/18/25 Discontinued Reported Medications Metoprolol Succinate (Metoprolol Succinate Er) 25 Mg Tab, 1 TAB PO DAILY 01/18/25 Past Medical History Cardiac: AFIB, HTN, Other (Dyslipidemia) Pulmonary: No pertinent Hx Central Nervous System: No pertinent Hx GI: No pertinent Hx Hemotology/Oncology: No pertinent Hx Hepatobiliary: No pertinent Hx Psychiatric: Anxiety, Depression Musculoskeletal: No pertinent Hx Rheumotologic: No pertinent Hx Infectious Disease: No peritnent Hx ENT: No pertinent Hx Renal/: No pertinent Hx Endocrine: No pertinent Hx Dermatology: No pertinent Hx Patient Family History: FH: Crohn's disease G8 BROTHER FH: multiple sclerosis G8 SISTER Family history: Alzheimer's disease G8 MOTHER Family history: Cardiovascular disease G8 FATHER G8 SISTER Review of Systems Constitutional: No symptom reported Ears, Nose, & Throat: No symptom reported Eyes: No symptom reported Pulmonary/Respiratory: No symptom reported Cardiovascular: Chest Pain Gastrointestinal: No symptom reported Genitourinary: No symptom reported Musculoskeletal: No symptom reported Skin: No symptom reported Psychiatric: No symptom reported Endocrine: No symptom reported Hemotologic/Lymphatic: No symptom reported H&P Exam Vital Signs Vital Signs Date Time Temp Pulse Resp B/P (MAP) Pulse Ox O2 Delivery O2 Flow Rate FiO2 01/24/25 21:51 83 01/24/25 20:57 97.8 18 187/48 96 97.8 General Appeara: Well developed, Well nourished, Normal Appearance Head Exam: Normal inspection Neck Exam: Normal inspection, Non-tender, Normal alignment Eye Exam: bilateral eye Normal inspection, bilateral eye PERRL, bilateral eye EOMI Ear Exam: bilateral ear Auricle normal Nasal Exam: Normal inspection Mouth: Normal Inspection Pulmonary/Respiratory: Normal inspection, Normal breath sounds, Chest non- tender, Lungs clear Cardiovascular/Chest: Normal inspection, Regular rate, Normal Rhythm Abdominal Exam: Normal bowel sounds, Soft, No tenderness, No hepatospenomegaly, No masses Rectal Exam: Normal inspection Back Exam: Normal inspection Foot: bilateral foot non-tender, bilateral foot normal inspection, bilateral foot normal range of motion, bilateral foot no evidence of injury 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 Exam: Normal hearing, Normal speech, PERRL Neuro/Mental St: Alert, Oriented Appearance: Disheveled Eye contact/ Speech: Good eye contact, Normal speech, Uncooperative Coordination/Gait: Normal gait Skin Exam: Normal inspection, Normal color, Warm/dry SEPSIS Sepsis Screen Date sepsis recognized/suspect: Jan 24, 2025 Time Sepsis recognized/suspect: 2044 Recent Procedure: No On Antibiotic Therapy: No Respiratory Rate >20: No Heart Rate >90: No Temp<36 C (96.8 F) or >38.3 C: No SBP <90 or MAP <65 mmHG: No New Acute Mental Status Change: No Is the patient on CPAP, BIPAP,: No Physician Orders Electrocardigram (01/24/25 20:51) Electrocardigram (01/24/25 21:51) Electrocardigram (01/24/25 23:51) Troponin-I Hs (01/24/25 23:51) Chest Xray 1 View (01/24/25 21:05) Admit (01/24/25 23:58) * Cardiology Consult (01/24/25 23:58) Troponin-I Hs (01/24/25 23:58) Basic Metabolic Panel (01/25/25 05:00) Basic Metabolic Panel (01/26/25 05:00) Basic Metabolic Panel (01/27/25 05:00) Complete Blood Count (01/25/25 05:00) Complete Blood Count (01/26/25 05:00) Prothrombin Time W/ Inr (01/24/25 23:58) Full Code (01/24/25 23:58) Cardiac Diet-2gna,Lofat,Lochol (01/25/25 Breakfast) Nitroglycerin Sublingual (Ntrostat Subli (01/25/25 00:00) Morphine Sulfate Injection (01/25/25 00:00) Stat Ekg For Chest Pain (01/24/25 23:58) Notify Md Of Changes From Base (01/24/25 23:58) Smoking Pipe Maker For 24 Hours (01/24/25 23:58) Emergency Dysrhythmia Protocol (01/24/25 23:58) Rhythm Strips Once Every Shift (01/24/25 23:58) Oxygen By Nasal Cannula (01/24/25 23:58) Ondansetron Hcl (Zofran) (01/25/25 00:00) Enoxaparin Sodium (Lovenox) (01/25/25 10:00) Aspirin Tablet (01/25/25 10:00) Atorvastatin (Lipitor) (01/25/25 22:00) Hydrocodone-Acet 5/325mg Tab ([place]raham 32 (01/25/25 00:00) Acetaminophen Tablet (Tylenol Tablet) (01/25/25 00:00) Famotidine Tablet (Pepcid Tablet) (01/25/25 10:00) * Auction Assistant Consult (01/24/25 ) Vital Signs Date Time Temp Pulse Resp B/P (MAP) Pulse Ox O2 Delivery O2 Flow Rate FiO2 01/24/25 21:51 83 01/24/25 20:57 97.8 70 18 187/48 96 97.8 01/24/25 20:53 72 Laboratory Tests Test 01/24/25 21:07 White Blood Count 6.5 10^3/uL (4.4-10.8) Labs/Xrays Labs Test 01/24/25 21:55 01/24/25 21:07 Range/Units Sodium Level 137 # 136-145 mmol/L Potassium Level 5.2 H 3.5-5.1 mmol/L Chloride Level 104 98-107 mmol/L Carbon Dioxide Level 22 20-31 mmol/L Anion Gap 11 5-15 Blood Urea Nitrogen 11 9-23 mg/dL Creatinine 1.15 H 0.550-1.02 mg/dL Glomerular Filtration Rate Calc 53 >90 mL/min BUN/Creatinine Ratio 9.6 L 10.0-20.0 Serum Glucose 118 H 74-106 mg/dL Calcium Level 10.1 8.7-10.4 mg/dL Total Bilirubin 0.4 0.2-1.0 mg/dL Aspartate Amino Transferase (AST) 16 13-40 U/L Alanine Aminotransferase (ALT) 12 7-40 U/L Alkaline Phosphatase 78 46-116 U/L Troponin I High Sensitivity 81 *H </=34 ng/L Total Protein 7.1 5.7-8.2 g/dL Albumin 4.4 3.2-4.8 g/dL White Blood Count 6.5 4.4-10.8 10^3/uL Red Blood Count 4.34 4.0-5.20 10^6/uL Hemoglobin 13.6 12.2-16.2 g/dL Hematocrit 40.8 36.0-46.0 % Mean Corpuscular Volume 93.9 80.0-100.0 fL Mean Corpuscular Hemoglobin 31.2 28.0-32.0 pg Mean Corpuscular Hemoglobin Concent 33.3 32.0-36.0 g/dL Red Cell Distribution Width 15.3 H 11.8-14.3 % Platelet Count 178 140-450 10^3/uL Mean Platelet Volume 9.6 6.9-10.8 fL Neutrophils (%) (Auto) 52.7 37.0-80.0 % Lymphocytes (%) (Auto) 36.4 10.0-50.0 % Monocytes (%) (Auto) 10.1 0.0-12.0 % Eosinophils (%) (Auto) 0.2 0.0-7.0 % Basophils (%) (Auto) 0.6 0.0-2.0 % Neutrophils # (Auto) 3.4 1.6-8.6 10 ^3/uL Lymphocytes # (Auto) 2.4 0.4-5.4 10 ^3/uL Monocytes # (Auto) 0.7 0-1.3 10 ^3/uL Eosinophils # (Auto) 0 0-0.8 10 ^3/uL Basophils # (Auto) 0 0-0.2 10 ^3/uL Nucleated Red Blood Cells 0.1 % B-Type Natriuretic Peptide 71.34 0-100 pg/mL Assessment/Plan Problem List: (1) Chest pain (2) Elevated troponin Plan This is a 64 yo female with known history of atrial fibrillation, hypertension, dyslipidemia, hypothyroid, anxiety, depression, frequent UTI's who presents to the hospital with non radiating chest wall pain, found to have mildly elevated troponin levels. Patient was recently discharged a couple days ago here with same chief complaint. Patient was seen by cardiology whom recommended an angiogram which patient refused. Patient with heart score of 5 1. Chest pain r/o ACS 2. Elevated Troponin levels 3. Hypertension 4. Chronic Atrial fibrillation 5. Dyslipidemia 6. Hypothyroidism 7. Anxiety 8. Depression Plan Admit Telemetry unit Cardiology consultation, serial troponin levels, ASA, Statin, Lovenox SC Continue home medications as needed when reconciled Patient eloped from ED, per ED staff patient was calling 911 multiple times and being verbally abusive to staff in the ED. Plan discussed with: Patient, Other Code Visit Code Visit Total Time (mins): 45 Additional Comments Additional Comments Additional Comments Patient's chart is reviewed. Patient had a recent hospitalization for similar complaints. I agree with the nurse practitioner's evaluation, documentation, assessment and care plan as outlined. PHILL DINERO Jan 25, 2025 00:35 ISSAC FORREST MD Jan 25, 2025 12:53
[2025-01-25 01:00] LABS: INR 0.97 (0.9-1.15); Prothrombin Time 10.3 sec (9.3-11.8)
--- NOTE | 2025-01-25 03:52 | ECG ---
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
--- NOTE | 2025-01-25 03:52 | ECG ---
[facility] Test Date: 2025-01-24 Test Time: 21:51:51 Pat Name: ELISHA CASEY Department: ED Room: [address] [place] [address] Gender: F Communication Electronic Technician: INGRID : 1960 Requested By: YOSSI SALOMON Order Number: [id number] Reading MD: Leo Berman Measurements Intervals [place] Rate: 83 P: 83 [place]: 147 QRS: 84 QRSD: 100 T: 75 QT: 421 QTc: 495 Interpretive Statements Sinus rhythm Anterior infarct, old Nonspecific T abnormalities, lateral leads Minimal ST elevation, lateral leads Baseline wander in lead(s) I,II,aVR,V2,V3,V4,V5,V6 Electronically Signed On 01-28-2025 10:22:34 PDT by Leo Berman Please click the below link to view image of tracing.
[2025-01-25] MEDS ORDERED: FAMOTIDINE 20 MG TAB PO SCH (10:00)
[2025-01-25] MEDS ORDERED: ENOXAPARIN SOD 80 MG/0.8ML SYRINGE SC SCH (10:00)
[2025-01-25] MEDS ORDERED: ATORVASTATIN 20 MG TAB PO SCH (22:00)
== END 2025-01-25 01:56 | disposition left against medical advice (07) | DRG 311 ==
LOC: EDBD 20:50 → EDUNIT# 20:50 → ER 20:50 → OVERFLOW 23:58
PROVIDERS: ADMIT Nurse Practitioner Family; ATTEND Nurse Practitioner Family
DX: I24.9 Acute ischemic heart disease, unspecified (principal); I48.20 Chronic atrial fibrillation, unspecified; F41.9 Anxiety disorder, unspecified; I25.10 Atherosclerotic heart disease of native coronary artery without angina pectoris; I11.0 Hypertensive heart disease with heart failure; I50.9 Heart failure, unspecified; F32.A Depression, unspecified; E03.9 Hypothyroidism, unspecified; E78.5 Hyperlipidemia, unspecified; Z88.8 Allergy status to other drugs, medicaments and biological substances; Z82.49 Family history of ischemic heart disease and other diseases of the circulatory system; Z82.0 Family history of epilepsy and other diseases of the nervous system; Z79.01 Long term (current) use of anticoagulants
CPT/HCPCS: 36415; 71045; 80053; 83880; 84484; 85025; 85610; 93005; G0378

== ENCOUNTER 2025-02-11 05:47 | Inpatient (IN) | payer BC ==
[2025-02-11] VITALS (8 sets, daily range): BP systolic 163–173; BP diastolic 57–80; PULSE 116–148; RESP 13–19; TEMP 100.3–101.5; O2SAT 94–96
[~2025-02-11] VITALS: Ht 152.4 cm; Wt 60.1 kg
[2025-02-11] MEDS: SODIUM CHLORIDE 0.9% 1,000 ML IV ONE ×3 (06:31→11:02)
[2025-02-11] MEDS: ONDANSETRON HCL 4 MG/2 ML VIAL IV ONE (06:35)
[2025-02-11] MEDS: PANTOPRAZOLE 40 MG/10 ML VIAL INJ IV ONE (06:35)
--- NOTE | 2025-02-11 06:42 | ED.PDOC ---
GI ASSESSMENT HPI Comments 64 year old female with a PMHx HTN, CHF, a-fib, CAD, AR, HLD presents to the ED via EMS with a chief complaint of hematemesis onset last night. Per EMS, patient began experiencing hematemesis last night as well as upper abdominal pain. Upon EMS arrival, noticed patient was pale, weak. In route to ED, she experienced 3 e pisodes of hematemesis, coffee grounds, blood clots noticed. Patient is a poor historian. NO other symptoms or modifying factors present at this time. Chief Complaint: GI Bleed Time Seen by MD: 06:10 Primary Care Provider: UNKNOWN Reviewed Notes: Medications, Allergies Allergies: Coded Allergies: Statins (Verified Adverse Reaction, Unknown, 01/19/25) Muscle Aches Home Meds Active Scripts Atorvastatin Calcium (ATORVASTATIN CALCIUM) 20 Mg Tab, 1 TAB PO DAILY for 30 Days, #30 TAB Prov:JODIE RASHID MD 01/06/25 Bupropion Hcl (Bupropion Hcl Xl) 150 Mg Tab, 1 TAB PO DAILY for 90 Days, #90 TAB Prov:JODIE RASHID MD 01/06/25 Levothyroxine Sodium (Levothyroxine Sodium) 50 Mcg Tab, 1 TAB PO DAILY for 30 Days, #30 TAB Prov:JODIE RASHID MD 01/06/25 Apixaban Base (ELIQUIS) 5 Mg Tab, 1 TAB PO BID for 30 Days, #60 TAB Prov:JODIE RASHID MD 01/06/25 Carvedilol (Carvedilol) 12.5 Mg Tab, 1 TAB PO BID for 90 Days, #180 TAB Prov:JODIE RASHID MD 01/06/25 Nifedipine (Nifedipine Er) 60 Mg Tab, 1 TAB PO BID, #90 TAB 1 Refill Prov:JODIE RASHID MD 01/06/25 Aspirin (Aspirin Ec Low Dose) 81 Mg Tab, 81 MG PO DAILY MDD ., #90 TAB Prov:JODIE RASHID MD 01/06/25 Clonidine Hydrochloride (Clonidine Hcl) 0.1 Mg Tab, 0.1 MG PO TID MDD ., #100 TAB Prov:JODIE RASHID MD 01/06/25 Fluticasone Propionate (Nasal) (Flonase Allergy Relief) 50 Mcg/Act Spr, 50 MCG NA BID for 30 Days, #1 SPRAY 0 Refills Prov:JODIE RASHID MD 01/06/25 Reported Medications Clopidogrel Bisulfate (CLOPIDOGREL) 75 Mg Tab, 1 TAB PO DAILY 01/18/25 Information Source: Patient, Emergency Med Personnel Mode of Arrival: EMS Timing: Hours Duration: Since onset Prehospital treatment: None Quality: Sharp Vomitus: Bloody, Coffee Grounds Severity: Moderate Recent: None Recent Hx of: Current anticoag use Pain Location: Diffuse Modifying Factors: Nothing Associated sign and symptoms: Nausea, Vomiting, Hematemesis, Abdominal Pain Past Medical History PAST MEDICAL HISTORY: Anxiety, CAD, CHF, Depression, High Lipids, HTN, AR, Thyroid, UTI'S Surgical History: Denies all surgeries [employer] History: 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 Family History Family History: Reviewed,noncontributory to illness, Family hx of heart lee Family History (Other): Family hx of Alzheimer's and multiple sclerosis Social History Smoker: Non-Smoker Alcohol: Denies ETOH Use Drugs: Denies Drug Use Lives In: Home Constitutional: denies: chills, diaphoresis, fatigue, fever, malaise, sweats, weakness, others EENTM: denies: blurred vision, double vision, ear bleeding, ear discharge, ear drainage, ear pain, ear ringing, eye pain, eye redness, hearing loss, mouth pain, mouth swelling, nasal discharge, nose bleeding, nose congestion, nose pain, photophobia, tearing, throat pain, throat swelling, voice changes, others Respiratory: denies: cough, hemoptysis, orthopnea, SOB at rest, shortness of breath, SOB with excertion, stridor, wheezing, others Cardiovascular: denies: chest pain, dizzy spells, diaphoresis, Dyspnea on exertion, edema, irregular heart beat, left arm pain, lightheadedness, palpitations, PND, syncope, others Gastrointestinal: reports: abdominal pain, hematemesis, nausea, vomiting; denies: abdomen distended, blood streaked bowels, constipated, diarrhea, dysphagia, difficulty swallowing, melena, poor appetite, poor fluid intake, rectal bleeding, rectal pain, others Genitourinary: denies: abnormal vagina bleeding, burning, dyspareunia, dysuria, flank pain, frequency, hematuria, incontinence, pain, , vagina discharge, urgency, others Neurological: denies: dizziness, fainting, headache, left sided numbness, left sided weakness, numbness, paresthesia, pre-existing deficit, right sided numb ness, right sided weakness, seizure, speech problems, tingling, tremors, weakness, others Musculoskeletal: denies: back pain, gout, joint pain, joint swelling, muscle pain, muscle stiffness, neck pain, others Integumetry: denies: bruises, change in color, change in hair/nails, dryness, laceration, lesions, lumps, rash, wounds, others Allergic/Immunocompromised: denies: Difficulty Healing, Frequent Infections, Hives, Itching, others Hematologic/Lymphatic: denies: anemia, blood clots, easy bleeding, easy bruising, swollen glands, others Endocrine: denies: excessive hunger, excessive sweating, excessive thirst, excessive urination, flushing, intolerance to cold, intolerance to heat, unexplained weight gain, unexplained weight loss, others Psychiatric: denies: anxiety, bipolar disorder, depression, hopeless, panic disorder, schizophrenia, sleepless, suicidal, others All Other Systems: Reviewed and Negative Physical Exam General Appearance: Moderate Distress, Normal HEENT: Normal ENT Inspection, Pharynx Normal, TMs Normal Neck: Full Range of Motion, Non-Tender, Normal, Normal Inspection Respiratory: Chest Non-Tender, No Accessory Muscle Use, Other (Diaphoretic) Cardiovascular: Tachycardia Breast Exam: Deferred Gastrointestinal: No Organomegaly, Non Tender, No Pulsatile Mass, Normal Bowel Sounds, Soft Genitalia: Deferred Pelvic: Deferred Rectal: Deferred Extremities: No calf tenderness, Normal capillary refill, Normal inspection, Normal range of motion, Non-tender, No pedal edema Musculoskeletal : Apperance: Normal Neurologic: Alert, county administrator II-XII nml as Tested, No Motor Deficits, Normal Affect, Normal Mood, No Sensory Deficits Cerebellar Function: Normal Reflexes: Normal Skin: Other (pale) Lymphatic: No Adenopathy Was a procedure done? Was a procedure done?: No GI differential Dx Differential Diagnosis: Gastritis/PUD, Gastroenteritis, GI hemorrhage, UTI, Urolithiasis, Dehydration, Electrolyte Imbalance X-Ray, Labs, Meds, VS Vital Signs Date Time Temp Pulse Resp B/P (MAP) Pulse Ox O2 Delivery O2 Flow Rate FiO2 02/11/25 10:18 97.5 97 19 154/47 (82) 96 97.5 02/11/25 10:04 163 183/93 02/11/25 08:43 137 02/11/25 08:42 115 13 126/69 02/11/25 08:00 96.6 113 19 143/79 (100) 96 96.6 02/11/25 07:24 134 02/11/25 06:11 96.7 114 15 101/59 (73) 95 96.7 02/11/25 06:00 95 Nasal Cannula* 2 28 02/11/25 05:47 97.8 115 20 135/71 98 97.8 Lab Test 02/11/25 09:13 02/11/25 06:28 02/11/25 06:26 Range/Units Lactic Acid Level 4.9 *H 4.0 *H 0.4-2.0 mmol/L Urine Color Yellow Yellow Urine Clarity Cloudy H Clear Urine pH 6.0 5.0-9.0 Urine Specific [place] 1.013 1.001-1.035 Urine Protein Normal Negative Urine Ketones Negative Negative Urine Blood Negative Negative /uL Urine Nitrite Negative Negative Urine Bilirubin Negative Negative Urine Urobilinogen Normal Negative mg/dL Urine Leukocyte Esterase 3+ H Negative /uL Urine Glucose Normal Normal mg/dL White Blood Count 5.5 4.4-10.8 10^3/uL Red Blood Count 3.37 L 4.0-5.20 10^6/uL Hemoglobin 10.4 L 12.2-16.2 g/dL Hematocrit 31.2 L 36.0-46.0 % Mean Corpuscular Volume 92.5 80.0-100.0 fL Mean Corpuscular Hemoglobin 31.0 28.0-32.0 pg Mean Corpuscular Hemoglobin Concent 33.5 32.0-36.0 g/dL Red Cell Distribution Width 13.9 11.8-14.3 % Platelet Count 251 140-450 10^3/uL Mean Platelet Volume 8.0 6.9-10.8 fL Neutrophils (%) (Auto) 74.2 37.0-80.0 % Lymphocytes (%) (Auto) 21.1 10.0-50.0 % Monocytes (%) (Auto) 4.5 0.0-12.0 % Eosinophils (%) (Auto) 0.0 0.0-7.0 % Basophils (%) (Auto) 0.2 0.0-2.0 % Neutrophils # (Auto) 4.1 1.6-8.6 10 ^3/uL Lymphocytes # (Auto) 1.2 0.4-5.4 10 ^3/uL Monocytes # (Auto) 0.2 0-1.3 10 ^3/uL Eosinophils # (Auto) 0 0-0.8 10 ^3/uL Basophils # (Auto) 0 0-0.2 10 ^3/uL Nucleated Red Blood Cells 0.0 % Prothrombin Time 11.0 9.3-11.8 sec Prothrombin Time INR 1.04 0.9-1.15 Activated Partial Thromboplast Time 24.6 24.5-34.5 SEC Sodium Level 143 136-145 mmol/L Potassium Level 4.2 3.5-5.1 mmol/L Chloride Level 106 98-107 mmol/L Carbon Dioxide Level 26 20-31 mmol/L Anion Gap 11 5-15 Blood Urea Nitrogen 31 H 9-23 mg/dL Creatinine 0.99 0.550-1.02 mg/dL Glomerular Filtration Rate Calc 63 >90 mL/min BUN/Creatinine Ratio 31.3 H 10.0-20.0 Serum Glucose 184 H 74-106 mg/dL Calcium Level 8.6 L 8.7-10.4 mg/dL Total Bilirubin 0.4 0.2-1.0 mg/dL Aspartate Amino Transferase (AST) 11 L 13-40 U/L Alanine Aminotransferase (ALT) 10 7-40 U/L Alkaline Phosphatase 63 46-116 U/L Troponin I High Sensitivity 93 *H </=34 ng/L Total Protein 5.2 L 5.7-8.2 g/dL Albumin 3.2 3.2-4.8 g/dL Lipase 25 12-53 U/L Current Medications Medications (Trade) Dose Ordered Sig/Sabra Route Start Time Stop Time Status Last Admin Sodium Chloride 1,000 ml @ 1,000 mls/hr Q1H ONCE IV 02/11/25 06:30 02/11/25 07:29 DC 02/11/25 06:31 Ondansetron HCl (Zofran) 4 mg ONCE ONCE IV 02/11/25 06:30 02/11/25 06:31 DC 02/11/25 06:35 Pantoprazole Sodium (Protonix) 80 mg ONCE ONCE IV 02/11/25 06:30 02/11/25 06:31 DC 02/11/25 06:35 Morphine Sulfate 4 mg ONCE ONCE IV 02/11/25 08:00 02/11/25 08:01 DC 02/11/25 08:42 Sodium Chloride 1,000 ml @ 1,000 mls/hr Q1H ONCE IV 02/11/25 08:00 02/11/25 08:59 DC 02/11/25 08:41 Metoprolol Tartrate (Lopressor) 5 mg ONCE ONCE IV 02/11/25 10:00 02/11/25 10:01 DC 02/11/25 10:04 [place] [address] Ph: [phone] DIAGNOSTIC IMAGING Diagnostic Imaging Report : [id number] Signed PATIENT: ELISHA CASEY ACCT: [id number] UNIT: [id number] : 1960 LOC: ER ROOM / BED: / AGE / SEX: 64 / F ADM STATUS: REG ER SERVICE 6 ORDERING PHYSICIAN: VIOLET WOLFE MD PROCEDURE(s): CXRP - CHEST PORTABLE REASON: vomiting ORDER NUMBER(s): [id number], ACCESSION NUMBER(s): [id number] CHEST RADIOGRAPH Indication: vomiting Technique: Single frontal view of the chest was obtained COMPARISON: XY CHEST XRAY 1 VIEW on DOS: 01/24/25, XY CHEST XRAY 1 VIEW on DOS: 01/17/25, XY CHEST XRAY 1 VIEW on DOS: 01/01/25, XY CHEST PORTABLE on DOS: 11/29/24, XY CHEST PORTABLE on DOS: 10/03/24 FINDINGS: Lines and Tubes: None Lungs: Clear Pleura: No effusion. No pneumothorax. Cardiomediastinal contours: Unremarkable Bones: Unremarkable IMPRESSION: 1. No acute disease. ATED BY: MANJIT RUTHERFORD MD DICTATED DATE/TIME: 02/11/25648 SIGNED BY: MANJIT RUTHERFORD MD SIGNED DATE/TIME: 02/11/25648 CC: [address] [address] Ph: [phone] DIAGNOSTIC IMAGING Diagnostic Imaging Report : [id number] Signed PATIENT: ELISHA CASEY ACCT: [id number] UNIT: [id number] : 1960 LOC: ER ROOM / BED: / AGE / SEX: 64 / F ADM STATUS: REG ER SERVICE 0617 ORDERING PHYSICIAN: VIOLET WOLFE MD PROCEDURE(s): ABPLIV - CT AB PEL WITH IV CON ONLY REASON: gi bleed ORDER NUMBER(s): [id number], ACCESSION NUMBER(s): [id number] CLINICAL HISTORY: gi bleed TECHNIQUE: CT of the abdomen and pelvis was performed with IV contrast. This exam was performed according to our departmental dose optimization program. Up-to-date CT equipment and radiation dose reduction techniques are utilized as appropriate. CTDI 7.4 DLP 432 COMPARISON: US KIDNEY on DOS: 02/05/24, CT CT AB PEL WO CON-NO ORAL OR IV on DOS: 02/02/24 FINDINGS: Abdomen/Pelvis: The spleen, pancreas, adrenal glands, right kidney, and uterus are grossly unremarkable. The bladder is decompressed by Che. There is a left renal cyst. Subcentimeter hypodense lesions within both kidneys and the liver are too small to adequately characterize. There are multiple gallstones. The common duct is dilated, measuring 11 mm. No intraductal filling defect is seen. The abdominal aorta is normal in course and caliber. There are advanced aortic atherosclerotic calcifications. There is no free intraperitoneal air or fluid. There is no enlarged abdominal or pelvic lymph node. There is no bowel wall thickening or dilatation. The appendix is normal. There is a large amount of stool in the colon. Other: The imaged lower thorax demonstrates a fluid-filled distal esophagus. There are patchy consolidative right lower lobe opacities and left lower lobe tree-in-bud opacities. No acute osseous abnormality is evident. IMPRESSION: Cholelithiasis with dilated 11 mm common duct. Please correlate with laboratory values and consider MRCP if warranted. Significant constipation. Right lower lobe pneumonia and left lower lobe bronchiolitis. Gastroesophageal reflux. ATED BY: LISA AMEZQUITA MD DICTATED DATE/TIME: 02/11/25 1008 SIGNED BY: LISA AMEZQUITA MD SIGNED DATE/TIME: 02/11/25 1008 CC: Time of 1ST Reevaluation: 06:40 Reevaluation 1ST: Unchanged Patient Education/Counseling: Diagnosis, Treatment, Prognosis Family Education/Counseling: No Family Present SEPSIS Sepsis Screen Date sepsis recognized/suspect: Feb 11, 2025 Time Sepsis recognized/suspect: 05 Recent Procedure: No On Antibiotic Therapy: No Respiratory Rate >20: No Heart Rate >90: No Temp<36 C (96.8 F) or >38.3 C: No SBP <90 or MAP <65 mmHG: No New Acute Mental Status Change: No Is the patient on CPAP, BIPAP,: No Physician Orders Ct Ab Pel With Iv Con Only (02/11/25 06:17) Chest Portable (02/11/25 06:17) Electrocardigram (02/11/25 07:29) Che Catheters (02/11/25 ) *[facility] (02/11/25 07:58) Cefepime 2gm/50ml Ns (Maxipime 2gm/50ml) (02/11/25 10:45) Vancomycin 1gm/250ml Kit (02/11/25 10:45) Vital Signs Date Time Temp Pulse Resp B/P (MAP) Pulse Ox O2 Delivery O2 Flow Rate FiO2 02/11/25 10:18 97.5 97 19 154/47 (82) 96 97.5 02/11/25 10:04 163 183/93 02/11/25 08:43 137 02/11/25 08:42 115 13 126/69 02/11/25 08:00 96.6 113 19 143/79 (100) 96 96.6 02/11/25 07:24 134 02/11/25 06:11 96.7 114 15 101/59 (73) 95 96.7 02/11/25 06:00 95 Nasal Cannula* 2 28 02/11/25 05:47 97.8 115 20 135/71 98 97.8 Laboratory Tests Test 02/11/25 06:26 02/11/25 09:13 Lactic Acid Level 4.0 mmol/L (0.4-2.0) *H 4.9 mmol/L (0.4-2.0) *H White Blood Count 5.5 10^3/uL (4.4-10.8) Medications Medications Dose Ordered Sig/Sabra Route Start Time Stop Time Status Last Admin Dose Admin Metoprolol Tartrate 5 mg ONCE ONCE IV 02/11/25 10:00 02/11/25 10:01 DC 02/11/25 10:04 Morphine Sulfate 4 mg ONCE ONCE IV 02/11/25 08:00 02/11/25 08:01 DC 02/11/25 08:42 Ondansetron HCl 4 mg ONCE ONCE IV 02/11/25 06:30 02/11/25 06:31 DC 02/11/25 06:35 Pantoprazole Sodium 80 mg ONCE ONCE IV 02/11/25 06:30 02/11/25 06:31 DC 02/11/25 06:35 Sodium Chloride 1,000 ml @ 1,000 mls/hr Q1H ONCE IV 02/11/25 06:30 02/11/25 07:29 DC 02/11/25 06:31 Sodium Chloride 1,000 ml @ 1,000 mls/hr Q1H ONCE IV 02/11/25 08:00 02/11/25 08:59 DC 02/11/25 08:41 Departure 1 Departure Time of Disposition: 10:42 (Patient presented with abdominal pain that was concerning for possible appendicits, gastritis, cholecystitis, colitis, gastroenteritis, sbo, or orther possible surgical emergency. Data: 1. I ordered and reviewed the result of at least 3 labs including a CBC, BMP, and Urinalysis. 2. I independently interpreted the following tests: CT Abdomen and Pelvis is concerning for cholelithiasis, pneumonia.Risk:This patient has a high risk of morbidity due to further diagnostic testing or treatment and may suffer from an acute abdominal process disorder. Workup reveals GI bleed, concern for septic shock, and cholelithiasis and patient should be admitted for further workup. and possible expert consultation. ) Impression: Primary Impression: GI bleed Qualified Codes: K92.2 - Gastrointestinal hemorrhage, unspecified Additional Impressions: Hemorrhagic shock Vomiting Qualified Codes: R11.12 - Projectile vomiting Disposition: ADMITTED INPATIENT Admit to: ICU Condition: Critical Critical Care Note Critical Care Time?: Yes Critical care comment: Concern for hemorrhagic shock Authorized and Performed by: Violet Wolfe MD Total critical care time: Approximately 128 minutes Due to a high probability of clinically significant, life threatening deterioration, the patient required my highest level of preparedness to intervene emergently and I personally spent this critical care time directly and personally managing the patient. This critical care time included obtaining a history; examining the patient; pulse oximetry; ordering and review of studies; arranging urgent treatment with development of a management plan; evaluation of patient's response to treatment; frequent reassessment; and, discussions with other providers. This critical care time was performed to assess and manage the high probability of imminent, life-threatening deterioration that could result in multi-organ failure. It was exclusive of separately billable procedures and treating other patients and teaching time. Please see my other sections and the rest of the note for further information on patient assessment and treatment. Stability Stability form required: No I personally scribed for VIOLET WOLFE MD ([email or web address]) on 02/11/25 at 06:42. Electronically submitted by Jill Mcguire ([email or web address]). I personally scribed for VIOLET WOLFE MD ([email or web address]) on 02/11/25 at 10:40. Electronically submitted by Jill Mcguire ([email or web address]). VIOLET WOLFE MD Feb 11, 2025 06:42
[2025-02-11] MEDS: IOHEXOL 300 MG/ML 100ML BOTTLE IJ ONE (06:46)
--- NOTE | 2025-02-11 06:51 | DVH ---
CHEST RADIOGRAPH Indication: vomiting Technique: Single frontal view of the chest was obtained COMPARISON: XY CHEST XRAY 1 VIEW on DOS: 01/24/25, XY CHEST XRAY 1 VIEW on DOS: 01/17/25, XY CHEST XRAY 1 VIEW on DOS: 01/01/25, XY CHEST PORTABLE on DOS: 11/29/24, XY CHEST PORTABLE on DOS: 10/03/24 FINDINGS: Lines and Tubes: None Lungs: Clear Pleura: No effusion. No pneumothorax. Cardiomediastinal contours: Unremarkable Bones: Unremarkable IMPRESSION: 1. No acute disease.
[2025-02-11 06:57] LABS: Hematocrit 31.2 % (36.0-46.0); Hemoglobin 10.4 g/dL (12.2-16.2); Mean Corpuscular Hemoglobin 31.0 pg (28.0-32.0); Mean Corpuscular Volume 92.5 fL (80.0-100.0); Nucleated Red Blood Cells % 0.0 %
[2025-02-11 06:58] LABS: Urine Protein, UAD Normal (Negative)
[2025-02-11 07:11] LABS: Alanine Aminotransferase 10 U/L (7-40); Albumin 3.2 g/dL (3.2-4.8); Alkaline Phosphatase 63 U/L (46-116); Anion Gap 11 (5-15); BUN/Creatinine Ratio 31.3 (10.0-20.0); Bilirubin, Total 0.4 mg/dL (0.2-1.0); Carbon Dioxide 26 mmol/L (20-31); Chloride 106 mmol/L (98-107); Lipase 25 U/L (12-53); Potassium 4.2 mmol/L (3.5-5.1); Sodium 143 mmol/L (136-145)
[2025-02-11 07:13] LABS: Blood Urea Nitrogen 31 mg/dL (9-23); Calcium 8.6 mg/dL (8.7-10.4); Glucose 184 mg/dL (74-106); Total Protein 5.2 g/dL (5.7-8.2)
[2025-02-11 07:16] LABS: INR 1.04 (0.9-1.15); Partial Thromboplastin Time 24.6 SEC (24.5-34.5); Prothrombin Time 11.0 sec (9.3-11.8)
[2025-02-11 07:17] LABS: Lactic Acid w/Reflex 4.0 mmol/L (0.4-2.0)
[2025-02-11] MEDS: MORPHINE SULFATE 4 MG/ML SYR/VIAL IV ONE (08:42)
[2025-02-11] MEDS: METOPROLOL TARTRATE 1MG/1ML-5ML VIAL IV ONE (10:04)
--- NOTE | 2025-02-11 10:10 | DVH ---
CLINICAL HISTORY: gi bleed TECHNIQUE: CT of the abdomen and pelvis was performed with IV contrast. This exam was performed accor ding to our departmental dose optimization program. Up-to-date CT equipment and radiation dose reduct ion techniques are utilized as appropriate. CTDI 7.4 DLP 432 COMPARISON: US KIDNEY on DOS: 02/05/24, CT CT AB PEL WO CON-NO ORAL OR IV on DOS: 02/02/24 FINDINGS: Abdomen/Pelvis: The spleen, pancreas, adrenal glands, right kidney, and uterus are grossly unremarkable. The bladder is decompressed by Che. There is a left renal cyst. Subcentimeter hypodense lesions within both kidneys and the liver are too small to adequately characterize. There are multiple gallstones. The common duct is dilated, measuring 11 mm. No intraductal filling de fect is seen. The abdominal aorta is normal in course and caliber. There are advanced aortic atherosclerotic calcif ications. There is no free intraperitoneal air or fluid. There is no enlarged abdominal or pelvic lymph node. There is no bowel wall thickening or dilatation. The appendix is normal. There is a large amount of s tool in the colon. Other: The imaged lower thorax demonstrates a fluid-filled distal esophagus. There are patchy consolidative right lower lobe opacities and left lower lobe tree-in-bud opacities. No acute osseous abnormality is evident. IMPRESSION: Cholelithiasis with dilated 11 mm common duct. Please correlate with laboratory values and consider [facility] [employer] SONOGR[employer] if warranted. Significant constipation. Right lower lobe pneumonia and left lower lobe bronchiolitis. Gastroesophageal reflux.
[2025-02-11] MEDS: CEFEPIME 2GM/50ML NS 50 ML IV ONE (11:02)
[2025-02-11] MEDS: VANCOMYCIN 1GM/250ML KIT 250 ML IV ONE (12:05)
[2025-02-11] MEDS ORDERED: DEXTROSE (50%) 50ML SYRG IV PRN (12:30)
[2025-02-11] MEDS ORDERED: NITROGLYCERIN 0.4 MG SL TAB SL PRN (12:30)
[2025-02-11] MEDS ORDERED: VANCOMYCIN PER PHARMACY 0 MG IV SCH (12:30)
[2025-02-11] MEDS: CEFEPIME 1GM/50ML 50 ML IV SCH (12:31)
[2025-02-11 13:42] LABS: Lactic Acid w/Reflex 3.2 mmol/L (0.4-2.0)
--- NOTE | 2025-02-11 13:44 | DVHHP2 ---
History of Present Illness Reason for Visit: Vomiting blood x1 day History of Present Illness 64 year old female with a PMHx HTN, CHF, a-fib, CAD, HI, HLD presents to the ED via EMS with a chief complaint of hematemesis onset last night. Per EMS, patient began experiencing hematemesis last night as well as upper abdominal pain. Upon EMS arrival, noticed patient was pale, weak. In route to ED, she experienced 3 episodes of hematemesis, coffee grounds, blood clots noticed. Patient is a poor historian. NO other symptoms or modifying factors present at this time. She denies any chest pain or shortness for breath. Patient says she is taking Plavix for atrial fibrillation. Not on any other anticoagulation. No prior episodes of known GI bleeding. In the ER she is noted to be mildly tachycardic with a hemoglobin around 10. It is felt patient probably having upper GI bleed. She also noted to have mildly elevated lactic acid. Therefore she has been admitted to the step-down unit for further evaluation and management. Patient received IV antibiotics in the ER. Received fluids. Blood cultures at. Past Medical History Chronic Atrial fibrillation Anxiety, CAD, CHF, Depression, High Lipids, HTN, HI, Thyroid, UTI'S Past Surgical History None significant noted Family History: Hypertension Smoke: No ALCOHOL: occassional Lives: with Family Review of Systems Review of Systems Denies any fevers chills or sweats. No chest pain shortness for breath. Other review of systems reviewed normal. Allergies: Coded Allergies: Statins (Verified Adverse Reaction, Unknown, 01/19/25) Muscle Aches Medications Current Medications Medications Dose Ordered Sig/Sabra Route Start Time Stop Time Status Last Admin Dose Admin Nitroglycerin 0.4 mg Q5MINP PRN SL 02/11/25 12:30 Morphine Sulfate 2 mg Q30M PRN IV 02/11/25 12:30 Diagnostic Test (Pha) 1 strip Q6HR 02/11/25 18:00 Insulin Human Regular Q6HR SC 02/11/25 18:00 Dextrose 50 ml UD PRN IV 02/11/25 12:30 Pantoprazole Sodium 50 ml @ 10 mls/hr Q5H IV 02/11/25 12:30 Cefepime HCl 50 ml @ 12.5 mls/hr Q12HR IV 02/11/25 12:31 Vancomycin HCl 0 ml @ 0 mls/hr UD IV 02/11/25 12:30 Ondansetron HCl 4 mg Q4HPRN PRN IV 02/11/25 12:30 Morphine Sulfate 2 mg Q4HPRN PRN IV 02/11/25 12:30 Metoprolol Tartrate 1.25 mg Q6HR IV 02/11/25 18:00 Vancomycin HCl 250 ml @ 200 mls/hr Q24H IV 02/12/25 12:00 Exam Vital Signs Vital Signs Date Time Temp Pulse Resp B/P (MAP) Pulse Ox O2 Delivery O2 Flow Rate FiO2 02/11/25 12:10 109 19 116/68 (84) 96 02/11/25 10:18 97.5 97.5 02/11/25 08:00 Room Air* 0 21 Exam Elderly female alert awake oriented to place and person comfortable in bed without distress. Able to give good reliable history. HEENT neck supple no JVD pupils equal round react to light. Heart regular rate and rhythm tachycardia S1 plus S2 without murmurs. Lungs fair air movement. Chest tube will expansion. No rales or wheezes. Abdomen is soft nontender nondistended positive bowel sounds. Extremities no edema positive distal pedal pulses. Neurologically no focal deficits. Labs/Xrays Labs Test 02/11/25 12:50 02/11/25 06:28 02/11/25 06:26 Range/Units Urine Color Yellow Yellow Urine Clarity Cloudy H Clear Urine pH 6.0 5.0-9.0 Urine Specific [place] 1.013 1.001-1.035 Urine Protein Normal Negative Urine Ketones Negative Negative Urine Blood Negative Negative /uL Urine Nitrite Negative Negative Urine Bilirubin Negative Negative Urine Urobilinogen Normal Negative mg/dL Urine Leukocyte Esterase 3+ H Negative /uL Urine Glucose Normal Normal mg/dL White Blood Count 5.5 4.4-10.8 10^3/uL Red Blood Count 3.37 L 4.0-5.20 10^6/uL Hemoglobin 10.4 L 12.2-16.2 g/dL Hematocrit 31.2 L 36.0-46.0 % Mean Corpuscular Volume 92.5 80.0-100.0 fL Mean Corpuscular Hemoglobin 31.0 28.0-32.0 pg Mean Corpuscular Hemoglobin Concent 33.5 32.0-36.0 g/dL Red Cell Distribution Width 13.9 11.8-14.3 % Platelet Count 251 140-450 10^3/uL Mean Platelet Volume 8.0 6.9-10.8 fL Neutrophils (%) (Auto) 74.2 37.0-80.0 % Lymphocytes (%) (Auto) 21.1 10.0-50.0 % Monocytes (%) (Auto) 4.5 0.0-12.0 % Eosinophils (%) (Auto) 0.0 0.0-7.0 % Basophils (%) (Auto) 0.2 0.0-2.0 % Neutrophils # (Auto) 4.1 1.6-8.6 10 ^3/uL Lymphocytes # (Auto) 1.2 0.4-5.4 10 ^3/uL Monocytes # (Auto) 0.2 0-1.3 10 ^3/uL Eosinophils # (Auto) 0 0-0.8 10 ^3/uL Basophils # (Auto) 0 0-0.2 10 ^3/uL Nucleated Red Blood Cells 0.0 % Prothrombin Time 11.0 9.3-11.8 sec Prothrombin Time INR 1.04 0.9-1.15 Activated Partial Thromboplast Time 24.6 24.5-34.5 SEC Sodium Level 143 136-145 mmol/L Potassium Level 4.2 3.5-5.1 mmol/L Chloride Level 106 98-107 mmol/L Carbon Dioxide Level 26 20-31 mmol/L Anion Gap 11 5-15 Blood Urea Nitrogen 31 H 9-23 mg/dL Creatinine 0.99 0.550-1.02 mg/dL Glomerular Filtration Rate Calc 63 >90 mL/min BUN/Creatinine Ratio 31.3 H 10.0-20.0 Serum Glucose 184 H 74-106 mg/dL Calcium Level 8.6 L 8.7-10.4 mg/dL Total Bilirubin 0.4 0.2-1.0 mg/dL Aspartate Amino Transferase (AST) 11 L 13-40 U/L Alanine Aminotransferase (ALT) 10 7-40 U/L Alkaline Phosphatase 63 46-116 U/L Troponin I High Sensitivity 93 *H </=34 ng/L Total Protein 5.2 L 5.7-8.2 g/dL Albumin 3.2 3.2-4.8 g/dL Lipase 25 12-53 U/L SEPSIS Sepsis Screen Date sepsis recognized/suspect: Feb 11, 2025 Time Sepsis recognized/suspect: 0547 Recent Procedure: No On Antibiotic Therapy: No Respiratory Rate >20: No Heart Rate >90: No Temp<36 C (96.8 F) or >38.3 C: No SBP <90 or MAP <65 mmHG: No New Acute Mental Status Change: No Is the patient on CPAP, BIPAP,: No Physician Orders Ct Ab Pel With Iv Con Only (02/11/25 06:17) Chest Portable (02/11/25 06:17) Electrocardigram (02/11/25 07:29) Che Catheters (02/11/25 ) * Gi [facility] (02/11/25 12:15) Blood Culture (02/11/25 12:16) Urine Bacterial Culture (02/11/25 12:16) Admit (02/11/25 12:17) Npo Except Ice Chips (02/11/25 12:17) Lactic Acid W/ Reflex Order (02/11/25 12:17) Nitroglycerin Sublingual (Ntrostat Subli (02/11/25 12:30) Morphine Sulfate Injection (02/11/25 12:30) Stat Ekg For Chest Pain (02/11/25 12:17) Notify Md Of Changes From Base (02/11/25 12:17) Block Splitter Operator For 24 Hours (02/11/25 12:17) Emergency Dysrhythmia Protocol (02/11/25 12:17) Rhythm Strips Once Every Shift (02/11/25 12:17) Oxygen By Nasal Cannula (02/11/25 12:17) Npo (Nothing By Mouth) Diet (02/11/25 Lunch) Glucose Blood (Accu-Chek Comfort Curve T (02/11/25 18:00) Insulin R (Human) (Insulin R) (02/11/25 18:00) Dextrose 50% Syringe (02/11/25 12:30) Pantoprazole 40mg/50ml Ns Ae (Protonix) (02/11/25 12:30) Cefepime 1gm/50ml (Maxipime 1gm/50ml) (02/11/25 12:31) Vancomycin Per Pharmacy (02/11/25 12:30) Ondansetron Hcl (Zofran) (02/11/25 12:30) Morphine Sulfate Injection (02/11/25 12:30) Metoprolol Inj (Lopressor) (02/11/25 18:00) Hemoglobin & Hematocrit (02/11/25 18:00) Hemoglobin & Hematocrit (02/12/25 00:00) Hemoglobin & Hematocrit (02/12/25 06:00) Hemoglobin & Hematocrit (02/12/25 12:00) Creatinine (02/12/25 06:00) Vancomycin,Trough (02/14/25 11:00) Vancomycin Per Pharmacy Protoc (02/11/25 13:00) Vancomycin 1gm/250ml Kit (02/12/25 12:00) D5w/Sod Chlo 0.9% Ns (02/11/25 13:45) NS (02/11/25 13:45) Vital Signs Date Time Temp Pulse Resp B/P (MAP) Pulse Ox O2 Delivery O2 Flow Rate FiO2 02/11/25 12:10 109 19 116/68 (84) 96 02/11/25 10:18 97.5 97 19 154/47 (82) 96 97.5 02/11/25 10:04 163 183/93 02/11/25 09:15 140 23 156/69 02/11/25 08:43 137 02/11/25 08:42 115 13 126/69 02/11/25 08:00 96.6 113 19 143/79 (100) 96 96.6 02/11/25 08:00 Room Air* 0 21 02/11/25 07:24 134 02/11/25 06:11 96.7 114 15 101/59 (73) 95 96.7 02/11/25 06:00 95 Nasal Cannula* 2 28 02/11/25 05:47 97.8 115 20 135/71 98 97.8 Laboratory Tests Test 02/11/25 06:26 02/11/25 09:13 02/11/25 12:50 Lactic Acid Level 4.0 mmol/L (0.4-2.0) *H 4.9 mmol/L (0.4-2.0) *H Pending White Blood Count 5.5 10^3/uL (4.4-10.8) Medications Medications Dose Ordered Sig/Sabra Route Start Time Stop Time Status Last Admin Dose Admin Cefepime HCl 50 ml @ 50 mls/hr ONCE ONCE IV 02/11/25 10:45 02/11/25 11:44 DC 02/11/25 11:02 50 MLS/HR Metoprolol Tartrate 5 mg ONCE ONCE IV 02/11/25 10:00 02/11/25 10:01 DC 02/11/25 10:04 5 MG Morphine Sulfate 4 mg ONCE ONCE IV 02/11/25 08:00 02/11/25 08:01 DC 02/11/25 08:42 4 MG Ondansetron HCl 4 mg ONCE ONCE IV 02/11/25 06:30 02/11/25 06:31 DC 02/11/25 06:35 4 MG Pantoprazole Sodium 80 mg ONCE ONCE IV 02/11/25 06:30 02/11/25 06:31 DC 02/11/25 06:35 80 MG Sodium Chloride 1,000 ml @ 1,000 mls/hr Q1H ONCE IV 02/11/25 06:30 02/11/25 07:29 DC 02/11/25 06:31 1,000 MLS/HR Sodium Chloride 1,000 ml @ 1,000 mls/hr Q1H ONCE IV 02/11/25 08:00 02/11/25 08:59 DC 02/11/25 08:41 1,000 MLS/HR Sodium Chloride 1,000 ml @ 1,000 mls/hr Q1H ONCE IV 02/11/25 10:45 02/11/25 11:44 DC 02/11/25 11:02 1,000 MLS/HR Vancomycin HCl 250 ml @ 250 mls/hr ONCE ONCE IV 02/11/25 10:45 02/11/25 11:44 DC 02/11/25 12:05 250 MLS/HR Assessment/Plan Assessment/Plan At present her blood pressure is stable. Does not appear to have a acute hemorrhagic shock. Lactic acid is elevated. We will send blood and urine cultures to rule out any underlying infection. Continue empiric IV antibiotics. Meantime we will type and screen and hold 1 unit of packed red cells. Frequent hemoglobin checks for next 24 hours. If hemoglobin less than eight consider transfusion. Continue IV fluids. NPO. GI consultation. Protonix drip for possible upper GI bleed. Withhold anticoagulation for now. Lopressor IV for chronic atrial fibrillation and current tachycardia. Otherwise continue rest of supportive care and treatment. Her further clinical management per clinical course, pending evaluations studies and recommendations from the consultants. Discussed with the ER physician as well as patient regarding care plan. Plan discussed with: Patient, Other My Orders Orders - ISSAC FORREST MD Procedure Category Date Status Time * Gi [facility] CONS 02/11/25 Transmitted 12:15 Blood Culture AMRITA 02/11/25 In Process 12:16 Urine Bacterial AMRITA 02/11/25 In Process Culture 12:16 Admit ADMIT 02/11/25 Transmitted 12:17 Npo Except Ice Chips KRIS 02/11/25 In Process 12:17 Lactic Acid W/ Reflex LAB 02/11/25 In Process Order 12:17 Nitroglycerin PHA 02/11/25 In Process Sublingual (Ntrostat 12:30 Morphine Sulfate PHA 02/11/25 In Process Injection 12:30 Stat Ekg For Chest [facility] 02/11/25 In Process Pain 12:17 Notify Md Of Changes [facility] 02/11/25 In Process From Base 12:17 Block Splitter Operator For [facility] 02/11/25 In Process 24 Hours 12:17 Emergency Dysrhythmia [facility] 02/11/25 In Process Protocol 12:17 Rhythm Strips Once [facility] 02/11/25 In Process Every Shift 12:17 Oxygen By Nasal RT 02/11/25 Transmitted Cannula 12:17 Npo (Nothing By DIET 02/11/25 Transmitted Mouth) Diet Lunch Glucose Blood PHA 02/11/25 In Process (Accu-Chek Comfort 18:00 Insulin R (Human) PHA 02/11/25 In Process (Insulin R) 18:00 Dextrose 50% Syringe PHA 02/11/25 In Process 12:30 Pantoprazole PHA 02/11/25 In Process 40mg/50ml Ns Ae 12:30 Cefepime 1gm/50ml PHA 02/11/25 In Process (Maxipime 1gm/50ml) 12:31 Vancomycin Per PHA 02/11/25 In Process Pharmacy 12:30 Ondansetron Hcl PHA 02/11/25 In Process (Zofran) 12:30 Morphine Sulfate PHA 02/11/25 In Process Injection 12:30 Metoprolol Inj PHA 02/11/25 In Process (Lopressor) 18:00 Hemoglobin & LAB 02/11/25 Logged Hematocrit 18:00 Hemoglobin & LAB 02/12/25 Verified Hematocrit 00:00 Hemoglobin & LAB 02/12/25 Verified Hematocrit 06:00 Hemoglobin & LAB 02/12/25 Verified Hematocrit 12:00 Creatinine LAB 02/12/25 Verified 06:00 Vancomycin,Trough LAB 02/14/25 Verified 11:00 Vancomycin Per KRIS 02/11/25 In Process Pharmacy Protoc 13:00 D5w/Sod Chlo 0.9% Ns PHA 02/11/25 Verified 13:45 NS PHA 02/11/25 Verified 13:45 Problem List: (1) Hematemesis (2) Chronic a-fib (3) GI bleed (4) Vomiting (5) Generalized weakness ISSAC FORREST MD Feb 11, 2025 13:43
[2025-02-11] MEDS: PANTOPRAZOLE 40mg/50ML NS AE 50 ML IV SCH (13:45)
[2025-02-11] MEDS: SODIUM CHLORIDE 0.9% 500 ML IV ONE (14:12)
[2025-02-11] MEDS: ONDANSETRON HCL 4 MG/2 ML VIAL IV PRN (14:13)
[2025-02-11] MEDS: MORPHINE SULFATE INJ 2 MG/ml SYRG IV PRN (14:14)
--- NOTE | 2025-02-11 14:22 | DVHINCON2 ---
GI Consult Consult Note GI consult note Date of Consultation: 02/11/2025 Chief Complaint: Hematemesis Referring Physician: Dr. Ennis H&P: 64-year-old female with PMH of HTN, CHF, AFib, CAD, UT, HLD is seen in ER with complaints of hematemesis, which started one day ago. Patient is having multiple episodes of hematemesis, coffee-grounds and blood clots. Per RN more than 16 oz x2 bags is filled with blood. Patient also has complains of upper abdominal pain. No prior history of GI bleeding. Patient is taking Plavix and aspirin. Patient was prescribed to take Eliquis which she does not want to take. No EGD in past Past Medical History: Chronic Atrial fibrillation Anxiety, CAD, CHF, Depression, High Lipids, HTN, UT, Thyroid, UTI'S Past Surgical History: None noted Social History: NO smoking, drinking ETOH and use of illegal drugs. Family History: Noncontributory Review of Systems: Constitutional: no fever, chill, weight loss HEENT: no eye pain, no hearing loss, no oral lesion, no scleral icterus Heart: no chest pain, no chest pressure Lung: no cough, no dyspnea with exertion Abdomen: see HPI Physical exam: General: NAD, AAOX3 Chest: lung man clear to auscultation Heart: RRR, no murmur Abdomen: non-distended, no tenderness to palpation, +BS Labs: Labs Test 02/11/25 12:50 02/11/25 06:28 02/11/25 06:26 Range/Units Lactic Acid Level 3.2 *H 0.4-2.0 mmol/L Urine Color Yellow Yellow Urine Clarity Cloudy H Clear Urine pH 6.0 5.0-9.0 Urine Specific [place] 1.013 1.001-1.035 Urine Protein Normal Negative Urine Ketones Negative Negative Urine Blood Negative Negative /uL Urine Nitrite Negative Negative Urine Bilirubin Negative Negative Urine Urobilinogen Normal Negative mg/dL Urine Leukocyte Esterase 3+ H Negative /uL Urine Glucose Normal Normal mg/dL White Blood Count 5.5 4.4-10.8 10^3/uL Red Blood Count 3.37 L 4.0-5.20 10^6/uL Hemoglobin 10.4 L 12.2-16.2 g/dL Hematocrit 31.2 L 36.0-46.0 % Mean Corpuscular Volume 92.5 80.0-100.0 fL Mean Corpuscular Hemoglobin 31.0 28.0-32.0 pg Mean Corpuscular Hemoglobin Concent 33.5 32.0-36.0 g/dL Red Cell Distribution Width 13.9 11.8-14.3 % Platelet Count 251 140-450 10^3/uL Mean Platelet Volume 8.0 6.9-10.8 fL Neutrophils (%) (Auto) 74.2 37.0-80.0 % Lymphocytes (%) (Auto) 21.1 10.0-50.0 % Monocytes (%) (Auto) 4.5 0.0-12.0 % Eosinophils (%) (Auto) 0.0 0.0-7.0 % Basophils (%) (Auto) 0.2 0.0-2.0 % Neutrophils # (Auto) 4.1 1.6-8.6 10 ^3/uL Lymphocytes # (Auto) 1.2 0.4-5.4 10 ^3/uL Monocytes # (Auto) 0.2 0-1.3 10 ^3/uL Eosinophils # (Auto) 0 0-0.8 10 ^3/uL Basophils # (Auto) 0 0-0.2 10 ^3/uL Nucleated Red Blood Cells 0.0 % Prothrombin Time 11.0 9.3-11.8 sec Prothrombin Time INR 1.04 0.9-1.15 Activated Partial Thromboplast Time 24.6 24.5-34.5 SEC Sodium Level 143 136-145 mmol/L Potassium Level 4.2 3.5-5.1 mmol/L Chloride Level 106 98-107 mmol/L Carbon Dioxide Level 26 20-31 mmol/L Anion Gap 11 5-15 Blood Urea Nitrogen 31 H 9-23 mg/dL Creatinine 0.99 0.550-1.02 mg/dL Glomerular Filtration Rate Calc 63 >90 mL/min BUN/Creatinine Ratio 31.3 H 10.0-20.0 Serum Glucose 184 H 74-106 mg/dL Calcium Level 8.6 L 8.7-10.4 mg/dL Total Bilirubin 0.4 0.2-1.0 mg/dL Aspartate Amino Transferase (AST) 11 L 13-40 U/L Alanine Aminotransferase (ALT) 10 7-40 U/L Alkaline Phosphatase 63 46-116 U/L Troponin I High Sensitivity 93 *H </=34 ng/L Total Protein 5.2 L 5.7-8.2 g/dL Albumin 3.2 3.2-4.8 g/dL Lipase 25 12-53 U/L Imaging: CT abdomen pelvis IMPRESSION: Cholelithiasis with dilated 11 mm common duct. Please correlate with laboratory values and consider MRCP if warranted. Significant constipation. Right lower lobe pneumonia and left lower lobe bronchiolitis. Gastroesophageal reflux. Assessment: GI bleed GERD Cholelithiasis Constipation Pneumonia Plan: Discussed with Dr. Bartlett Cardiology consult pending IV Protonix Zofran Possible EGD 02/12/2025 discussed with patient when cleared by Cardiology and patient is stable, with extensive discussion of sedation and risks benefits and alternatives of procedure. Patient at this time refuses having EGD done. Again risks and benefits of procedure discussed with patient Monitor labs transfuse if hemoglobin less than seven We will continue to follow patient Plan discussed with patient and RN Thank you for this consult Date of Service: Feb 11, 2025 Billing Provider: SUMMER CASEY Common Visit Codes: CONSULT ONLY Consultation Codes: [id number] CONSULT <60MIN SUMMER CASEY Feb 11, 2025 14:22
[2025-02-11 15:13] LABS: Hematocrit 33.1 % (36.0-46.0); Hemoglobin 11.1 g/dL (12.2-16.2)
[2025-02-11] MEDS: D5W/SOD CHLO 0.9% 1,000 ML IV SCH (15:15)
[2025-02-11] MEDS: METOCLOPRAMIDE HCL 5MG/ml INJ 2ml VIAL IV SCH (16:22)
[2025-02-11] MEDS ORDERED: METOPROLOL TARTRATE 1MG/1ML-5ML VIAL IV SCH ×2 (16:30→18:00)
[2025-02-11] MEDS: InsuLIN REG 1unit/0.01ml Soln (100units/ml) SC SCH (18:00)
[2025-02-11] MEDS: METOPROLOL TARTRATE 1MG/1ML-5ML VIAL IV SCH (18:10)
[2025-02-11] MEDS: ACCU-CHEK COMFORT CURVE STRIP VI SCH (18:15)
[2025-02-11 19:59] LABS: Hematocrit 25.1 % (36.0-46.0); Hemoglobin 8.2 g/dL (12.2-16.2)
[2025-02-12] VITALS (29 sets, daily range): BP systolic 137–178; BP diastolic 46–92; PULSE 85–134; RESP 13–22; TEMP 97.2–99.2; O2SAT 95–99
[2025-02-12 00:53] LABS: Hematocrit 26.7 % (36.0-46.0); Hemoglobin 8.7 g/dL (12.2-16.2)
[2025-02-12 06:28] LABS: Nucleated Red Blood Cells % 0.0 %
[2025-02-12 06:31] LABS: Hematocrit 24.2 % (36.0-46.0); Hemoglobin 7.9 g/dL (12.2-16.2); Mean Corpuscular Hemoglobin 30.6 pg (28.0-32.0); Mean Corpuscular Volume 94.0 fL (80.0-100.0)
[2025-02-12 06:36] LABS: Anion Gap 12 (5-15); Carbon Dioxide 24 mmol/L (20-31); Potassium 3.9 mmol/L (3.5-5.1)
[2025-02-12 06:42] LABS: BUN/Creatinine Ratio 34.9 (10.0-20.0)
[2025-02-12 06:48] LABS: Blood Urea Nitrogen 29 mg/dL (9-23); Calcium 7.8 mg/dL (8.7-10.4); Chloride 111 mmol/L (98-107); Glucose 118 mg/dL (74-106); Sodium 147 mmol/L (136-145)
[2025-02-12] MEDS: METOPROLOL TARTRATE 1MG/1ML-5ML VIAL IV SCH ×2 (09:34→18:13)
[2025-02-12] MEDS: VANCOMYCIN 1GM/250ML KIT 250 ML IV SCH (12:02)
[2025-02-12 12:27] LABS: Hematocrit 23.2 % (36.0-46.0); Hemoglobin 7.5 g/dL (12.2-16.2)
--- NOTE | 2025-02-12 14:22 | DVHPN2 ---
Subjective Patient denies abdominal pain No nausea or vomiting Changes from previous H/P or p: No Changes Objective Vitals Vital Signs Date Time Temp Pulse Resp B/P (MAP) Pulse Ox O2 Delivery O2 Flow Rate FiO2 02/12/25 13:09 95 166/76 02/12/25 12:00 14 99 Room Air* 0 21 02/12/25 12:00 98.3 98.3 Intake/Output Intake and Output 02/12/25 07:00 Intake Total 5290 ml Output Total 4125 ml Balance 1165 ml Intake Oral 0 ml IV Total 5290 ml Output Urine Total 4125 ml General Appearance: Alert, Oriented X3, Cooperative, No acute distress, mild distress, moderate distress, severe distress, Other Lungs: Clear to auscultation, Normal air movement, Other Cardiovascular: Regular rate, Normal S1, Normal S2, No murmurs, Gallops, Rubs, Other Abdomen: Normal bowel sounds, Soft, No tenderness, No hepatospenomegaly, No masses, Other Medications Current Medications Medications Dose Ordered Sig/Sabra Route Start Time Stop Time Status Last Admin Dose Admin Nitroglycerin 0.4 mg Q5MINP PRN SL 02/11/25 12:30 Morphine Sulfate 2 mg Q30M PRN IV 02/11/25 12:30 02/11/25 23:46 2 MG Diagnostic Test (Pha) 1 strip Q6HR 02/11/25 18:00 02/12/25 11:55 1 STRIP Insulin Human Regular Q6HR SC 02/11/25 18:00 Dextrose 50 ml UD PRN IV 02/11/25 12:30 Pantoprazole Sodium 50 ml @ 10 mls/hr Q5H IV 02/11/25 12:30 02/12/25 09:16 10 MLS/HR Cefepime HCl 50 ml @ 12.5 mls/hr Q12HR IV 02/11/25 12:31 02/12/25 10:55 12.5 MLS/HR Vancomycin HCl 0 ml @ 0 mls/hr UD IV 02/11/25 12:30 Ondansetron HCl 4 mg Q4HPRN PRN IV 02/11/25 12:30 02/11/25 14:13 4 MG Morphine Sulfate 2 mg Q4HPRN PRN IV 02/11/25 12:30 Vancomycin HCl 250 ml @ 200 mls/hr Q24H IV 02/12/25 12:00 02/12/25 12:02 200 MLS/HR Dextrose/Sodium Chloride 1,000 ml @ 100 mls/hr Q10H IV 02/11/25 13:45 02/12/25 12:15 100 MLS/HR Metoclopramide HCl 10 mg Q6HR IV 02/11/25 16:00 02/12/25 20:00 02/12/25 12:02 10 MG Metoprolol Tartrate 2.5 mg Q6HR IV 02/12/25 09:00 02/12/25 12:02 2.5 MG Laboratory Results Laboratory Tests 02/12/25 05:35 02/12/25 12:06 Chemistry Test 02/12/25 05:35 Calcium Level 7.8 mg/dL (8.7-10.4) L Urinalysis Test 02/11/25 06:28 Urine Color Yellow (Yellow) Urine Clarity Cloudy (Clear) H Urine pH 6.0 (5.0-9.0) Urine Specific [place] 1.013 (1.001-1.035) Urine Protein Normal (Negative) Urine Ketones Negative (Negative) Urine Blood Negative /uL (Negative) Urine Nitrite Negative (Negative) Urine Bilirubin Negative (Negative) Urine Urobilinogen Normal mg/dL (Negative) Urine Leukocyte Esterase 3+ /uL (Negative) H Urine Glucose Normal mg/dL (Normal) Microbiology Microbiology Date/Time Source Procedure Growth Status 02/11/25 12:50 Blood Blood Culture - Preliminary NO GROWTH AFTER 24 HOURS OF INCUBATION. Resulted 02/11/25 06:28 Voided Urine Urine Culture - Preliminary Resulted Labs and/or images reviewed: Labs reviewed by me, Image(s) reviewed by me Assessment/Plan Assessment/Plan GI bleed GERD Cholelithiasis Constipation Pneumonia Plan: -discussed with Dr. Bartlett Cardiology consult pending IV Protonix and Zofran Monitor labs Possible EGD today or tomorrow if patient is cleared by Cardiology Hold blood thinners Discussed risks benefits and alternatives of procedure including risks of infection bleeding and perforation, patient has concerns about procedure due to history of nasal polyps We will continue to monitor patient Plan discussed with: Patient, Other (RN) Date of Service: Feb 12, 2025 Billing Provider: SUMMER CASEY Common Visit Codes: [id number] INP/OBS CARE(HIGH) SUMMER CASEY Feb 12, 2025 14:22
--- NOTE | 2025-02-12 15:06 | ECG ---
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
--- NOTE | 2025-02-12 15:27 | DVHPN2 ---
Progress Note - Dictate Date Seen: Feb 12, 2025 Medical Necessity Reason Pt with a Central, PICC or Fol: No Subjective Patient apparently refused EGD yesterday. This morning she agreed but now she wants to think about it again. Her troponins have trended up today but she would rather not have any complaints of chest pain or shortness for breath. Pending cardiology evaluation. vital signs Vital Sign Date Time Temp Pulse Resp B/P (MAP) Pulse Ox O2 Delivery O2 Flow Rate FiO2 02/12/25 14:00 19 96 Room Air* 0 21 02/12/25 13:09 95 166/76 02/12/25 12:00 98.3 98.3 Total Intake and Output 02/11/25 02/11/25 02/12/25 15:00 23:00 07:00 Intake Total 3310 ml 1050 ml 930 ml Output Total 1500 ml 1375 ml 1250 ml Balance 1810 ml -325 ml -320 ml medications Current Medications Medications Dose Ordered Sig/Sabra Route Start Time Stop Time Status Last Admin Dose Admin Nitroglycerin 0.4 mg Q5MINP PRN SL 02/11/25 12:30 Morphine Sulfate 2 mg Q30M PRN IV 02/11/25 12:30 02/11/25 23:46 2 MG Diagnostic Test (Pha) 1 strip Q6HR 02/11/25 18:00 02/12/25 11:55 1 STRIP Insulin Human Regular Q6HR SC 02/11/25 18:00 Dextrose 50 ml UD PRN IV 02/11/25 12:30 Pantoprazole Sodium 50 ml @ 10 mls/hr Q5H IV 02/11/25 12:30 02/12/25 14:46 10 MLS/HR Cefepime HCl 50 ml @ 12.5 mls/hr Q12HR IV 02/11/25 12:31 02/12/25 10:55 12.5 MLS/HR Vancomycin HCl 0 ml @ 0 mls/hr UD IV 02/11/25 12:30 Ondansetron HCl 4 mg Q4HPRN PRN IV 02/11/25 12:30 02/11/25 14:13 4 MG Morphine Sulfate 2 mg Q4HPRN PRN IV 02/11/25 12:30 Vancomycin HCl 250 ml @ 200 mls/hr Q24H IV 02/12/25 12:00 02/12/25 12:02 200 MLS/HR Dextrose/Sodium Chloride 1,000 ml @ 100 mls/hr Q10H IV 02/11/25 13:45 02/12/25 12:15 100 MLS/HR Metoclopramide HCl 10 mg Q6HR IV 02/11/25 16:00 02/12/25 20:00 02/12/25 12:02 10 MG Metoprolol Tartrate 2.5 mg Q6HR IV 02/12/25 09:00 02/12/25 12:02 2.5 MG objective Alert awake oriented to place and person and she knows that she is in the hospital. HEENT neck supple no JVD. Heart regular rate and rhythm S1-S2. Lungs fair air movement without rales or wheezing poor inspiratory effort. Abdomen is soft nontender positive bowel sounds. Extremities no edema positive pulses. laboratory and microbiology Laboratory Tests 02/12/25 12:06 02/12/25 05:35 Test 02/12/25 05:35 Range/Units Serum Glucose 118 H 74-106 mg/dL Assessment/Plan I will resume her home psychiatric/anti anxiolytic medication today. We will make her NPO except meds. I will give her IV iron for anemia. Pending cardiac evaluation to see if she can have EGD. Otherwise continue rest of supportive care and treatment. For constipation as seen on CT I will start her on lactulose and Dulcolax suppositories. Further clinical management per clinical course and recommendations of consultants. Discussed with the patient and nurse at bedside regarding care plan. Problems(with codes): (1) Dehydration (2) Elevated troponin (3) GI bleed (4) Hematemesis (5) Chronic a-fib (6) Generalized weakness Plan discussed with: Patient, Other ISSAC FORREST MD Feb 12, 2025 15:27
[2025-02-12] MEDS: D5W/SOD CHLO 0.9% 1,000 ML IV SCH (15:33)
[2025-02-12] MEDS: LACTULOSE 20Gm/30ML SOLN PO ONE (16:16)
[2025-02-12] MEDS: BISACODYL 10 MG RECT SUPP PR ONE (16:17)
--- NOTE | 2025-02-12 17:33 | DVHINCON2 ---
Date Seen: Feb 12, [address] Mejia Reason for Consultation Acute coronary syndrome History of Present Illness History of Present Illness 64-year-old lady with a history of underlying chronic conditions including atrial fibrillation and angina as well as psychiatric abnormalities well known to Dr. Mejia for her recurrent admissions here at [facility] and [facility]. Patient has had recurrent episodes of chest pain and shortness of breath. She was told to take aspirin for her chest pain and subsequently was found by paramedics with a sizable amount of hematemesis and heme-positive gastric content. She was brought for further evaluation treatment she was found to have abnormal troponins indicative of non ST-elevation myocardial infarction with a non STEMI type 2. Recurrent episodes of chest pain severe anemia/angina. She has been noncompliant in the past and has had previous episodes and admissions where she has refused angiographic evaluations in the past. She has multiple medical problems including a need for anticoagulation given atrial fibrillation for which she has required anticoagulants but she has not taken them. She was subsequently placed on clopidogrel. At the present time the patient has not had chest pain she is in the [facility]. Past Medical History Her past medical history as previously mentioned is also significant for hypertension dyslipidemia hypothyroidism coronary artery disease hypertension and atrial fibrillation. Most of the history was obtained from the records she is hard of hearing and is very weak and given her severe blood loss and anemia. Past Surgical History As previously mentioned Family History: FH: Crohn's disease G8 BROTHER FH: multiple sclerosis G8 SISTER Family history: Alzheimer's disease G8 MOTHER Family history: Cardiovascular disease G8 FATHER G8 SISTER Family History Noncontributory Social History Noncontributory Allergies: Coded Allergies: Statins (Verified Adverse Reaction, Unknown, 01/19/25) Muscle Aches Home Meds Active Scripts Atorvastatin Calcium (ATORVASTATIN CALCIUM) 20 Mg Tab, 1 TAB PO DAILY for 30 Days, #30 TAB Prov:JODIE RASHID MD 01/06/25 Bupropion Hcl (Bupropion Hcl Xl) 150 Mg Tab, 1 TAB PO DAILY for 90 Days, #90 TAB Prov:JODIE RASHID MD 01/06/25 Levothyroxine Sodium (Levothyroxine Sodium) 50 Mcg Tab, 1 TAB PO DAILY for 30 Days, #30 TAB Prov:JODIE RASHID MD 01/06/25 Apixaban Base (ELIQUIS) 5 Mg Tab, 1 TAB PO BID for 30 Days, #60 TAB Prov:JODIE RASHID MD 01/06/25 Carvedilol (Carvedilol) 12.5 Mg Tab, 1 TAB PO BID for 90 Days, #180 TAB Prov:JODIE RASHID MD 01/06/25 Nifedipine (Nifedipine Er) 60 Mg Tab, 1 TAB PO BID, #90 TAB 1 Refill Prov:JODIE RASHID MD 01/06/25 Aspirin (Aspirin Ec Low Dose) 81 Mg Tab, 81 MG PO DAILY MDD ., #90 TAB Prov:JODIE RASHID MD 01/06/25 Clonidine Hydrochloride (Clonidine Hcl) 0.1 Mg Tab, 0.1 MG PO TID MDD ., #100 TAB Prov:JODIE RASHID MD 01/06/25 Fluticasone Propionate (Nasal) (Flonase Allergy Relief) 50 Mcg/Act Spr, 50 MCG NA BID for 30 Days, #1 SPRAY 0 Refills Prov:JODIE RAHSID MD 01/06/25 Reported Medications Clopidogrel Bisulfate (CLOPIDOGREL) 75 Mg Tab, 1 TAB PO DAILY 01/18/25 Current Medications Current Medications Medications (Trade) Dose Ordered Sig/Sabra Route PRN Reason Start Time Stop Time Status Last Admin Diagnostic Test (Pha) (Accu-Chek Comfort Curve T) 1 strip Q6HR 02/11/25 18:00 02/12/25 11:55 Insulin Human Regular (InsuLIN R) Q6HR SC 02/11/25 18:00 Metoprolol Tartrate (Lopressor) 1.25 mg Q6HR IV 02/11/25 18:00 02/11/25 16:21 DC Vancomycin HCl 250 ml @ 200 mls/hr Q24H IV 02/12/25 12:00 02/12/25 12:02 Metoprolol Tartrate (Lopressor) 1.25 mg Q4HR IV 02/11/25 18:00 02/12/25 08:57 DC 02/12/25 06:04 Metoprolol Tartrate (Lopressor) 2.5 mg Q6HR IV 02/12/25 09:00 02/12/25 17:06 DC 02/12/25 12:02 Dextrose/Sodium Chloride 1,000 ml @ 70 mls/hr [id number] IV 02/12/25 15:30 02/12/25 15:33 Iron Sucrose 110 ml @ 110 mls/hr DAILY@1200 IV 02/13/25 12:00 02/17/25 12:59 Buspirone HCl (Buspar Tablet) 10 mg Q12HR PO 02/12/25 22:00 Olanzapine (ZyPREXA Tablet) 5 mg QPM PO 02/12/25 18:00 Lactulose 30 ml Q6HPRN PRN PO FOR CONSTIPATION 02/12/25 18:00 Metoprolol Tartrate (Lopressor) 5 mg Q4HR IV 02/12/25 18:00 UNV Review of Systems Difficult to ascertain at this time patient is very weak. Most of the information obtained from the old records. Vital Signs Vital Signs Date Time Temp Pulse Resp B/P (MAP) Pulse Ox O2 Delivery O2 Flow Rate FiO2 02/12/25 16:00 97.2 131 19 160/92 (114) 96 97.2 02/12/25 16:00 Room Air* 0 21 Physical Exam She is lethargic but responsive. She is not having any pain at this time. Her blood pressure is 154/90 with a pulse of 130. She is in a rapid atrial fi brillation. HEENT examination reveals pale conjunctiva atraumatic and normocephalic skull. Pupils are sluggish. Orally pale. Poorly hydrated. No jugular distention no bruits. Lungs reveal good air entry no rales or rhonchi. Heart exam reveals an irreg ular S1-S2 she is tachycardic. Abdominal examination is unremarkable extremities show cool extremities with diminished perfusion. Neurologically she is unassessable but no focal findings are elicited were noted at this time. Diminished muscle tone. She is thin and cachectic Labs/Diagnostic Data Labs Test 02/12/25 12:06 02/12/25 11:57 02/12/25 05:35 02/11/25 12:50 Range/Units Hemoglobin 7.5 L 12.2-16.2 g/dL Hematocrit 23.2 L 36.0-46.0 % POC Glucose 114 H 70-106 mg/dl White Blood Count 13.4 #H 4.4-10.8 10^3/uL Red Blood Count 2.58 L 4.0-5.20 10^6/uL Mean Corpuscular Volume 94.0 80.0-100.0 fL Mean Corpuscular Hemoglobin 30.6 28.0-32.0 pg Mean Corpuscular Hemoglobin Concent 32.5 32.0-36.0 g/dL Red Cell Distribution Width 14.0 11.8-14.3 % Platelet Count 192 140-450 10^3/uL Mean Platelet Volume 8.1 6.9-10.8 fL Neutrophils (%) (Auto) 78.2 37.0-80.0 % Lymphocytes (%) (Auto) 14.7 10.0-50.0 % Monocytes (%) (Auto) 6.9 0.0-12.0 % Eosinophils (%) (Auto) 0.0 0.0-7.0 % Basophils (%) (Auto) 0.2 0.0-2.0 % Neutrophils # (Auto) 10.5 H 1.6-8.6 10 ^3/uL Lymphocytes # (Auto) 2.0 0.4-5.4 10 ^3/uL Monocytes # (Auto) 0.9 0-1.3 10 ^3/uL Eosinophils # (Auto) 0 0-0.8 10 ^3/uL Basophils # (Auto) 0 0-0.2 10 ^3/uL Nucleated Red Blood Cells 0.0 % Sodium Level 147 H 136-145 mmol/L Potassium Level 3.9 3.5-5.1 mmol/L Chloride Level 111 H 98-107 mmol/L Carbon Dioxide Level 24 20-31 mmol/L Anion Gap 12 5-15 Blood Urea Nitrogen 29 H 9-23 mg/dL Creatinine 0.83 0.550-1.02 mg/dL Glomerular Filtration Rate Calc 78 >90 mL/min BUN/Creatinine Ratio 34.9 H 10.0-20.0 Serum Glucose 118 H 74-106 mg/dL Calcium Level 7.8 L 8.7-10.4 mg/dL Troponin I High Sensitivity 392 *H </=34 ng/L Lactic Acid Level 3.2 *H 0.4-2.0 mmol/L Test 02/11/25 06:28 02/11/25 06:26 Range/Units Urine Color Yellow Yellow Urine Clarity Cloudy H Clear Urine pH 6.0 5.0-9.0 Urine Specific [place] 1.013 1.001-1.035 Urine Protein Normal Negative Urine Ketones Negative Negative Urine Blood Negative Negative /uL Urine Nitrite Negative Negative Urine Bilirubin Negative Negative Urine Urobilinogen Normal Negative mg/dL Urine Leukocyte Esterase 3+ H Negative /uL Urine Glucose Normal Normal mg/dL Prothrombin Time 11.0 9.3-11.8 sec Prothrombin Time INR 1.04 0.9-1.15 Activated Partial Thromboplast Time 24.6 24.5-34.5 SEC Total Bilirubin 0.4 0.2-1.0 mg/dL Aspartate Amino Transferase (AST) 11 L 13-40 U/L Alanine Aminotransferase (ALT) 10 7-40 U/L Alkaline Phosphatase 63 46-116 U/L Total Protein 5.2 L 5.7-8.2 g/dL Albumin 3.2 3.2-4.8 g/dL Lipase 25 12-53 U/L Microbiology Date/Time Source Procedure Growth Status 02/11/25 12:50 Blood Blood Culture - Preliminary NO GROWTH AFTER 24 HOURS OF INCUBATION. Resulted 02/11/25 06:28 Voided Urine Urine Culture - Preliminary Resulted Assessment Significant anemia. Rapid atrial fibrillation without ST segment changes suggesting ischemia. Hypertension. GI bleeding. Significant anemia. History of angina. Abnormal troponins suggesting an acute coronary syndrome. High risk from a cardiovascular standpoint given severe anemia GI bleeding and an acute coronary syndrome. Plan/Recommendation Discussed with Dr. Mejia. Conservative medical management given multiple comorbidities and patient's noncompliance. We will obtain placement of midline transfusion and conservative medical management. Plan discussed with: Patient, Other (Dr. Mejia) NYHA Physical activity limitations: Class2(Slight)fatigue,sob Date of Service: Feb 12, 2025 Billing Provider: STEPHANIE FONSECA Sr., MD Cardiology Common Codes: [id number] INP/OBS CARE (High) STEPHANIE FONSECA Sr., MD Feb 12, 2025 17:33
[2025-02-12] MEDS ORDERED: LACTULOSE 20Gm/30ML SOLN PO PRN (18:00)
[2025-02-12] MEDS: OLANZapine 5 MG TAB PO SCH (18:09)
[2025-02-13] VITALS (41 sets, daily range): BP systolic 132–193; BP diastolic 48–86; PULSE 75–128; RESP 12–25; TEMP 98.2–99.7; O2SAT 94–100
[2025-02-13 05:25] LABS: Hematocrit 28.6 % (36.0-46.0); Hemoglobin 9.5 g/dL (12.2-16.2); Mean Corpuscular Hemoglobin 30.3 pg (28.0-32.0); Mean Corpuscular Volume 91.5 fL (80.0-100.0); Nucleated Red Blood Cells % 0.0 %
[2025-02-13 05:37] LABS: Anion Gap 10 (5-15); Carbon Dioxide 26 mmol/L (20-31); Potassium 3.6 mmol/L (3.5-5.1)
[2025-02-13 05:39] LABS: Calcium 7.8 mg/dL (8.7-10.4); Chloride 112 mmol/L (98-107); Sodium 148 mmol/L (136-145)
[2025-02-13 05:43] LABS: BUN/Creatinine Ratio 15.9 (10.0-20.0); Blood Urea Nitrogen 11 mg/dL (9-23); Glucose 96 mg/dL (74-106)
--- NOTE | 2025-02-13 08:10 | ECG ---
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
[2025-02-13] MEDS ORDERED: LIDOCAINE VISCOUS 2% 15ML UD ONE (11:05)
[2025-02-13] MEDS ORDERED: FLUMAZENIL 0.1 MG/ML INJ 10ML MDV IV ONE (11:05)
[2025-02-13] MEDS ORDERED: NALOXONE HCL 0.4 MG/ML VIAL ONE (11:06)
[2025-02-13] MEDS ORDERED: MIDAZOLAM HCL 5 MG/ML-1ML VIAL ONE (11:08)
[2025-02-13] MEDS ORDERED: fentaNYL CITRATE 100 MCG/2 ML VL ONE (11:09)
[2025-02-13] MEDS ORDERED: diphenhdrAMINE HCL 50 MG/1 ML VL ONE (11:09)
[2025-02-13] MEDS ORDERED: SODIUM CHLORIDE LOCK 10 ML ONE (11:10)
[2025-02-13] MEDS: IRON SUCROSE COMPLEX 110 ML IV SCH (12:58)
--- NOTE | 2025-02-13 15:15 | DVHPN2 ---
Subjective Patient denies abdominal pain No nausea or vomiting Changes from previous H/P or p: No Changes Objective Vitals Vital Signs Date Time Temp Pulse Resp B/P (MAP) Pulse Ox O2 Delivery O2 Flow Rate FiO2 02/13/25 14:42 101 183/72 02/13/25 06:30 18 96 02/13/25 06:00 Room Air* 0 21 02/13/25 04:30 98.2 98.2 Intake/Output Intake and Output 02/13/25 07:00 Intake Total 2410 ml Output Total 4250 ml Balance -1840 ml Intake Oral 220 ml IV Total 2190 ml Output Urine Total 4250 ml General Appearance: Alert, Oriented X3, Cooperative, No acute distress, mild distress, moderate distress, severe distress, Other Lungs: Clear to auscultation Cardiovascular: Regular rate, Normal S1, Normal S2, No murmurs, Gallops, Rubs, Other Abdomen: Normal bowel sounds, Soft, No tenderness, No hepatospenomegaly, No masses, Other Medications Current Medications Medications Dose Ordered Sig/Sabra Route Start Time Stop Time Status Last Admin Dose Admin Nitroglycerin 0.4 mg Q5MINP PRN SL 02/11/25 12:30 Morphine Sulfate 2 mg Q30M PRN IV 02/11/25 12:30 02/11/25 23:46 2 MG Diagnostic Test (Pha) 1 strip Q6HR 02/11/25 18:00 02/13/25 12:58 1 STRIP Insulin Human Regular Q6HR SC 02/11/25 18:00 Dextrose 50 ml UD PRN IV 02/11/25 12:30 Pantoprazole Sodium 50 ml @ 10 mls/hr Q5H IV 02/11/25 12:30 02/13/25 12:58 10 MLS/HR Cefepime HCl 50 ml @ 12.5 mls/hr Q12HR IV 02/11/25 12:31 02/13/25 09:10 12.5 MLS/HR Vancomycin HCl 0 ml @ 0 mls/hr UD IV 02/11/25 12:30 Ondansetron HCl 4 mg Q4HPRN PRN IV 02/11/25 12:30 02/11/25 14:13 4 MG Morphine Sulfate 2 mg Q4HPRN PRN IV 02/11/25 12:30 Vancomycin HCl 250 ml @ 200 mls/hr Q24H IV 02/12/25 12:00 02/13/25 12:58 200 MLS/HR Dextrose/Sodium Chloride 1,000 ml @ 70 mls/hr [id number] IV 02/12/25 15:30 02/13/25 05:37 70 MLS/HR Iron Sucrose 110 ml @ 110 mls/hr DAILY@1200 IV 02/13/25 12:00 02/17/25 12:59 02/13/25 12:58 110 MLS/HR Buspirone HCl 10 mg Q12HR PO 02/12/25 22:00 02/13/25 09:10 10 MG Olanzapine 5 mg QPM PO 02/12/25 18:00 02/12/25 18:09 5 MG Lactulose 30 ml Q6HPRN PRN PO 02/12/25 18:00 Metoprolol Tartrate 5 mg Q4HR IV 02/12/25 18:00 02/13/25 14:42 5 MG Laboratory Results Laboratory Tests 02/13/25 05:04 Chemistry Test 02/13/25 05:04 Calcium Level 7.8 mg/dL (8.7-10.4) L Urinalysis Test 02/11/25 06:28 Urine Color Yellow (Yellow) Urine Clarity Cloudy (Clear) H Urine pH 6.0 (5.0-9.0) Urine Specific [place] 1.013 (1.001-1.035) Urine Protein Normal (Negative) Urine Ketones Negative (Negative) Urine Blood Negative /uL (Negative) Urine Nitrite Negative (Negative) Urine Bilirubin Negative (Negative) Urine Urobilinogen Normal mg/dL (Negative) Urine Leukocyte Esterase 3+ /uL (Negative) H Urine Glucose Normal mg/dL (Normal) Microbiology Microbiology Date/Time Source Procedure Growth Status 02/11/25 17:18 Nose MRSA Screen - Final Methicillin Resistant S.aureus Complete 02/11/25 12:50 Blood Blood Culture - Preliminary NO GROWTH AFTER 48 HOURS OF INCUBATION. Resulted 02/11/25 06:28 Voided Urine Urine Culture - Final Complete Labs and/or images reviewed: Labs reviewed by me, Image(s) reviewed by me Assessment/Plan Assessment/Plan GI bleed GERD Cholelithiasis Constipation Pneumonia Plan: Discussed with Dr. Bartlett Cardiology consult appreciate and patient is assessed to be at high risk for any procedures at this time with troponin trending up also IV Protonix and Zofran Monitor labs Continue symptomatic treatment Plan discussed with: Patient, Other (RN) Date of Service: Feb 13, 2025 Billing Provider: SUMMER CASEY Common Visit Codes: [id number] INP/OBS CARE(HIGH) SUMMER CASEY Feb 13, 2025 15:15
--- NOTE | 2025-02-13 17:21 | DVHPN2 ---
Progress Note - Dictate Date Seen: Feb 13, 2025 Medical Necessity Reason Pt with a Central, PICC or Fol: No Subjective Patient is evaluated by GI and Cardiology as a follow up. [place] high-risk for any procedures given her troponin has been trending up. Patient received blood transfusion hemoglobin stable. Patient otherwise remains asymptomatic without any complaints of chest pain or shortness for breath. vital signs Vital Sign Date Time Temp Pulse Resp B/P (MAP) Pulse Ox O2 Delivery O2 Flow Rate FiO2 02/13/25 16:00 113 24 178/86 (116) 99 02/13/25 08:00 Room Air* 0 21 02/13/25 04:30 98.2 98.2 Total Intake and Output 02/12/25 02/12/25 02/13/25 15:00 23:00 07:00 Intake Total 1180 ml 640 ml 590 ml Output Total 2400 ml 1850 ml Balance 1180 ml -1760 ml -1260 ml medications Current Medications Medications Dose Ordered Sig/Sabra Route Start Time Stop Time Status Last Admin Dose Admin Nitroglycerin 0.4 mg Q5MINP PRN SL 02/11/25 12:30 Morphine Sulfate 2 mg Q30M PRN IV 02/11/25 12:30 02/11/25 23:46 2 MG Diagnostic Test (Pha) 1 strip Q6HR 02/11/25 18:00 02/13/25 12:58 1 STRIP Insulin Human Regular Q6HR SC 02/11/25 18:00 Dextrose 50 ml UD PRN IV 02/11/25 12:30 Pantoprazole Sodium 50 ml @ 10 mls/hr Q5H IV 02/11/25 12:30 02/13/25 12:58 10 MLS/HR Cefepime HCl 50 ml @ 12.5 mls/hr Q12HR IV 02/11/25 12:31 02/13/25 09:10 12.5 MLS/HR Vancomycin HCl 0 ml @ 0 mls/hr UD IV 02/11/25 12:30 Ondansetron HCl 4 mg Q4HPRN PRN IV 02/11/25 12:30 02/11/25 14:13 4 MG Morphine Sulfate 2 mg Q4HPRN PRN IV 02/11/25 12:30 Vancomycin HCl 250 ml @ 200 mls/hr Q24H IV 02/12/25 12:00 02/13/25 12:58 200 MLS/HR Dextrose/Sodium Chloride 1,000 ml @ 70 mls/hr [id number] IV 02/12/25 15:30 02/13/25 05:37 70 MLS/HR Iron Sucrose 110 ml @ 110 mls/hr DAILY@1200 IV 02/13/25 12:00 02/17/25 12:59 02/13/25 12:58 110 MLS/HR Buspirone HCl 10 mg Q12HR PO 02/12/25 22:00 02/13/25 09:10 10 MG Olanzapine 5 mg QPM PO 02/12/25 18:00 02/12/25 18:09 5 MG Lactulose 30 ml Q6HPRN PRN PO 02/12/25 18:00 Metoprolol Tartrate 5 mg Q4HR IV 02/12/25 18:00 02/13/25 14:42 5 MG objective Alert awake oriented to place and person and she knows that she is in the hospital. HEENT neck supple no JVD. Heart regular rate and rhythm S1-S2. Lungs fair air movement without rales or wheezing poor inspiratory effort. Abdomen is soft nontender positive bowel sounds. Extremities no edema positive pulses. laboratory and microbiology Laboratory Tests 02/13/25 05:04 Test 02/13/25 05:04 Range/Units Serum Glucose 96 74-106 mg/dL Assessment/Plan Clear liquid diet today. Follow the troponin trend. Continue to transfuse blood as needed. Continue proton pump inhibitor and supportive care and treatment as she is on. Given her high-risk with a non ST-elevation NV and acute GI bleed overall prognosis remains guarded. We will discuss with the patient regarding options including palliative/hospice services to home. Discussed with the nurse regarding care plan as well as sliver lapper on the floor regarding her care plan. Problems(with codes): (1) Acute renal injury (2) Generalized weakness (3) Elevated troponin (4) Dehydration (5) Chronic a-fib (6) GI bleed (7) Hematemesis Plan discussed with: Patient, Other ISSAC FORREST MD Feb 13, 2025 17:21
[2025-02-13] MEDS: METOPROLOL TARTRATE 1MG/1ML-5ML VIAL IV SCH (18:39)
[2025-02-13] MEDS: METOPROLOL TARTRATE 1MG/1ML-5ML VIAL IV ONE (22:02)
[2025-02-13] MEDS: MUPIROCIN 2% OINT 15gm or 22gm FOR MRSA NARES EACHNOSTRI SCH (22:02)
[2025-02-14] VITALS (43 sets, daily range): BP systolic 122–189; BP diastolic 38–136; PULSE 74–144; RESP 15–37; TEMP 97.7–98.1; O2SAT 87–97
[2025-02-14] MEDS: METOPROLOL TARTRATE 1MG/1ML-5ML VIAL IV SCH (01:45)
[2025-02-14] MEDS: diphenhdrAMINE HCL 50 MG/1 ML VL IV ONE (05:22)
[2025-02-14] MEDS: diphenhdrAMINE HCL 50 MG/1 ML VL ONE (05:29)
[2025-02-14 11:24] LABS: Hematocrit 31.2 % (36.0-46.0); Hemoglobin 10.2 g/dL (12.2-16.2); Mean Corpuscular Hemoglobin 30.0 pg (28.0-32.0); Mean Corpuscular Volume 91.7 fL (80.0-100.0); Nucleated Red Blood Cells % 0.1 %
[2025-02-14 11:48] LABS: Potassium 3.9 mmol/L (3.5-5.1)
[2025-02-14 11:49] LABS: Anion Gap 11 (5-15); Carbon Dioxide 27 mmol/L (20-31)
[2025-02-14 11:52] LABS: Calcium 8.3 mg/dL (8.7-10.4); Chloride 108 mmol/L (98-107); Sodium 146 mmol/L (136-145)
[2025-02-14 11:54] LABS: BUN/Creatinine Ratio 12.0 (10.0-20.0); Blood Urea Nitrogen 9 mg/dL (9-23); Glucose 98 mg/dL (74-106)
--- NOTE | 2025-02-14 13:45 | DVHPN2 ---
Progress Note - Dictate Date Seen: Feb 14, 2025 Medical Necessity Reason Pt with a Central, PICC or Fol: No Subjective Patient is clinically stable. Remains asymptomatic from cardiopulmonary point of view. Patient's hemoglobin is stable. Heart rate sinus tach in the low 100s. vital signs Vital Sign Date Time Temp Pulse Resp B/P (MAP) Pulse Ox O2 Delivery O2 Flow Rate FiO2 02/14/25 09:53 131 168/83 02/14/25 06:00 19 96 Room Air* 0 21 02/13/25 20:00 99.7 99.7 Total Intake and Output 02/13/25 02/13/25 02/14/25 15:00 23:00 07:00 Intake Total 1050 ml 780 ml 110 ml Output Total 1400 ml 1200 ml Balance 1050 ml -620 ml -1090 ml medications Current Medications Medications Dose Ordered Sig/Sabra Route Start Time Stop Time Status Last Admin Dose Admin Nitroglycerin 0.4 mg Q5MINP PRN SL 02/11/25 12:30 Morphine Sulfate 2 mg Q30M PRN IV 02/11/25 12:30 02/11/25 23:46 2 MG Diagnostic Test (Pha) 1 strip Q6HR 02/11/25 18:00 02/14/25 06:00 1 STRIP Insulin Human Regular Q6HR SC 02/11/25 18:00 Dextrose 50 ml UD PRN IV 02/11/25 12:30 Cefepime HCl 50 ml @ 12.5 mls/hr Q12HR IV 02/11/25 12:31 02/14/25 09:53 12.5 MLS/HR Vancomycin HCl 0 ml @ 0 mls/hr UD IV 02/11/25 12:30 Ondansetron HCl 4 mg Q4HPRN PRN IV 02/11/25 12:30 02/11/25 14:13 4 MG Morphine Sulfate 2 mg Q4HPRN PRN IV 02/11/25 12:30 Iron Sucrose 110 ml @ 110 mls/hr DAILY@1200 IV 02/13/25 12:00 02/17/25 12:59 02/13/25 12:58 110 MLS/HR Olanzapine 5 mg QPM PO 02/12/25 18:00 02/13/25 17:53 5 MG Lactulose 30 ml Q6HPRN PRN PO 02/12/25 18:00 Mupirocin 1 applic BID EACHNOSTRI 02/13/25 22:00 02/18/25 21:59 02/14/25 09:54 1 APPLIC Vancomycin HCl 100 ml @ 100 mls/hr Q12H IV 02/14/25 15:00 Buspirone HCl 5 mg Q12HR PO 02/14/25 22:00 UNV objective Nurses at bedside. Alert awake oriented to place and person and she knows that she is in the hospital. HEENT neck supple no JVD. Heart regular rate and rhythm S1-S2. Lungs fair air movement without rales or wheezing poor inspiratory effort. Abdomen is soft nontender positive bowel sounds. Extremities no edema positive pulses. laboratory and microbiology Laboratory Tests 02/14/25 11:10 Test 02/14/25 11:10 Range/Units Serum Glucose 98 74-106 mg/dL Assessment/Plan We will put her on soft diet now. DC the Protonix drip and transitioned to oral Protonix twice a day. Also add Carafate. Otherwise continue rest of cardiac medications as she is on. Physical therapy evaluation. We will bladder train and try to take the Che catheter out. Apparently patient catheter was removed yesterday and did not void fully therefore catheter was reinserted. Discussed with the patient's nurse at bedside regarding care plan. Plan discussed with: Patient, Other ISSAC FORREST MD Feb 14, 2025 13:45
--- NOTE | 2025-02-14 15:11 | DVHPN2 ---
Subjective Patient denies abdominal pain No nausea or vomiting Changes from previous H/P or p: No Changes Objective Vitals Vital Signs Date Time Temp Pulse Resp B/P (MAP) Pulse Ox O2 Delivery O2 Flow Rate FiO2 02/14/25 09:53 131 168/83 02/14/25 06:00 19 96 Room Air* 0 21 02/13/25 20:00 99.7 99.7 Intake/Output Intake and Output 02/14/25 07:00 Intake Total 1940 ml Output Total 2600 ml Balance -660 ml Intake Oral 700 ml IV Total 1240 ml Output Urine Total 2600 ml Exam General: NAD, AAOX3 Chest: lung man clear to auscultation Heart: RRR, no murmur Abdomen: non-distended, no tenderness to palpation, +BS General Appearance: Alert, Oriented X3, Cooperative, No acute distress, mild distress, moderate distress, severe distress, Other Lungs: Clear to auscultation, Normal air movement, Other Cardiovascular: Regular rate, Normal S1, Normal S2, No murmurs, Gallops, Rubs, Other Abdomen: Normal bowel sounds, Soft, No tenderness, No hepatospenomegaly, No masses, Other Medications Current Medications Medications Dose Ordered Sig/Sabra Route Start Time Stop Time Status Last Admin Dose Admin Nitroglycerin 0.4 mg Q5MINP PRN SL 02/11/25 12:30 Morphine Sulfate 2 mg Q30M PRN IV 02/11/25 12:30 02/11/25 23:46 2 MG Diagnostic Test (Pha) 1 strip Q6HR 02/11/25 18:00 02/14/25 14:18 1 STRIP Insulin Human Regular Q6HR SC 02/11/25 18:00 Dextrose 50 ml UD PRN IV 02/11/25 12:30 Cefepime HCl 50 ml @ 12.5 mls/hr Q12HR IV 02/11/25 12:31 02/14/25 09:53 12.5 MLS/HR Vancomycin HCl 0 ml @ 0 mls/hr UD IV 02/11/25 12:30 Ondansetron HCl 4 mg Q4HPRN PRN IV 02/11/25 12:30 02/11/25 14:13 4 MG Morphine Sulfate 2 mg Q4HPRN PRN IV 02/11/25 12:30 Iron Sucrose 110 ml @ 110 mls/hr DAILY@1200 IV 02/13/25 12:00 02/17/25 12:59 02/14/25 14:16 110 MLS/HR Olanzapine 5 mg QPM PO 02/12/25 18:00 02/13/25 17:53 5 MG Lactulose 30 ml Q6HPRN PRN PO 02/12/25 18:00 Mupirocin 1 applic BID EACHNOSTRI 02/13/25 22:00 02/18/25 21:59 02/14/25 09:54 1 APPLIC Vancomycin HCl 100 ml @ 100 mls/hr Q12H IV 02/14/25 15:00 Buspirone HCl 5 mg Q12HR PO 02/14/25 22:00 Pantoprazole Sodium 40 mg BID IV 02/14/25 22:00 Tamsulosin HCl 0.4 mg QPM PO 02/14/25 18:00 Bethanechol Chloride 25 mg Q8HR PO 02/14/25 14:00 Laboratory Results Laboratory Tests 02/14/25 11:10 Chemistry Test 02/14/25 11:10 Calcium Level 8.3 mg/dL (8.7-10.4) L Urinalysis Test 02/11/25 06:28 Urine Color Yellow (Yellow) Urine Clarity Cloudy (Clear) H Urine pH 6.0 (5.0-9.0) Urine Specific [place] 1.013 (1.001-1.035) Urine Protein Normal (Negative) Urine Ketones Negative (Negative) Urine Blood Negative /uL (Negative) Urine Nitrite Negative (Negative) Urine Bilirubin Negative (Negative) Urine Urobilinogen Normal mg/dL (Negative) Urine Leukocyte Esterase 3+ /uL (Negative) H Urine Glucose Normal mg/dL (Normal) Microbiology Microbiology Date/Time Source Procedure Growth Status 02/11/25 17:18 Nose MRSA Screen - Final Methicillin Resistant S.aureus Complete 02/11/25 12:50 Blood Blood Culture - Preliminary NO GROWTH AFTER 72 HOURS OF INCUBATION. Resulted 02/11/25 06:28 Voided Urine Urine Culture - Final Complete Assessment/Plan Assessment/Plan GI bleed GERD Cholelithiasis Constipation Pneumonia Plan: -discussed with Dr. Bartlett Advance diet as tolerated Monitor labs Conservative management Plan discussed with: Patient, Other (RN) Date of Service: Feb 14, 2025 Billing Provider: SUMMER CASEY Common Visit Codes: [id number] INP/OBS CARE(HIGH), [id number]/[id number] SAME DATE (MOD) SUMMER CASEY Feb 14, 2025 15:11
[2025-02-14] MEDS: VANCOMYCIN 750MG KIT 100 ML IV SCH (15:31)
[2025-02-14] MEDS: BETHANECHOL CHLORIDE 25 MG TAB PO SCH (15:35)
[2025-02-14] MEDS: TAMSULOSIN HYDROCHLORIDE 0.4 MG CAP PO SCH (18:00)
[2025-02-14] MEDS: METOPROLOL TARTRATE 1MG/1ML-5ML VIAL IV ONE (19:28)
[2025-02-14] MEDS: PANTOPRAZOLE 40 MG/10 ML VIAL INJ IV SCH (21:48)
[2025-02-14] MEDS: METOPROLOL TARTRATE 25 MG TAB PO ONE (21:49)
[2025-02-15] VITALS (26 sets, daily range): BP systolic 104–178; BP diastolic 48–134; PULSE 95–147; RESP 12–35; TEMP 97.7–97.8; O2SAT 90–99
[2025-02-15] MEDS: hydrALAZINE HCL 20 MG/ML VL IV ONE (06:39)
--- NOTE | 2025-02-15 07:54 | ECG ---
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
[2025-02-15] MEDS: AMIODARONE BOLUS KIT 100 ML IV ONE (09:19)
[2025-02-15] MEDS: AMIODARONE 360mg/200mL PREMIX 200 ML IV ONE (09:20)
--- NOTE | 2025-02-15 10:22 | DVHPN2 ---
Progress Note - Dictate Date Seen: Feb 15, 2025 Medical Necessity Reason Pt with a Central, PICC or Fol: No Subjective Patient denies abdominal pain No nausea or vomiting No GI bleeding reported Labile blood pressure vital signs Vital Sign Date Time Temp Pulse Resp B/P (MAP) Pulse Ox O2 Delivery O2 Flow Rate FiO2 02/15/25 06:39 178/74 02/15/25 06:00 97 18 93 02/15/25 05:37 Room Air* 0 21 02/14/25 20:00 97.7 97.7 Total Intake and Output 02/14/25 02/14/25 02/15/25 15:00 23:00 07:00 Intake Total 110 ml 860 ml 200 ml Output Total 500 ml 500 ml Balance 110 ml 360 ml -300 ml medications Current Medications Medications Dose Ordered Sig/Sabra Route Start Time Stop Time Status Last Admin Dose Admin Nitroglycerin 0.4 mg Q5MINP PRN SL 02/11/25 12:30 Morphine Sulfate 2 mg Q30M PRN IV 02/11/25 12:30 02/11/25 23:46 2 MG Diagnostic Test (Pha) 1 strip Q6HR 02/11/25 18:00 02/15/25 00:17 1 STRIP Insulin Human Regular Q6HR SC 02/11/25 18:00 Dextrose 50 ml UD PRN IV 02/11/25 12:30 Cefepime HCl 50 ml @ 12.5 mls/hr Q12HR IV 02/11/25 12:31 02/15/25 08:30 12.5 MLS/HR Vancomycin HCl 0 ml @ 0 mls/hr UD IV 02/11/25 12:30 Ondansetron HCl 4 mg Q4HPRN PRN IV 02/11/25 12:30 02/11/25 14:13 4 MG Morphine Sulfate 2 mg Q4HPRN PRN IV 02/11/25 12:30 Iron Sucrose 110 ml @ 110 mls/hr DAILY@1200 IV 02/13/25 12:00 02/17/25 12:59 02/14/25 14:16 110 MLS/HR Olanzapine 5 mg QPM PO 02/12/25 18:00 02/13/25 17:53 5 MG Lactulose 30 ml Q6HPRN PRN PO 02/12/25 18:00 Mupirocin 1 applic BID EACHNOSTRI 02/13/25 22:00 02/18/25 21:59 02/14/25 21:51 1 APPLIC Vancomycin HCl 100 ml @ 100 mls/hr Q12H IV 02/14/25 15:00 02/15/25 02:34 100 MLS/HR Buspirone HCl 5 mg Q12HR PO 02/14/25 22:00 Pantoprazole Sodium 40 mg BID IV 02/14/25 22:00 02/14/25 21:48 40 MG Tamsulosin HCl 0.4 mg QPM PO 02/14/25 18:00 Bethanechol Chloride 25 mg Q8HR PO 02/14/25 14:00 02/14/25 21:50 25 MG Amiodarone HCL/ Dextrose 200 ml @ 16.66 mls/ hr Q12H IV 02/15/25 15:15 objective General: NAD, AAOX3 Chest: lung man clear to auscultation Heart: RRR, no murmur Abdomen: non-distended, no tenderness to palpation, +BS laboratory and microbiology Laboratory Tests 02/14/25 11:10 Test 02/14/25 11:10 Range/Units Serum Glucose 98 74-106 mg/dL Problems(with codes): (1) Toxic metabolic encephalopathy (2) Acute chest pain (3) Renal insufficiency (4) Generalized weakness Prognosis Plan Patient has no further evidence of active upper GI bleed Cardiology consult appreciate and patient is assessed to be at high risk for any procedures at this time with troponin trending up also IV Protonix and Zofran Monitor labs, advance diet as tolerated Continue symptomatic treatment GI Services we will continue to follow as needed Plan discussed with: Patient, Other (Margarita Hopperdy) MILLY WINN MD Feb 15, 2025 10:22
--- NOTE | 2025-02-15 15:02 | DVHPN2 ---
Subjective Overnight events noted. Patient denies any complaints requesting to go home but overnight she has developed AFib with RVR currently on amiodarone drip. Changes from previous H/P or p: No Changes Objective Vitals Vital Signs Date Time Temp Pulse Resp B/P (MAP) Pulse Ox O2 Delivery O2 Flow Rate FiO2 02/15/25 14:00 118 02/15/25 14:00 24 97 Room Air* 0 21 02/15/25 13:00 02/15/25 12:00 97.7 97.7 Intake/Output Intake and Output 02/15/25 07:00 Intake Total 1170 ml Output Total 1000 ml Balance 170 ml Intake Oral 700 ml IV Total 470 ml Output Urine Total 1000 ml Exam HEENT pupils are reactive Neck is supple CV is S1-S2 irregular irregular rate and rhythm Respiratory bilateral diminished breath sounds bases GI positive bowel sound Extremity no edema [employer] no motor deficit General Appearance: Alert, Oriented X3, Cooperative, No acute distress, mild distress, moderate distress, severe distress, Other Lungs: Clear to auscultation, Normal air movement, Other Cardiovascular: Regular rate, Normal S1, Normal S2, No murmurs, Gallops, Rubs, Other Abdomen: Normal bowel sounds, Soft, No tenderness, No hepatospenomegaly, No masses, Other Medications Current Medications Medications Dose Ordered Sig/Sabra Route Start Time Stop Time Status Last Admin Dose Admin Nitroglycerin 0.4 mg Q5MINP PRN SL 02/11/25 12:30 Morphine Sulfate 2 mg Q30M PRN IV 02/11/25 12:30 02/11/25 23:46 2 MG Diagnostic Test (Pha) 1 strip Q6HR 02/11/25 18:00 02/15/25 00:17 1 STRIP Insulin Human Regular Q6HR SC 02/11/25 18:00 Dextrose 50 ml UD PRN IV 02/11/25 12:30 Cefepime HCl 50 ml @ 12.5 mls/hr Q12HR IV 02/11/25 12:31 02/15/25 08:30 12.5 MLS/HR Vancomycin HCl 0 ml @ 0 mls/hr UD IV 02/11/25 12:30 Ondansetron HCl 4 mg Q4HPRN PRN IV 02/11/25 12:30 02/11/25 14:13 4 MG Morphine Sulfate 2 mg Q4HPRN PRN IV 02/11/25 12:30 Iron Sucrose 110 ml @ 110 mls/hr DAILY@1200 IV 02/13/25 12:00 02/17/25 12:59 02/14/25 14:16 110 MLS/HR Olanzapine 5 mg QPM PO 02/12/25 18:00 02/13/25 17:53 5 MG Lactulose 30 ml Q6HPRN PRN PO 02/12/25 18:00 Mupirocin 1 applic BID EACHNOSTRI 02/13/25 22:00 02/18/25 21:59 02/14/25 21:51 1 APPLIC Vancomycin HCl 100 ml @ 100 mls/hr Q12H IV 02/14/25 15:00 02/15/25 02:34 100 MLS/HR Buspirone HCl 5 mg Q12HR PO 02/14/25 22:00 Pantoprazole Sodium 40 mg BID IV 02/14/25 22:00 02/14/25 21:48 40 MG Tamsulosin HCl 0.4 mg QPM PO 02/14/25 18:00 Bethanechol Chloride 25 mg Q8HR PO 02/14/25 14:00 02/14/25 21:50 25 MG Amiodarone HCL/ Dextrose 200 ml @ 16.66 mls/ hr Q12H IV 02/15/25 15:15 Laboratory Results Laboratory Tests 02/14/25 11:10 02/15/25 09:43 Urinalysis Test 02/11/25 06:28 Urine Color Yellow (Yellow) Urine Clarity Cloudy (Clear) H Urine pH 6.0 (5.0-9.0) Urine Specific [place] 1.013 (1.001-1.035) Urine Protein Normal (Negative) Urine Ketones Negative (Negative) Urine Blood Negative /uL (Negative) Urine Nitrite Negative (Negative) Urine Bilirubin Negative (Negative) Urine Urobilinogen Normal mg/dL (Negative) Urine Leukocyte Esterase 3+ /uL (Negative) H Urine Glucose Normal mg/dL (Normal) Microbiology Microbiology Date/Time Source Procedure Growth Status 02/11/25 17:18 Nose MRSA Screen - Final Methicillin Resistant S.aureus Complete 02/11/25 12:50 Blood Blood Culture - Preliminary NO GROWTH AFTER 72 HOURS OF INCUBATION. Resulted 02/11/25 06:28 Voided Urine Urine Culture - Final Complete Assessment/Plan Assessment/Plan 64-year-old female with a known history of chronic AFib currently not on any Eliquis, hypertension, congestive heart failure, known CAD who presented to the hospital with a hematemesis, found to have 1. Metabolic encephalopathy 2. If with a RVR currently on IV amiodarone drip 3. Medication noncompliance 4. Hypertension 5. Congestive heart failure unspecified currently not in exacerbation patient 6. Hematemesis currently stable hemoglobin tolerating diet, on Protonix and Carafate 7. Elevated troponin, patient is high risk for any procedure as per Cardiology -tele psych consultation, discontinue aspirin keep the Plavix , physical therapy evaluation and treatment Plan discussed with: Patient My Orders Orders - JODIE RASHID MD Procedure Category Date Status Time Soc Telemed Psych CONS 02/15/25 Transmitted Consult 13:13 Date of Service: Feb 15, 2025 Billing Provider: JODIE RASHID MD Common Visit Codes: NOT BILLABLE JODIE RASHID MD Feb 15, 2025 15:02
[2025-02-15] MEDS: AMIODARONE 360mg/200mL PREMIX 200 ML IV SCH (15:35)
--- NOTE | 2025-02-15 18:18 | DVHINCON2 ---
Date of Service if different f: Feb 15, 2025 Time of Service: 18:13 Consultation ([facility]) Consulting Physician: STEPHANIE FONSECA Sr., MD Labs Laboratory Tests Test 02/11/25 06:26 02/11/25 06:28 02/11/25 12:50 02/14/25 11:10 Prothrombin Time 11.0 sec (9.3-11.8) Prothromb Time International Ratio 1.04 (0.9-1.15) Activated Partial Thromboplast Time 24.6 SEC (24.5-34.5) Total Bilirubin 0.4 mg/dL (0.2-1.0) Aspartate Amino Transf (AST/SGOT) 11 U/L (13-40) Alanine Aminotransferase (ALT/SGPT) 10 U/L (7-40) Alkaline Phosphatase 63 U/L (46-116) Total Protein 5.2 g/dL (5.7-8.2) Albumin 3.2 g/dL (3.2-4.8) Lipase 25 U/L (12-53) Urine Color Yellow (Yellow) Urine Clarity Cloudy (Clear) Urine pH 6.0 (5.0-9.0) Urine Specific [place] 1.013 (1.001-1.035) Urine Protein Normal (Negative) Urine Ketones Negative (Negative) Urine Blood Negative /uL (Negative) Urine Nitrite Negative (Negative) Urine Bilirubin Negative (Negative) Urine Urobilinogen Normal mg/dL (Negative) Urine Leukocyte Esterase 3+ /uL (Negative) Urine Glucose Normal mg/dL (Normal) Lactic Acid Level 3.2 mmol/L (0.4-2.0) White Blood Count 9.0 10^3/uL (4.4-10.8) Red Blood Count 3.41 10^6/uL (4.0-5.20) Hemoglobin 10.2 g/dL (12.2-16.2) Hematocrit 31.2 % (36.0-46.0) Mean Corpuscular Volume 91.7 fL (80.0-100.0) Mean Corpuscular Hemoglobin 30.0 pg (28.0-32.0) Mean Corpuscular Hemoglobin Concent 32.8 g/dL (32.0-36.0) Red Cell Distribution Width 14.3 % (11.8-14.3) Platelet Count 224 10^3/uL (140-450) Mean Platelet Volume 8.2 fL (6.9-10.8) Neutrophils (%) (Auto) 70.4 % (37.0-80.0) Lymphocytes (%) (Auto) 21.6 % (10.0-50.0) Monocytes (%) (Auto) 7.8 % (0.0-12.0) Eosinophils (%) (Auto) 0.0 % (0.0-7.0) Basophils (%) (Auto) 0.2 % (0.0-2.0) Neutrophils # (Auto) 6.3 10 ^3/uL (1.6-8.6) Lymphocytes # (Auto) 1.9 10 ^3/uL (0.4-5.4) Monocytes # (Auto) 0.7 10 ^3/uL (0-1.3) Eosinophils # (Auto) 0 10 ^3/uL (0-0.8) Basophils # (Auto) 0 10 ^3/uL (0-0.2) Nucleated Red Blood Cells 0.1 % Sodium Level 146 mmol/L (136-145) Potassium Level 3.9 mmol/L (3.5-5.1) Chloride Level 108 mmol/L (98-107) Carbon Dioxide Level 27 mmol/L (20-31) Anion Gap 11 (5-15) Blood Urea Nitrogen 9 mg/dL (9-23) BUN/Creatinine Ratio 12.0 (10.0-20.0) Serum Glucose 98 mg/dL (74-106) Calcium Level 8.3 mg/dL (8.7-10.4) Vancomycin Level Trough 6.7 ug/mL (5-10) Test 02/15/25 00:00 02/15/25 09:43 Bedside Glucose 105 mg/dl (70-106) Creatinine 0.77 mg/dL (0.550-1.02) Glomerular Filtration Rate Calc 85 mL/min (>90) Troponin I High Sensitivity 409 ng/L (</=34) Microbiology Date/Time Source Procedure Growth Status 02/11/25 17:18 Nose MRSA Screen - Final Methicillin Resistant S.aureus Complete 02/11/25 12:50 Blood Blood Culture - Preliminary NO GROWTH AFTER 72 HOURS OF INCUBATION. Resulted 02/11/25 06:28 Voided Urine Urine Culture - Final Complete Vitals Vital Signs Date Time Temp Pulse Resp B/P (MAP) Pulse Ox O2 Delivery O2 Flow Rate FiO2 02/15/25 18:00 137 29 96 02/15/25 18:00 Room Air* 0 21 02/15/25 12:00 97.7 97.7 Current medications Current Medications Medications Dose Ordered Sig/Sabra Route Start Time Stop Time Status Last Admin Dose Admin Nitroglycerin 0.4 mg Q5MINP PRN SL 02/11/25 12:30 Morphine Sulfate 2 mg Q30M PRN IV 02/11/25 12:30 02/11/25 23:46 2 MG Diagnostic Test (Pha) 1 strip Q6HR 02/11/25 18:00 02/15/25 00:17 1 STRIP Insulin Human Regular Q6HR SC 02/11/25 18:00 Dextrose 50 ml UD PRN IV 02/11/25 12:30 Cefepime HCl 50 ml @ 12.5 mls/hr Q12HR IV 02/11/25 12:31 02/15/25 08:30 12.5 MLS/HR Vancomycin HCl 0 ml @ 0 mls/hr UD IV 02/11/25 12:30 Ondansetron HCl 4 mg Q4HPRN PRN IV 02/11/25 12:30 02/11/25 14:13 4 MG Morphine Sulfate 2 mg Q4HPRN PRN IV 02/11/25 12:30 Iron Sucrose 110 ml @ 110 mls/hr DAILY@1200 IV 02/13/25 12:00 02/17/25 12:59 02/14/25 14:16 110 MLS/HR Olanzapine 5 mg QPM PO 02/12/25 18:00 02/13/25 17:53 5 MG Lactulose 30 ml Q6HPRN PRN PO 02/12/25 18:00 Mupirocin 1 applic BID EACHNOSTRI 02/13/25 22:00 02/18/25 21:59 02/14/25 21:51 1 APPLIC Vancomycin HCl 100 ml @ 100 mls/hr Q12H IV 02/14/25 15:00 02/15/25 15:35 100 MLS/HR Buspirone HCl 5 mg Q12HR PO 02/14/25 22:00 Pantoprazole Sodium 40 mg BID IV 02/14/25 22:00 02/14/25 21:48 40 MG Tamsulosin HCl 0.4 mg QPM PO 02/14/25 18:00 Bethanechol Chloride 25 mg Q8HR PO 02/14/25 14:00 02/14/25 21:50 25 MG Amiodarone HCL/ Dextrose 200 ml @ 16.66 mls/ hr Q12H IV 02/15/25 15:15 02/15/25 15:35 16.66 MLS/HR PSYCHIATRY CONSULTATION BRIEF NOTE Author attempted to speak to primary MD to clarify reason for consult, however, not able to connect via phone. Per current RN, pt is not attempting to leave at this time. Is calm. - If pt is declining a specific component of care or trying to leave AMA, the primary MD can evaluate for capacity and document findings, then proceed as appropriate. If team questions if capacity is compromised by a possible psychiatric etiology, re-consult psychiatry. Team may need to be available to provide informed consent regarding the care to be administered. SATNAM RAMOS MD Feb 15, 2025 18:18
[2025-02-15] MEDS: MORPHINE SULFATE INJ 2 MG/ml SYRG IV PRN (22:25)
[2025-02-16] VITALS (19 sets, daily range): BP systolic 135–191; BP diastolic 41–112; PULSE 72–122; RESP 13–26; TEMP 97.2–98.9; O2SAT 91–100
[2025-02-16] MEDS: METOPROLOL TARTRATE 1MG/1ML-5ML VIAL IV ONE ×2 (01:59→02:01)
[2025-02-16 02:06] LABS: Hematocrit 28.3 % (36.0-46.0); Hemoglobin 9.4 g/dL (12.2-16.2); Mean Corpuscular Hemoglobin 30.2 pg (28.0-32.0); Mean Corpuscular Volume 90.4 fL (80.0-100.0); Nucleated Red Blood Cells % 0.0 %
[2025-02-16] MEDS: AMIODARONE HCL 200 MG TAB PO SCH (10:00)
[2025-02-16] MEDS: METOPROLOL SUCCINATE XL 50 MG TAB PO SCH (10:02)
--- NOTE | 2025-02-16 14:11 | DVHPN2 ---
Subjective Overnight events noted. Patient's AFib is rate controlled now currently off the amiodarone drip. Changes from previous H/P or p: No Changes Objective Vitals Vital Signs Date Time Temp Pulse Resp B/P (MAP) Pulse Ox O2 Delivery O2 Flow Rate FiO2 02/16/25 13:07 169/61 02/16/25 12:00 18 95 Room Air* 0 21 02/16/25 12:00 98.9 97 98.9 Intake/Output Intake and Output 02/16/25 07:00 Intake Total 1173.21 ml Output Total 850 ml Balance 323.21 ml Intake Oral 440 ml IV Total 733.21 ml Output Urine Total 850 ml Exam HEENT pupils are reactive Neck is supple CV is S1-S2 irregular irregular rate and rhythm Respiratory bilateral diminished breath sounds bases GI positive bowel sound Extremity no edema STAFFING RN no motor deficit General Appearance: Alert, Oriented X3, Cooperative, No acute distress, mild distress, moderate distress, severe distress, Other Lungs: Clear to auscultation, Normal air movement, Other Cardiovascular: Regular rate, Normal S1, Normal S2, No murmurs, Gallops, Rubs, Other Abdomen: Normal bowel sounds, Soft, No tenderness, No hepatospenomegaly, No masses, Other Medications Current Medications Medications Dose Ordered Sig/Sabra Route Start Time Stop Time Status Last Admin Dose Admin Nitroglycerin 0.4 mg Q5MINP PRN SL 02/11/25 12:30 Morphine Sulfate 2 mg Q30M PRN IV 02/11/25 12:30 02/11/25 23:46 2 MG Diagnostic Test (Pha) 1 strip Q6HR 02/11/25 18:00 02/16/25 11:45 1 STRIP Insulin Human Regular Q6HR SC 02/11/25 18:00 Dextrose 50 ml UD PRN IV 02/11/25 12:30 Cefepime HCl 50 ml @ 12.5 mls/hr Q12HR IV 02/11/25 12:31 02/16/25 08:01 12.5 MLS/HR Vancomycin HCl 0 ml @ 0 mls/hr UD IV 02/11/25 12:30 Ondansetron HCl 4 mg Q4HPRN PRN IV 02/11/25 12:30 02/16/25 01:58 4 MG Morphine Sulfate 2 mg Q4HPRN PRN IV 02/11/25 12:30 02/15/25 22:25 2 MG Iron Sucrose 110 ml @ 110 mls/hr DAILY@1200 IV 02/13/25 12:00 02/17/25 12:59 02/16/25 12:17 110 MLS/HR Olanzapine 5 mg QPM PO 02/12/25 18:00 02/13/25 17:53 5 MG Lactulose 30 ml Q6HPRN PRN PO 02/12/25 18:00 Mupirocin 1 applic BID EACHNOSTRI 02/13/25 22:00 02/18/25 21:59 02/14/25 21:51 1 APPLIC Vancomycin HCl 100 ml @ 100 mls/hr Q12H IV 02/14/25 15:00 02/16/25 02:52 100 MLS/HR Buspirone HCl 5 mg Q12HR PO 02/14/25 22:00 Pantoprazole Sodium 40 mg BID IV 02/14/25 22:00 02/15/25 22:23 40 MG Tamsulosin HCl 0.4 mg QPM PO 02/14/25 18:00 Bethanechol Chloride 25 mg Q8HR PO 02/14/25 14:00 02/15/25 22:23 25 MG Amiodarone HCl 200 mg Q12HR PO 02/16/25 10:00 02/16/25 10:00 200 MG Nifedipine 30 mg BID PO 02/16/25 10:00 02/16/25 10:00 30 MG Metoprolol Succinate 25 mg DAILY PO 02/16/25 10:00 02/16/25 10:02 25 MG Clonidine HCl 0.1 mg TID PO 02/16/25 14:00 02/16/25 12:07 0.1 MG Laboratory Results Laboratory Tests 02/14/25 11:10 02/16/25 01:50 Urinalysis Test 02/11/25 06:28 Urine Color Yellow (Yellow) Urine Clarity Cloudy (Clear) H Urine pH 6.0 (5.0-9.0) Urine Specific [place] 1.013 (1.001-1.035) Urine Protein Normal (Negative) Urine Ketones Negative (Negative) Urine Blood Negative /uL (Negative) Urine Nitrite Negative (Negative) Urine Bilirubin Negative (Negative) Urine Urobilinogen Normal mg/dL (Negative) Urine Leukocyte Esterase 3+ /uL (Negative) H Urine Glucose Normal mg/dL (Normal) Microbiology Microbiology Date/Time Source Procedure Growth Status 02/11/25 17:18 Nose MRSA Screen - Final Methicillin Resistant S.aureus Complete 02/11/25 12:50 Blood Blood Culture - Final NO GROWTH AFTER 5 DAYS OF INCUBATION. Complete 02/11/25 06:28 Voided Urine Urine Culture - Final Complete Assessment/Plan Assessment/Plan 64-year-old female with a known history of chronic AFib currently not on any Eliquis, hypertension, congestive heart failure, known CAD who presented to the hospital with a hematemesis, found to have 1. Metabolic encephalopathy 2. If with a RVR currently currently off of amiodarone drip. 3. Medication noncompliance 4. Hypertension 5. Congestive heart failure unspecified currently not in exacerbation patient 6. Hematemesis currently stable hemoglobin tolerating diet, on Protonix and Carafate 7. Elevated troponin, patient is high risk for any procedure as per Cardiology -discontinue IV amiodarone, start p.o. amiodarone, keep Plavix, , physical therapy evaluation and treatment -discharge plan. Plan discussed with: Patient My Orders Orders - JODIE RASHID MD Procedure Category Date Status Time Amiodarone Tablet PHA 02/16/25 In Process (Cordarone Tablet) 10:00 Nifedipine Er PHA 02/16/25 In Process (Procardia Xl 10:00 Metoprolol Xl PHA 02/16/25 In Process Succinate (Toprol Xl) 10:00 Clonidine Hcl Tablet PHA 02/16/25 In Process (Catapres Tablet) 14:00 Transfer Orders XFER 02/16/25 Transmitted 12:34 Date of Service: Feb 16, 2025 Billing Provider: JODIE RASHID MD Common Visit Codes: NOT BILLABLE JODIE RASHID MD Feb 16, 2025 14:11
[2025-02-16] MEDS ORDERED: hydrALAZINE HCL 20 MG/ML VL IV PRN (14:15)
[2025-02-16] MEDS: hydrALAZINE HCL 20 MG/ML VL ONE (14:23)
[2025-02-16] MEDS ORDERED: FLUTICASONE PROP NASAL SPR 0.05 % (50MCG) 16GM EACHNOSTRI ONE (15:45)
[2025-02-16] MEDS: FLUTICASONE PROP NASAL SPR 0.05 % (50MCG) 16GM EACHNOSTRI SCH (17:30)
[2025-02-17] VITALS (7 sets, daily range): BP systolic 116–136; BP diastolic 50–70; PULSE 80–91; RESP 16–18; TEMP 36.6; O2SAT 94–97
--- NOTE | 2025-02-17 09:25 | MEDREC ---
[facility] ASP Intervention Section I [facility] Intervention: Review courses of therapy (PLEASE CONSIDER D/C ANTIBIOTIC IN ABSENCE OF BACTERIAL INFECTION ) DAVID LAMAS PHARMACIST Feb 17, 2025 09:25
[2025-02-17] MEDS ORDERED: NITR0.4S29 SL (14:35)
[2025-02-17] MEDS ORDERED: CLON0.1T PO (14:35)
[2025-02-17] MEDS ORDERED: AMIO200T13 PO (14:35)
[2025-02-17] MEDS ORDERED: METO25TA36 PO (14:35)
[2025-02-17] MEDS ORDERED: SUCR1TAB31 OR (14:41)
[2025-02-17] MEDS ORDERED: PANT40TA2 PO (14:41)
--- NOTE | 2025-02-17 14:41 | DVHDS2 ---
Discharge Summary Date of Admission Feb 11, 2025 at 12:17 Date of Discharge: Feb 17, 2025 Labs/Diagnostic Data: Laboratory Results Test 02/17/25 13:14 02/17/25 06:32 02/16/25 01:50 02/14/25 11:10 POC Glucose 123 mg/dl (70-106) Creatinine 0.91 mg/dL (0.550-1.02) Glomerular Filtration Rate Calc 70 mL/min (>90) White Blood Count 7.7 10^3/uL (4.4-10.8) Red Blood Count 3.13 10^6/uL (4.0-5.20) Hemoglobin 9.4 g/dL (12.2-16.2) Hematocrit 28.3 % (36.0-46.0) Mean Corpuscular Volume 90.4 fL (80.0-100.0) Mean Corpuscular Hemoglobin 30.2 pg (28.0-32.0) Mean Corpuscular Hemoglobin Concent 33.4 g/dL (32.0-36.0) Red Cell Distribution Width 14.3 % (11.8-14.3) Platelet Count 264 10^3/uL (140-450) Mean Platelet Volume 8.0 fL (6.9-10.8) Neutrophils (%) (Auto) 71.4 % (37.0-80.0) Lymphocytes (%) (Auto) 19.6 % (10.0-50.0) Monocytes (%) (Auto) 8.7 % (0.0-12.0) Eosinophils (%) (Auto) 0.0 % (0.0-7.0) Basophils (%) (Auto) 0.3 % (0.0-2.0) Neutrophils # (Auto) 5.5 10 ^3/uL (1.6-8.6) Lymphocytes # (Auto) 1.5 10 ^3/uL (0.4-5.4) Monocytes # (Auto) 0.7 10 ^3/uL (0-1.3) Eosinophils # (Auto) 0 10 ^3/uL (0-0.8) Basophils # (Auto) 0 10 ^3/uL (0-0.2) Nucleated Red Blood Cells 0.0 % Troponin I High Sensitivity 473 ng/L (</=34) Vancomycin Level Trough 16.3 ug/mL (5-10) Sodium Level 146 mmol/L (136-145) Potassium Level 3.9 mmol/L (3.5-5.1) Chloride Level 108 mmol/L (98-107) Carbon Dioxide Level 27 mmol/L (20-31) Anion Gap 11 (5-15) Blood Urea Nitrogen 9 mg/dL (9-23) BUN/Creatinine Ratio 12.0 (10.0-20.0) Serum Glucose 98 mg/dL (74-106) Calcium Level 8.3 mg/dL (8.7-10.4) Test 02/11/25 12:50 02/11/25 06:28 02/11/25 06:26 Lactic Acid Level 3.2 mmol/L (0.4-2.0) Urine Color Yellow (Yellow) Urine Clarity Cloudy (Clear) Urine pH 6.0 (5.0-9.0) Urine Specific [place] 1.013 (1.001-1.035) Urine Protein Normal (Negative) Urine Ketones Negative (Negative) Urine Blood Negative /uL (Negative) Urine Nitrite Negative (Negative) Urine Bilirubin Negative (Negative) Urine Urobilinogen Normal mg/dL (Negative) Urine Leukocyte Esterase 3+ /uL (Negative) Urine Glucose Normal mg/dL (Normal) Prothrombin Time 11.0 sec (9.3-11.8) Prothrombin Time INR 1.04 (0.9-1.15) Activated Partial Thromboplast Time 24.6 SEC (24.5-34.5) Total Bilirubin 0.4 mg/dL (0.2-1.0) Aspartate Amino Transferase (AST) 11 U/L (13-40) Alanine Aminotransferase (ALT) 10 U/L (7-40) Alkaline Phosphatase 63 U/L (46-116) Total Protein 5.2 g/dL (5.7-8.2) Albumin 3.2 g/dL (3.2-4.8) Lipase 25 U/L (12-53) Other Laboratory Tests 02/17/25 06:32 02/16/25 01:50 02/14/25 11:10 Brief Hx & Hospital Course: 64-year-old female with a known history of chronic AFib currently not on any Eliquis, hypertension, congestive heart failure, known CAD who presented to the hospital with a hematemesis, found to have acute on chronic anemia. Patient's was also found to have elevated troponin suspected non-STEMI. Patient's hospital course was eventful for AFib with a RVR requiring amiodarone drip which was changed to p.o. amiodarone. Patient was seen by Cardiology but patient was high risk for any intervention just medical management. Because of the recent GI bleed, GI procedure was definite as well because of the cardiac issues. Patient was empirically treated with a Protonix Carafate. Also patient was seen by Cardiology who recommended no aspirin for now as patient has a recent bleed and hold Eliquis as well. Patient will be continued on Plavix and Protonix and Carafate as well as amiodarone and metoprolol succinate. Patient is requesting to go home today patient denies any chest pain shortness of breath currently stable to be discharged with a close follow up as an outpatient with the PCP, GI as well as Cardiology. Condition at Discharge: Stable Final Diagnosis/Problems List 64-year-old female with a known history of chronic AFib currently not on any Eliquis, hypertension, congestive heart failure, known CAD who presented to the hospital with a hematemesis, found to have 1. Metabolic encephalopathy 2. If with a RVR currently currently off of amiodarone drip. 3. Medication noncompliance 4. Hypertension 5. Congestive heart failure unspecified currently not in exacerbation patient 6. Hematemesis currently stable hemoglobin tolerating diet, on Protonix and Carafate 7. Elevated troponin, patient is high risk for any procedure as per Cardiology Discharge Disposition: Home with [facility] Services [facility] Discharge Will this Physician continue t: No Discharge Instruct/Medications Diet: Cardiac 2g Na,low cholest Activity: No Restrictions, As Tolerated Follow Up/Referral: Follow up with the PCP in one week, resume aspirin and Eliquis as an outpatient after discussion with the PCP Follow up with the Cardiology in one week. Follow up with the GI in 1-2 weeks. Medications: Protonix, Carafate, amiodarone, metoprolol succinate as prescribed. New Medications: Metoprolol Succinate (Toprol Xl) 25 Mg Tab 1 TAB PO DAILY, #30 TAB 5 Refills Pantoprazole Sodium Sesquihydr (Protonix) 40 Mg Tab 40 MG PO DAILY, #30 TAB Sucralfate (Carafate) 1 Gm Tab 1 GM OR ACHS for 30 Days, #120 TAB Amiodarone HCl (Amiodarone HCl) 200 Mg Tab 200 MG PO Q12HR, #60 TAB Clonidine Hydrochloride (Clonidine Hcl) 0.1 Mg Tab 0.1 MG PO TID, #90 TAB Nitroglycerin (Ntrostat Sublingual) 0.4 Mg Sl 0.4 MG SL Q5MINP PRN, #30 TAB Continued Medications: Atorvastatin Calcium (Atorvastatin Calcium) 20 Mg Tab 1 TAB PO DAILY for 30 Days, #30 TAB Bupropion Hcl (Bupropion Hcl Xl) 150 Mg Tab 1 TAB PO DAILY for 90 Days, #90 TAB Clopidogrel Bisulfate (Clopidogrel) 75 Mg Tab 1 TAB PO DAILY Fluticasone Propionate (Nasal) (Flonase Allergy Relief) 50 Mcg/Act Spr 50 MCG NA BID for 30 Days, #1 SPRAY 0 Refills Levothyroxine Sodium (Levothyroxine Sodium) 50 Mcg Tab 1 TAB PO DAILY for 30 Days, #30 TAB Nifedipine (Nifedipine Er) 60 Mg Tab 1 TAB PO BID, #90 TAB 1 Refill Discontinued Medications: Apixaban Base (Eliquis) 5 Mg Tab 1 TAB PO BID for 30 Days, #60 TAB Aspirin (Aspirin Ec Low Dose) 81 Mg Tab 81 MG PO DAILY MDD ., #90 TAB Carvedilol (Carvedilol) 12.5 Mg Tab 1 TAB PO BID for 90 Days, #180 TAB Clonidine Hydrochloride (Clonidine Hcl) 0.1 Mg Tab 0.1 MG PO TID MDD ., #100 TAB Scheduled Amiodarone HCl (Amiodarone HCl), 200 MG PO Q12HR Apixaban Base (Eliquis), 1 TAB PO BID Aspirin (Aspirin Ec Low Dose), 81 MG PO DAILY Atorvastatin Calcium (Atorvastatin Calcium), 1 TAB PO DAILY Bupropion Hcl (Bupropion Hcl Xl), 1 TAB PO DAILY Carvedilol (Carvedilol), 1 TAB PO BID Clonidine Hydrochloride (Clonidine Hcl), 0.1 MG PO TID Clonidine Hydrochloride (Clonidine Hcl), 0.1 MG PO TID Clopidogrel Bisulfate (Clopidogrel), 1 TAB PO DAILY, (Reported) Fluticasone Propionate (Nasal) (Flonase Allergy Relief), 50 MCG NA BID Levothyroxine Sodium (Levothyroxine Sodium), 1 TAB PO DAILY Metoprolol Succinate (Toprol Xl), 1 TAB PO DAILY Nifedipine (Nifedipine Er), 1 TAB PO BID Pantoprazole Sodium Sesquihydr (Protonix), 40 MG PO DAILY Sucralfate (Carafate), 1 GM OR ACHS Scheduled PRN Nitroglycerin (Ntrostat Sublingual), 0.4 MG SL Q5MINP PRN Discharge Statement: "Patient was advised to return to the ER or call 911 if any headaches, dizziness, shortness of breath, chest pain, abdominal pain, bleeding, fevers, or worsening of medical condition. Patient was counseled about treatment plan, medications, possible side effects, patientverbalized understanding. All questions were answered to the best of my ability. This discharge took greater then 30 minutes in planning, reviewing documentation, counseling the patient, and discussing with other team members." ASSESSMENT ASSESSMENT Assessment 64-year-old female with a known history of chronic AFib currently not on any Eliquis, hypertension, congestive heart failure, known CAD who presented to the hospital with a hematemesis, found to have 1. Metabolic encephalopathy 2. If with a RVR currently currently off of amiodarone drip. 3. Medication noncompliance 4. Hypertension 5. Congestive heart failure unspecified currently not in exacerbation patient 6. Hematemesis currently stable hemoglobin tolerating diet, on Protonix and Carafate 7. Elevated troponin, patient is high risk for any procedure as per Cardiology Date of Service: Feb 17, 2025 Billing Provider: JODIE RASHID MD Common Visit Codes: NOT BILLABLE JODIE RASHID MD Feb 17, 2025 14:40
== END 2025-02-17 19:02 | disposition home health service (06) | DRG 377 ==
LOC: EDBD 05:47 → ER 05:53 → OVERFLOW 12:17 → DOU 17:17 → TELE-WESTW 02-16 17:05
PROVIDERS: ADMIT Hospitalist; ATTEND Hospitalist
PROC: 30233N1 Transfusion of Nonautologous Red Blood Cells into Peripheral Vein, Percutaneous Approach (ICD-10-PCS; principal; 2025-02-12)
PROC: 05HA33Z Insertion of Infusion Device into Left Brachial Vein, Percutaneous Approach (ICD-10-PCS; 2025-02-12)
PROC: B54NZZA Ultrasonography of Left Upper Extremity Veins, Guidance (ICD-10-PCS; 2025-02-12)
DX: K92.0 Hematemesis (principal); G93.41 Metabolic encephalopathy; I21.A1 Myocardial infarction type 2; J15.69 Pneumonia due to other Gram-negative bacteria; R57.8 Other shock; J15.9 Unspecified bacterial pneumonia; E87.20 Acidosis, unspecified; I48.91 Unspecified atrial fibrillation; I16.0 Hypertensive urgency; D64.9 Anemia, unspecified; K21.9 Gastro-esophageal reflux disease without esophagitis; K80.20 Calculus of gallbladder without cholecystitis without obstruction; K59.00 Constipation, unspecified; I11.0 Hypertensive heart disease with heart failure; E03.9 Hypothyroidism, unspecified; E78.5 Hyperlipidemia, unspecified; I25.10 Atherosclerotic heart disease of native coronary artery without angina pectoris; I50.9 Heart failure, unspecified; F32.A Depression, unspecified; E86.0 Dehydration; F41.9 Anxiety disorder, unspecified; Z88.8 Allergy status to other drugs, medicaments and biological substances; Z79.02 Long term (current) use of antithrombotics/antiplatelets; Z82.0 Family history of epilepsy and other diseases of the nervous system; Z82.49 Family history of ischemic heart disease and other diseases of the circulatory system; Z91.148 Patient's other noncompliance with medication regimen for other reason; I25.2 Old myocardial infarction; Z79.899 Other long term (current) drug therapy; Z79.82 Long term (current) use of aspirin; Z87.440 Personal history of urinary (tract) infections
CPT/HCPCS: 36415; 36430; 71045; 74177; 80048; 80053; 80202; 81003; 82565; 82962; 83605; 83690; 84484; 85014; 85018; 85025; 85610; 85730; 86850; 86900; 86901; 86920; 87040; 87081; 87086; 93005; 96365; 96375; 97110; 97116; 97163; 97530; 99291; 99292; G0378; J0692; J1756; J2250; J2405; J2470